=== PATIENT | female | born 1985 | race African-American/Black ===

== ENCOUNTER → 2016-07-04 | Outpatient (CLI) | payer MEDICAID ==
[~2016-07-04] MED LIST: /DIVA50TA PO; ACET50TA PO; BUSP5TA PO; CELE40TA PO; CLON-412 PO; DEPA500T2 PO; METH10TA2 PO; MOTR200T44 PO; MULT1TAB8 PO; NEUR800T PO; PAXI10TA2 PO; TRAZ50TA2 PO; no home medications
== END | disposition home or self-care (01) ==
LOC: M OUTALCOH 09:35
PROVIDERS: ATTEND Psychiatry & Neurology Psychiatry
DX: Z13.9 Encounter for screening, unspecified (principal); F11.20 Opioid dependence, uncomplicated

== ENCOUNTER → 2016-07-17 | Outpatient (CLI) | payer OTHER ==
[2016-07-17 18:30] LABS: ALBUMIN 3.6 GM/DL (3.2-5.2); ALBUMIN/GLOBULIN RATIO 0.95 (1.00-1.93); ALKALINE PHOSPHATASE 125 U/L (45-117); ALT/SGPT 67 U/L (12-78); AST/SGOT 17 U/L (15-37); BILIRUBIN,DIRECT < 0.1 MG/DL (0.0-0.2); BILIRUBIN,TOTAL 0.2 MG/DL (0.2-1.0); TOTAL PROTEIN 7.4 GM/DL (6.4-8.2)
== END | disposition home or self-care (01) ==
LOC: M LAB 16:56
PROVIDERS: ATTEND Nurse Practitioner Family
DX: R74.8 Abnormal levels of other serum enzymes (principal); E55.9 Vitamin D deficiency, unspecified

== ENCOUNTER → 2016-08-04 | Outpatient (CLI) | payer OTHER | LOC: M OUTALCOH 14:49 | PROVIDERS: ATTEND Psychiatry & Neurology Psychiatry | DX: Z13.9 Encounter for screening, unspecified (principal); F11.20 Opioid dependence, uncomplicated ==

== ENCOUNTER 2016-08-17 10:30 | Outpatient (RCR) | payer OTHER | END 2016-09-08 | LOC: M OUTALCOH 10:30 | PROVIDERS: ATTEND Psychiatry & Neurology Psychiatry | DX: F11.20 Opioid dependence, uncomplicated (principal); Z72.0 Tobacco use ==

== ENCOUNTER → 2016-10-30 | Outpatient (CLI) | payer OTHER ==
[2016-10-30 18:48] LABS: ALBUMIN 3.3 GM/DL (3.2-5.2); ALBUMIN/GLOBULIN RATIO 0.92 (1.00-1.93); ALKALINE PHOSPHATASE 110 U/L (45-117); ALT/SGPT 45 U/L (12-78); ANION GAP 7 MEQ/L (8-16); AST/SGOT 17 U/L (15-37); BILIRUBIN,TOTAL 0.2 MG/DL (0.2-1.0); BLOOD UREA NITROGEN 12 MG/DL (7-18); CALCIUM LEVEL 8.2 MG/DL (8.5-10.1); CARBON DIOXIDE LEVEL 28 MEQ/L (21-32); CHLORIDE LEVEL 106 MEQ/L (98-107); CHOLESTEROL LEVEL 218 MG/DL (<200); GLOMERULAR FILTRATION RATE > 60.0 (>60); GLUCOSE, FASTING 92 MG/DL (70-105); POTASSIUM SERUM 4.7 MEQ/L (3.5-5.1); SODIUM LEVEL 141 MEQ/L (136-145); TOTAL PROTEIN 6.9 GM/DL (6.4-8.2); TRIGLYCERIDES LEVEL 328 MG/DL (<150)
== END ==
LOC: M LAB 16:27
PROVIDERS: ATTEND Nurse Practitioner Family
DX: R35.1 Nocturia (principal); R10.2 Pelvic and perineal pain; R74.8 Abnormal levels of other serum enzymes; E78.5 Hyperlipidemia, unspecified; E55.9 Vitamin D deficiency, unspecified

== ENCOUNTER → 2016-11-03 | Outpatient (CLI) | payer OTHER ==
--- NOTE | 2016-11-03 15:25 | REP ---
Clinical: Multinodular goiter. Comparison: 09/04/2013. Technique: Real time rivera scale and color evaluation using linear high frequency transducer. Findings: The thyroid gland is diffusely heterogeneous, enlarged and demonstrates multiple scattered nodules and cysts. Right lobe measures 6.1 x 2.3 x 1.9 cm and includes a 4.0 x 3.2 x 4.4 mm nodule in the upper pole and the 15 x 10 x 14 mm nodule in the lower pole which is minimally increased in size (previously measuring 12 x 9 x 10 mm). Isthmus measures 7.5 mm in with and includes a complex cyst measuring 15 x 9 x 16 mm which is minimally increased from prior examination (previously measuring 10 x 6 x 9 mm). Left lobe measures 6.4 x 2.4 x 2.2 cm with multiple small scattered cysts and nodules. Largest nodule noted in the mid pole measures 6 x 3 x 6 mm. Impression: Multinodular goiter with the most prominent nodule in the right lower lobe and complex cyst in the isthmus minimally enlarged from prior examination. Signed by Mik Mcgraw MD 11/03/2016 03:17 P
== END ==
LOC: M RAD 14:32
PROVIDERS: ATTEND Nurse Practitioner Family
DX: E04.2 Nontoxic multinodular goiter (principal)

== ENCOUNTER 2016-11-28 21:58 | Emergency (ER) | payer OTHER ==
[~2016-11-28] VITALS: Ht 165.1 cm; Wt 119.0 kg
[2016-11-28 22:07] VITALS: BP 153/97
[2016-11-28] MEDS ORDERED: SUBO8MIS (22:12)
[2016-11-28] MEDS ORDERED: VITA50003 (22:12)
[2016-11-28] MEDS ORDERED: MIRT45TA (22:12)
[2016-11-28] MEDS ORDERED: CLON0.2T (22:12)
[2016-11-28] MEDS ORDERED: EXCETAB68 PO (22:12)
== END 2016-11-28 23:53 | disposition left against medical advice (07) ==
LOC: M ED 23:48
DX: M79.601 Pain in right arm (principal); Z53.29 Procedure and treatment not carried out because of patient's decision for other reasons

== ENCOUNTER → 2017-02-16 | Outpatient (REF) | payer OTHER ==
[~2017-02-16] MED LIST changes: +CLON0.2T; +EXCETAB68 PO; +MIRT45TA; +SUBO8MIS; +VITA1CAP40
[2017-02-19 15:11] LABS: CALCIUM OXALATE CRYSTALS MODERATE
== END ==
LOC: M LAB REF 12:54
PROVIDERS: ATTEND Family Medicine Addiction Medicine
DX: R10.2 Pelvic and perineal pain (principal)

== ENCOUNTER → 2017-03-02 | Outpatient (CLI) | payer OTHER | LOC: M LAB 21:16 | PROVIDERS: ATTEND Physician Assistant | DX: N20.0 Calculus of kidney (principal) ==

== ENCOUNTER → 2017-03-21 | Outpatient (CLI) | payer OTHER ==
[2017-03-21 14:46] LABS: BASO % 0.3 % (0.0-1.0); EOS # 0.1 10^3/uL (0.0-0.50); IMMATURE GRANULOCYTE % 0.2 % (0-0); LYMPH # 3.4 10^3/uL (1.5-6.5); LYMPH % 50.9 % (24.0-44.0); MEAN CORPUSCULAR HEMOGLOBIN 28.5 pg (27.0-33.0); MEAN CORPUSCULAR HGB CONC 32.4 g/dl (32.0-36.5); MONO # 0.3 10^3/uL (0.0-0.8); MONO % 5.1 % (0.0-5.0); NEUTROPHILS # 2.8 10^3/uL (1.8-7.7); NEUTROPHILS % 41.5 % (36.0-66.0); PLATELET COUNT, AUTOMATED 187 10^3/uL (150-450); RED CELL DISTRIBUTION WIDTH 13.2 % (11.5-14.5); WHITE BLOOD COUNT 6.6 10^3/uL (4.0-10.0)
[2017-03-21 15:37] LABS: ALBUMIN 3.6 GM/DL (3.2-5.2); ALBUMIN/GLOBULIN RATIO 0.92 (1.00-1.93); ALKALINE PHOSPHATASE 91 U/L (45-117); ALT/SGPT 65 U/L (12-78); ANION GAP 4 MEQ/L (8-16); AST/SGOT 32 U/L (15-37); BILIRUBIN,TOTAL 0.4 MG/DL (0.2-1.0); BLOOD UREA NITROGEN 9 MG/DL (7-18); CALCIUM LEVEL 8.5 MG/DL (8.5-10.1); CARBON DIOXIDE LEVEL 28 MEQ/L (21-32); CHLORIDE LEVEL 108 MEQ/L (98-107); CREATININE FOR GFR 1.09 MG/DL (0.55-1.02); GLOMERULAR FILTRATION RATE > 60.0 (>60); GLUCOSE, FASTING 69 MG/DL (70-105); POTASSIUM SERUM 4.4 MEQ/L (3.5-5.1); SODIUM LEVEL 140 MEQ/L (136-145); TOTAL PROTEIN 7.5 GM/DL (6.4-8.2)
--- NOTE | 2017-03-22 10:03 | REP ---
Clinical: Pelvic pain . Technique: Transabdominal pelvic ultrasound followed by transvaginal examination for better evaluation of the endometrium and adnexa with color Doppler evaluation of the ovaries. Findings: Bladder is unremarkable and measures 6.7 x 6.1 x 4.0 cm . Heterogeneous retroverted uterus measures 9.2 x 5.0 x 6.1 cm . The endometrial complex measures 9.1 mm thickness. No discrete uterine or endometrial abnormalities are appreciated. Bilateral ovaries are normal in appearance and vascularity without evidence for torsion. Right ovary measures 3.2 x 3.2 x 4.0 cm including 2.6 cm hemorrhagic cyst ; R I = 0.0.51. Left ovary measures 4.0 x 3.0 x 3.5 cm including 1.8 cm hemorrhagic cyst ; R I = 0.47 . No pelvic fluid or adnexal mass lesion . Impression: 1. Retroverted uterus. 2. Normal bilateral ovaries without torsion. 3. Normal pelvic ultrasound. Signed by Mik Mcgraw MD 03/22/2017 09:54 A
--- NOTE | 2017-03-22 10:04 | REP ---
Clinical: Left upper quadrant pain. Technique: Real time rivera scale ultrasound examination using curved array transducer. Findings: Ultrasound examination of the left upper quadrant demonstrates normal spleen and left kidney. Spleen measures 9.8 x 4.3 x 12.8 cm. Left kidney measures 11.1 x 5.0 x 4.2 cm. No fluid in the left upper quadrant noted. Impression: Normal left upper quadrant ultrasound. Signed by Mik Mcgraw MD 03/22/2017 09:56 A
== END ==
LOC: M LAB 09:32
PROVIDERS: ATTEND Nurse Practitioner Adult Health
DX: E78.5 Hyperlipidemia, unspecified (principal); R35.1 Nocturia; R74.8 Abnormal levels of other serum enzymes; E55.9 Vitamin D deficiency, unspecified

== ENCOUNTER → 2017-03-21 | Outpatient (CLI) | payer OTHER ==
[2017-03-21 15:51] LABS: FREE T4 1.1 NG/DL (0.76-1.46)
== END ==
LOC: M LAB 10:42
PROVIDERS: ATTEND Nurse Practitioner Family
DX: E04.2 Nontoxic multinodular goiter (principal); R79.89 Other specified abnormal findings of blood chemistry; E55.9 Vitamin D deficiency, unspecified

== ENCOUNTER → 2017-03-26 | Outpatient (REF) | payer OTHER | LOC: M LAB REF 16:25 | PROVIDERS: ATTEND Internal Medicine Endocrinology, Diabetes & Metabolism | DX: E04.2 Nontoxic multinodular goiter (principal) ==

== ENCOUNTER 2018-07-03 08:19 | Emergency (ER) | payer OTHER ==
[~2018-07-03] VITALS: Ht 162.6 cm; Wt 100.0 kg
[2018-07-03 08:19] VITALS: BP 131/81
[~2018-07-03 08:19] MED LIST changes: -ACET50TA PO; +MAPA500T2 PO; -MIRT45TA; +MIRT45TA4; -VITA1CAP40; +VITA50005
[2018-07-03] MEDS ORDERED: TRAZ-163 PO (08:24)
== END 2018-07-03 09:31 | disposition left against medical advice (07) ==
LOC: M ED 08:19
DX: R10.2 Pelvic and perineal pain (principal); N89.8 Other specified noninflammatory disorders of vagina; F17.210 Nicotine dependence, cigarettes, uncomplicated; F32.9 Major depressive disorder, single episode, unspecified; F41.9 Anxiety disorder, unspecified; E04.9 Nontoxic goiter, unspecified

== ENCOUNTER → 2019-06-16 | Outpatient (REF) | payer OTHER, MEDICAID ==
[~2019-06-16] MED LIST changes: -/DIVA50TA PO; +DEPA1TAB3 PO; +TRAZ-163 PO
[2019-06-16 13:55] LABS: BLOOD UREA NITROGEN 14 MG/DL (7-18); CARBON DIOXIDE LEVEL 25 MEQ/L (21-32); CHLORIDE LEVEL 105 MEQ/L (98-107); CREATININE FOR GFR 1.01 MG/DL (0.55-1.30); GLOMERULAR FILTRATION RATE > 60.0 (>60); GLUCOSE, FASTING 81 MG/DL (70-100); POTASSIUM SERUM 4.4 MEQ/L (3.5-5.1); PROLACTIN 3.5 NG/ML; SODIUM LEVEL 139 MEQ/L (136-145); THYROID STIMULATING HORMONE 0.536 uIU/ML (0.358-3.740)
[2019-06-16 14:15] LABS: CHLAMYDIA DNA AMPLIFICATION NEGATIVE (NEGATIVE); GC DNA AMPLIFICATION NEGATIVE (NEGATIVE)
== END ==
LOC: M LAB REF 12:18
PROVIDERS: ATTEND Physician Assistant
DX: N64.52 Nipple discharge (principal); Z11.3 Encounter for screening for infections with a predominantly sexual mode of transmission; Z12.4 Encounter for screening for malignant neoplasm of cervix; Z12.39 Encounter for other screening for malignant neoplasm of breast; Z01.419 Encounter for gynecological examination (general) (routine) without abnormal findings

== ENCOUNTER → 2019-07-17 | Outpatient (REF) | payer OTHER, MEDICAID ==
[~2019-07-17] MED LIST changes: -TRAZ-163 PO; +TRAZ-257 PO
[2019-07-17 16:40] LABS: CHLAMYDIA DNA AMPLIFICATION NEGATIVE (NEGATIVE); GC DNA AMPLIFICATION NEGATIVE (NEGATIVE)
== END ==
LOC: M LAB REF 14:37
PROVIDERS: ATTEND Physician Assistant
DX: R30.0 Dysuria (principal)

== ENCOUNTER → 2019-10-06 | Outpatient (REF) | payer OTHER, MEDICAID | LOC: M LAB REF 15:40 | PROVIDERS: ATTEND Physician Assistant | DX: N89.8 Other specified noninflammatory disorders of vagina (principal) ==

== ENCOUNTER → 2019-11-24 | Outpatient (CLI) | payer OTHER, MEDICAID ==
[2019-11-24 14:51] LABS: FREE T4 0.95 NG/DL (0.76-1.46); THYROGLOBULIN ANTIBODY < 15.0 U/ML (<60.0); THYROID STIMULATING HORMONE 0.536 uIU/ML (0.358-3.740)
[2019-11-24 16:15] LABS: THYROID PEROXIDASE ANTIBODY 41.5 U/ML (<60.0)
== END ==
LOC: M LAB 13:41
PROVIDERS: ATTEND Physician Assistant
DX: G47.00 Insomnia, unspecified (principal); E04.0 Nontoxic diffuse goiter; N89.8 Other specified noninflammatory disorders of vagina

== ENCOUNTER → 2020-02-21 | Outpatient (CLI) | payer OTHER ==
[~2020-02-21] MED LIST changes: +KETO10TAB PO
--- NOTE | 2020-02-26 17:30 | SLEEPCENT ---
DATE: 02/21/2020 ORDERED BY: Lilia Almazan NP Nocturnal polysomnography was performed for evaluation of sleep physiology in this patient with snoring and dyssomnia. Seven hours and 24 minutes of data were reviewed. There was 324.5 minutes of sleep identified. Sleep latency was mildly prolonged at 18.5 minutes. REM latency was further prolonged at 249 minutes. Sleep architecture once established was fairly normal. Two REM cycles were appreciated though they were brief in duration. Overall sleep efficiency was 74.6%. The electrocardiogram showed a sinus rhythm with an average heart rate of 64 beats per minute. EEG showed fairly normal waveforms for wake and sleep. There were only 6 respiratory events identified of 10 seconds in duration or greater for an apnea-hypopnea index well within normal limits at 1.1. Some snoring was appreciated. Respiratory-related arousals occurred only 0.6 times per hour. There was little activity in the limb leads and oxygen saturations remained normal. IMPRESSION: Normal nocturnal polysomnogram with snoring. [facility]
== END ==
LOC: M SLEEP 20:00
PROVIDERS: ATTEND Nurse Practitioner Adult Health
DX: R06.83 Snoring (principal)

== ENCOUNTER 2020-04-16 23:48 | Emergency (ER) | payer OTHER ==
[~2020-04-16] VITALS: Ht 162.6 cm; Wt 99.5 kg
[~2020-04-16 23:48] MED LIST changes: -KETO10TAB PO
[2020-04-17 00:54] LABS: BASO % 0.4 % (0.0-1.0); EOS # 0.1 10^3/uL (0.0-0.5); EOS % 1.3 % (0.0-3.0); HEMATOCRIT 43.9 % (36.0-47.0); HEMOGLOBIN 13.9 g/dl (12.0-15.5); LYMPH # 1.7 10^3/uL (1.5-5.0); LYMPH % 31.5 % (24.0-44.0); MEAN CORPUSCULAR HEMOGLOBIN 29.9 pg (27.0-33.0); MEAN CORPUSCULAR HGB CONC 31.7 g/dl (32.0-36.5); MEAN CORPUSCULAR VOLUME 94.4 fl (80.0-96.0); MONO # 0.2 10^3/uL (0.0-0.8); MONO % 4.2 % (0.0-5.0); NEUTROPHILS # 3.4 10^3/uL (1.5-8.5); NEUTROPHILS % 62.4 % (36.0-66.0); PLATELET COUNT, AUTOMATED 188 10^3/uL (150-450); RED BLOOD COUNT 4.65 10^6/uL (4.00-5.40); WHITE BLOOD COUNT 5.5 10^3/uL (4.0-10.0)
[2020-04-17 01:04] LABS: INR 0.95; PROTHROMBIN TIME 12.9 SECONDS (12.5-14.3)
[2020-04-17] MEDS ORDERED: diphenhydrAMINE 50MG/ML VIAL (J1200) IV ONE (01:15)
[2020-04-17] MEDS ORDERED: KETOROLAC 30 MG/ML 1ML VIAL IV ONE (01:15)
[2020-04-17] MEDS ORDERED: ACETAMINOPHEN 500 MG TAB PO ONE (01:15)
[2020-04-17] MEDS ORDERED: NS 1,000 ML IV ONE (01:15)
[2020-04-17] MEDS ORDERED: METOCLOPRAMIDE INJ 10MG/2ML VIAL (J2765 PER 1) IV ONE (01:15)
[2020-04-17 01:26] LABS: ALBUMIN 3.9 GM/DL (3.2-5.2); BILIRUBIN,DIRECT 0.1 MG/DL (0.0-0.2); BILIRUBIN,TOTAL 0.4 MG/DL (0.2-1.0); FREE T4 1.17 NG/DL (0.76-1.46); THYROID STIMULATING HORMONE 0.156 uIU/ML (0.358-3.740); TOTAL PROTEIN 7.6 GM/DL (6.4-8.2)
--- NOTE | 2020-04-17 01:51 | REPVR ---
PROCEDURE INFORMATION: Exam: XR Chest, 1 View Exam date and time: 04/17/2020 1:29 AM Age: 35 years old Clinical indication: Chest pain TECHNIQUE: Imaging protocol: XR of the chest Views: 1 view. COMPARISON: No relevant prior studies available. FINDINGS: Lungs: Unremarkable. No consolidation. No pulmonary edema. Pleural space: Unremarkable. No pleural effusion or pneumothorax is identified. Heart/Mediastinum: Unremarkable. No cardiomegaly. Bones/joints: Unremarkable. IMPRESSION: No acute findings. Electronically signed by: Joaquín Corrigan On 04/17/2020 01:50:42 AM
[2020-04-17 05:00] VITALS: BP 109/57
[2020-04-17] MEDS ORDERED: METAL LOCK LOOP XX ONE (05:20)
[2020-04-17] MEDS ORDERED: KETO10TAB PO (05:26)
--- NOTE | 2020-04-17 17:00 | ECGEPIP ---
[facility] - ED Test Date: 2020-04-17 Pat Name: KLEVER LANGLEY Department: Room: - Gender: Female Eye Physician: ilana : 1985 Requested By: MORGAN Haas Order Number: [id number] Reading MD: Gaye Raphael Measurements Intervals [place] Rate: 90 P: 0 VA: 131 QRS: 30 QRSD: 84 T: 26 QT: 344 QTc: 421 Interpretive Statements SINUS RHYTHM NO PRIOR Electronically Signed on 04-17-2020 17:00:50 EST by Gaye Raphael
== END 2020-04-17 05:57 | disposition home or self-care (01) ==
LOC: M ED 23:48
DX: G43.909 Migraine, unspecified, not intractable, without status migrainosus (principal); R07.9 Chest pain, unspecified; E04.9 Nontoxic goiter, unspecified; F41.9 Anxiety disorder, unspecified; F32.9 Major depressive disorder, single episode, unspecified; F17.200 Nicotine dependence, unspecified, uncomplicated; Z79.899 Other long term (current) drug therapy
CPT/HCPCS: 71045; 80047; 80076; 83690; 83880; 84439; 84443; 84702; 85025; 85610; 85730; 93005; 93041; 94760; 96361; 96374; 96375; 99285; J1200; J1885; J2765

== ENCOUNTER → 2020-08-23 | Outpatient (REF) | payer OTHER ==
[~2020-08-23] MED LIST changes: +KETO10TAB PO
[2020-08-23 17:40] LABS: BASO % 0.7 % (0.0-1.0); EOS # 0.1 10^3/uL (0.0-0.5); HEMATOCRIT 42.8 % (36.0-47.0); HEMOGLOBIN 13.7 g/dl (12.0-15.5); LYMPH # 2.2 10^3/uL (1.5-5.0); LYMPH % 54.1 % (24.0-44.0); MEAN CORPUSCULAR VOLUME 93.7 fl (80.0-96.0); MONO # 0.2 10^3/uL (0.0-0.8); MONO % 5.7 % (2.0-8.0); NEUTROPHILS # 1.5 10^3/uL (1.5-8.5); NEUTROPHILS % 37.3 % (36.0-66.0); PLATELET COUNT, AUTOMATED 209 10^3/uL (150-450); RED BLOOD COUNT 4.57 10^6/uL (4.00-5.40); WHITE BLOOD COUNT 4.1 10^3/uL (4.0-10.0)
[2020-08-23 18:21] LABS: ALBUMIN 3.9 GM/DL (3.2-5.2); ALT/SGPT 32 U/L (12-78); BILIRUBIN,TOTAL 0.3 MG/DL (0.2-1.0); BLOOD UREA NITROGEN 15 MG/DL (7-18); CALCIUM LEVEL 8.8 MG/DL (8.5-10.1); CARBON DIOXIDE LEVEL 26 MEQ/L (21-32); CHLORIDE LEVEL 111 MEQ/L (98-107); CHOLESTEROL LEVEL 241 MG/DL (<200); CHOLESTEROL RISK RATIO 3.651 (<5); CREATININE FOR GFR 1.03 MG/DL (0.55-1.30); GLOMERULAR FILTRATION RATE > 60.0 (>60); GLUCOSE, FASTING 80 MG/DL (70-100); HDL CHOLESTEROL 66 MG/DL (>40); LDL CHOLESTEROL 159 MG/DL (<100); NON-HDL-C 175 MG/DL; POTASSIUM SERUM 4.8 MEQ/L (3.5-5.1); SODIUM LEVEL 141 MEQ/L (136-145); THYROID STIMULATING HORMONE 0.358 uIU/ML (0.358-3.740); TOTAL 25(OH) VITAMIN D 33.2 NG/ML (30.0-100.0); TOTAL PROTEIN 7.4 GM/DL (6.4-8.2); TRIGLYCERIDES LEVEL 81 MG/DL (<150)
== END ==
LOC: M LAB REF 16:43
PROVIDERS: ATTEND Pediatrics
DX: E78.5 Hyperlipidemia, unspecified (principal); E55.9 Vitamin D deficiency, unspecified; E04.2 Nontoxic multinodular goiter; E88.81 Metabolic syndrome and other insulin resistance; I10 Essential (primary) hypertension

== ENCOUNTER 2020-10-23 10:53 | Emergency (ER) | payer OTHER ==
[~2020-10-23] VITALS: Ht 162.6 cm; Wt 93.2 kg
[2020-10-23 10:58] VITALS: BP 117/71
[2020-10-23] MEDS ORDERED: FLUORESCEIN OPHTH 1 MG STRIP OD ONE (11:15)
[2020-10-23] MEDS ORDERED: TETRACAINE 0.5% OPHTH SOLN 4ML OD ONE (11:15)
[2020-10-23] MEDS ORDERED: CIPROFLOXACIN 0.3% OPHTH SOLN 2.5ML OD ONE (11:30)
== END 2020-10-23 11:51 | disposition home or self-care (01) ==
LOC: EDBD 10:53 → M ED 10:53
DX: S05.01XA Injury of conjunctiva and corneal abrasion without foreign body, right eye, initial encounter (principal); X58.XXXA Exposure to other specified factors, initial encounter; Y92.89 Other specified places as the place of occurrence of the external cause; G43.909 Migraine, unspecified, not intractable, without status migrainosus

== ENCOUNTER → 2020-12-31 | Outpatient (REF) | payer OTHER ==
[2020-12-31 13:21] LABS: APPEARANCE, URINE HAZY (CLEAR); BACTERIA, URINE AUTO 2+ (NEGATIVE); BILIRUBIN, URINE AUTO NEGATIVE (NEGATIVE); BLOOD, URINE BLOOD 1+ (NEGATIVE); COLOR, URINE YELLOW (YELLOW); GLUCOSE, URINE (UA) AUTO NEGATIVE (NEGATIVE); KETONE, URINE AUTO NEGATIVE (NEGATIVE); LEUKOCYTE ESTERASE, URINE AUTO 2+ (NEGATIVE); NITRITE, URINE AUTO NEGATIVE (NEGATIVE); PROTEIN, URINE AUTO NEGATIVE (NEGATIVE); RBC, URINE AUTO 3 /HPF (0-3); SPECIFIC GRAVITY URINE AUTO 1.023 (1.002-1.035); SQUAMOUS EPITHELIAL CELL UR AU 1 /HPF (0-6); UROBILINOGEN, URINE AUTO 0.2 mg/dL (0.0-2.0); WBC, URINE AUTO 47 /HPF (0-3)
[2020-12-31 15:01] LABS: GC DNA AMPLIFICATION NEGATIVE (NEGATIVE)
== END ==
LOC: M LAB REF 12:55
PROVIDERS: ATTEND Physician Assistant
DX: N39.0 Urinary tract infection, site not specified (principal)

== ENCOUNTER → 2021-01-19 | Outpatient (REF) | payer OTHER ==
[~2021-01-19] MED LIST changes: +METH-1177 PO; -METH10TA2 PO
[2021-01-19 23:09] LABS: GC DNA AMPLIFICATION NEGATIVE (NEGATIVE)
== END ==
LOC: M LAB REF 21:17
PROVIDERS: ATTEND Physician Assistant
DX: Z11.3 Encounter for screening for infections with a predominantly sexual mode of transmission (principal)

== ENCOUNTER 2021-02-26 17:08 | Emergency (ER) | payer OTHER ==
[~2021-02-26] VITALS: Ht 162.6 cm; Wt 89.5 kg
[2021-02-26] MEDS ORDERED: ISOVUE-370 76% 100ML VIAL As Ordered ONE (17:18)
[2021-02-26 18:08] VITALS: BP 132/86
== END 2021-02-26 18:44 | disposition home or self-care (01) ==
LOC: M ED 17:08
DX: S00.93XA Contusion of unspecified part of head, initial encounter (principal); S10.93XA Contusion of unspecified part of neck, initial encounter; S20.219A Contusion of unspecified front wall of thorax, initial encounter; Y04.8XXA Assault by other bodily force, initial encounter; Y07.59 Other non-family member, perpetrator of maltreatment and neglect; Y92.009 Unspecified place in unspecified non-institutional (private) residence as the place of occurrence of the external cause; Y93.9 Activity, unspecified; Y99.9 Unspecified external cause status; E04.1 Nontoxic single thyroid nodule
CPT/HCPCS: 70450; 70491; 99284; Q9967

== ENCOUNTER 2021-04-20 11:19 | Emergency (ER) | payer OTHER ==
[~2021-04-20] VITALS: Ht 162.6 cm; Wt 81.8 kg
[2021-04-20 11:19] VITALS: BP 144/90
--- OUTSIDE RECORDS SUMMARY | 2021-04-20 11:26 | CCD ---
Author Organization Unknown Address [address] [place] [address] Phone [phone] Care Team Providers Care E Commerce Merchandising Coordinator Name Role Phone JESS FLETCHER MD 119 [phone] [facility] TREATMENT OF ADDICTIONS [facility] 113 [phone] Allergies Code Code System Name Reaction Severity Status Onset NKDA Medications Name Status Start Date Stop Date alprazolam 0.5 mg tablet TAKE ONE TABLET BY MOUTH TWICE A DAY MAXIMUM DAILY DOSE 2 Active Not available bupropion HCl SR 150 mg tablet,12 hr sustained-release Completed 08/16/2020 buspirone 15 mg tablet TAKE ONE TABLET BY MOUTH EVERY 8 HOURS Completed 03/14/2021 buspirone 7.5 mg tablet TAKE ONE TABLET BY MOUTH NEEDED AND TWO TABLETS IF NEEDED MAXIMUM DAILY DOSE 2 TABLETS Active Not available CeraVe topical cream Apply 1 application twice a day by topical route. Active Not available clonidine HCl 0.2 mg tablet TAKE ONE TABLET BY MOUTH AT BEDTIME Completed 09/2020 escitalopram 10 mg tablet TAKE ONE TABLET BY MOUTH AT BEDTIME STOP TRAZADONE Active Not available fluconazole 150 mg tablet TAKE ONE TABLET BY MOUTH ONCE AND TAKE 2ND TABLET IN 48 HOURS Completed 03/14/2021 ketorolac 10 mg tablet Completed metronidazole 0.75 % vaginal gel INSERT 1 APPLICATORFUL INTRAVAGINALLY ONCE DAILY AT BEDTIME FOR 5 DAYS Completed 03/14/2021 metronidazole 500 mg tablet TAKE ONE TABLET BY MOUTH TWICE A DAY FOR 7 DAYS Completed 03/14/2021 New Day 1.5 mg tablet TAKE DIRECTED Completed 03/14/2021 nicotine 21 mg/24 hr daily transdermal p atch APPLY ONE PATCH TO SKIN ONCE DAILY Active Not available nitrofurantoin monohydrate/macrocrystals 100 mg capsule TAKE ONE CAPSULE BY MOUTH TWO TIMES A DAY FOR 7 DAYS Completed 03/14/2021 Suboxone 8 mg-[address] ONE FILM UNDER THE TONGUE EVERY DAY MAXIMUM DAILY DOSE 1 FILM Active Not available terconazole 0.8 % vaginal cream INSERT ONE APPLICATORFUL VAGINALLY ONCE DAILY AT BEDTIME Completed 03/14/2021 trazodone 100 mg tablet TAKE ONE TABLET BY MOUTH AT BEDTIME Active Not available trazodone 150 mg tablet TAKE ONE TABLET BY MOUTH EVERY DAY AT BEDTIME Active Not available Problems Name Status Onset Date Source SNOMED CT Concept Unknown 11/12/2013 History Non-toxic Multinodular Goiter Active 03/03/2014 Hi story Vitamin D Deficiency Active 03/09/2015 History Anemia Active 03/09/2015 History Insomnia Active 03/09/2015 History Arthropathy Active 03/09/2015 History Finding Related to Sleep Unknown 03/09/2015 History Psychoactive Substance Abuse Active 03/31/2015 His tory Tobacco User Unknown 04/27/2016 History Hyperlipidemia Active 07/10/2016 History Nocturia Active 08/30/2016 History Finding of Pattern of Menstrual Cycle Unknown 08/30/2016 History Pelvic and Perineal Pain Unknown 08/30/2016 History Evaluation Finding Unknown 08/30/2016 History Metabolic Syndrome X Active 11/01/2016 History Exposure to Second Hand Tobacco Smoke Active 11/01/2016 History Body Mass Index 30+ - Obesity Active 03/15/2017 Hi story Severe Obesity Active 03/15/2017 History Left Upper Quadrant Pain Unknown 03/15/2017 History Hypertensive Disorder Unknown 12/05/2018 History Clinical Finding Unknown 12/05/2018 History Screening for Malignant Neoplasm of Cervix Unknown 02/[address] Concept Unknown 06/16/2019 History Breast Neoplasm Screening Status Unknown 06/16/2019 History Syphilis Test Finding Unknown 06/16/2019 History Mixed Anxiety and Depressive Disorder Active 10/06/2019 History Diffuse Goiter Unknown 11/14/2019 History Pain in Right Knee Unknown 11/14/2019 History Severe Recurrent Major Depression without Psychotic Features Act j luis 01/22/2020 History Generalized Anxiety Disorder Active 01/22/2020 His tory Retained Dental Root Unknown 01/22/2020 History Opioid Dependence in Remission Active 01/27/2020 H istory Nicotine Dependence Active 03/09/2021 Procedures Notes: D&C, cervical scraping for abnorm al pap ~2016 Results Lab Results Date Name Specimen Result Interpretation Description Value Range Status Address 08/23/2020 CBC W/ Auto Diff Normal White Blood Count 4.1 10 4.0-10.0 10 Final [facility]: [address] [facility] Normal Red Blood Count 4.57 10 4.00-5.40 10 [facility]: [address] [facility] Normal Hemoglobin 13.7 g/dL 12.0-15.5 g/dL [facility]: [address] [facility] Normal Hematocrit 42.8 % 36.0-47.0 % [facility]: [address] [facility] Normal Mean Corpuscular Volume 93.7 fL 80.0 -96.0 fL [facility]: [address] [place] [address] Normal Mean Corpuscular Hemoglobin 30.0 pg 27.0-33.0 pg [facility]: [address] [place] [address] Normal Mean Corpuscular HGB Conc 32.0 g/dL 32.0-36.5 g/dL [facility]: [address] [place] [address] Normal Red Cell Distribution Width 12.2 % 1 1.5-14.5 % [facility]: [address] [place] [address] Normal Platelet Count, Automated 209 10 150 -450 10 [facility]: [address] [facility] Normal Neutrophils % 37.3 % 36.0-66.0 % [facility]: [address] [facility] High Lymph % 54.1 % 24.0-44.0 % [facility]: [address] [facility] Normal [place] % 5.7 % 2.0-8.0 % [facility]: [address] [facility] Normal Eos % 2.0 % 0.0-3.0 % [facility]: [address] [facility] Normal Baso % 0.7 % 0.0-1.0 % [facility]: 0 [facility] Normal Immature Granulocyte % 0.2 % 0-3.0 % [facility]: [address] [place] [address] Normal Nucleated Red Blood Cell % 0.0 % 0- 0 % [facility]: [address] [place] [address] Normal Neutrophils # 1.5 10 1.5-8.5 10 [facility]: [address] [facility] Normal Lymph # 2.2 10 1.5-5.0 10 [facility]: [address] [facility] Normal Fulton # 0.2 10 0.0-0.8 10 [facility]: [address] [facility] Normal Eos # 0.1 10 0.0-0.5 10 [facility]: [address] [facility] Normal Baso # 0.0 10 0.0-0.2 10 [facility]: [address] [facility] 08/23/2020 HbA1C (Hemoglobin a1C), Blood Normal Hemogl obin a1C 5.0 % [facility]: [address] [facility] Normal Estimated Average Glucose 97 mg/dL 6 0-110 mg/dL [facility]: 0 [facility] 08/23/2020 CMP, Serum or Plasma Normal Glucose, Fastin g 80 mg/dL 70-100 mg/dL [facility]: 83 0 [facility] Normal Blood Urea Nitrogen 15 mg/dL 7-18 mg /dL [facility]: 0 [facility] Normal Creatinine for GFR 1.03 mg/dL 0.55-1 .30 mg/dL [facility]: 0 [facility] Normal Glomerular Filtration Rate > 60.0 >6 0 [facility]: [address] [facility] Normal Sodium Level 141 mEq/L 136-145 mEq/L [facility]: 0 [facility] Normal Potassium Serum 4.8 mEq/L 3.5-5.1 mE q/L [facility]: 0 [facility] High Chloride Level 111 mEq/L 98-107 mEq/ L [facility]: 0 [facility] Normal Carbon Dioxide Level 26 mEq/L 21-32 mEq/L [facility]: 0 [facility] Low Anion Gap 4 mEq/L 8-16 mEq/L [facility]: [address] [facility] Normal Calcium Level 8.8 mg/dL 8.5-10.1 mg/ dL [facility]: [address] [facility] Normal AST/SGOT 12 U/L 7-37 U/L [facility]: [address] [facility] Normal ALT/SGPT 32 U/L 12-78 U/L [facility]: [address] [facility] Normal Alkaline Phosphatase 72 U/L 45-117 U /L [facility]: [address] [facility] Normal Bilirubin,total 0.3 mg/dL 0.2-1.0 mg /dL [facility]: [address] [facility] Normal Total Protein 7.4 gm/dL 6.4-8.2 gm/d L [facility]: [address] [facility] Normal Albumin 3.9 gm/dL 3.2-5.2 gm/dL Lucille l [facility]: [address] [facility] Low Albumin/globulin Ratio 1.1 1.2-2. 2 [facility]: [address] [facility] 08/23/2020 Lipid Panel, Blood Normal Triglycerides Lev el 81 mg/dL <150 mg/dL [facility]: [address] 0 [facility] High Cholesterol Level 241 mg/dL <200 mg/ dL [facility]: [address] [facility] Normal HDL Cholesterol 66 mg/dL >40 mg/dL F inal [facility]: [address] [facility] High LDL Cholesterol 159 mg/dL <100 mg/dL [facility]: [address] [facility] Normal Non-hdl-c 175 mg/dL [facility]: [address] [facility] Normal Cholesterol Risk Ratio 3.651 <5 [facility]: [address] [facility] 08/23/2020 TSH, Serum or Plasma Normal Thyroid Stimulating Hormone 0.358 uIU/mL 0.358-3.740 uIU/mL [facility] nter: [address] [facility] 08/23/2020 Vitamin D, 25-Hydroxy, Total, Serum Normal Total 25(Oh) Vitamin D 33.2 NG/mL 30.0-100.0 NG/mL Final [facility] Center: [address] [facility] 04/17/2020 Istat B-HCG Normal Istat B-HCG < 5.0 F inal [facility]: [address] [facility] Past Encounters 03/24/2021 Dav Riley MD: [address] [place] [phone], Ph. 03/14/2021 Severe Obesity; Nicotine Dependence; Non-toxic Multinodular Goiter; Immunization Advised; Dry Skin; Multiple Joint Pain Eunice Sexton MD: [address] [place] [phone], Ph. 01/03/2021 Administration of SARS-CoV-2 Antigen Vaccine BRAD Mathias: [address] [place] [phone], Ph. 08/23/2020 Eunice Sexton MD: [address] [place] [phone], Ph. 08/16/2020 Hyperlipidemia; Hypertensive Disorder; Metabolic Syndrome X; Non-toxic Multinodular Goiter; Tobacco User; Vitamin D Deficiency; Influenza Vaccination Declined; Nicotine Dependence with Current Use; Mixed Anxiety and Depressive Disorder Eunice Sexton MD: [address] [place] [phone], Ph. 08/04/2020 Posttraumatic Stress Disorder; Generalized Anxiety Disorder; Panic Disorder; Moderate Recurrent Major Depression Nasrin Abreu MA[employer]: [address] [place] [phone], Ph. 07/28/2020 Posttraumatic Stress Disorder; Generalized Anxiety Disorder; Panic Disorder; Moderate Recurrent Major Depression CAROLANN MorganW-R: [address] [place] [phone], Ph. 07/21/2020 Posttraumatic Stress Disorder; Generalized Anxiety Disorder; Panic Disorder; Moderate Recurrent Major Depression CAROLANN MorganW-R: [address] [place] [address], Ph. 06/21/2020 Opioid Dependence in Remission; Generalized Anxiety Disorder; Posttraumatic Stress Disorder; Moderate Recurrent Major Depression CAROLANN MorganW-R: [address] [facility] [address], [place] [address], Ph. 06/08/2020 Posttraumatic Stress Disorder; Generalized Anxiety Disorder; Panic Disorder; Severe Recurrent Major Depression CAROLANN MorganW-R: [address] [facility] [facility] [address], [place] [address], Ph. 05/24/2020 Posttraumatic Stress Disorder; Generalized Anxiety Disorder; Panic Disorder; Moderate Recurrent Major Depression CAROLANN MorganW-R: [address] [facility] [facility] [address], [place] [address], Ph. 05/18/2020 Generalized Anxiety Disorder; Opioid Dependence in Remission; Posttraumatic Stress Disorder; Severe Recurrent Major Depression; Panic Disorder CAROLANN MorganW-R: [address] [facility] [facility] [address], [place] [address], Ph. 04/19/2020 Generalized Anxiety Disorder; Severe Recurrent Major Depression without Psychotic Features; Posttraumatic Stress Disorder CAROLANN MorganW-R: [address] [facility] [facility] [address], [place] [address], Ph. 04/12/2020 Generalized Anxiety Disorder; Panic Disorder; Severe Recurrent Major Depression; Posttraumatic Stress Disorder CAROLANN MorganW-R: [address], [facility] [address], [place] [address], Ph. 04/05/2020 Posttraumatic Stress Disorder; Severe Recurrent Major Depression; Generalized Anxiety Disorder CAROLANN MorganW-R: [address] [facility], [facility] [address], [place] [address], Ph. Social History Tobacco Smoking Status Heavy Tobacco Smoker (1/2 pack per a day) Vaccine List Vaccine Type COVID-19 vaccine, vector-nr, [id number], PF , 0.5 mL .5 mL Tdap 10.5 mL Plan of Care Patient Goals Increase confidence and effectiveness as an employee, while reducing overall levels of anxiety and fear. Patient Instructions Client will implement six-point massage stimulation twice daily, and Butterfly Technique PRN to improve management of anxiety and fear. Talk to new boss about her anxiety, and some need for support as she adjust to her new role. Reminders Provider Appointments None recorded. Lab None recorded. Referral None recorded. Procedures None recorded. Surgeries None recorded. Imaging None recorded. Vitals 03/24/2021 01:00PM NURSE LAB COLLECTION Height 64 in 03/14/2021 03:00PM ANNUAL EXAM Height Weight BMI Blood Pressure 64 in 192 lbs 6 oz 33 kg/m2 118/84 mm[Hg] 08/16/2020 10:20AM ANNUAL EXAM Height Weight BMI Blood Pressure 64 in 217 lbs 3.2 oz 37.3 kg/m2 124/85 mm[Hg ] 01/09/2020 Height Weight BMI Blood Pressure 64 in 208 lbs 6.08 oz 35.90 kg/m2 109/76 mm[H g] 11/14/2019 Height Weight BMI Blood Pressure 64 in 211 lbs 4 oz 36.39 kg/m2 125/89 mm[Hg] 10/06/2019 Height Weight BMI Blood Pressure 64 in 213 lbs 36.69 kg/m2 123/84 mm[Hg] 06/16/2019 Height Weight BMI Blood Pressure 64 in 218 lbs 37.55 kg/m2 134/89 mm[Hg] 12/05/2018 Height Weight BMI Blood Pressure 64 in 219 lbs 37.73 kg/m2 143/104 mm[Hg] 11/07/2018 Height Weight BMI Blood Pressure 64 in 220 lbs 37.90 kg/m2 144/88 mm[Hg]
--- OUTSIDE RECORDS SUMMARY | 2021-04-20 11:26 | CCD ---
Author Author Hina Slade Organization [facility] Address Unknown Phone Unavailable Care Team Providers Care Lens Finisher Name Role Phone Panchito Slade PCP Unavailable Allergies, Adverse Reactions, Alerts Allergy Substance Code C odeSystem Reaction Severity Critic ality Status Start Date Moderate Medications Medication Medication Code Medication CodeSystem Start Date Stop Date Route Dose Status Fill Instructions RxNorm Problems Problem Name Code CodeSy stem Alternate Code Alternate CodeSystem Start Date End Date Status Narrative Depressive episode, unspecified [id number] SNOMED-CT 2020-12-01 Active Tobacco use 555765301 S NOMED-CT 2020-12-01 Active Relevant diagnostic tests/laboratory data Narrative No Information Procedures Procedure Name Code Code System Target Site Date of Procedure Status Service Delivery Location Device Cod e Device Name Device UID Psychotherapy, 45 minutes with patient [id number] SNOMED-CT () 2021-01-[address], [id number] Individual Psychotherapy [id number] SNOMED-CT () 2021-01-[address], [id number] Psychiatric Diagnostic Evaluation without medical serv ices [id number] SNOMED-CT () 2020-11-[address], [id number] Encounters/Encounter Diagnoses Encounter Name Encounter Code Diagnosis Code Diagnosis Name Diagnosis CodeSystem Date of Diagnosis Service Delivery L ocation Pyschotherapy 30 Minute with Patient [id number] Depressive episode, unspecified SNOMED-CT 2021-01-18 [facility] [address] [place] [address], [id number] Vital Signs No Information Social History Element Description Description Start Date End Date Code CodeSystem AdditionalInfo SexAssignedAtBirth Female 1985 F AdministrativeGender Hospital Discharge Instructions * Reason For Referral Medical Equipment * FDA Assessments *
--- OUTSIDE RECORDS SUMMARY | 2021-04-20 11:26 | CCD ---
Author Organization Unknown Address [address] [place] [address] Phone [phone] Care Team Providers Care Metal Filer Name Role Phone JESS FLETCHER MD 119 [phone] [facility] TREATMENT OF ADDICTIONS [facility] 113 [phone] Allergies Code Code System Name Reaction Severity [...] tablet Completed metronidazole 0.75 % vaginal gel Active Not available metronidazole 500 mg tablet TAKE ONE TABLET [...] Blood Count 4.1 10 4.0-10.0 10 Final [facility]: [address] [facility] Normal Red Blood Count 4.57 10 4.00-5.40 10 [facility]: [address] [facility] Normal Hemoglobin 13.7 g/dL 12.0-15.5 g/dL [facility]: [address] [facility] Normal Hematocrit 42.8 % 36.0-47.0 % [facility]: [address] [facility] Normal Mean Corpuscular Volume 93.7 fL 80.0 -96.0 fL [facility]: [address] [facility] Normal Mean Corpuscular Hemoglobin 30.0 pg 27.0-33.0 pg [facility]: [address] [facility] Normal Mean Corpuscular HGB Conc 32.0 g/dL 32.0-36.5 g/dL [facility]: 0 [facility] Normal Red Cell Distribution Width 12.2 % 1 1.5-14.5 % [facility]: [address] [facility] Normal Platelet Count, Automated 209 10 150 -450 10 [facility]: [address] [facility] Normal Neutrophils % 37.3 % 36.0-66.0 % [facility]: [address] [facility] High Lymph % 54.1 % 24.0-44.0 % [facility]: [address] [facility] Normal Becker % 5.7 % 2.0-8.0 % [facility]: [address] [facility] Normal Eos % 2.0 % 0.0-3.0 % [facility]: [address] [facility] Normal Baso % 0.7 % 0.0-1.0 % [facility]: [address] [facility] Normal Immature Granulocyte % 0.2 % 0-3.0 % [facility]: 0 [facility] Normal Nucleated Red Blood Cell % 0.0 % 0- 0 % [facility]: [address] [facility] Normal Neutrophils # 1.5 10 1.5-8.5 10 [facility]: [address] [facility] Normal Lymph # 2.2 10 1.5-5.0 10 [facility]: [address] [facility] Normal Becker # 0.2 10 0.0-0.8 10 [facility]: [address] [facility] Normal Eos # 0.1 10 0.0-0.[address] [facility]: [address] [facility] Normal Baso # 0.0 10 0.0-0.2 10 [facility]: [address] [facility] 08/23/2020 HbA1C (Hemoglobin a1C), Blood Normal Hemogl obin a1C 5.0 % [facility]: [address] [facility] Normal Estimated Average Glucose 97 mg/dL 6 0-110 mg/dL [facility]: [address] [facility] 08/23/2020 CMP, Serum or Plasma Normal Glucose, Fastin g 80 mg/dL 70-100 mg/dL [facility]: 83 0 [facility] Normal Blood Urea Nitrogen 15 mg/dL 7-18 mg /dL [facility]: 0 [facility] Normal Creatinine for GFR 1.03 mg/dL 0.55-1 .30 mg/dL [facility]: 0 [facility] Normal Glomerular Filtration Rate > 60.0 >6 0 [facility]: [address] [facility] Normal Sodium Level 141 mEq/L 136-145 mEq/L [facility]: 0 [facility] Normal Potassium Serum 4.8 mEq/L 3.5-5.1 mE q/L [facility]: 0 [facility] High Chloride Level 111 mEq/L 98-107 mEq/ L [facility]: 0 [facility] Normal Carbon Dioxide Level 26 mEq/L 21-32 mEq/L [facility]: 0 [facility] Low Anion Gap 4 mEq/L 8-16 mEq/L [facility]: 0 [facility] Normal Calcium Level 8.8 mg/dL 8.5-10.1 mg/ dL [facility]: [address] [facility] Normal AST/SGOT 12 U/L 7-37 U/L [facility]: [address] [facility] Normal ALT/SGPT 32 U/L 12-78 U/L [facility]: [address] [facility] Normal Alkaline Phosphatase 72 U/L 45-117 U /L [facility]: [address] [facility] Normal Bilirubin,total 0.3 mg/dL 0.2-1.0 mg /dL [facility]: [address] [facility] Normal Total Protein 7.4 gm/dL 6.4-8.2 gm/d L [facility]: [address] [facility] Normal Albumin 3.9 gm/dL 3.2-5.2 gm/dL [facility]: [address] [facility] Low Albumin/globulin Ratio 1.1 1.2-2. 2 [facility]: [address] [facility] 08/23/2020 Lipid Panel, Blood Normal Triglycerides Lev el 81 mg/dL <150 mg/dL [facility]: [address] [facility] High Cholesterol Level 241 mg/dL <200 mg/ dL [facility]: [address] [facility] Normal HDL Cholesterol 66 mg/dL >40 mg/dL F inal [facility]: [address] [facility] High LDL Cholesterol 159 mg/dL <100 mg/dL [facility]: [address] [facility] Normal Non-hdl-c 175 mg/dL [facility]: [address] [facility] Normal Cholesterol Risk Ratio 3.651 <5 [facility]: [address] [facility] 08/23/2020 TSH, Serum or Plasma Normal Thyroid Stimulating Hormone 0.358 uIU/mL 0.358-3.740 uIU/mL [facility] nter: [address] [facility] 08/23/2020 Vitamin D, 25-Hydroxy, Total, Serum Normal Total 25(Oh) Vitamin D 33.2 NG/mL 30.0-100.0 NG/mL Final [facility]: [address] [facility] 04/17/2020 Istat B-HCG Normal Istat B-HCG < 5.0 F inal [facility]: [address] [facility] Past Encounters 03/30/[address]: [address] [place] [phone], Ph. 03/24/2021 Dav Riley MD: [address] [place] [phone], Ph. 03/14/2021 Severe Obesity; Nicotine Dependence; Non-toxic Multinodular Goiter; Immunization Advised; Dry Skin; Multiple Joint Pain Eunice Sexton MD: [address] [place] [phone], Ph. 01/03/2021 Administration of SARS-CoV-2 Antigen Vaccine BRAD Mahtias: [address] [place] [phone], Ph. 08/23/2020 Eunice Sexton MD: [address] [place] [phone], Ph. 08/16/2020 Hyperlipidemia; Hypertensive Disorder; Metabolic Syndrome X; Non-toxic Multinodular Goiter; Tobacco User; Vitamin D Deficiency; Influenza Vaccination Declined; Nicotine Dependence with Current Use; Mixed Anxiety and Depressive Disorder Eunice Sexton MD: [address] [place] [phone], Ph. 08/04/2020 Posttraumatic Stress Disorder; Generalized Anxiety Disorder; Panic Disorder; Moderate Recurrent Major Depression CAROLANN MorganW-R: [address] [place] [phone], Ph. 07/28/2020 Posttraumatic Stress Disorder; Generalized Anxiety Disorder; Panic Disorder; Moderate Recurrent Major Depression Nasrin Abreu LCSW-R: [address] [place] [address], [place] [address], Ph. 07/21/2020 Posttraumatic Stress Disorder; Generalized Anxiety Disorder; Panic Disorder; Moderate Recurrent Major Depression CAROLANN MorganW-R: [address] [place] [address], Ph. 06/21/2020 Opioid Dependence in Remission; Generalized Anxiety Disorder; Posttraumatic Stress Disorder; Moderate Recurrent Major Depression CAROLANN MorganW-R: [address], [place] [phone], Ph. 06/08/2020 Posttraumatic Stress Disorder; Generalized Anxiety Disorder; Panic Disorder; Severe Recurrent Major Depression CAROLANN MorganW-R: [address], [place] [address], Ph. 05/24/2020 Posttraumatic Stress Disorder; Generalized Anxiety Disorder; Panic Disorder; Moderate Recurrent Major Depression CAROLANN MorganW-R: [address], [place] [address], Ph. 05/18/2020 Generalized Anxiety Disorder; Opioid Dependence in Remission; Posttraumatic Stress Disorder; Severe Recurrent Major Depression; Panic Disorder CAROLANN MorganW-R: [address], [place] [phone], Ph. 04/19/2020 Generalized Anxiety Disorder; Severe Recurrent Major Depression without Psychotic Features; Posttraumatic Stress Disorder CAROLANN MorganW-R: [address], [place] [address], Ph. 04/12/2020 Generalized Anxiety Disorder; Panic Disorder; Severe Recurrent Major Depression; Posttraumatic Stress Disorder CAROLANN MorganW-R: [address], [place] [address], Ph. 04/05/2020 Posttraumatic Stress Disorder; Severe Recurrent Major Depression; Generalized Anxiety Disorder Nasrin Tapiao, CUSTOMS APPRAISER-R: [address] [facility], [facility] [address], [place] [address], Ph. Social History Tobacco Smoking Status Heavy Tobacco Smoker (1/2 pack per a day) Vaccine List Vaccine Type COVID-19 vaccine, vector-nr, rS-Ad26, PF , 0.5 mL .5 mL Tdap .5 mL Plan of Care Patient Goals Over the next month, have 3 meals plus 3 water bottles per day. Over the next month, try one home cooked recipe, or recipe from [employer] once per week. Increase confidence and effectiveness as an employee, [...]
--- OUTSIDE RECORDS SUMMARY | 2021-04-20 11:26 | CCD ---
Author Organization Unknown Address [address] [place] [address] Phone [phone] Care Team Providers Care County Extension Agent Name Role Phone JESS FLETCHER MD 119 [phone] [facility] TREATMENT OF ADDICTIONS [facility] 113 [phone] Allergies Code Code System Name Reaction Severity Status Onset NKDA Medications Name Status Start Date Stop Date alprazolam 0.5 mg tablet TAKE ONE TABLET BY MOUTH TWICE A DAY MAXIMUM DAILY DOSE 2 TABLETS Completed 03/14/2021 buprenorphine 8 mg-naloxone 2 mg subling ual film PLACE TWO FILMS UNDER THE TONGUE EVERY DAY MAXIMUM DAILY DOSE 2 Completed 03/14/2021 bupropion HCl SR 150 mg tablet,12 hr sustained-release Completed 08/16/2020 buspirone 15 mg tablet TAKE ONE TABLET BY MOUTH EVERY 8 HOURS Completed 03/14/2021 CeraVe topical cream Apply 1 application twice a day by topical route. Active Not available clonidine HCl 0.2 mg tablet TAKE ONE TABLET BY MOUTH AT BEDTIME Completed 09/2020 fluconazole 150 mg tablet TAKE ONE TABLET [...] A DAY FOR 7 DAYS Completed 03/14/2021 terconazole 0.8 % vaginal cream INSERT ONE [...] Blood Count 4.1 10 4.0-10.0 10 Final [facility]: [address] [facility] Normal Red Blood Count 4.57 10 4.00-5.[address] [facility]: [address] [facility] Normal Hemoglobin 13.7 g/dL 12.0-15.5 g/dL Final [facility]: [address] [facility] Normal Hematocrit 42.8 % 36.0-47.0 % [facility]: [address] [facility] Normal Mean Corpuscular Volume 93.7 fL 80.0 -96.[address] [facility]: [address] [facility] Normal Mean Corpuscular Hemoglobin 30.0 pg 27.0-33.0 pg Final [facility]: [address] [facility] Normal Mean Corpuscular HGB Conc 32.0 g/dL 32.0-36.5 g/dL Final [facility]: [address] [facility] Normal Red Cell Distribution Width 12.2 % 1 1.5-14.5 % [facility]: [address] [facility] Normal Platelet Count, Automated 209 10 150 -[address] [facility]: [address] [facility] Normal Neutrophils % 37.3 % 36.0-66.0 % [facility]: [address] [facility] High Lymph % 54.1 % 24.0-44.0 % [facility]: [address] [facility] Normal Barry % 5.7 % 2.0-8.0 % [facility]: [address] [facility] Normal Eos % 2.0 % 0.0-3.0 % [facility]: [address] [facility] Normal Baso % 0.7 % 0.0-1.0 % [facility]: [address] [facility] Normal Immature Granulocyte % 0.2 % 0-3.0 % [facility]: [address] [facility] Normal Nucleated Red Blood Cell % 0.0 % 0- 0 % [facility]: [address] [facility] Normal Neutrophils # 1.5 10 1.5-8.5 10 [facility]: [address] [facility] Normal Lymph # 2.2 10 1.5-5.0 10 [facility]: [address] [facility] Normal Barry # 0.2 10 0.0-0.8 10 [facility]: [address] [facility] Normal Eos # 0.1 10 0.0-0.5 10 [facility]: [address] [facility] Normal Baso # 0.0 10 0.0-0.2 10 [facility]: [address] [facility] 08/23/2020 HbA1C (Hemoglobin a1C), Blood Normal Hemogl obin a1C 5.0 % [facility]: [address] [facility] Normal Estimated Average Glucose 97 mg/dL 6 0-110 mg/dL [facility]: [address] [facility] 08/23/2020 CMP, Serum or Plasma Normal Glucose, Fastin g 80 mg/dL 70-100 mg/dL [facility]: 83 0 [facility] Normal Blood Urea Nitrogen 15 mg/dL 7-18 mg /dL [facility]: [address] [facility] Normal Creatinine for GFR 1.03 mg/dL 0.55-1 .30 mg/dL [facility]: 0 [facility] Normal Glomerular Filtration Rate > 60.0 >[address] [facility]: [address] [facility] Normal Sodium Level 141 mEq/L 136-145 mEq/L [facility]: 0 [facility] Normal Potassium Serum 4.8 mEq/L 3.5-5.1 mE q/L [facility]: [address] [facility] High Chloride Level 111 mEq/L 98-107 mEq/ L [facility]: 0 [facility] Normal Carbon Dioxide Level 26 mEq/L 21-32 mEq/L [facility]: 0 [facility] Low Anion Gap 4 mEq/L 8-16 mEq/L [facility]: 0 [facility] Normal Calcium Level 8.8 mg/dL 8.5-10.1 mg/ dL [facility]: [address] [facility] Normal AST/SGOT 12 U/L 7-37 U/L [facility]: [address] [facility] Normal ALT/SGPT 32 U/L 12-78 U/L Final [facility]: [address] [facility] Normal Alkaline Phosphatase 72 U/L 45-117 U /L [facility]: [address] [facility] Normal Bilirubin,total 0.3 mg/dL 0.2-1.0 mg /dL [facility]: [address] [facility] Normal Total Protein 7.4 gm/dL 6.4-8.2 gm/d L [facility]: [address] [facility] Normal Albumin 3.9 gm/dL 3.2-5.2 gm/dL Lucille l [facility]: [address] [facility] Low Albumin/globulin Ratio 1.1 1.2-2. [address] [facility]: [address] [facility] 08/23/2020 Lipid Panel, Blood Normal Triglycerides Lev el 81 mg/dL <150 mg/dL [facility]: 83 0 [facility] High Cholesterol Level 241 mg/dL <200 mg/ dL [facility]: [address] [facility] Normal HDL Cholesterol 66 mg/dL >40 mg/dL [facility]: [address] [facility] High LDL Cholesterol 159 mg/dL <100 mg/dL [facility]: [address] [facility] Normal Non-hdl-c 175 mg/dL [facility]: [address] [facility] Normal Cholesterol Risk Ratio 3.651 <[address] [facility]: [address] [facility] 08/23/2020 TSH, Serum or Plasma Normal Thyroid Stimulating Hormone 0.358 uIU/mL 0.358-3.740 uIU/mL [facility] nter: [address] [facility] 08/23/2020 Vitamin D, 25-Hydroxy, Total, Serum Normal Total 25(Oh) Vitamin D 33.2 NG/mL 30.0-100.0 NG/mL Final [facility]: [address] [facility] 04/17/2020 Istat B-HCG Normal Istat B-HCG < 5.0 [facility]: [address] [facility] Past Encounters 03/14/2021 Severe Obesity; Nicotine Dependence; Non-toxic Multinodular Goiter; Immunization Advised; Dry Skin; Multiple Joint Pain Eunice Sexton MD: [address] [place] [phone], Ph. 01/03/2021 Administration of SARS-CoV-2 Antigen Vaccine BRAD Mathias: [address] [place] [phone], Ph. 08/23/2020 Eunice Sexton MD: [address] [place] [phone], Ph. 08/16/2020 Hyperlipidemia; Hypertensive Disorder; Metabolic Syndrome X; Non-toxic Multinodular Goiter; Tobacco User; Vitamin D Deficiency; Influenza Vaccination Declined; Nicotine Dependence with Current Use; Mixed Anxiety and Depressive Disorder Eunice Sexton MD: [address] [place] [phone], Ph. 08/04/2020 Posttraumatic Stress Disorder; Generalized Anxiety Disorder; Panic Disorder; Moderate Recurrent Major Depression Nasrin Abreu, PSYCHOMETRICIAN-R: [address] [place] [phone], Ph. 07/28/2020 Posttraumatic Stress Disorder; Generalized Anxiety Disorder; Panic Disorder; Moderate Recurrent Major Depression Nasrin Abreu, PSYCHOMETRICIAN-R: [address] [place] [phone], Ph. 07/21/2020 Posttraumatic Stress Disorder; Generalized Anxiety Disorder; Panic Disorder; Moderate Recurrent Major Depression Nasrin Abreu, PSYCHOMETRICIAN-R: [address] [place] [phone], Ph. 06/21/2020 Opioid Dependence in Remission; Generalized Anxiety Disorder; Posttraumatic Stress Disorder; Moderate Recurrent Major Depression CAROLANN MorganW-R: [address], [facility] [address], [place] [address], Ph. 06/08/2020 Posttraumatic Stress Disorder; Generalized Anxiety Disorder; Panic Disorder; Severe Recurrent Major Depression CAROLANN MorganW-R: [address], [facility] [address], [place] [address], Ph. 05/24/2020 Posttraumatic Stress Disorder; Generalized Anxiety Disorder; Panic Disorder; Moderate Recurrent Major Depression CAROLANN MorganW-R: [address] [facility] [address], [place] [address], Ph. 05/18/2020 Generalized Anxiety Disorder; Opioid Dependence in Remission; Posttraumatic Stress Disorder; Severe Recurrent Major Depression; Panic Disorder CAROLANN MorganW-R: [address], [facility] [address], [place] [address], Ph. 04/19/2020 Generalized Anxiety Disorder; Severe Recurrent Major Depression without Psychotic Features; Posttraumatic Stress Disorder CAROLANN MorganW-R: [address], [facility] [address], [place] [address], Ph. 04/12/2020 Generalized Anxiety Disorder; Panic Disorder; Severe Recurrent Major Depression; Posttraumatic Stress Disorder CAROLANN MorganW-R: [address], [facility] [address], [place] [address], Ph. 04/05/2020 Posttraumatic Stress Disorder; Severe Recurrent Major Depression; Generalized Anxiety Disorder CAROLANN MorganW-R: [address] [facility] [address], [place] [address], Ph. Social History Tobacco Smoking Status Heavy Tobacco Smoker (1/2 pack per a day) Vaccine List Vaccine Type COVID-19 vaccine, vector-nr, rS-Ad26, PF , 0.5 mL .5 mL Tdap .5 mL Plan of Care Patient Goals Increase [...] Surgeries None recorded. Imaging None recorded. Vitals 03/14/2021 03:00PM ANNUAL EXAM Height Weight BMI [...]
--- OUTSIDE RECORDS SUMMARY | 2021-04-20 11:28 | CCD ---
Author Author [facility] Organization [facility] Address Unknown Phone Unavailable Care Team Providers Care Ditcher Operator Name Role Phone Sedrick Riley MD Unavailable Unavailable Sedrick Riley MD Unavailable Unavailable Sedrick Riley MD Unavailable Unavailable Sedrick Riley MD Unavailable Unavailable Sedrick Riley MD Unavailable Unavailable Sedrick Riley MD Unavailable Unavailable Sedrick Riley MD Unavailable Unavailable Sedrick Riley MD Unavailable Unavailable Sedrick Riley MD Unavailable Unavailable Sedrick Riley MD Unavailable Unavailable Sedrick Riley MD Unavailable Unavailable Sedrick Riley MD Unavailable Unavailable Sedrick Riley MD Unavailable Unavailable Sedrick Riley MD Unavailable Unavailable Sedrick Riley MD Unavailable Unavailable Sedrick Riley MD Unavailable Unavailable Sedrick Riley MD Unavailable Unavailable Sedrick Riley MD Unavailable Unavailable Sedrick Rliey MD Unavailable Unavailable Sedrick Riley MD Unavailable Unavailable Sedrick Riley MD Unavailable Unavailable Sedrick Riley MD Unavailable Unavailable Sedrick Riley MD Unavailable Unavailable Sedrick Riley MD Unavailable Unavailable Sedrick Riley MD Unavailable Unavailable Sedrick Riley MD Unavailable Unavailable Sedrick Riley MD Unavailable Unavailable Sedrick Riley MD Unavailable Unavailable Sedrick Riley MD Unavailable Unavailable Sedrick Riley MD Unavailable Unavailable Sedrick Riley MD Unavailable Unavailable Sedrick Riley MD Unavailable Unavailable Sedrick Riley MD Unavailable Unavailable Sedrick Riley MD Unavailable Unavailable Sedrick Riley MD Unavailable Unavailable Sedrick Riley MD Unavailable Unavailable Sedrick Riley MD Unavailable Unavailable Sedrick Riley MD Unavailable Unavailable Sedrick Riley MD Unavailable Unavailable Sedrick Riley MD Unavailable Unavailable Sedrick Riley MD Unavailable Unavailable Sedrick Riley MD Unavailable Unavailable Sedrick Riley MD Unavailable Unavailable Sedrick Riley MD Unavailable Unavailable Sedrick Riley MD Unavailable Unavailable Sedrick Riley MD Unavailable Unavailable Sedrick Riley MD Unavailable Unavailable Sedrick Riley MD Unavailable Unavailable Sedrick Riley MD Unavailable Unavailable Sedrick Riley MD Unavailable Unavailable Sedrick Riley MD Unavailable Unavailable Sedrick Riley MD Unavailable Unavailable Sedrick Riley MD Unavailable Unavailable Sedrick Riley MD Unavailable Unavailable Sedrick Riley MD Unavailable Unavailable Sedrick Riley MD Unavailable Unavailable Sedrick Riley MD Unavailable Unavailable Sedrick Riley MD Unavailable Unavailable Sedrick Riley MD Unavailable Unavailable Sedrick Riley MD Unavailable Unavailable Sedrick Riley MD Unavailable Unavailable Sedrick Riley MD Unavailable Unavailable Sedrick Riley MD Unavailable Unavailable Sedrick Riley MD Unavailable Unavailable Sedrick Riley MD Unavailable Unavailable Sedrick Riley MD Unavailable Unavailable Sedrick Riley MD Unavailable Unavailable Sedrick Riley MD Unavailable Unavailable Sedrick Riley MD Unavailable Unavailable Sedrick Riley MD Unavailable Unavailable Sedrick Riley MD Unavailable Unavailable Sedrick Riley MD Unavailable Unavailable Sedrick Riley MD Unavailable Unavailable Sedrick Riley MD Unavailable Unavailable Sedrick Riley MD Unavailable Unavailable Sedrick Riley MD Unavailable Unavailable Sedrick Riley MD Unavailable Unavailable Sedrick Riley MD Unavailable Unavailable Sedrick Riley MD Unavailable Unavailable Sedrick Riley MD Unavailable Unavailable Sedrick Riley MD Unavailable Unavailable Sedrick Riley MD Unavailable Unavailable Osvaldo, Sedrick Demarco MD Unavailable Unavailable Osvaldo, Sedrick Demarco MD Unavailable Unavailable Sedrick Riley MD Unavailable Unavailable Sedrick Riley MD Unavailable Unavailable Sedrick Riley MD Unavailable Unavailable Sedrick Riley MD Unavailable Unavailable Sedrick Riley MD Unavailable Unavailable Sedrick Riley MD Unavailable Unavailable Sedrick Riley MD Unavailable Unavailable Osvaldo, Sedrick Demarco MD Unavailable Unavailable Sedrick Riley MD Unavailable Unavailable Tha, L Lilia WASHER ASSEMBLER Unavailable Unavailable Tha, L Lilia WASHER ASSEMBLER Unavailable Unavailable Tha, L Lilia WASHER ASSEMBLER Unavailable Unavailable Tha, L Lilia WASHER ASSEMBLER Unavailable Unavailable Tha, L Lilia WASHER ASSEMBLER Unavailable Unavailable Tha, L Lilia WASHER ASSEMBLER Unavailable Unavailable Tha, L Lilia WASHER ASSEMBLER Unavailable Unavailable Tha, L Lilia WASHER ASSEMBLER Unavailable Unavailable Tha, L Lilia WASHER ASSEMBLER Unavailable Unavailable Tha, L Lilia WASHER ASSEMBLER Unavailable Unavailable Tha, L Lilia WASHER ASSEMBLER Unavailable Unavailable Tha, L Lilia WASHER ASSEMBLER Unavailable Unavailable Tha, L Lilia WASHER ASSEMBLER Unavailable Unavailable Tha, L Lilia WASHER ASSEMBLER Unavailable Unavailable Tha, L Lilia WASHER ASSEMBLER Unavailable Unavailable Tha, L Lilia WASHER ASSEMBLER Unavailable Unavailable Tha, L Lilia WASHER ASSEMBLER Unavailable Unavailable Tha, L Lilia WASHER ASSEMBLER Unavailable Unavailable Tha, L Lilia WASHER ASSEMBLER Unavailable Unavailable Tha, L Lilia WASHER ASSEMBLER Unavailable Unavailable Tha, L Liila WASHER ASSEMBLER Unavailable Unavailable Tha, L Lilia WASHER ASSEMBLER Unavailable Unavailable Tha, L Lilia WASHER ASSEMBLER Unavailable Unavailable Tha, L Lilia WASHER ASSEMBLER Unavailable Unavailable Tha, L Lilia WASHER ASSEMBLER Unavailable Unavailable KELLOGG, CAITLIN PASTORA RPA-C Unavailable Unavailable KELLOGG, CAITLIN PASTORA RPA-C Unavailable Unavailable KELLOGG, CAITLIN PASTORA RPA-C Unavailable Unavailable KELLOGG, CAITLIN PASTORA RPA-C Unavailable Unavailable KELLOGG, CAITLIN PASTORA RPA-C Unavailable Unavailable KELLOGG, CAITLIN PASTORA RPA-C Unavailable Unavailable KELLOGG, CAITLIN PASTORA RPA-C Unavailable Unavailable KELLOGG, CAITLIN PASTORA RPA-C Unavailable Unavailable KELLOGG, CAITLIN PASTORA RPA-C Unavailable Unavailable KELLOGG, CAITLIN PASTORA RPA-C Unavailable Unavailable KELLOGG, CAITLIN PASTORA RPA-C Unavailable Unavailable KELLOGG, CAITLIN PASTORA RPA-C Unavailable Unavailable KELLOGG, CAITLIN PASTORA RPA-C Unavailable Unavailable KELLOGG, CAITLIN PASTORA RPA-C Unavailable Unavailable KELLOGG, CAITLIN PASTORA RPA-C Unavailable Unavailable KELLOGG, CAITLIN PASTORA RPA-C Unavailable Unavailable KELLOGG, CAITLIN PASTORA RPA-C Unavailable Unavailable KELLOGG, CAITLIN PASTORA RPA-C Unavailable Unavailable KELLOGG, CAITLIN PASTORA RPA-C Unavailable Unavailable KELLOGG, CAITLIN PASTORA RPA-C Unavailable Unavailable KELLOGG, CAITLIN PASTORA RPA-C Unavailable Unavailable KELLOGG, CAITLIN PASTORA RPA-C Unavailable Unavailable KELLOGG, CAITLIN PASTORA RPA-C Unavailable Unavailable KELLOGG, CAITLIN PASTORA RPA-C Unavailable Unavailable KELLOGG, CAITLIN PASTORA RPA-C Unavailable Unavailable KELLOGG, CAITLIN PASTORA RPA-C Unavailable Unavailable KELLOGG, CAITLIN PASTORA RPA-C Unavailable Unavailable KELLOGG, CAITLIN PASTORA RPA-C Unavailable Unavailable KELLOGG, CAITLIN PASTORA RPA-C Unavailable Unavailable KELLOGG, CAITLIN PASTORA RPA-C Unavailable Unavailable KELLOGG, CAITLIN PASTORA RPA-C Unavailable Unavailable KELLOGG, CAITLIN PASTORA RPA-C Unavailable Unavailable KELLOGG, CAITLIN PASTORA RPA-C Unavailable Unavailable KELLOGG, CAITLIN PASTORA RPA-C Unavailable Unavailable KELLOGG, CAITLIN PASTORA RPA-C Unavailable Unavailable KELLOGG, CAITLIN PASTORA RPA-C Unavailable Unavailable KELLOGG, CAITLIN PASTORA RPA-C Unavailable Unavailable KELLOGG, CAITLIN PASTORA RPA-C Unavailable Unavailable KELLOGG, CAITLIN PASTORA RPA-C Unavailable Unavailable KELLOGG, CAITLIN PASTORA RPA-C Unavailable Unavailable KELLOGG, CAITLIN PASTORA RPA-C Unavailable Unavailable KELLOGG, CAITLIN PASTORA RPA-C Unavailable Unavailable KELLOGG, CAITLIN PASTORA RPA-C Unavailable Unavailable Turturro, Nasrin Unavailable [phone] Carlie, Tamica Unavailable Unavailable Carlie, Tamica Unavailable Unavailable Carlie, Tamica Unavailable Unavailable Carlie, Tamica Unavailable Unavailable Carlie, Tamica Unavailable Unavailable Carlie, Tamica Unavailable Unavailable Carlie, Tamica Unavailable Unavailable Carlie, Tamica Unavailable Unavailable Carlie, Tamica Unavailable Unavailable Carlie, Tamica Unavailable Unavailable Carlie, Tamica Unavailable Unavailable Carlie, Tamica Unavailable Unavailable Carlie, Tamica Unavailable Unavailable Carlie, Tamica Unavailable Unavailable Carlie, Tamica Unavailable Unavailable Carlie, Tamica Unavailable Unavailable Carlie, Tamica Unavailable Unavailable Carlie, Tamica Unavailable Unavailable Carlie, Tamica Unavailable Unavailable Carlie, Tamica Unavailable Unavailable Carlie, Tamica Unavailable Unavailable Carlie, Tamica Unavailable Unavailable Carlie, Tamica Unavailable Unavailable Carlie, Tamica Unavailable Unavailable Carlie, Tamica Unavailable Unavailable Carlie, Tamica Unavailable Unavailable Sophie Tolliver MD Unavailable Unavailable Sophie Tolliver MD Unavailable Unavailable Sophie Tolliver MD Unavailable Unavailable Sophie Tolliver MD Unavailable Unavailable Sophie Tolliver MD Unavailable Unavailable Sophie Tolliver MD Unavailable Unavailable Sophie Tolliver MD Unavailable Unavailable Sophie Tolliver MD Unavailable Unavailable Sophie Tolliver MD Unavailable Unavailable Sophie Tolliver MD Unavailable Unavailable Sophie Tolliver MD Unavailable Unavailable Sophie Tolliver MD Unavailable Unavailable Sophie Tolliver MD Unavailable Unavailable Sophie Tolliver MD Unavailable Unavailable Sophie Tolliver MD Unavailable Unavailable Sophie Tolliver MD Unavailable Unavailable Sophie Tolliver MD Unavailable Unavailable Sophie Tolliver MD Unavailable Unavailable Sophie Tolliver MD Unavailable Unavailable Sophie Tolliver MD Unavailable Unavailable Sophie Tolliver MD Unavailable Unavailable Sophie Tolliver MD Unavailable Unavailable Sophie Tolliver MD Unavailable Unavailable Sophie Tolliver MD Unavailable Unavailable Sophie Tolliver MD Unavailable Unavailable Sophie Tolliver MD Unavailable Unavailable Sophie Tolliver MD Unavailable Unavailable Sophie Tolliver MD Unavailable Unavailable Sophie Tolliver MD Unavailable Unavailable Sophie Tolliver MD Unavailable Unavailable Sophie Tolliver MD Unavailable Unavailable Sophie Tolliver MD Unavailable Unavailable Sophie Tolliver MD Unavailable Unavailable Sophie Tolliver MD Unavailable Unavailable Sophie Tolliver MD Unavailable Unavailable Sophie Tolliver MD Unavailable Unavailable Sophie Tolliver MD Unavailable Unavailable Sophie Tolliver MD Unavailable Unavailable Sophie Tolliver MD Unavailable Unavailable Sophie Tolliver MD Unavailable Unavailable Sophie Tolliver MD Unavailable Unavailable Sophie Tolliver MD Unavailable Unavailable Sophie Tolliver MD Unavailable Unavailable Sophie Tolliver MD Unavailable Unavailable Sophie Tolliver MD Unavailable Unavailable Sophie Tolliver MD Unavailable Unavailable Sophie Tolliver MD Unavailable Unavailable Sophie Tolliver MD Unavailable Unavailable Fish, B Norma JORGE Unavailable Unavailable Fish, B Norma JORGE Unavailable Unavailable Fish, B Norma JORGE Unavailable Unavailable Fish, B Norma JORGE Unavailable Unavailable Fish, B Norma JORGE Unavailable Unavailable Fish, B Norma JORGE Unavailable Unavailable Fish, B Norma JORGE Unavailable Unavailable Fish, B Norma JORGE Unavailable Unavailable Fish, B Norma JORGE Unavailable Unavailable Fish, B Norma JORGE Unavailable Unavailable Fish, B Norma JORGE Unavailable Unavailable Fish, B Norma JORGE Unavailable Unavailable Fish, B Norma JORGE Unavailable Unavailable Fish, B Norma JORGE Unavailable Unavailable Fish, B Norma JORGE Unavailable Unavailable Fish, B Norma JORGE Unavailable Unavailable Fish, B Norma JORGE Unavailable Unavailable [id number], [id number] Unavailable [phone] Gay, Mcallen Erica Unavailable Unavailable Gay, Mcallen Erica Unavailable Unavailable Gay, Mcallen Erica Unavailable Unavailable Gay, Mcallen Erica Unavailable Unavailable Gay, Mcallen Erica Unavailable Unavailable Gay, Mcallen Erica Unavailable Unavailable Gay, Mcallen Erica Unavailable Unavailable Gay, Mcallen Erica Unavailable Unavailable Gay, Mcallen Erica Unavailable Unavailable Gay, Mcallen Erica Unavailable Unavailable Gay, Mcallen Erica Unavailable Unavailable Gay, Mcallen Erica Unavailable Unavailable Gay, Mcallen Erica Unavailable Unavailable Re-disclosure Warning The records that you are about to access may contain information from federally-assisted alcohol or drug abuse programs. If such information is present, then the following federally mandated warning applies: This information has been disclosed to you from records protected by federal confidentiality rules (42 CFR part 2). The federal rules prohibit you from making any further disclosure of this information unless further disclosure is expressly permitted by the written consent of the person to whom it pertains or as otherwise permitted by 42 CFR part 2. A general authorization for the release of medical or other information is NOT sufficient for this purpose. The Federal rules restrict any use of the information to criminally investigate or prosecute any alcohol or drug abuse patient.The records that you are about to access may contain highly sensitive health information, the redisclosure of which is protected by Article 27-F of the [facility] Public Health law. If you continue you may have access to information: Regarding HIV / AIDS; Provided by facilities licensed or operated by the [facility] Office of Mental Health; or Provided by the [facility] Office for People With Developmental Disabilities. If such information is present, then the following [facility] mandated warning applies: This information has been disclosed to you from confidential records which are protected by state law. State law prohibits you from making any further disclosure of this information without the specific written consent of the person to whom it pertains, or as otherwise permitted by law. Any unauthorized further disclosure in violation of state law may result in a fine or long-term sentence or both. A general authorization for the release of medical or other information is NOT sufficient authorization for further disc losure. Allergies and Adverse Reactions Type Description Substance Reaction Status Data Source(s ) Allergy to substance Allergy to substance Allergy to substance JOSE M ([facility]) Allergy to substance Allergy to substance Allergy to substance JOSE M ([facility]) Allergy to substance Allergy to substance Allergy to substance JOSE M ([facility]) Allergy to substance Allergy to substance Allergy to substance JOSE M ([facility]) Allergy to substance Allergy to substance Allergy to substance JOSE M ([facility]) Allergy to substance Allergy to substance Allergy to substance JOSE M ([facility]) Allergy to substance Allergy to substance Allergy to substance JOSE M ([facility]) Allergy to substance Allergy to substance Allergy to substance JOSE M ([facility]) Allergy to substance Allergy to substance Allergy to substance JOSE M ([facility]) Allergy to substance Allergy to substance Allergy to substance JOSE M ([facility]) Family History Family Member Name Family Member Gender Family Member Status Date o f Status Description Data Source(s) Unknown Male Problem [facility] ([facility]) Encounters Encounter Providers Location Date Indications Data Source(s ) Eufemia Restrepo, RD: [address] [place] [address], Ph. Attender: [id number] [facility] Medical 03/30/2021 12:00:00 AM EDT JOSE M ([facility]) Dav Riley MD: [address] [place] [address], Ph. Attender: Dav Rilye MD [facility] Medical 03/24/2021 12:00:00 AM EDT JOSE M ([facility]) Dav Riley MD: [address] [place] [address], Ph. Attender: Dav Riley MD [facility] Medical 03/24/2021 12:00:00 AM EDT JOSE M ([facility]) Eunice Sexton MD: [address] [place] [address], Ph. Attender: Eunice Sexton [facility] Medical 03/14/2021 12:00:00 AM EDT JOSE M ([facility]) Eunice Sexton MD: [address] [place] [address], Ph. Attender: Eunice Sexton [facility] Medical 03/14/2021 12:00:00 AM EDT JOSE M ([facility]) Eunice Sexton MD: [address] [place] [address], Ph. Attender: Eunice Sexton [facility] 03/14/2021 12:00:00 AM EDT [facility] ([facility]) Pyschotherapy 30 Minute with Patient [facility] 01/31/2021 12:00:00 AM EDT [employer] ([facility]) Pyschotherapy 30 Minute with Patient [facility] 01/18/2021 12:00:00 AM EDT [employer] ([facility]) BRITNEY Mathias-C: [address] [place] [address], Ph. Attender: Erica Gay [facility] Medical 01/03/2021 12:00:00 AM EDT JOSE M ([facility]) BRITNEY Mathias-C: [address] [place] [address], Ph. Attender: Erica Gay [facility] Medical 01/03/2021 12:00:00 AM EDT JOSE M ([facility]) BEN MathiasC: [address] [place] [address], Ph. Attender: Erica Gay [facility] Medical 01/03/2021 12:00:00 AM EDT JOSE M ([facility]) BEN MathiasC: [address] [place] [address], Ph. Attender: Erica Gay [facility] Medical 01/03/2021 12:00:00 AM EDT [facility] ([facility]) non-billable [facility] 12/02/2020 12:00:00 AM EDT [facility]) Outpatient Attender: Norma Tolliver MD Physical Therapy 09/23 10:15:00 AM EDT [facility] ([facility]) Eunice Sexton MD: [address], [facility] [place] [address], Ph. Attender: Eunice Sexton [facility] Medical 08/23/2020 12:00:00 AM EDT JOSE M ([facility]) Eunice Sexton MD: [address], [place] [address], Ph. Attender: Eunice Sexton [facility] Medical 08/23/2020 12:00:00 AM EDT JOSE M ([facility]) Eunice Sexton MD: [address], [place] [address], Ph. Attender: Eunice Sexton [facility] Medical 08/23/2020 12:00:00 AM EDT JOSE M ([facility]) Eunice Sexton MD: [address], [place] [address], Ph. Attender: Eunice Sexton [facility] Medical 08/23/2020 12:00:00 AM EDT JOSE M ([facility]) Eunice Sexton MD: [address], [place] [address], Ph. Attender: Eunice Sexton [facility] Medical 08/23/2020 12:00:00 AM EDT JOSE M ([facility]) Eunice Sexton MD: [address], [place] [address], Ph. Attender: Eunice Sexton [facility] Medical 08/16/2020 12:00:00 AM EST JOSE M ([facility]) Eunice Sexton MD: [address], [place] [address], Ph. Attender: Eunice Sexton [facility] Medical 08/16/2020 12:00:00 AM EST JOSE M ([facility]) Eunice Sexton MD: [address], [place] [address], Ph. Attender: Eunice Sexton [facility] Medical 08/16/2020 12:00:00 AM EST JOSE M ([facility]) Eunice Sexton MD: [address], [place] [address], Ph. Attender: Eunice Sexton [facility] Medical 08/16/2020 12:00:00 AM EST JOSE M ([facility]) Eunice Sexton MD: [address], [place] [address], Ph. Attender: Eunice Sexton [facility] Medical 08/16/2020 12:00:00 AM EST JOSE M ([facility]) Eunice Sexton MD: [address], [facility] [place] [address], Ph. Attender: Eunice Sexton [facility] Medical 08/16/2020 12:00:00 AM EST JOSE M ([facility]) Nasrin Abreu, HOT MILL OPERATOR-R: [address] [place] [address], Ph. Attender: Nasrin Abreu [facility] Medical 08/04/2020 12:00:00 AM EST JOSE M ([facility]) Nasrin Abreu, HOT MILL OPERATOR-R: [address] [place] [address], Ph. Attender: Nasrin Abreu [facility] Medical 08/04/2020 12:00:00 AM EST JOSE M ([facility]) Nasrin Abreu, HOT MILL OPERATOR-R: [address] [place] [address], Ph. Attender: Nasrin Abreu [facility] Medical 08/04/2020 12:00:00 AM EST JOSE M ([facility]) Nasrin Abreu, HOT MILL OPERATOR-R: [address] [place] [address], Ph. Attender: Nasrin Abreu [facility] Medical 08/04/2020 12:00:00 AM EST JOSE M ([facility]) Nasrin Abreu, HOT MILL OPERATOR-R: [address] , [place] [address], Ph. Attender: Nasrin Abreu [facility] Medical 08/04/2020 12:00:00 AM EST JOSE M ([facility]) Nasrin Abreu, HOT MILL OPERATOR-R: [address] , [place] [address], Ph. Attender: Nasrin Mahoganysahilkennedy [facility] Medical 08/04/2020 12:00:00 AM EST JOSE M ([facility]) Nasrin Abreu, HOT MILL OPERATOR-R: [address] [place] [address], Ph. Attender: Nasrin Mahoganysahilkennedy [facility] Medical 08/04/2020 12:00:00 AM EST JOSE M ([facility]) Nasrin Abreu, HOT MILL OPERATOR-R: [address] [place] [address], Ph. Attender: Nasrin Brady [facility] Medical 07/28/2020 12:00:00 AM EST JOSE M ([facility]) Nasrin Abreu, HOT MILL OPERATOR-R: [address] [place] [address], Ph. Attender: Nasrin Brady [facility] Medical 07/28/2020 12:00:00 AM EST JOSE M ([facility]) Nasrin Mahoganysahilkennedy, HOT MILL OPERATOR-R: [address] [place] [address], Ph. Attender: Nasrineduardo Abreu [facility] Medical 07/28/2020 12:00:00 AM EST JOSE M ([facility]) Nasrin Abreu, HOT MILL OPERATOR-R: [address] , [place] [address], Ph. Attender: Nasrin Abreu [facility] Medical 07/28/2020 12:00:00 AM EST JOSE M ([facility]) Nasrin Abreu, HOT MILL OPERATOR-R: [address] , [place] [address], Ph. Attender: Nasrin Abreu [facility] Medical 07/28/2020 12:00:00 AM EST JOSE M ([facility]) Nasrin Tapiakennedy, HOT MILL OPERATOR-R: [address] [place] [address], Ph. Attender: Nasrin Mahoganysahilkennedy [facility] Medical 07/28/2020 12:00:00 AM EST JOSE M ([facility]) Nasrin Abreu, HOT MILL OPERATOR-R: [address] [place] [address], Ph. Attender: Nasrin Mahoganysahilkennedy [facility] Medical 07/28/2020 12:00:00 AM EST JOSE M ([facility]) Nasrin Tapiakennedy, HOT MILL OPERATOR-R: [address] [place] [address], Ph. Attender: Nasrin Raulhamlet [facility] Medical 07/28/2020 12:00:00 AM EST JOSE M ([facility]) Nasrin Brady, HOT MILL OPERATOR-R: [address] , [place] [address], Ph. Attender: Nasrin Abreu [facility] Medical 07/21/2020 12:00:00 AM EST JOSE M ([facility]) Nasrin Abreu, HOT MILL OPERATOR-R: [address] [place] [address], Ph. Attender: Nasrin Abreu [facility] Medical 07/21/2020 12:00:00 AM EST JOSE M ([facility]) Nasrin Abreu, HOT MILL OPERATOR-R: [address] [place] [address], Ph. Attender: Nasrin [facility]breu [facility] [facility] 07/21/2020 12:00:00 AM EST JOSE M ([facility]) Nasrin Abreu, HOT MILL OPERATOR-R: [address] [place] [address], Ph. Attender: Nasrin Abreu [facility] Medical 07/21/2020 12:00:00 AM EST JOSE M ([facility]) Nasrin Abreu, HOT MILL OPERATOR-R: [address] [place] [address], Ph. Attender: Nasrin Abreu [facility] Medical 07/21/2020 12:00:00 AM EST JOSE M ([facility]) Nasrin Tapiao, HOT MILL OPERATOR-R: [address] [place] [address], Ph. Attender: Nasrin Abreu [facility] Medical 07/21/2020 12:00:00 AM EST JOSE M ([facility]) Nasrin Raulgermano, HOT MILL OPERATOR-R: [address] [place] [address], Ph. Attender: Nasrin Carterkaterinasahilkennedy [facility] Medical 07/21/2020 12:00:00 AM EST JOSE M ([facility]) Nasrin Abreu, HOT MILL OPERATOR-R: [address] [place] [address], Ph. Attender: Nasrin Carterkaterinasahilkennedy [facility] Medical 07/21/2020 12:00:00 AM EST JOSE M ([facility]) Nasrin Mahoganysahilkennedy, HOT MILL OPERATOR-R: [address] [place] [address], Ph. Attender: Nasrin Brady [facility] Medical 07/21/2020 12:00:00 AM EST JOSE M ([facility]) Nasrin Carterkaterinasahilkennedy, HOT MILL OPERATOR-R: [address] [place] [address], Ph. Attender: Nasrin Brady [facility] Medical 07/21/2020 12:00:00 AM EST JOSE M ([facility]) Nasrin Brady, HOT MILL OPERATOR-R: [address] [place] [address], Ph. Attender: Nasrin Mahoganysahilkennedy [facility] Medical 07/21/2020 12:00:00 AM EST JOSE M ([facility]) Nasrin Mahoganysahilkennedy, HOT MILL OPERATOR-R: [address] [place] [address], Ph. Attender: Nasrin Brady [facility] Medical 07/21/2020 12:00:00 AM EST JOSE M ([facility]) Nasrin Abreu, HOT MILL OPERATOR-R: [address], [place] [address], Ph. Attender: Nasrin Abreu [facility] Medical 06/21/2020 12:00:00 AM EST JOSE M ([facility]) Nasrni Abreu, HOT MILL OPERATOR-R: [address], [place] [address], Ph. Attender: Nasrin Abreu [facility] Medical 06/21/2020 12:00:00 AM EST JOSE M ([facility]) Nasrin Abreu, HOT MILL OPERATOR-R: [address], [place] [address], Ph. Attender: Nasrin Abreu [facility] Medical 06/21/2020 12:00:00 AM EST JOSE M ([facility]) Nasrin Abreu, HOT MILL OPERATOR-R: [address], [place] [address], Ph. Attender: Nasrin Abreu [facility] Medical 06/21/2020 12:00:00 AM EST JOSE M ([facility]) Nasrin Abreu, HOT MILL OPERATOR-R: [address], [place] [address], Ph. Attender: Nasrin Abreu [facility] Medical 06/21/2020 12:00:00 AM EST JOSE M ([facility]) Nasrin Abreu, HOT MILL OPERATOR-R: [address], [place] [address], Ph. Attender: Nasrin Abreu [facility] Medical 06/21/2020 12:00:00 AM EST JOSE M ([facility]) Nasrin Abreu, HOT MILL OPERATOR-R: [address], [place] [address], Ph. Attender: Nasrin Abreu [facility] Medical 06/21/2020 12:00:00 AM EST JOSE M ([facility]) Nasrin Abreu, HOT MILL OPERATOR-R: [address], [place] [address], Ph. Attender: Nasrin Abreu [facility] Medical 06/21/2020 12:00:00 AM EST JOSE M ([facility]) Nasrin Abreu, HOT MILL OPERATOR-R: [address], [place] [address], Ph. Attender: Nasrin Abreu [facility] Medical 06/21/2020 12:00:00 AM EST JOSE M ([facility]) Nasrin Abreu, HOT MILL OPERATOR-R: [address], [place] [address], Ph. Attender: Nasrin Abreu [facility] Medical 06/21/2020 12:00:00 AM EST JOSE M ([facility]) Nasrin Abreu, HOT MILL OPERATOR-R: [address], [place] [address], Ph. Attender: Nasrin Abreu [facility] Medical 06/21/2020 12:00:00 AM EST JOSE M ([facility]) Nasrin Abreu, HOT MILL OPERATOR-R: [address], [place] [address], Ph. Attender: Nasrin Abreu [facility] Medical 06/21/2020 12:00:00 AM EST JOSE M ([facility]) Nasrin Abreu, HOT MILL OPERATOR-R: [address], [place] [address], Ph. Attender: Nasrin Abreu [facility] Medical 06/21/2020 12:00:00 AM EST JOSE M ([facility]) Nasrin Abreu, HOT MILL OPERATOR-R: [address], [place] [address], Ph. Attender: Nasrin Abreu [facility] Medical 06/08/2020 12:00:00 AM EST JOSE M ([facility]) Nasrin Abreu, HOT MILL OPERATOR-R: [address], [place] [address], Ph. Attender: Nasrin Abreu [facility] Medical 06/08/2020 12:00:00 AM EST JOSE M ([facility]) Nasrin Abreu, HOT MILL OPERATOR-R: [address], [place] [address], Ph. Attender: Nasrin Abreu [facility] Medical 06/08/2020 12:00:00 AM EST JOSE M ([facility]) Nasrin Abreu, HOT MILL OPERATOR-R: [address], [place] [address], Ph. Attender: Nasrin Abreu [facility] Medical 06/08/2020 12:00:00 AM EST JOSE M ([facility]) Nasrin Abreu, HOT MILL OPERATOR-R: [address], [place] [address], Ph. Attender: Nasrin Abreu [facility] Medical 06/08/2020 12:00:00 AM EST JOSE M ([facility]) Nasrin Abreu, HOT MILL OPERATOR-R: [address], [place] [address], Ph. Attender: Nasrin Abreu [facility] Medical 06/08/2020 12:00:00 AM EST JOSE M ([facility]) Nasrin Abreu, HOT MILL OPERATOR-R: [address], [place] [address], Ph. Attender: Nasrin Abreu [facility] Medical 06/08/2020 12:00:00 AM EST JOSE M ([facility]) Nasrin Abreu, HOT MILL OPERATOR-R: [address], [place] [address], Ph. Attender: Nasrin Abreu [facility] Medical 06/08/2020 12:00:00 AM EST JOSE M ([facility]) Nasrin Abreu, HOT MILL OPERATOR-R: [address], [place] [address], Ph. Attender: Nasrin Abreu [facility] Medical 06/08/2020 12:00:00 AM EST JOSE M ([facility]) Nasrin Abreu, HOT MILL OPERATOR-R: [address], [place] [address], Ph. Attender: Nasrin Abreu [facility] Medical 06/08/2020 12:00:00 AM EST JOSE M ([facility]) Nasrin Abreu, HOT MILL OPERATOR-R: [address], [place] [address], Ph. Attender: Nasrin Abreu [facility] Medical 06/08/2020 12:00:00 AM EST JOSE M ([facility]) Nasrin Abreu, HOT MILL OPERATOR-R: [address], [place] [address], Ph. Attender: Nasrin Abreu [facility] Medical 06/08/2020 12:00:00 AM EST JOSE M ([facility]) Nasrin Abreu, HOT MILL OPERATOR-R: [address], [place] [address], Ph. Attender: Nasrin Abreu [facility] Medical 06/08/2020 12:00:00 AM EST JOSE M ([facility]) Nasrin Abreu, HOT MILL OPERATOR-R: [address], [place] [address], Ph. Attender: Nasrin Abreu [facility] Medical 06/08/2020 12:00:00 AM EST JOSE M ([facility]) Nasrin Abreu, HOT MILL OPERATOR-R: [address], [place] [address], Ph. Attender: Nasrin Abreu [facility] Medical 05/24/2020 12:00:00 AM EST JOSE M ([facility]) Nasrin Abreu, HOT MILL OPERATOR-R: [address], [place] [address], Ph. Attender: Nasrin Abreu [facility] Medical 05/24/2020 12:00:00 AM EST JOSE M ([facility]) Nasrin Abreu, HOT MILL OPERATOR-R: [address], [place] [address], Ph. Attender: Nasrin Abreu [facility] Medical 05/24/2020 12:00:00 AM EST JOSE M ([facility]) Nasrin Abreu, HOT MILL OPERATOR-R: [address], [place] [address], Ph. Attender: Nasrin Abreu [facility] Medical 05/24/2020 12:00:00 AM EST JOSE M ([facility]) Nasrin Abreu, HOT MILL OPERATOR-R: [address], [place] [address], Ph. Attender: Nasrin Abreu [facility] Medical 05/24/2020 12:00:00 AM EST JOSE M ([facility]) Nasrin Abreu, HOT MILL OPERATOR-R: [address], [place] [address], Ph. Attender: Nasrin Abreu [facility] Medical 05/24/2020 12:00:00 AM EST JOSE M ([facility]) Nasrin Abreu, HOT MILL OPERATOR-R: [address], [place] [address], Ph. Attender: Nasrin Abreu [facility] Medical 05/24/2020 12:00:00 AM EST JOSE M ([facility]) Nasrin Abreu, HOT MILL OPERATOR-R: [address], [place] [address], Ph. Attender: Nasrin Abreu [facility] Medical 05/24/2020 12:00:00 AM EST JOSE M ([facility]) Nasrin Abreu, HOT MILL OPERATOR-R: [address], [place] [address], Ph. Attender: Nasrin Abreu [facility] Medical 05/24/2020 12:00:00 AM EST JOSE M ([facility]) Nasrin Abreu, HOT MILL OPERATOR-R: [address], [place] [address], Ph. Attender: Nasrin Abreu [facility] Medical 05/24/2020 12:00:00 AM EST JOSE M ([facility]) Nasrin Abreu, HOT MILL OPERATOR-R: [address], [place] [address], Ph. Attender: Nasrin Abreu [facility] Medical 05/24/2020 12:00:00 AM EST JOSE M ([facility]) Nasrin Abreu, HOT MILL OPERATOR-R: [address], [place] [address], Ph. Attender: Nasrin Abreu [facility] Medical 05/24/2020 12:00:00 AM EST JOSE M ([facility]) Nasrin Abreu, HOT MILL OPERATOR-R: [address], [place] [address], Ph. Attender: Nasrin Abreu [facility] Medical 05/24/2020 12:00:00 AM EST JOSE M ([facility]) Nasrin Abreu, HOT MILL OPERATOR-R: [address], [place] [address], Ph. Attender: Nasrin Abreu [facility] Medical 05/24/2020 12:00:00 AM EST JOSE M ([facility]) Nasrin Abreu, HOT MILL OPERATOR-R: [address], [place] [address], Ph. Attender: Nasrin Abreu [facility] Medical 05/24/2020 12:00:00 AM EST JOSE M ([facility]) Nasrin Abreu, HOT MILL OPERATOR-R: [address], [place] [address], Ph. Attender: Nasrin Abreu [facility] Medical 05/18/2020 12:00:00 AM EST JOSE M ([facility]) Nasrin Abreu, HOT MILL OPERATOR-R: [address], [place] [address], Ph. Attender: Nasrin Abreu [facility] Medical 05/18/2020 12:00:00 AM EST JOSE M ([facility]) Nasrin Abreu, HOT MILL OPERATOR-R: [address], [place] [address], Ph. Attender: Nasrin Abreu [facility] Medical 05/18/2020 12:00:00 AM EST JOSE M ([facility]) Nasrin Abreu, HOT MILL OPERATOR-R: [address], [place] [address], Ph. Attender: Nasrin Abreu [facility] Medical 05/18/2020 12:00:00 AM EST JOSE M ([facility]) Nasrin Abreu, HOT MILL OPERATOR-R: [address], [place] [address], Ph. Attender: Nasrin Abreu [facility] Medical 05/18/2020 12:00:00 AM EST JOSE M ([facility]) Nasrin Abreu, HOT MILL OPERATOR-R: [address], [place] [address], Ph. Attender: Nasrin Abreu [facility] Medical 05/18/2020 12:00:00 AM EST JOSE M ([facility]) Nasrin Abreu, HOT MILL OPERATOR-R: [address], [place] [address], Ph. Attender: Nasrin Abreu [facility] Medical 05/18/2020 12:00:00 AM EST JOSE M ([facility]) Nasrin Abreu, HOT MILL OPERATOR-R: [address], [place] [address], Ph. Attender: Nasrin Abreu [facility] Medical 05/18/2020 12:00:00 AM EST JOSE M ([facility]) Nasrin Abreu, HOT MILL OPERATOR-R: [address], [place] [address], Ph. Attender: Nasrin Abreu [facility] Medical 05/18/2020 12:00:00 AM EST JOSE M ([facility]) Nasrin Abreu, HOT MILL OPERATOR-R: [address], [place] [address], Ph. Attender: Nasrin Abreu [facility] Medical 05/18/2020 12:00:00 AM EST JOSE M ([facility]) Nasrin Abreu, HOT MILL OPERATOR-R: [address], [place] [address], Ph. Attender: Nasrin Abreu [facility] Medical 05/18/2020 12:00:00 AM EST JOSE M ([facility]) Nsarin Abreu, HOT MILL OPERATOR-R: [address], [place] [address], Ph. Attender: Nasrin Abreu [facility] Medical 05/18/2020 12:00:00 AM EST JOSE M ([facility]) Nasrin Abreu, HOT MILL OPERATOR-R: [address], [place] [address], Ph. Attender: Nasrin Abreu [facility] Medical 05/18/2020 12:00:00 AM EST JOSE M ([facility]) Nasrin Abreu, HOT MILL OPERATOR-R: [address], [place] [address], Ph. Attender: Nasrin Abreu [facility] Medical 05/18/2020 12:00:00 AM EST JOSE M ([facility]) Nasrin Abreu, HOT MILL OPERATOR-R: [address], [place] [address], Ph. Attender: Nasrin Abreu [facility] Medical 05/18/2020 12:00:00 AM EST JOSE M ([facility]) Nasrin Abreu, HOT MILL OPERATOR-R: [address], [place] [address], Ph. Attender: Nasrin Abreu [facility] Medical 05/18/2020 12:00:00 AM EST JOSE M ([facility]) Outpatient Attender: Lilia Randolph/Karyn/Geronimo/Reindl 04/20/2020 12:00:00 PM EST [facility]ENT ([facility], ) Nasrin Abreu, HOT MILL OPERATOR-R: [address], [place] [address], Ph. Attender: Nasrin Abreu [facility] Medical 04/19/2020 12:00:00 AM EST JOSE M ([facility]) Nasrin Abreu, HOT MILL OPERATOR-R: [address], [place] [address], Ph. Attender: Nasrin Abreu [facility] Medical 04/19/2020 12:00:00 AM EST OJSE M ([facility]) Nasrin Abreu, HOT MILL OPERATOR-R: [address], [place] [address], Ph. Attender: Nasrin Abreu [facility] Medical 04/19/2020 12:00:00 AM EST JOSE M ([facility]) Nasrin Abreu, HOT MILL OPERATOR-R: [address], [place] [address], Ph. Attender: Nasrin Abreu [facility] Medical 04/19/2020 12:00:00 AM EST JOSE M ([facility]) Nasrin Abreu, HOT MILL OPERATOR-R: [address], [place] [address], Ph. Attender: Nasrin Abreu [facility] Medical 04/19/2020 12:00:00 AM EST JOSE M ([facility]) Nasrin Abreu, HOT MILL OPERATOR-R: [address], [place] [address], Ph. Attender: Nasrin Abreu [facility] Medical 04/19/2020 12:00:00 AM EST JOSE M ([facility]) Nasrin Abreu, HOT MILL OPERATOR-R: [address], [place] [address], Ph. Attender: Nasrin Abreu [facility] Medical 04/19/2020 12:00:00 AM EST JOSE M ([facility]) Nasrin Abreu, HOT MILL OPERATOR-R: [address], [place] [address], Ph. Attender: Nasrin Abreu [facility] Medical 04/19/2020 12:00:00 AM EST JOSE M ([facility]) Nasrin Abreu, HOT MILL OPERATOR-R: [address], [place] [address], Ph. Attender: Nasrin Abreu [facility] Medical 04/19/2020 12:00:00 AM EST JOSE M ([facility]) Nasrin Abreu, HOT MILL OPERATOR-R: [address], [place] [address], Ph. Attender: Nasrin Abreu [facility] Medical 04/19/2020 12:00:00 AM EST JOSE M ([facility]) Nasrin Abreu, HOT MILL OPERATOR-R: [address], [place] [address], Ph. Attender: Nasrin Abreu [facility] Medical 04/19/2020 12:00:00 AM EST JOSE M ([facility]) Nasrin Abreu, HOT MILL OPERATOR-R: [address], [place] [address], Ph. Attender: Nasrin Abreu [facility] Medical 04/19/2020 12:00:00 AM EST JOSE M ([facility]) Nasrin Abreu, HOT MILL OPERATOR-R: [address], [place] [address], Ph. Attender: Nasrin Abreu [facility] Medical 04/19/2020 12:00:00 AM EST JOSE M ([facility]) Nasrin Abreu, HOT MILL OPERATOR-R: [address], [place] [address], Ph. Attender: Nasrin Abreu [facility] Medical 04/19/2020 12:00:00 AM EST JOSE M ([facility]) Nasrin Abreu, HOT MILL OPERATOR-R: [address], [place] [address], Ph. Attender: Nasrin Abreu [facility] Medical 04/19/2020 12:00:00 AM EST JOSE M ([facility]) Nasrin Abreu, HOT MILL OPERATOR-R: [address], [place] [address], Ph. Attender: Nasrin Abreu [facility] Medical 04/19/2020 12:00:00 AM EST JOSE M ([facility]) Nasrin Abreu, HOT MILL OPERATOR-R: [address], [place] [address], Ph. Attender: Nasrin Abreu [place] [facility] Medical 04/12/2020 12:00:00 AM EST JOSE M ([facility]) Nasrin Abreu, HOT MILL OPERATOR-R: [address], [place] [address], Ph. Attender: Nasrin Abreu [facility] Medical 04/12/2020 12:00:00 AM EST JOSE M ([facility]) Nasrin Abreu, HOT MILL OPERATOR-R: [address], [place] [address], Ph. Attender: Nasrin Abreu [facility] Medical 04/12/2020 12:00:00 AM EST JOSE M ([facility]) Nasrin Abreu, HOT MILL OPERATOR-R: [address], [place] [address], Ph. Attender: Nasrin Abreu [facility] Medical 04/12/2020 12:00:00 AM EST JOSE M ([facility]) Nasrin Abreu, HOT MILL OPERATOR-R: [address], [place] [address], Ph. Attender: Nasrin Abreu [facility] Medical 04/12/2020 12:00:00 AM EST JOSE M ([facility]) Nasrin Abreu, HOT MILL OPERATOR-R: [address], [place] [address], Ph. Attender: Nasrin Mahoganysahilkennedy [facility] Medical 04/12/2020 12:00:00 AM EST JOSE M ([facility]) Nasrin Abreu, HOT MILL OPERATOR-R: [address], [place] [address], Ph. Attender: Nasrin Abreu [facility] Medical 04/12/2020 12:00:00 AM EST JOSE M ([facility]) Nasrin Abreu, HOT MILL OPERATOR-R: [address], [place] [address], Ph. Attender: Nasrin Abreu [facility] Medical 04/12/2020 12:00:00 AM EST JOSE M ([facility]) Nasrin Abreu, HOT MILL OPERATOR-R: [address], [place] [address], Ph. Attender: Nasrin Abreu [facility] Medical 04/12/2020 12:00:00 AM EST JOSE M ([facility]) Nasrin Abreu, HOT MILL OPERATOR-R: [address], [place] [address], Ph. Attender: Nasrin Abreu [facility] Medical 04/12/2020 12:00:00 AM EST JOSE M ([facility]) Nasrin Abreu, HOT MILL OPERATOR-R: [address], [place] [address], Ph. Attender: Nasrin Abreu [facility] Medical 04/12/2020 12:00:00 AM EST JOSE M ([facility]) Nasrin Abreu, HOT MILL OPERATOR-R: [address], [place] [address], Ph. Attender: Nasrin Abreu [facility] Medical 04/12/2020 12:00:00 AM EST JOSE M ([facility]) Nasrin Abreu, HOT MILL OPERATOR-R: [address], [place] [address], Ph. Attender: Nasrin Abreu [facility] Medical 04/12/2020 12:00:00 AM EST JOSE M ([facility]) Nasrin Abreu, HOT MILL OPERATOR-R: [address], [place] [address], Ph. Attender: Nasrin Abreu [facility] Medical 04/12/2020 12:00:00 AM EST JOSE M ([facility]) Nasrin Abreu, HOT MILL OPERATOR-R: [address], [place] [address], Ph. Attender: Nasrin Abreu [facility] Medical 04/12/2020 12:00:00 AM EST JOSE M ([facility]) Nasrin Abreu, HOT MILL OPERATOR-R: [address], [place] [address], Ph. Attender: Nasrin Abreu [facility] Medical 04/12/2020 12:00:00 AM EST JOSE M ([facility]) Nasrin Abreu, HOT MILL OPERATOR-R: [address], [place] [address], Ph. Attender: Nasrin Abreu [facility] Medical 04/05/2020 12:00:00 AM EDT JOSE M ([facility]) Nasrin Abreu, HOT MILL OPERATOR-R: [address], [place] [address], Ph. Attender: Nasrin Abreu [facility] Medical 04/05/2020 12:00:00 AM EDT JOSE M ([facility]) Nasrin Abreu, HOT MILL OPERATOR-R: [address], [place] [address], Ph. Attender: Nasrin Abreu [facility] Medical 04/05/2020 12:00:00 AM EDT OJSE M ([facility]) Nasrin Abreu, HOT MILL OPERATOR-R: [address], [place] [address], Ph. Attender: Nasrin Abreu [facility] Medical 04/05/2020 12:00:00 AM EDT JOSE M ([facility]) Nasrin Abreu, HOT MILL OPERATOR-R: [address], [place] [address], Ph. Attender: Nasrin Abreu [facility] Medical 04/05/2020 12:00:00 AM EDT JOSE M ([facility]) Nasrin Abreu, HOT MILL OPERATOR-R: [address], [place] [address], Ph. Attender: Nasrin Abreu [facility] Medical 04/05/2020 12:00:00 AM EDT JOSE M ([facility]) Nasrin Abreu, HOT MILL OPERATOR-R: [address], [place] [address], Ph. Attender: Nasrin Abreu [facility] Medical 04/05/2020 12:00:00 AM EDT JOSE M ([facility]) Nasrin Abreu, HOT MILL OPERATOR-R: [address], [place] [address], Ph. Attender: Nasrin Abreu [facility] Medical 04/05/2020 12:00:00 AM EDT JOSE M ([facility]) Nasrin Abreu, HOT MILL OPERATOR-R: [address], [place] [address], Ph. Attender: Nasrin Abreu [facility] Medical 04/05/2020 12:00:00 AM EDT JOSE M ([facility]) Nasrin Abreu, HOT MILL OPERATOR-R: [address], [place] [address], Ph. Attender: Nasrin Abreu [facility] Medical 04/05/2020 12:00:00 AM EDT JOSE M ([facility]) Nasrin Abreu, HOT MILL OPERATOR-R: [address], [place] [address], Ph. Attender: Nasrin Abreu [facility] Medical 04/05/2020 12:00:00 AM EDT JOSE M ([facility] [facility] Nasrin Abreu, HOT MILL OPERATOR-R: [address], [place] [address], Ph. Attender: Nasrin Abreu [facility] Medical 04/05/2020 12:00:00 AM EDT JOSE M ([facility]) Nasrin Abreu, HOT MILL OPERATOR-R: [address], [place] [address], Ph. Attender: Nasrin Abreu [facility] Medical 04/05/2020 12:00:00 AM EDT JOSE M ([facility]) Nasrin Abreu, HOT MILL OPERATOR-R: [address], [place] [address], Ph. Attender: Nasrin Abreu [facility] Medical 04/05/2020 12:00:00 AM EDT JOSE M ([facility]) Nasrin Abreu, HOT MILL OPERATOR-R: [address], [place] [address], Ph. Attender: Nasrin Abreu [facility] Medical 04/05/2020 12:00:00 AM EDT JOSE M ([facility]) Nasrin Abreu, HOT MILL OPERATOR-R: [address], [place] [address], Ph. Attender: Nasrin Abreu [facility] Medical 04/05/2020 12:00:00 AM EDT JOSE M ([facility]) Outpatient Attender: PASTORA KELLOGG RPA-C [facility] 03/29/2020 12:40:00 PM EDT [facility] Outpatient Attender: PASTORA KELLOGG RPA-C [facility] 03/26/2020 11:34:01 AM EDT [facility] Outpatient Attender: PASTORA KELLOGG RPA-C [facility] 03/25/2020 01:30:10 PM EDT [facility] Outpatient Attender: PASTORA KELLOGG RPA-C [facility] 03/24/2020 01:32:01 PM EDT [facility] Outpatient Attender: PASTORA KELLOGG RPA-C [facility] 03/18/2020 11:38:03 AM EDT [facility] Immunizations Vaccine Date Status Description Data Source(s) Tdap 03/14/2021 04:43:00 PM EDT completed 03/14/2021 0.5 mL JOSE M ([facility]) Tdap 03/14/2021 04:43:00 PM EDT completed 03/14/2021 0.5 mL JOSE M ([facility]) Tdap 03/14/2021 04:43:00 PM EDT completed 03/14/2021 0.5 mL JOSE M ([facility]) COVID-19 vaccine, vector-nr, rS-Ad26, PF, 0.5 mL 01/03/2021 01:46:35 PM EDT completed .5 mL MANASSA ([facility]) COVID-19 vaccine, vector-nr, rS-Ad26, PF, 0.5 mL 01/03/2021 01:46:35 PM EDT completed .5 mL MANASSA ([facility]) COVID-19 vaccine, vector-nr, rS-Ad26, PF, 0.5 mL 01/03/2021 01:46:35 PM EDT completed .5 mL MANASSA ([facility]) COVID-19 vaccine, vector-nr, rS-Ad26, PF, 0.5 mL 01/03/2021 01:46:35 PM EDT completed .5 mL MANASSA ([facility]) COVID-19 VACCINE [place] 01/03/2021 12:00:00 AM EDT completed [facility] Vaccine Series Complete: YESThis Data wa s Submitted to [facility] Via [employer]. Medications Medication Brand Name Start Date Product Form Dose Route Admi nistrative Instructions Pharmacy Instructions Status Indications Reaction Description Data Source(s) 0.8 % 11/19/2020 12:00:00 AM EDT cream 20 INSERT ONE APPLICATORFUL VAGINALLY ONCE DAILY AT BEDTIME INSERT ONE APPLICATORFUL VAGINALLY ONCE DAILY AT BEDTI ME SOLD: 11/19/2020 [facility] 8-2 mg 10/11/2020 12:00:00 AM EDT film 28 DISSOLVE 2 FILM STRIPS UNDER THE TONGUE ONCE DAILY , MAXIMUM DAILY DOSE = 2 FILM STRIPS DISSOLVE 2 FILM STRIPS UNDER THE TONGUE ONCE DAILY , MAXIMUM DAILY DOSE = 2 FILM STRIPS SOLD: 10/11/2020 [facility] 8-2 mg 09/14/2020 12:00:00 AM EDT film [address] TWO FILMS UNDER THE TONGUE EVERY DAY, MAXIMUM DAILY DOSE = [address] TWO FILMS UNDER THE TONGUE EVERY DAY, MAXIMUM DAILY DOSE = 2 FILMS SOLD: 09/14/2020 [facility] 150 mg 09/07/2020 12:00:00 AM EDT tablet 30 TAKE ONE TABLET BY MOUTH AT BEDTIME TAKE ONE TABLET BY MOUTH AT BEDTIME SOLD: 09/14/2020 [facility] 8-2 mg 08/18/2020 12:00:00 AM EST film 56 DISSOLVE 2 FILMS UNDER THE TONGUE DAILY MAXIMUM DAILY DOSE = 2 FILMS DISSOLVE 2 FILMS UNDER THE TONGUE DAILY MAXIMUM DAILY DOSE = 2 FILMS SOLD: 08/18/2020 [facility] Clonidine Hydrochloride 0.2 MG Oral Tablet CLONIDINE HCL 08/17/2020 12:00:00 AM EST tablet 30 TAKE ONE TABLET BY MOUTH AT BEDTIME TAKE ONE TABLET BY MOUTH AT BEDTIME SOLD: 09/14/2020 [facility] Clonidine Hydrochloride 0.2 MG Oral Tablet CLONIDINE HCL 08/17/2020 12:00:00 AM EST tablet 30 TAKE ONE TABLET BY MOUTH AT BEDTIME TAKE ONE TABLET BY MOUTH AT BEDTIME SOLD: 08/18/2020 [facility] 8-2 mg 07/21/2020 12:00:00 AM EST film 56 PLACE TWO FILMS UNDER THE TONGUE EVERY DAY, MAXIMUM DAILY DOSE = [address] TWO FILMS UNDER THE TONGUE EVERY DAY, MAXIMUM DAILY DOSE = 2 FILMS SOLD: 07/22/2020 [facility] 8-2 mg 06/20/2020 12:00:00 AM EST film 56 PLACE TWO FILMS UNDER THE TONGUE EVERY DAY MAXIMUM DAILY DOSE = [address] TWO FILMS UNDER THE TONGUE EVERY DAY MAXIMUM DAILY DOSE = 2 FILMS SOLD: 06/20/2020 [facility] Clonidine Hydrochloride 0.2 MG Oral Tablet CLONIDINE HCL 06/14/2020 12:00:00 AM EST tablet 28 TAKE ONE TABLET BY MOUTH AT BEDTIME, MAXIMUM DAILY DOSE = ONE TABLET TAKE ONE TABLET BY MOUTH AT BEDTIME, MAXIMUM DAILY DOS E = ONE TABLET SOLD: 06/17/2020 [facility] 0.75 % 06/14/2020 12:00:00 AM EST gel 70 INSERT ONE APPLICATORFUL VAGINALLY EVERY DAY AT BEDTIME FOR 5 DAYS INSERT ONE APPLICATORFUL VAGINALLY EVERY DAY AT BEDTIME FOR 5 DAYS SOLD: 06/14/2020 [facility] Clonidine Hydrochloride 0.2 MG Oral Tablet CLONIDINE HCL 06/14/2020 12:00:00 AM EST tablet 28 TAKE ONE TABLET BY MOUTH AT BEDTIME, MAXIMUM DAILY DOSE = ONE TABLET TAKE ONE TABLET BY MOUTH AT BEDTIME, MAXIMUM DAILY DOS E = ONE TABLET SOLD: 07/22/2020 [facility] 8-2 mg 06/03/2020 12:00:00 AM EST film 28 PLACE 2 FILMS UNDER THE TONGUE ONCE DAILY, MAXIMUM DAILY DOSE = [address] 2 FILMS UNDER THE TONGUE ONCE DAILY, MAXIMUM DAILY DOSE = 2 FILMS SOLD: 06/03/2020 [facility] Metronidazole 500 MG Oral Tablet METRONIDAZOLE 05/25/2020 12:0 0:00 AM EST tablet 14 TAKE ONE TABLET BY MOUTH TWICE A DAY FOR 7 DAYS TAKE ONE TABLET BY MOUTH TWICE A DAY FOR 7 DAYS SOLD: 05/25/2020 [facility] 8-2 mg 05/02/2020 12:00:00 AM EST film 28 [address]ACE TWO FILMS UNDER THE TONGUE EVERY DAY MAXIMUM DAILY DOSE = [address] TWO FILMS UNDER THE TONGUE EVERY DAY MAXIMUM DAILY DOSE = 2 FILMS SOLD: 05/15/2020 [facility] 8-2 mg 04/21/2020 12:00:00 AM EST film 14 DISSOLVE 2 FILM STRIPS UNDER THE TONGUE ONCE DAILY , MAXIMUM DAILY DOSE = 2 FILM STRIPS DISSOLVE 2 FILM STRIPS UNDER THE TONGUE ONCE DAILY , MAXIMUM DAILY DOSE = 2 FILM STRIPS SOLD: 04/21/2020 [facility] 10 mg 04/17/2020 12:00:00 AM EST tablet 12 TAKE ONE TABLET BY MOUTH EVERY 6 HOURS NEEDED FOR PAIN TAKE ONE TABLET BY MOUTH EVERY 6 HOURS A S NEEDED FOR PAIN SOLD: 04/17/2020 [facility] 8-2 mg 04/12/2020 12:00:00 AM EST film 6 PLACE TWO FILMS UNDER THE TONGUE EVERY DAY, MAXIMUM DAILY DOSE = [address] TWO FILMS UNDER THE TONGUE EVERY DAY, MAXIMUM DAILY DOSE = 2 FILMS SOLD: 04/12/2020 [facility] 150 mg 04/07/2020 12:00:00 AM EDT tablet 90 TAKE ONE TABLET BY MOUTH AT BEDTIME TAKE ONE TABLET BY MOUTH AT BEDTIME SOLD: 04/12/2020 [facility] 150 mg 04/07/2020 12:00:00 AM EDT tablet 90 TAKE ONE TABLET BY MOUTH AT BEDTIME TAKE ONE TABLET BY MOUTH AT BEDTIME SOLD: 06/17/2020 [facility] 8-2 mg 04/02/2020 12:00:00 AM EDT film 14 PLACE TWO FILMS UNDER THE TONGUE EVERY DAY, MAXIMUM DAILY DOSE = [address] TWO FILMS UNDER THE TONGUE EVERY DAY, MAXIMUM DAILY DOSE = 2 FILMS SOLD: 04/02/2020 [facility] 8-2 mg 03/02/2020 12:00:00 AM EDT film 56 PLACE TWO FILMS UNDER THE TONGUE EVERY DAY, MAXIMUM DAILY DOSE = [address] TWO FILMS UNDER THE TONGUE EVERY DAY, MAXIMUM DAILY DOSE = 2 FILMS SOLD: 03/02/2020 [facility] Clonidine Hydrochloride 0.2 MG Oral Tablet CLONIDINE HCL 02/04/2020 12:00:00 AM EDT tablet 28 TAKE ONE TABLET BY MOUTH GRISEL RY DAY AT BEDTIME TAKE ONE TABLET BY MOUTH EVERY DAY AT BEDTIME SOLD: 05/15/2020 [facility] Clonidine Hydrochloride 0.2 MG Oral Tablet CLONIDINE HCL 02/04/2020 12:00:00 AM EDT tablet 28 TAKE ONE TABLET BY MOUTH GRISEL RY DAY AT BEDTIME TAKE ONE TABLET BY MOUTH EVERY DAY AT BEDTIME SOLD: 03/02/2020 [facility] Clonidine Hydrochloride 0.2 MG Oral Tablet CLONIDINE HCL 02/04/2020 12:00:00 AM EDT tablet 28 TAKE ONE TABLET BY MOUTH GRISEL RY DAY AT BEDTIME TAKE ONE TABLET BY MOUTH EVERY DAY AT BEDTIME SOLD: 04/01/2020 [facility] Trazodone Hydrochloride 100 MG Oral Tablet TRAZODONE HCL 02/04/2020 12:00:00 AM EDT tablet 60 TAKE TWO TABLETS BY MOUTH ON CE DAILY AT BEDTIME TAKE TWO TABLETS BY MOUTH ONCE DAILY AT BEDTIME SOLD: 05/15/2020 [facility] 150 mg 11/14/2019 12:00:00 AM EDT tablet 30 TAKE ONE TABLET BY MOUTH EVERY DAY AT BEDTIME TAKE ONE TABLET BY MOUTH EVERY DAY AT BEDTIME SOLD: 03/02/2020 [facility] buspirone hydrochloride 15 MG Oral Table t buspirone 15 mg tablet TAKE ONE TABLET BY MOUTH EVERY 8 HOURS buspirone 15 mg tablet TAKE ONE TABLET B Y MOUTH EVERY 8 HOURS completed buspirone hydroc hloride 15 MG Oral Tablet MANASSA ([facility]) Alprazolam 0.5 MG Oral Tablet alprazolam 0.5 mg tablet TAKE ONE TABLET BY MOUTH TWICE A DAY MAXIMUM DAILY DOSE 2 TABLETS alprazolam 0.5 mg tablet TAKE ONE TABLET BY MOUTH TWICE A DAY MAXIMUM DAILY DOSE 2 TABLETS completed alprazolam 0.5 MG Oral Tablet AT [facility]) 12 HR Bupropion Hydrochloride 150 MG Ext ended Release Oral Tablet bupropion HCl SR 150 mg tablet,12 hr sustained-release bupropion HCl SR 150 mg tablet,12 hr sustained-release completed 12 HR bupropion hydrochloride 150 MG Extended Release Oral Tablet MANASSA ([facility]) buspirone hydrochloride 15 MG Oral Table t buspirone 15 mg tablet TAKE ONE TABLET BY MOUTH EVERY 8 HOURS buspirone 15 mg tablet TAKE ONE TABLET B Y MOUTH EVERY 8 HOURS completed buspirone hydroc hloride 15 MG Oral Tablet MANASSA ([facility]) Fluconazole 150 MG Oral Tablet fluconazo le 150 mg tablet TAKE ONE TABLET BY MOUTH ONCE AND TAKE 2ND TABLET IN 48 HOURS fluconazole 150 mg tablet TAKE ONE TABLET BY MOUTH ONCE AND TAKE 2ND TABLET IN 48 HOURS completed fluconazole 150 MG Oral Tablet MANASSA ([facility]) Ketorolac Tromethamine 10 MG Oral Tablet ketorolac 10 mg tablet ketorolac 10 mg tablet completed ketorolac trome thamine 10 MG Oral Tablet MANASSA ([facility]) Metronidazole 0.0075 MG/MG Vaginal Gel m etronidazole 0.75 % vaginal gel INSERT 1 APPLICATORFUL INTRAVAGINALLY ONCE DAILY AT BEDTIME FOR 5 DAYS metronidazole 0.75 % vaginal gel INSERT 1 APPLICATORFUL INTRAVAGINALLY ONCE DAILY AT BEDTIME FOR 5 DAYS completed metronidazole 0. 0075 MG/MG Vaginal Gel MANASSA ([facility]) 12 HR Bupropion Hydrochloride 150 MG Ext ended Release Oral Tablet bupropion HCl SR 150 mg tablet,12 hr sustained-release bupropion HCl SR 150 mg tablet,12 hr sustained-release completed 12 HR bupropion hydrochloride 150 MG Extended Release Oral Tablet JOSE M ([facility]) Buprenorphine 8 MG / Naloxone 2 MG Oral Strip buprenorphine 8 mg-naloxone [address] TWO FILMS UNDER THE TONGUE EVERY DAY MAXIMUM DAILY DOSE 2 buprenorphine 8 mg-naloxone 2 mg subling ual film PLACE TWO FILMS UNDER THE TONGUE EVERY DAY MAXIMUM DAILY DOSE 2 completed buprenorphine 8 MG / naloxone 2 MG Sublingual Film JOSE M ([facility]) Metronidazole 500 MG Oral Tablet metroni dazole 500 mg tablet TAKE ONE TABLET BY MOUTH TWICE A DAY FOR 7 DAYS metronidazole 500 mg tablet TAKE ONE TAB LET BY MOUTH TWICE A DAY FOR 7 DAYS completed metronidazole 500 MG Oral Tablet MANASSA ([facility]) Ketorolac Tromethamine 10 MG Oral Tablet ketorolac 10 mg tablet ketorolac 10 mg tablet completed ketorolac trome thamine 10 MG Oral Tablet MANASSA ([facility]) Fluconazole 150 MG Oral Tablet fluconazo le 150 mg tablet TAKE ONE TABLET BY MOUTH ONCE AND TAKE 2ND TABLET IN 48 HOURS fluconazole 150 mg tablet TAKE ONE TABLET BY MOUTH ONCE AND TAKE 2ND TABLET IN 48 HOURS completed fluconazole 150 MG Oral Tablet MANASSA ([facility]) terconazole 8 MG/ML Vaginal Cream tercon azole 0.8 % vaginal cream INSERT ONE APPLICATORFUL VAGINALLY ONCE DAILY AT BEDTIME terconazole 0.8 % vaginal cream INSERT ONE APPLICATORFUL VAGINALLY ONCE DAILY AT BEDTIME completed terconazole 8 MG/ML Vaginal Cream MANASSA ([facility]) Clonidine Hydrochloride 0.2 MG Oral Tabl et clonidine HCl 0.2 mg tablet TAKE ONE TABLET BY MOUTH AT BEDTIME clonidine HCl 0.2 mg tablet TAKE ONE TAB LET BY MOUTH AT BEDTIME completed clonidine h ydrochloride 0.2 MG Oral Tablet MANASSA ([facility]) Metronidazole 0.0075 MG/MG Vaginal Gel m etronidazole 0.75 % vaginal gel INSERT ONE APPLICATORFUL VAGINALLY EVERY DAY AT BEDTIME FOR 5 DAYS metronidazole 0.75 % vaginal gel INSERT ONE APPLICATORFUL VAGINALLY EVERY DAY AT BEDTIME FOR 5 DAYS completed metronidazole 0.0075 MG/MG Vaginal Gel MANASSA ([facility]) Fluconazole 150 MG Oral Tablet fluconazole 150 mg tabl et fluconazole 150 mg tablet completed fluconazole 150 MG Oral Tablet MANASSA ([facility]) Metronidazole 0.0075 MG/MG Vaginal Gel m etronidazole 0.75 % vaginal gel INSERT ONE APPLICATORFUL VAGINALLY EVERY DAY AT BEDTIME FOR 5 DAYS metronidazole 0.75 % vaginal gel INSERT ONE APPLICATORFUL VAGINALLY EVERY DAY AT BEDTIME FOR 5 DAYS completed metronidazole 0.0075 MG/MG Vaginal Gel MANASSA ([facility]) Metronidazole 500 MG Oral Tablet metroni dazole 500 mg tablet TAKE ONE TABLET BY MOUTH TWICE A DAY FOR 7 DAYS metronidazole 500 mg tablet TAKE ONE TAB LET BY MOUTH TWICE A DAY FOR 7 DAYS completed metronidazole 500 MG Oral Tablet MANASSA ([facility]) buspirone hydrochloride 15 MG Oral Table t buspirone 15 mg tablet TAKE ONE TABLET BY MOUTH EVERY 8 HOURS buspirone 15 mg tablet TAKE ONE TABLET B Y MOUTH EVERY 8 HOURS completed buspirone hydroc hloride 15 MG Oral Tablet MANASSA ([facility]) Metronidazole 500 MG Oral Tablet metroni dazole 500 mg tablet TAKE ONE TABLET BY MOUTH TWICE A DAY FOR 7 DAYS metronidazole 500 mg tablet TAKE ONE TAB LET BY MOUTH TWICE A DAY FOR 7 DAYS completed metronidazole 500 MG Oral Tablet MANASSA ([facility]) New Day 1.5 mg tablet TAKE DIRECTED [id number] completed levonorgestrel 1.5 MG Oral Tablet [New Day] MANASSA ([facility]) Ketorolac Tromethamine 10 MG Oral Tablet ketorolac 10 mg tablet ketorolac 10 mg tablet completed ketorolac trome thamine 10 MG Oral Tablet MANASSA ([facility]) Clonidine Hydrochloride 0.2 MG Oral Tabl et clonidine HCl 0.2 mg tablet TAKE ONE TABLET BY MOUTH AT BEDTIME clonidine HCl 0.2 mg tablet TAKE ONE TAB LET BY MOUTH AT BEDTIME completed clonidine h ydrochloride 0.2 MG Oral Tablet MANASSA ([facility]) 12 HR Bupropion Hydrochloride 150 MG Ext ended Release Oral Tablet bupropion HCl SR 150 mg tablet,12 hr sustained-release bupropion HCl SR 150 mg tablet,12 hr sustained-release completed 12 HR bupropion hydrochloride 150 MG Extended Release Oral Tablet MANASSA ([facility]) New Day 1.5 mg tablet [id number] completed levonorgestrel 1.5 MG Oral Tablet [New Day] MANASSA ([facility]) New Day 1.5 mg tablet TAKE DIRECTED [id number] completed levonorgestrel 1.5 MG Oral Tablet [New Day] MANASSA ([facility]) terconazole 8 MG/ML Vaginal Cream tercon azole 0.8 % vaginal cream INSERT ONE APPLICATORFUL VAGINALLY ONCE DAILY AT BEDTIME terconazole 0.8 % vaginal cream INSERT ONE APPLICATORFUL VAGINALLY ONCE DAILY AT BEDTIME completed terconazole 8 MG/ML Vaginal Cream MANASSA ([facility]) NITROFURANTOIN, MACROCRYSTALS 25 MG / Ni trofurantoin, Monohydrate 75 MG Oral Capsule nitrofurantoin monohydrate/macrocrystals 100 mg capsule TAKE ONE CAPSULE BY MOUTH TWO TIMES A DAY FOR 7 DAYS nitrofurantoin monohydrate/macrocrystals 100 mg capsule TAKE ONE CAPSULE BY MOUTH TWO TIMES A DAY FOR 7 DAYS completed nitrofurantoin, macr ocrystals 25 MG / nitrofurantoin, monohydrate 75 MG Oral Capsule MANASSA ([facility]) Ketorolac Tromethamine 10 MG Oral Tablet ketorolac 10 mg tablet ketorolac 10 mg tablet completed ketorolac trome thamine 10 MG Oral Tablet MANASSA ([facility]) New Day 1.5 mg tablet TAKE DIRECTED [id number] completed levonorgestrel 1.5 MG Oral Tablet [New Day] MANASSA ([facility]) Fluconazole 150 MG Oral Tablet fluconazo le 150 mg tablet TAKE ONE TABLET BY MOUTH ONCE AND TAKE 2ND TABLET IN 48 HOURS fluconazole 150 mg tablet TAKE ONE TABLET BY MOUTH ONCE AND TAKE 2ND TABLET IN 48 HOURS completed fluconazole 150 MG Oral Tablet MANASSA ([facility]) terconazole 8 MG/ML Vaginal Cream tercon azole 0.8 % vaginal cream INSERT ONE APPLICATORFUL VAGINALLY ONCE DAILY AT BEDTIME terconazole 0.8 % vaginal cream INSERT ONE APPLICATORFUL VAGINALLY ONCE DAILY AT BEDTIME completed terconazole 8 MG/ML Vaginal Cream [facility]) 12 HR Bupropion Hydrochloride 150 MG Ext ended Release Oral Tablet bupropion HCl SR 150 mg tablet,12 hr sustained-release bupropion HCl SR 150 mg tablet,12 hr sustained-release completed 12 HR bupropion hydrochloride 150 MG Extended Release Oral Tablet MANASSA ([facility]) Metronidazole 0.0075 MG/MG Vaginal Gel m etronidazole 0.75 % vaginal gel INSERT ONE APPLICATORFUL VAGINALLY EVERY DAY AT BEDTIME FOR 5 DAYS metronidazole 0.75 % vaginal gel INSERT ONE APPLICATORFUL VAGINALLY EVERY DAY AT BEDTIME FOR 5 DAYS completed metronidazole 0.0075 MG/MG Vaginal Gel MANASSA ([facility]) 12 HR Bupropion Hydrochloride 150 MG Ext ended Release Oral Tablet bupropion HCl SR 150 mg tablet,12 hr sustained-release bupropion HCl SR 150 mg tablet,12 hr sustained-release completed 12 HR bupropion hydrochloride 150 MG Extended Release Oral Tablet MANASSA ([facility]) Trazodone Hydrochloride 100 MG Oral Tablet trazodone 1 00 mg tablet trazodone 100 mg tablet completed trazodone hy drochloride 100 MG Oral Tablet MANASSA ([facility]) NITROFURANTOIN, MACROCRYSTALS 25 MG / Ni trofurantoin, Monohydrate 75 MG Oral Capsule nitrofurantoin monohydrate/macrocrystals 100 mg capsule TAKE ONE CAPSULE BY MOUTH TWO TIMES A DAY FOR 7 DAYS nitrofurantoin monohydrate/macrocrystals 100 mg capsule TAKE ONE CAPSULE BY MOUTH TWO TIMES A DAY FOR 7 DAYS completed nitrofurantoin, macr ocrystals 25 MG / nitrofurantoin, monohydrate 75 MG Oral Capsule JOSE M ([facility]) New Day 1.5 mg tablet [id number] completed levonorgestrel 1.5 MG Oral Tablet [New Day] MANASSA ([facility]) Ketorolac Tromethamine 10 MG Oral Tablet ketorolac 10 mg tablet ketorolac 10 mg tablet completed ketorolac trome thamine 10 MG Oral Tablet JOSE M ([facility]) 12 HR Bupropion Hydrochloride 150 MG Ext ended Release Oral Tablet bupropion HCl SR 150 mg tablet,12 hr sustained-release bupropion HCl SR 150 mg tablet,12 hr sustained-release completed 12 HR bupropion hydrochloride 150 MG Extended Release Oral Tablet JOSE M ([facility]) Ketorolac Tromethamine 10 MG Oral Tablet ketorolac 10 mg tablet ketorolac 10 mg tablet completed ketorolac trome thamine 10 MG Oral Tablet MANASSA ([facility]) Metronidazole 500 MG Oral Tablet metroni dazole 500 mg tablet TAKE ONE TABLET BY MOUTH TWICE A DAY FOR 7 DAYS metronidazole 500 mg tablet TAKE ONE TAB LET BY MOUTH TWICE A DAY FOR 7 DAYS completed metronidazole 500 MG Oral Tablet JOSE M ([facility]) NITROFURANTOIN, MACROCRYSTALS 25 MG / Ni trofurantoin, Monohydrate 75 MG Oral Capsule nitrofurantoin monohydrate/macrocrystals 100 mg capsule TAKE ONE CAPSULE BY MOUTH TWO TIMES A DAY FOR 7 DAYS nitrofurantoin monohydrate/macrocrystals 100 mg capsule TAKE ONE CAPSULE BY MOUTH TWO TIMES A DAY FOR 7 DAYS completed nitrofurantoin, macr ocrystals 25 MG / nitrofurantoin, monohydrate 75 MG Oral Capsule JOSE M ([facility]) Trazodone Hydrochloride 100 MG Oral Tablet trazodone 1 00 mg tablet trazodone 100 mg tablet completed trazodone hy drochloride 100 MG Oral Tablet MANASSA ([facility]) Fluconazole 150 MG Oral Tablet fluconazole 150 mg tabl et fluconazole 150 mg tablet completed fluconazole 150 MG Oral Tablet MANASSA ([facility]) Trazodone Hydrochloride 100 MG Oral Tablet trazodone 1 00 mg tablet trazodone 100 mg tablet completed trazodone hy drochloride 100 MG Oral Tablet MANASSA ([facility]) Clonidine Hydrochloride 0.2 MG Oral Tabl et clonidine HCl 0.2 mg tablet TAKE ONE TABLET BY MOUTH AT BEDTIME clonidine HCl 0.2 mg tablet TAKE ONE TAB LET BY MOUTH AT BEDTIME completed clonidine h ydrochloride 0.2 MG Oral Tablet MA[facility]SSA ([facility]) New Day 1.5 mg tablet [id number] completed levonorgestrel 1.5 MG Oral Tablet [New Day] [facility]SS[facility] ([facility]) Metronidazole 0.0075 MG/MG Vaginal Gel m etronidazole 0.75 % vaginal gel INSERT 1 APPLICATORFUL INTRAVAGINALLY ONCE DAILY AT BEDTIME FOR 5 DAYS metronidazole 0.75 % vaginal gel INSERT 1 APPLICATORFUL INTRAVAGINALLY ONCE DAILY AT BEDTIME FOR 5 DAYS completed metronidazole 0. 0075 MG/MG Vaginal Gel MANASSA ([facility]) Metronidazole 500 MG Oral Tablet metroni dazole 500 mg tablet TAKE ONE TABLET BY MOUTH TWICE A DAY FOR 7 DAYS metronidazole 500 mg tablet TAKE ONE TAB LET BY MOUTH TWICE A DAY FOR 7 DAYS completed metronidazole 500 MG Oral Tablet JOSE M ([facility]) Fluconazole 150 MG Oral Tablet fluconazole 150 mg tabl et fluconazole 150 mg tablet completed fluconazole 150 MG Oral Tablet JOSE M ([facility]) Metronidazole 500 MG Oral Tablet metroni dazole 500 mg tablet TAKE ONE TABLET BY MOUTH TWICE A DAY FOR 7 DAYS metronidazole 500 mg tablet TAKE ONE TAB LET BY MOUTH TWICE A DAY FOR 7 DAYS completed metronidazole 500 MG Oral Tablet JOSE M ([facility]) Insurance Providers Payer name Policy type / Coverage type Policy ID Covered democrat ID Covered democrat's relationship to jackson Policy [place] Plan Information Medicaid S [id number] S [id number] [facility] I [id number] Self [id number] Managed Care - Community Plan [facility] P [id number] S [id number] MEDICAID [id number] Self [id number] Medicaid S [id number] S [id number] [facility] [id number] SP [id number] [facility] [id number] SP [id number] [facility] [id number] Zoraida [id number] Managed Care - Community Plan [facility] P [id number] S [id number] [facility] MCDO [id number] SP [id number] Medicaid S [id number] S [id number] Managed Care - Community Plan [facility] P [id number] S [id number] Medicaid S [id number] S [id number] Managed Care - Community Plan [facility] P [id number] S [id number] [facility] [id number] SP [id number] [facility] [id number] SP [id number] [facility] Community Plan Commercial [id number] Self [id number] Medicaid S [id number] S [id number] Managed Care - Community Plan [facility] P [id number] S [id number] Medicaid S [id number] S [id number] Managed Care - Community Plan [facility] P [id number] S [id number] Managed Care - [facility] Community Plan P [id number] S [id number] Medicaid S [id number] S [id number] Managed Care - [facility] Community Plan P [id number] S [id number] [facility] [id number] N [facility] Community [facility] [id number] [employer] PLAN [facility] [id number] SP [id number] SELF PAY O [id number] S [id number] [facility]) O [id number] S [id number] [facility] COMM PLAN [place] UNAVAILABLE S UNAVAILABLE MEDICAID [id number] SP [id number] [facility]) O [id number] S [id number] EMEDNY [id number] SP [id number] [facility]) O [id number] S [id number] [facility] COMM PLAN [place] W [id number] S [id number] MEDICAID W [id number] [employer] [id number] SP [id number] [facility] [id number] SP [id number] Managed Care - [facility] P UNAVAILABLE S UNAVAILABLE Medicaid S UNAVAILABLE S UNAVAILA BLE [employer] [id number] SP [id number] [employer] [id number] SP [id number] SELF PAY UNAVAILABLE SP UNAVAILA BLE [facility] Medigap Part B [id number] Self 1 [id number] Managed Care - [facility] P [id number] S [id number] [facility] [id number] SP [id number] [facility] [id number] SP [id number] Problems, Conditions, and Diagnoses Code Display Name Description Problem Type Effective Dates Data Source(s) 81280081 Nicotine dependence Nicotine Dependence Problem 0 03/09/2021 12:00:00 AM EDT MANASSA ([facility]) [id number] Nicotine dependence Nicotine Dependence Problem 0 03/09/2021 12:00:00 AM EDT JOSE M ([facility]) [id number] Nicotine dependence Nicotine Dependence Problem 0 03/09/2021 12:00:00 AM EDT JOSE M ([facility]) [id number] Unspecified anxiety disorder Unspecified anxiety disor bryan Condition 01/28/2021 12:00:00 AM EDT [employer] ([facility]) [id number] Anxiety (finding) Anxiety (finding) Condition 01/28 12:00:00 AM EDT [employer] ([facility]) [id number] Depressive episode, unspecified Depressive episo de, unspecified Condition 12/01/2020 12:00:00 AM EDT [employer] ([facility]) 826023644 Tobacco use Tobacco use Condition 12/01/2020 12:00:00 AM EDT [employer] ([facility]) [id number] Tobacco use Tobacco use Condition 12/01/2020 12:00:00 AM EDT [employer] ([facility]) 70686403 Depressive episode, unspecified Depressive episo de, unspecified Condition 12/01/2020 12:00:00 AM EDT [employer] ([facility]) 02893909 Depressive episode, unspecified Depressive episo de, unspecified Condition 12/01/2020 12:00:00 AM EDT [employer] ([facility]) 561388832 Tobacco use Tobacco use Condition 12/01/2020 12:00:00 AM EDT [employer] ([facility]) 26716114 Obstructive sleep apnea syndrome Obstructive sle ep apnea syndrome Problem 04/20/2020 12:00:00 AM EST [facility] ([facility] parnell) [id number] Retained dental root Retained Dental Root Problem 01/22/2020 12:00:00 AM EDT - 08/16/2020 12:00:00 AM EST JOSE M ([facility]) [id number] Retained dental root Retained Dental Root Problem 01/22/2020 12:00:00 AM EDT - 08/16/2020 12:00:00 AM EST JOSE M ([facility]) [id number] Retained dental root Retained Dental Root Problem 01/22/2020 12:00:00 AM EDT - 08/16/2020 12:00:00 AM EST JOSE M ([facility]) [id number] Retained dental root Retained Dental Root Problem 01/22/2020 12:00:00 AM EDT - 08/16/2020 12:00:00 AM EST JOSE M ([facility]) [id number] Retained dental root Retained Dental Root Problem 01/22/2020 12:00:00 AM EDT - 08/16/2020 12:00:00 AM EST JOSE M ([facility]) [id number] Retained dental root Retained Dental Root Problem 01/22/2020 12:00:00 AM EDT - 08/16/2020 12:00:00 AM EST JOSE M ([facility]) [id number] Pain in right knee Pain in Right Knee Problem 11/14/2019 12:00:00 AM EDT - 08/16/2020 12:00:00 AM EST JOSE M ([facility]) [id number] Diffuse goiter Diffuse Goiter Problem 11/14/2019 12:00:00 AM EDT - 08/16/2020 12:00:00 AM EST JOSE M ([facility]) [id number] Pain in right knee Pain in Right Knee Problem 11/14/2019 12:00:00 AM EDT - 08/16/2020 12:00:00 AM EST JOSE M ([facility]) [id number] Diffuse goiter Diffuse Goiter Problem 11/14/2019 12:00:00 AM EDT - 08/16/2020 12:00:00 AM EST JOSE M ([facility]) [id number] Pain in right knee Pain in Right Knee Problem 11/14/2019 12:00:00 AM EDT - 08/16/2020 12:00:00 AM EST JOSE M ([facility]) [id number] Diffuse goiter Diffuse Goiter Problem 11/14/2019 12:00:00 AM EDT - 08/16/2020 12:00:00 AM EST JOSE M ([facility]) [id number] Pain in right knee Pain in Right Knee Problem 11/14/2019 12:00:00 AM EDT - 08/16/2020 12:00:00 AM EST JOSE M ([facility]) [id number] Diffuse goiter Diffuse Goiter Problem 11/14/2019 12:00:00 AM EDT - 08/16/2020 12:00:00 AM EST JOSE M ([facility]) [id number] Pain in right knee Pain in Right Knee Problem 11/14/2019 12:00:00 AM EDT - 08/16/2020 12:00:00 AM EST JOSE M ([facility]) [id number] Diffuse goiter Diffuse Goiter Problem 11/14/2019 12:00:00 AM EDT - 08/16/2020 12:00:00 AM EST JOSE M ([facility]) [id number] Pain in right knee Pain in Right Knee Problem 11/14/2019 12:00:00 AM EDT - 08/16/2020 12:00:00 AM EST JOSE M ([facility]) [id number] Diffuse goiter Diffuse Goiter Problem 11/14/2019 12:00:00 AM EDT - 08/16/2020 12:00:00 AM EST JOSE M ([facility]) [id number] Syphilis test finding Syphilis Test Finding Problem 06/16/2019 12:00:00 AM EST - 08/16/2020 12:00:00 AM EST JOSE M ([facility]) [id number] Breast neoplasm screening status Breast Neoplasm Screening Status Problem 06/16/2019 12:00:00 AM EST - 08/16/2020 12:00:00 AM THONY SALGUERO ([facility]) [id number] SNOMED CT Concept SNOMED CT Concept Problem 06/16 12:00:00 AM EST - 08/16/2020 12:00:00 AM EST JOSE M ([facility]) [id number] Syphilis test finding Syphilis Test Finding Problem 06/16/2019 12:00:00 AM EST - 08/16/2020 12:00:00 AM EST JOSE M ([facility]) [id number] Breast neoplasm screening status Breast Neoplasm Screening Status Problem 06/16/2019 12:00:00 AM EST - 08/16/2020 12:00:00 AM THONY SALGUERO ([facility]) [id number] SNOMED CT Concept SNOMED CT Concept Problem 06/16 12:00:00 AM EST - 08/16/2020 12:00:00 AM EST JOSE M ([facility]) [id number] Syphilis test finding Syphilis Test Finding Problem 06/16/2019 12:00:00 AM EST - 08/16/2020 12:00:00 AM EST JOSE M ([facility]) [id number] Breast neoplasm screening status Breast Neoplasm Screening Status Problem 06/16/2019 12:00:00 AM EST - 08/16/2020 12:00:00 AM ES T JOSE M ([facility]) [id number] SNOMED CT Concept SNOMED CT Concept Problem 06/16 12:00:00 AM EST - 08/16/2020 12:00:00 AM EST JOSE M ([facility]) [id number] Syphilis test finding Syphilis Test Finding Problem 06/16/2019 12:00:00 AM EST - 08/16/2020 12:00:00 AM EST JOSE M ([facility]) [id number] Breast neoplasm screening status Breast Neoplasm Screening Status Problem 06/16/2019 12:00:00 AM EST - 08/16/2020 12:00:00 AM ES T JOSE M ([facility]) [id number] SNOMED CT Concept SNOMED CT Concept Problem 06/16 12:00:00 AM EST - 08/16/2020 12:00:00 AM EST JOSE M ([facility]) [id number] Syphilis test finding Syphilis Test Finding Problem 06/16/2019 12:00:00 AM EST - 08/16/2020 12:00:00 AM EST JOSE M ([facility]) [id number] Breast neoplasm screening status Breast Neoplasm Screening Status Problem 06/16/2019 12:00:00 AM EST - 08/16/2020 12:00:00 AM ES T JOSE M ([facility]) [id number] SNOMED CT Concept SNOMED CT Concept Problem 06/16 12:00:00 AM EST - 08/16/2020 12:00:00 AM EST JOSE M ([facility]) [id number] Syphilis test finding Syphilis Test Finding Problem 06/16/2019 12:00:00 AM EST - 08/16/2020 12:00:00 AM EST JOSE M ([facility]) [id number] Breast neoplasm screening status Breast Neoplasm Screening Status Problem 06/16/2019 12:00:00 AM EST - 08/16/2020 12:00:00 AM THONY SALGUERO ([facility]) [id number] SNOMED CT Concept SNOMED CT Concept Problem 06/16 12:00:00 AM EST - 08/16/2020 12:00:00 AM EST JOSE M ([facility]) [id number] Screening for malignant neoplasm of cerv ix Screening for Malignant Neoplasm of Cervix Problem 02/03/2019 12:00:00 AM EDT - 08/16/2020 12:00:00 AM EST JOSE M ([facility]) [id number] Screening for malignant neoplasm of cerv ix Screening for Malignant Neoplasm of Cervix Problem 02/03/2019 12:00:00 AM EDT - 08/16/2020 12:00:00 AM EST JOSE M ([facility]) [id number] Screening for malignant neoplasm of cerv ix Screening for Malignant Neoplasm of Cervix Problem 02/03/2019 12:00:00 AM EDT - 08/16/2020 12:00:00 AM EST JOSE M ([facility]) [id number] Screening for malignant neoplasm of cerv ix Screening for Malignant Neoplasm of Cervix Problem 02/03/2019 12:00:00 AM EDT - 08/16/2020 12:00:00 AM EST JOSE M ([facility]) [id number] Screening for malignant neoplasm of cerv ix Screening for Malignant Neoplasm of Cervix Problem 02/03/2019 12:00:00 AM EDT - 08/16/2020 12:00:00 AM EST JOSE M ([facility]) [id number] Screening for malignant neoplasm of cerv ix Screening for Malignant Neoplasm of Cervix Problem 02/03/2019 12:00:00 AM EDT - 08/16/2020 12:00:00 AM EST JOSE M ([facility]) [id number] Clinical finding Clinical Finding Problem 12:00:00 AM EDT - 08/16/2020 12:00:00 AM EST JOSE M ([facility]) [id number] Hypertensive disorder Hypertensive Disorder Problem 12/05/2018 12:00:00 AM EDT - 03/14/2021 12:00:00 AM EDT JOSE M ([facility]) [id number] Clinical finding Clinical Finding Problem 019 12:00:00 AM EDT - 08/16/2020 12:00:00 AM EST JOSE M ([facility]) [id number] Hypertensive disorder Hypertensive Disorder Problem 12/05/2018 12:00:00 AM EDT - 03/14/2021 12:00:00 AM EDT JOSE M ([facility]) [id number] Clinical finding Clinical Finding Problem 019 12:00:00 AM EDT - 08/16/2020 12:00:00 AM EST JOSE M ([facility]) [id number] Hypertensive disorder Hypertensive Disorder Problem 12/05/2018 12:00:00 AM EDT - 03/14/2021 12:00:00 AM EDT JOSE M ([facility]) [id number] Clinical finding Clinical Finding Problem 12:00:00 AM EDT - 08/16/2020 12:00:00 AM EST JOSE M ([facility]) [id number] Clinical finding Clinical Finding Problem 12:00:00 AM EDT - 08/16/2020 12:00:00 AM EST JOSE M ([facility]) [id number] Clinical finding Clinical Finding Problem 12:00:00 AM EDT - 08/16/2020 12:00:00 AM EST JOSE M ([facility]) [id number] Left upper quadrant pain Left Upper Quadrant Pain Prob aleksandr 03/15/2017 12:00:00 AM EDT - 08/16/2020 12:00:00 AM EST JOSE M ([facility]) [id number] Left upper quadrant pain Left Upper Quadrant Pain Prob aleksandr 03/15/2017 12:00:00 AM EDT - 08/16/2020 12:00:00 AM EST JOSE M ([facility]) [id number] Left upper quadrant pain Left Upper Quadrant Pain Prob aleksandr 03/15/2017 12:00:00 AM EDT - 08/16/2020 12:00:00 AM EST JOSE M ([facility]) [id number] Left upper quadrant pain Left Upper Quadrant Pain Prob aleksandr 03/15/2017 12:00:00 AM EDT - 08/16/2020 12:00:00 AM MISTI SALGUERO ([facility]) [id number] Left upper quadrant pain Left Upper Quadrant Pain Prob aleksandr 03/15/2017 12:00:00 AM EDT - 08/16/2020 12:00:00 AM EST JOSE M ([facility]) [id number] Left upper quadrant pain Left Upper Quadrant Pain Prob aleksandr 03/15/2017 12:00:00 AM EDT - 08/16/2020 12:00:00 AM EST JOSE M ([facility]) [id number] Evaluation finding Evaluation Finding Problem 12:00:00 AM EDT - 08/16/2020 12:00:00 AM EST JOSE M ([facility]) [id number] Pelvic and perineal pain Pelvic and Perineal Pain Prob aleksandr 08/30/2016 12:00:00 AM EDT - 08/16/2020 12:00:00 AM EST JOSE M ([facility]) [id number] Finding of pattern of menstrual cycle Fi nding of Pattern of Menstrual Cycle Problem 08/30/2016 12:00:00 AM EDT - 08/16/2020 12:00:00 AM EST JOSE M ([facility]) [id number] Evaluation finding Evaluation Finding Problem 12:00:00 AM EDT - 08/16/2020 12:00:00 AM EST JOSE M ([facility]) [id number] Pelvic and perineal pain Pelvic and Perineal Pain Prob aleksandr 08/30/2016 12:00:00 AM EDT - 08/16/2020 12:00:00 AM EST JOSE M ([facility]) [id number] Finding of pattern of menstrual cycle Fi nding of Pattern of Menstrual Cycle Problem 08/30/2016 12:00:00 AM EDT - 08/16/2020 12:00:00 AM EST JOSE M ([facility]) [id number] Evaluation finding Evaluation Finding Problem 12:00:00 AM EDT - 08/16/2020 12:00:00 AM EST JOSE M ([facility]) [id number] Pelvic and perineal pain Pelvic and Perineal Pain Prob aleksandr 08/30/2016 12:00:00 AM EDT - 08/16/2020 12:00:00 AM EST JOSE M ([facility]) [id number] Finding of pattern of menstrual cycle Fi nding of Pattern of Menstrual Cycle Problem 08/30/2016 12:00:00 AM EDT - 08/16/2020 12:00:00 AM EST JOSE M ([facility]) [id number] Clinical finding Clinical Finding Problem 017 12:00:00 AM EDT - 08/16/2020 12:00:00 AM EST JOSE M ([facility]) [id number] Pelvic and perineal pain Pelvic and Perineal Pain Prob aleksandr 08/30/2016 12:00:00 AM EDT - 08/16/2020 12:00:00 AM EST JOSE M ([facility]) [id number] Finding of pattern of menstrual cycle Fi nding of Pattern of Menstrual Cycle Problem 08/30/2016 12:00:00 AM EDT - 08/16/2020 12:00:00 AM EST JOSE M ([facility]) [id number] Clinical finding Clinical Finding Problem 017 12:00:00 AM EDT - 08/16/2020 12:00:00 AM EST JOSE M ([facility]) [id number] Pelvic and perineal pain Pelvic and Perineal Pain Prob aleksandr 08/30/2016 12:00:00 AM EDT - 08/16/2020 12:00:00 AM EST JOSE M ([facility]) [id number] Finding of pattern of menstrual cycle Fi nding of Pattern of Menstrual Cycle Problem 08/30/2016 12:00:00 AM EDT - 08/16/2020 12:00:00 AM EST JOSE M ([facility]) [id number] Clinical finding Clinical Finding Problem 017 12:00:00 AM EDT - 08/16/2020 12:00:00 AM EST JOSE M ([facility]) [id number] Pelvic and perineal pain Pelvic and Perineal Pain Prob aleksandr 08/30/2016 12:00:00 AM EDT - 08/16/2020 12:00:00 AM EST JOSE M ([facility]) [id number] Finding of pattern of menstrual cycle Fi nding of Pattern of Menstrual Cycle Problem 08/30/2016 12:00:00 AM EDT - 08/16/2020 12:00:00 AM EST JOSE M ([facility]) [id number] Tobacco user Tobacco User Problem 04/27/2016 12:0 0:00 AM EST - 03/09/2021 12:00:00 AM EDT JOSE M ([facility]) [id number] Tobacco user Tobacco User Problem 04/27/2016 12:0 0:00 AM EST - 03/09/2021 12:00:00 AM EDT JOSE M ([facility]) [id number] Tobacco user Tobacco User Problem 04/27/2016 12:0 0:00 AM EST - 03/09/2021 12:00:00 AM EDT JOSE M ([facility]) [id number] Finding related to sleep Finding Related to Sleep Prob aleksandr 03/09/2015 12:00:00 AM EDT - 08/16/2020 12:00:00 AM EST JOSE M ([facility]) [id number] Finding related to sleep Finding Related to Sleep Prob aleksandr 03/09/2015 12:00:00 AM EDT - 08/16/2020 12:00:00 AM EST JOS EM ([facility]) [id number] Finding related to sleep Finding Related to Sleep Prob aleksandr 03/09/2015 12:00:00 AM EDT - 08/16/2020 12:00:00 AM EST JOSE M ([facility]) [id number] Finding related to sleep Finding Related to Sleep Prob aleksandr 03/09/2015 12:00:00 AM EDT - 08/16/2020 12:00:00 AM EST JOSE M ([facility]) [id number] Finding related to sleep Finding Related to Sleep Prob aleksandr 03/09/2015 12:00:00 AM EDT - 08/16/2020 12:00:00 AM EST JOSE M ([facility]) [id number] Finding related to sleep Finding Related to Sleep Prob aleksandr 03/09/2015 12:00:00 AM EDT - 08/16/2020 12:00:00 AM EST JOSE M ([facility]) [id number] SNOMED CT Concept SNOMED CT Concept Problem 11/12 12:00:00 AM EDT - 08/16/2020 12:00:00 AM EST JOSE M ([facility]) [id number] SNOMED CT Concept SNOMED CT Concept Problem 11/12 12:00:00 AM EDT - 08/16/2020 12:00:00 AM EST JOSE M ([facility]) [id number] SNOMED CT Concept SNOMED CT Concept Problem 11/12 12:00:00 AM EDT - 08/16/2020 12:00:00 AM EST JOSE M ([facility]) [id number] SNOMED CT Concept SNOMED CT Concept Problem 11/12 12:00:00 AM EDT - 08/16/2020 12:00:00 AM EST JOSE M ([facility]) [id number] SNOMED CT Concept SNOMED CT Concept Problem 11/12 12:00:00 AM EDT - 08/16/2020 12:00:00 AM EST JOSE M ([facility]) [id number] SNOMED CT Concept SNOMED CT Concept Problem 11/12 12:00:00 AM EDT - 08/16/2020 12:00:00 AM EST JOSE M ([facility]) Surgeries/Procedures Procedure Description Date Indications Data Source(s) Initial psychiatric evaluation (procedure) 01/28/2021 12:00:00 AM EDT [facility] ([facility]) Individual psychotherapy (regime/therapy) 01/18/2021 1 2:00:00 AM EDT [facility]) Individual psychotherapy (regime/therapy) 01/18/2021 1 2:00:00 AM EDT [facility] ([facility]) Individual psychotherapy (regime/therapy) 01/18/2021 1 2:00:00 AM EDT [facility] ([facility]) Individual psychotherapy (regime/therapy) 01/18/2021 1 2:00:00 AM EDT [facility] ([facility]) Diagnostic psychiatric interview (procedure) 12:00:00 AM EDT [facility]) Diagnostic psychiatric interview (procedure) 12:00:00 AM EDT [facility] ([facility]) Diagnostic psychiatric interview (procedure) 12:00:00 [facility] Echography Soft Tissue Hand & Neck 09/23/2020 12:00:00 AM EDT [facility] ([facility]) Results ID Date Data Source [id number] 08/23/2020 11:50:00 AM EDT MANASSA ([facility]) Name Value Range Interpretation Code Description Data Nakia rce(s) Supporting Document(s) total 25(oh) vitamin D 33.2 NG/mL 30.0-100.0 Total 25(Oh) Vitamin D MANASSA ([facility]) ID Date Data Source [id number] 08/23/2020 11:50:00 AM EDT MANASSA ([facility]) Name Value Range Interpretation Code Description Data Nakia rce(s) Supporting Document(s) thyroid stimulating hormone 0.358 uIU/mL 0.358-3.740 Thyroid Stimulating Hormone JOSE M ([facility]) ID Date Data Source [id number] 08/23/2020 11:50:00 AM EDT MANASSA ([facility]) Name Value Range Interpretation Code Description Data Nakia rce(s) Supporting Document(s) triglycerides level 81 mg/dL <150 Triglycerides [place] renato JOSE M ([facility]) cholesterol level 241 mg/dL <200 Above high normal Cholesterol Level JOSE M ([facility]) HDL cholesterol 66 mg/dL >40 HDL Cholesterol ATHE NA ([facility]) Cholesterol in LDL [Mass/volume] in Serum or Plasma 159 mg/dL <100 Above high normal LDL Cholesterol JOSE M ([facility]) cholesterol risk ratio <5 Cholesterol R isk Ratio JOSE M ([facility]) non-HDL-C 175 mg/dL Non-hdl-c JOSE M ([facility]) ID Date Data Source [id number] 08/23/2020 11:50:00 AM EDT JOSE M ([facility]) Name Value Range Interpretation Code Description Data Nakia rce(s) Supporting Document(s) blood urea nitrogen 15 mg/dL 7-18 Blood Urea Nitro gen JOSE M ([facility]) glucose, fasting 80 mg/dL 70-100 Glucose, Fasting AT SHARRI ([facility]) potassium serum 4.8 mEq/L 3.5-5.1 Potassium Serum ATHE NA ([facility]) sodium level 141 mEq/L 136-145 Sodium Level JOSE M ([facility]) glomerular filtration rate > 60.0 >60 Glomerula r Filtration Rate JOSE M ([facility]) creatinine for GFR 1.03 mg/dL 0.55-1.30 Creatinine for GF R JOSE M ([facility]) calcium level 8.8 mg/dL 8.5-10.1 Calcium Level JOSE M ( [facility]) anion gap 4 mEq/L 8-16 Below low normal Anion Gap JOSE M ( [facility]) carbon dioxide level 26 mEq/L 21-32 Carbon Dioxide Level JOSE M ([facility]) chloride level 111 mEq/L 98-107 Above high normal Chloride Level JOSE M ([facility]) ALT/SGPT 32 U/L 12-78 ALT/SGPT JOSE M ([facility]) bilirubin,total 0.3 mg/dL 0.2-1.0 Bilirubin,total ATHE ([facility]) AST/SGOT 12 U/L 7-37 AST/SGOT JOSE M ([facility]) alkaline phosphatase 72 U/L 45-117 Alkaline Phosph atase JOSE M ([facility]) total protein 7.4 gm/dL 6.4-8.2 Total Protein JOSE M ( [facility]) albumin 3.9 gm/dL 3.2-5.2 Albumin JOSE M ([facility]) albumin/globulin ratio 1.2-2.2 Below low normal Albumin /globulin Ratio JOSE M ([facility]) ID Date Data Source [id number] 08/23/2020 11:50:00 AM EDT JOSE M ([facility]) Name Value Range Interpretation Code Description Data Nakia rce(s) Supporting Document(s) estimated average glucose 97 mg/dL 60-110 Estimated Average Glucose JOSE M ([facility]) Hemoglobin A1c/Hemoglobin.total in Blood 5.0 % Hemoglobin a1C MANASSA ([facility]) ID Date Data Source [id number] 08/23/2020 11:50:00 AM EDT JOSE M ([facility]) Name Value Range Interpretation Code Description Data Nakia rce(s) Supporting Document(s) white blood count 4.1 10 4.0-10.0 White Blood Count JOSE M ([facility]) red blood count 4.57 10 4.00-5.40 Red Blood Count ATHE ([facility]) hematocrit 42.8 % 36.0-47.0 Hematocrit JOSE M ([facility]) hemoglobin 13.7 g/dL 12.0-15.5 Hemoglobin JOSE M ([facility]) mean corpuscular HGB conc 32.0 g/dL 32.0-36.5 Mean Corpu scular HGB Conc JOSE M ([facility]) mean corpuscular volume 93.7 fL 80.0-96.0 Mean Corpusc ular Volume JOSE M ([facility]) mean corpuscular hemoglobin 30.0 pg 27.0-33.0 Mean Cor puscular Hemoglobin JOSE M ([facility]) platelet count, automated 209 10 150-450 Platelet C ount, Automated JOSE M ([facility]) red cell distribution width 12.2 % 11.5-14.5 Red Cell Distribution Width JOSE M ([facility]) neutrophils % 37.3 % 36.0-66.0 Neutrophils % JOSE M ( [facility]) baso % 0.7 % 0.0-1.0 Baso % JOSE M ([facility]) lymph % 54.1 % 24.0-44.0 Above high normal Lymph % JOSE M ([facility]) mono % 5.7 % 2.0-8.0 Owen % MANASSA ([facility]) eos % 2.0 % 0.0-3.0 Eos % JOSE M ([facility]) nucleated red blood cell % 0.0 % 0-0 Nucleated Red Blood Cell % JOSE M ([facility]) immature granulocyte % 0.2 % 0-3.0 Immature Gran ulocyte % JOSE M ([facility]) neutrophils # 1.5 10 1.5-8.5 Neutrophils # JOSE M ( [facility]) mono # 0.2 10 0.0-0.8 Owen # JOSE M ([facility]) eos # 0.1 10 0.0-0.5 Eos # JOSE M ([facility]) lymph # 2.2 10 1.5-5.0 Lymph # JOSE M ([facility]) baso # 0.0 10 0.0-0.2 Baso # JOSE M ([facility]) ID Date Data Source [id number] 08/23/2020 11:50:00 AM EDT MA[facility]SSA ([facility] [facility] Name Value Range Interpretation Code Description Data Nakia rce(s) Supporting Document(s) total 25(oh) vitamin D 33.2 NG/mL 30.0-100.0 Total 25(Oh) Vitamin D MANASSA ([facility]) ID Date Data Source [id number] 08/23/2020 11:50:00 AM EDT MANASSA ([facility]) Name Value Range Interpretation Code Description Data Nakia rce(s) Supporting Document(s) thyroid stimulating hormone 0.358 uIU/mL 0.358-3.740 Thyroid Stimulating Hormone MANASSA ([facility]) ID Date Data Source [id number] 08/23/2020 11:50:00 AM EDT [facility]) Name Value Range Interpretation Code Description Data Nakia rce(s) Supporting Document(s) triglycerides level 81 mg/dL <150 Triglycerides Le renato JOSE M ([facility]) cholesterol level 241 mg/dL <200 Above high normal Cholesterol Level MANASSA ([facility]) cholesterol risk ratio <5 Cholesterol R isk Ratio JOSE M ([facility]) non-HDL-C 175 mg/dL Non-hdl-c JOSE M ([facility]) HDL cholesterol 66 mg/dL >40 HDL Cholesterol ATHE NA ([facility]) Cholesterol in LDL [Mass/volume] in Serum or Plasma 159 mg/dL <100 Above high normal LDL Cholesterol JOSE M ([facility]) ID Date Data Source [id number] 08/23/2020 11:50:00 AM EDT JOSE M ([facility]) Name Value Range Interpretation Code Description Data Nakia rce(s) Supporting Document(s) glucose, fasting 80 mg/dL 70-100 Glucose, Fasting AT [facility]) glomerular filtration rate > 60.0 >60 Glomerula r Filtration Rate JOSE M ([facility]) creatinine for GFR 1.03 mg/dL 0.55-1.30 Creatinine for GF R JOSE M ([facility]) blood urea nitrogen 15 mg/dL 7-18 Blood Urea Nitro gen JOSE M ([facility]) potassium serum 4.8 mEq/L 3.5-5.1 Potassium Serum ATHE NA ([facility]) chloride level 111 mEq/L 98-107 Above high normal Chloride Level JOSE M ([facility]) sodium level 141 mEq/L 136-145 Sodium Level JOSE M ([facility]) carbon dioxide level 26 mEq/L 21-32 Carbon Dioxide Level JOSE M ([facility]) calcium level 8.8 mg/dL 8.5-10.1 Calcium Level JOSE M ( [facility]) anion gap 4 mEq/L 8-16 Below low normal Anion Gap JOSE M ( [facility]) alkaline phosphatase 72 U/L 45-117 Alkaline Phosph atase JOSE M ([facility]) ALT/SGPT 32 U/L 12-78 ALT/SGPT JOSE M ([facility]) AST/SGOT 12 U/L 7-37 AST/SGOT JOSE M ([facility]) total protein 7.4 gm/dL 6.4-8.2 Total Protein JOSE M ( [facility]) albumin/globulin ratio 1.2-2.2 Below low normal Albumin /globulin Ratio JOSE M ([facility]) albumin 3.9 gm/dL 3.2-5.2 Albumin JOSE M ([facility]) bilirubin,total 0.3 mg/dL 0.2-1.0 Bilirubin,total ATHE NA ([facility]) ID Date Data Source [id number] 08/23/2020 11:50:00 AM EDT JOSE M ([facility]) Name Value Range Interpretation Code Description Data Nakia rce(s) Supporting Document(s) estimated average glucose 97 mg/dL 60-110 Estimated Average Glucose JOSE M ([facility]) Hemoglobin A1c/Hemoglobin.total in Blood 5.0 % Hemoglobin a1C JOSE M ([facility]) ID Date Data Source [id number] 08/23/2020 11:50:00 AM EDT JOSE M ([facility]) Name Value Range Interpretation Code Description Data Nakia rce(s) Supporting Document(s) white blood count 4.1 10 4.0-10.0 White Blood Count JOSE M ([facility]) red blood count 4.57 10 4.00-5.40 Red Blood Count ATHE ([facility]) hemoglobin 13.7 g/dL 12.0-15.5 Hemoglobin JOSE M ([facility]) hematocrit 42.8 % 36.0-47.0 Hematocrit JOSE M ([facility]) mean corpuscular hemoglobin 30.0 pg 27.0-33.0 Mean Cor puscular Hemoglobin JOSE M ([facility]) mean corpuscular volume 93.7 fL 80.0-96.0 Mean Corpusc ular Volume JOSE M ([facility]) neutrophils % 37.3 % 36.0-66.0 Neutrophils % JOSE M ( [facility]) platelet count, automated 209 10 150-450 Platelet C ount, Automated JOSE M ([facility]) mean corpuscular HGB conc 32.0 g/dL 32.0-36.5 Mean Corpu scular HGB Conc JOSE M ([facility]) red cell distribution width 12.2 % 11.5-14.5 Red Cell Distribution Width JOSE M ([facility]) eos % 2.0 % 0.0-3.0 Eos % MANASSA ([facility]) lymph % 54.1 % 24.0-44.0 Above high normal Lymph % JOSE M ([facility]) mono % 5.7 % 2.0-8.0 Owen % MANASSA ([facility]) immature granulocyte % 0.2 % 0-3.0 Immature Gran ulocyte % JOSE M ([facility]) nucleated red blood cell % 0.0 % 0-0 Nucleated Red Blood Cell % MANASSA ([facility]) baso % 0.7 % 0.0-1.0 Baso % MANASSA ([facility]) neutrophils # 1.5 10 1.5-8.5 Neutrophils # MANASSA ( [facility]) lymph # 2.2 10 1.5-5.0 Lymph # JOSE M ([facility]) eos # 0.1 10 0.0-0.5 Eos # JOSE M ([facility]) mono # 0.2 10 0.0-0.8 Owen # JOSE M ([facility]) baso # 0.0 10 0.0-0.2 Baso # JOSE M ([facility]) ID Date Data Source [id number] 08/23/2020 11:50:00 AM EDT MANASSA ([facility]) Name Value Range Interpretation Code Description Data Nakia rce(s) Supporting Document(s) total 25(oh) vitamin D 33.2 NG/mL 30.0-100.0 Total 25(Oh) Vitamin D MANASSA ([facility]) ID Date Data Source [id number] 08/23/2020 11:50:00 AM EDT [facility]) Name Value Range Interpretation Code Description Data Nakia rce(s) Supporting Document(s) thyroid stimulating hormone 0.358 uIU/mL 0.358-3.740 Thyroid Stimulating Hormone JOSE M ([facility]) ID Date Data Source [id number] 08/23/2020 11:50:00 AM EDT [facility]) Name Value Range Interpretation Code Description Data Nakia rce(s) Supporting Document(s) cholesterol level 241 mg/dL <200 Above high normal Cholesterol Level JOSE M ([facility]) triglycerides level 81 mg/dL <150 Triglycerides Le renato JOSE M ([facility]) non-HDL-C 175 mg/dL Non-hdl-c JOSE M ([facility]) HDL cholesterol 66 mg/dL >40 HDL Cholesterol ATHE ([facility]) cholesterol risk ratio <5 Cholesterol R isk Ratio JOSE M ([facility]) Cholesterol in LDL [Mass/volume] in Serum or Plasma 159 mg/dL <100 Above high normal LDL Cholesterol JOSE M ([facility]) ID Date Data Source [id number] 08/23/2020 11:50:00 AM [facility] Name Value Range Interpretation Code Description Data Nakia rce(s) Supporting Document(s) glucose, fasting 80 mg/dL 70-100 Glucose, Fasting AT [facility]) creatinine for GFR 1.03 mg/dL 0.55-1.30 Creatinine for GF R JOSE M ([facility]) blood urea nitrogen 15 mg/dL 7-18 Blood Urea Nitro gen JOSE M ([facility]) carbon dioxide level 26 mEq/L 21-32 Carbon Dioxide Level JOSE M ([facility]) chloride level 111 mEq/L 98-107 Above high normal Chloride Level JOSE M ([facility]) potassium serum 4.8 mEq/L 3.5-5.1 Potassium Serum ATHE NA ([facility]) sodium level 141 mEq/L 136-145 Sodium Level JOSE M ([facility]) glomerular filtration rate > 60.0 >60 Glomerula r Filtration Rate JOSE M ([facility]) ALT/SGPT 32 U/L 12-78 ALT/SGPT JOSE M ([facility]) AST/SGOT 12 U/L 7-37 AST/SGOT JOSE M ([facility]) calcium level 8.8 mg/dL 8.5-10.1 Calcium Level JOSE M ( [facility]) anion gap 4 mEq/L 8-16 Below low normal Anion Gap JOSE M ( [facility]) alkaline phosphatase 72 U/L 45-117 Alkaline Phosph atase JOSE M ([facility]) albumin 3.9 gm/dL 3.2-5.2 Albumin JOSE M ([facility]) bilirubin,total 0.3 mg/dL 0.2-1.0 Bilirubin,total ATHE ([facility]) albumin/globulin ratio 1.2-2.2 Below low normal Albumin /globulin Ratio JOSE M ([facility]) total protein 7.4 gm/dL 6.4-8.2 Total Protein JOSE M ( [facility]) ID Date Data Source [id number] 08/23/2020 11:50:00 AM EDT JOSE M ([facility]) Name Value Range Interpretation Code Description Data Nakia rce(s) Supporting Document(s) Hemoglobin A1c/Hemoglobin.total in Blood 5.0 % Hemoglobin a1C JOSE M ([facility]) estimated average glucose 97 mg/dL 60-110 Estimated Average Glucose JOSE M ([facility]) ID Date Data Source [id number] 08/23/2020 11:50:00 AM EDT JOSE M ([facility]) Name Value Range Interpretation Code Description Data Nakia rce(s) Supporting Document(s) white blood count 4.1 10 4.0-10.0 White Blood Count JOSE M ([facility]) hematocrit 42.8 % 36.0-47.0 Hematocrit JOSE M ([facility]) hemoglobin 13.7 g/dL 12.0-15.5 Hemoglobin JOSE M ([facility]) red blood count 4.57 10 4.00-5.40 Red Blood Count ATHE ([facility]) mean corpuscular hemoglobin 30.0 pg 27.0-33.0 Mean Cor puscular Hemoglobin JOSE M ([facility]) mean corpuscular volume 93.7 fL 80.0-96.0 Mean Corpusc ular Volume JOSE M ([facility]) mean corpuscular HGB conc 32.0 g/dL 32.0-36.5 Mean Corpu scular HGB Conc JOSE M ([facility]) neutrophils % 37.3 % 36.0-66.0 Neutrophils % JOSE M ( [facility]) lymph % 54.1 % 24.0-44.0 Above high normal Lymph % MANASSA ([facility]) red cell distribution width 12.2 % 11.5-14.5 Red Cell Distribution Width MANASSA ([facility]) platelet count, automated 209 10 150-450 Platelet C ount, Automated JOSE M ([facility]) immature granulocyte % 0.2 % 0-3.0 Immature Gran ulocyte % JOSE M ([facility]) mono % 5.7 % 2.0-8.0 Owen % JOSE M ([facility]) baso % 0.7 % 0.0-1.0 Baso % JOSE M ([facility]) eos % 2.0 % 0.0-3.0 Eos % JOSE M ([facility]) lymph # 2.2 10 1.5-5.0 Lymph # JOSE M ([facility]) nucleated red blood cell % 0.0 % 0-0 Nucleated Red Blood Cell % JOSE M ([facility]) neutrophils # 1.5 10 1.5-8.5 Neutrophils # JOSE M ( [facility]) baso # 0.0 10 0.0-0.2 Baso # JOSE M ([facility]) mono # 0.2 10 0.0-0.8 Owen # JOSE M ([facility]) eos # 0.1 10 0.0-0.5 Eos # JOSE M ([facility]) ID Date Data Source [id number] 08/23/2020 11:50:00 AM EDT MANASSA ([facility]) Name Value Range Interpretation Code Description Data Nakia rce(s) Supporting Document(s) total 25(oh) vitamin D 33.2 NG/mL 30.0-100.0 Total 25(Oh) Vitamin D JOSE M ([facility]) ID Date Data Source [id number] 08/23/2020 11:50:00 AM EDT MANASSA ([facility]) Name Value Range Interpretation Code Description Data Nakia rce(s) Supporting Document(s) thyroid stimulating hormone 0.358 uIU/mL 0.358-3.740 Thyroid Stimulating Hormone MANASSA ([facility]) ID Date Data Source [id number] 08/23/2020 11:50:00 AM EDT MANASSA ([facility]) Name Value Range Interpretation Code Description Data Nakia rce(s) Supporting Document(s) triglycerides level 81 mg/dL <150 Triglycerides Le renato JOSE M ([facility]) cholesterol level 241 mg/dL <200 Above high normal Cholesterol Level JOSE M ([facility]) HDL cholesterol 66 mg/dL >40 HDL Cholesterol ATHE ([facility]) Cholesterol in LDL [Mass/volume] in Serum or Plasma 159 mg/dL <100 Above high normal LDL Cholesterol JOSE M ([facility]) non-HDL-C 175 mg/dL Non-hdl-c JOSE M ([facility]) cholesterol risk ratio <5 Cholesterol R isk Ratio JOSE M ([facility]) ID Date Data Source [id number] 08/23/2020 11:50:00 AM EDT MANASSA ([facility]) Name Value Range Interpretation Code Description Data Nakia rce(s) Supporting Document(s) glucose, fasting 80 mg/dL 70-100 Glucose, Fasting AT [facility] ([facility]) creatinine for GFR 1.03 mg/dL 0.55-1.30 Creatinine for GF R JOSE M ([facility]) blood urea nitrogen 15 mg/dL 7-18 Blood Urea Nitro gen JOSE M ([facility]) sodium level 141 mEq/L 136-145 Sodium Level JOSE M ([facility]) glomerular filtration rate > 60.0 >60 Glomerula r Filtration Rate JOSE M ([facility]) chloride level 111 mEq/L 98-107 Above high normal Chloride Level JOSE M ([facility]) potassium serum 4.8 mEq/L 3.5-5.1 Potassium Serum ATHE ([facility]) carbon dioxide level 26 mEq/L 21-32 Carbon Dioxide Level JOSE M ([facility]) anion gap 4 mEq/L 8-16 Below low normal Anion Gap JOSE M ( [facility]) AST/SGOT 12 U/L 7-37 AST/SGOT JOSE M ([facility]) calcium level 8.8 mg/dL 8.5-10.1 Calcium Level JOSE M ( [facility]) ALT/SGPT 32 U/L 12-78 ALT/SGPT JOSE M ([facility]) alkaline phosphatase 72 U/L 45-117 Alkaline Phosph atase JOSE M ([facility]) albumin 3.9 gm/dL 3.2-5.2 Albumin JOSE M ([facility]) total protein 7.4 gm/dL 6.4-8.2 Total Protein JOSE M ( [facility]) bilirubin,total 0.3 mg/dL 0.2-1.0 Bilirubin,total ATHE ([facility]) albumin/globulin ratio 1.2-2.2 Below low normal Albumin /globulin Ratio JOSE M ([facility]) ID Date Data Source [id number] 08/23/2020 11:50:00 AM EDT JOSE M ([facility]) Name Value Range Interpretation Code Description Data Nakia rce(s) Supporting Document(s) Hemoglobin A1c/Hemoglobin.total in Blood 5.0 % Hemoglobin a1C JOSE M ([facility]) estimated average glucose 97 mg/dL 60-110 Estimated [facility] ID Date Data Source [id number] 08/23/2020 11:50:00 AM EDT [facility]) Name Value Range Interpretation Code Description Data Nakia e(s) Supporting Document(s) white blood count 4.1 10 4.0-10.0 White Blood Count JOSE M ([facility]) hemoglobin 13.7 g/dL 12.0-15.5 Hemoglobin JOSE M ([facility]) red blood count 4.57 10 4.00-5.40 Red Blood Count ATHE NA ([facility]) hematocrit 42.8 % 36.0-47.0 Hematocrit JOSE M ([facility]) mean corpuscular volume 93.7 fL 80.0-96.0 Mean Corpusc ular Volume JOSE M ([facility]) mean corpuscular hemoglobin 30.0 pg 27.0-33.0 Mean Cor puscular Hemoglobin JOSE M ([facility]) red cell distribution width 12.2 % 11.5-14.5 Red Cell Distribution Width JOSE M ([facility]) mean corpuscular HGB conc 32.0 g/dL 32.0-36.5 Mean Corpu scular HGB Conc JOSE M ([facility]) platelet count, automated 209 10 150-450 Platelet C ount, Automated JOSE M ([facility]) neutrophils % 37.3 % 36.0-66.0 Neutrophils % MANASSA ( [facility]) lymph % 54.1 % 24.0-44.0 Above high normal Lymph % JOSE M ([facility]) eos % 2.0 % 0.0-3.0 Eos % JOSE M ([facility]) mono % 5.7 % 2.0-8.0 Owen % JOSE M ([facility]) baso % 0.7 % 0.0-1.0 Baso % JOSE M ([facility]) immature granulocyte % 0.2 % 0-3.0 Immature Gran ulocyte % JOSE M ([facility]) neutrophils # 1.5 10 1.5-8.5 Neutrophils # MANASSA ( [facility]) nucleated red blood cell % 0.0 % 0-0 Nucleated Red Blood Cell % JOSE M ([facility]) mono # 0.2 10 0.0-0.8 Owen # JOSE M ([facility]) lymph # 2.2 10 1.5-5.0 Lymph # JOSE M ([facility]) eos # 0.1 10 0.0-0.5 Eos # JOSE M ([facility]) baso # 0.0 10 0.0-0.2 Baso # JOSE M ([facility]) ID Date Data Source [id number] 08/23/2020 11:50:00 AM EDT JOSE M ([facility]) Name Value Range Interpretation Code Description Data Nakia rce(s) Supporting Document(s) total 25(oh) vitamin D 33.2 NG/mL 30.0-100.0 Total 25(Oh) Vitamin D JOSE M ([facility]) ID Date Data Source [id number] 08/23/2020 11:50:00 AM EDT JOSE M ([facility]) Name Value Range Interpretation Code Description Data Nakia rce(s) Supporting Document(s) thyroid stimulating hormone 0.358 uIU/mL 0.358-3.740 Thyroid Stimulating Hormone JOSE M ([facility]) ID Date Data Source [id number] 08/23/2020 11:50:00 AM EDT JOSE M ([facility]) Name Value Range Interpretation Code Description Data Nakia rce(s) Supporting Document(s) HDL cholesterol 66 mg/dL >40 HDL Cholesterol ATHE NA ([facility]) triglycerides level 81 mg/dL <150 Triglycerides Le renato JOSE M ([facility]) cholesterol level 241 mg/dL <200 Above high normal Cholesterol Level JOSE M ([facility]) Cholesterol in LDL [Mass/volume] in Serum or Plasma 159 mg/dL <100 Above high normal LDL Cholesterol JOSE M ([facility]) non-HDL-C 175 mg/dL Non-hdl-c JOSE M ([facility]) cholesterol risk ratio <5 Cholesterol R isk Ratio JOSE M ([facility]) ID Date Data Source [id number] 08/23/2020 11:50:00 AM EDT JOSE M ([facility]) Name Value Range Interpretation Code Description Data Nakia rce(s) Supporting Document(s) blood urea nitrogen 15 mg/dL 7-18 Blood Urea Nitro gen JOSE M ([facility]) glucose, fasting 80 mg/dL 70-100 Glucose, Fasting AT [facility] ([facility]) glomerular filtration rate > 60.0 >60 Glomerula r Filtration Rate JOSE M ([facility]) creatinine for GFR 1.03 mg/dL 0.55-1.30 Creatinine for GF R JOSE M ([facility]) potassium serum 4.8 mEq/L 3.5-5.1 Potassium Serum ATHE NA ([facility]) sodium level 141 mEq/L 136-145 Sodium Level JOSE M ([facility]) chloride level 111 mEq/L 98-107 Above high normal Chloride Level JOSE M ([facility]) carbon dioxide level 26 mEq/L 21-32 Carbon Dioxide Level JOSE M ([facility]) calcium level 8.8 mg/dL 8.5-10.1 Calcium Level JOSE M ( [facility]) anion gap 4 mEq/L 8-16 Below low normal Anion Gap JOSE M ( [facility]) ALT/SGPT 32 U/L 12-78 ALT/SGPT JOSE M ([facility]) alkaline phosphatase 72 U/L 45-117 Alkaline Phosph atase JOSE M ([facility]) AST/SGOT 12 U/L 7-37 AST/SGOT JOSE M ([facility]) bilirubin,total 0.3 mg/dL 0.2-1.0 Bilirubin,total ATHE NA ([facility]) albumin 3.9 gm/dL 3.2-5.2 Albumin JOSE M ([facility]) albumin/globulin ratio 1.2-2.2 Below low normal Albumin /globulin Ratio JOSE M ([facility]) total protein 7.4 gm/dL 6.4-8.2 Total Protein JOSE M ( [facility]) ID Date Data Source [id number] 08/23/2020 11:50:00 AM EDT JOSE M ([facility]) Name Value Range Interpretation Code Description Data Nakia rce(s) Supporting Document(s) Hemoglobin A1c/Hemoglobin.total in Blood 5.0 % Hemoglobin a1C JOSE M ([facility]) estimated average glucose 97 mg/dL 60-110 Estimated Average Glucose JOSE M ([facility]) ID Date Data Source [id number] 08/23/2020 11:50:00 AM EDT JOSE M ([facility]) Name Value Range Interpretation Code Description Data Nakia rce(s) Supporting Document(s) white blood count 4.1 10 4.0-10.0 White Blood Count JOSE M ([facility]) hemoglobin 13.7 g/dL 12.0-15.5 Hemoglobin JOSE M ([facility]) hematocrit 42.8 % 36.0-47.0 Hematocrit JOSE M ([facility]) red blood count 4.57 10 4.00-5.40 Red Blood Count ATHE ([facility]) mean corpuscular HGB conc 32.0 g/dL 32.0-36.5 Mean Corpu scular HGB Conc JOSE M ([facility]) mean corpuscular volume 93.7 fL 80.0-96.0 Mean Corpusc ular Volume JOSE M ([facility]) mean corpuscular hemoglobin 30.0 pg 27.0-33.0 Mean Cor puscular Hemoglobin JOSE M ([facility]) lymph % 54.1 % 24.0-44.0 Above high normal Lymph % JOSE M ([facility]) neutrophils % 37.3 % 36.0-66.0 Neutrophils % JOSE M ( [facility]) platelet count, automated 209 10 150-450 Platelet C ount, Automated JOSE M ([facility]) red cell distribution width 12.2 % 11.5-14.5 Red Cell Distribution Width JOSE M ([facility]) eos % 2.0 % 0.0-3.0 Eos % JOSE M ([facility]) mono % 5.7 % 2.0-8.0 Owen % JOSE M ([facility]) nucleated red blood cell % 0.0 % 0-0 Nucleated Red Blood Cell % JOSE M ([facility]) baso % 0.7 % 0.0-1.0 Baso % JOSE M ([facility]) immature granulocyte % 0.2 % 0-3.0 Immature Gran ulocyte % JOSE M ([facility]) neutrophils # 1.5 10 1.5-8.5 Neutrophils # JOSE M ( [facility]) mono # 0.2 10 0.0-0.8 Owen # JOSE M ([facility]) eos # 0.1 10 0.0-0.5 Eos # JOSE M ([facility]) lymph # 2.2 10 1.5-5.0 Lymph # JOSE M ([facility]) baso # 0.0 10 0.0-0.2 Baso # JOSE M ([facility]) ID Date Data Source [id number] 04/17/2020 01:00:00 AM EST JOSE M ([facility]) Name Value Range Interpretation Code Description Data Nakia rce(s) Supporting Document(s) istat B-HCG < 5.0 Istat B-HCG MANASSA ([facility]) ID Date Data Source [id number] 04/17/2020 01:00:00 AM EST JOSE M ([facility]) Name Value Range Interpretation Code Description Data Nakia rce(s) Supporting Document(s) istat B-HCG < 5.0 Istat B-HCG JOSE M ([facility]) ID Date Data Source [id number] 04/17/2020 01:00:00 AM EST JOSE M ([facility]) Name Value Range Interpretation Code Description Data Nakia rce(s) Supporting Document(s) istat B-HCG < 5.0 Istat B-HCG MANASSA ([facility]) ID Date Data Source [id number] 04/17/2020 01:00:00 AM EST JOSE M ([facility]) Name Value Range Interpretation Code Description Data Nakia rce(s) Supporting Document(s) istat B-HCG < 5.0 Istat B-HCG JOSE M ([facility]) ID Date Data Source [id number] 04/17/2020 01:00:00 AM EST JOSE M ([facility]) Name Value Range Interpretation Code Description Data Nakia rce(s) Supporting Document(s) istat B-HCG < 5.0 Istat B-HCG JOSE M ([facility]) ID Date Data Source [id number] 04/17/2020 01:00:00 AM EST JOSE M ([facility]) Name Value Range Interpretation Code Description Data Nakia rce(s) Supporting Document(s) istat B-HCG < 5.0 Istat B-HCG JOSE M ([facility]) ID Date Data Source [id number] 04/17/2020 01:00:00 AM EST JOSE M ([facility]) Name Value Range Interpretation Code Description Data Nakia rce(s) Supporting Document(s) istat B-HCG < 5.0 Istat B-HCG JOSE M ([facility]) ID Date Data Source [id number] 04/17/2020 01:00:00 AM EST JOSE M ([facility]) Name Value Range Interpretation Code Description Data Nakia rce(s) Supporting Document(s) istat B-HCG < 5.0 Istat B-HCG JOSE M ([facility]) ID Date Data Source [id number] 04/17/2020 01:00:00 AM EST JOSE M ([facility]) Name Value Range Interpretation Code Description Data Nakia rce(s) Supporting Document(s) istat B-HCG < 5.0 Istat B-HCG JOSE M ([facility]) ID Date Data Source [id number] 04/17/2020 01:00:00 AM EST JOSE M ([facility]) Name Value Range Interpretation Code Description Data Nakia rce(s) Supporting Document(s) istat B-HCG < 5.0 Istat B-HCG JOSE M ([facility]) ID Date Data Source [id number] 04/17/2020 01:00:00 AM EST JSOE M ([facility]) Name Value Range Interpretation Code Description Data Nakia rce(s) Supporting Document(s) istat B-HCG < 5.0 Istat B-HCG JOSE M ([facility]) ID Date Data Source [id number] 04/17/2020 01:00:00 AM EST JOSE M ([facility]) Name Value Range Interpretation Code Description Data Nakia rce(s) Supporting Document(s) istat B-HCG < 5.0 Istat B-HCG JOSE M ([facility]) ID Date Data Source [id number] 04/17/2020 01:00:00 AM EST JOSE M ([facility]) Name Value Range Interpretation Code Description Data Nakia rce(s) Supporting Document(s) istat B-HCG < 5.0 Istat B-HCG JOSE M ([facility]) ID Date Data Source [id number] 04/17/2020 01:00:00 AM EST JOSE M ([facility]) Name Value Range Interpretation Code Description Data Nakia rce(s) Supporting Document(s) istat B-HCG < 5.0 Istat B-HCG JOSE M ([facility]) ID Date Data Source [id number] 04/17/2020 01:00:00 AM EST JOSE M ([facility]) Name Value Range Interpretation Code Description Data Nakia rce(s) Supporting Document(s) istat B-HCG < 5.0 Istat B-HCG JOSE M ([facility]) ID Date Data Source [id number] 04/17/2020 01:00:00 AM EST JOSE M ([facility]) Name Value Range Interpretation Code Description Data Nakia rce(s) Supporting Document(s) istat B-HCG < 5.0 Istat B-HCG JOSE M ([facility]) Procedure Social History No Information Vital Signs ID Date Data Source [id number] Name Value Range Interpretation Code Description Data Source(s) Body height 64 [in_i] 64 [in_i] JOSE M ([facility]) Body height 64 [in_i] 64 [in_i] JOSE M ([facility]) Body height 64 [in_i] 64 [in_i] JOSE M ([facility]) Body mass index (BMI) [Ratio] 33 kg/m2 33 kg/ m2 JOSE M ([facility]) Systolic blood pressure 118 mm[Hg] 118 mm[Hg] A [facility] ([facility]) Body weight 3078 [oz_av] 3078 [oz_av] JOSE M ([facility]) Diastolic blood pressure 84 mm[Hg] 84 mm[Hg] JOSE M ([facility]) Diastolic blood pressure 84 mm[Hg] 84 mm[Hg] JOSE M ([facility]) Body height 64 [in_i] 64 [in_i] JOSE M ([facility]) Body mass index (BMI) [Ratio] 33 kg/m2 33 kg/ m2 JOSE M ([facility]) Systolic blood pressure 118 mm[Hg] 118 mm[Hg] A [facility] ([facility]) Body weight 3078 [oz_av] 3078 [oz_av] JOSE M ([facility]) Diastolic blood pressure 84 mm[Hg] 84 mm[Hg] JOSE M ([facility]) Body height 64 [in_i] 64 [in_i] JOSE M ([facility]) Body mass index (BMI) [Ratio] 33 kg/m2 33 kg/ m2 JOSE M ([facility]) Systolic blood pressure 118 mm[Hg] 118 mm[Hg] A THENA ([facility]) Body weight 3078 [oz_av] 3078 [oz_av] JOSE M ([facility]) Systolic blood pressure 134 mm[Hg] 134 mm[Hg] M EDENT ([facility]) Diastolic blood pressure 80 mm[Hg] 80 mm[Hg] MEDENT ([facility]) Heart rate 76 /min 76 /min MEDENT ([facility]) Body temperature 97.5 [degF] 97.5 [degF] MEDENT ([facility]) Body height 64.5 [in_i] 64.5 [in_i] MEDENT ([facility]) 5'4.50" Body weight 211.50 [lb_av] 211.50 [lb_av] MEDEN T ([facility]) Body mass index (BMI) [Ratio] 35.7 kg/m2 35.7 k g/m2 MEDENT ([facility]) Oxygen saturation in Arterial blood by Pulse oximetry 98 % 98 % MEDENT ([facility]) Body mass index (BMI) [Ratio] 37.3 kg/m2 37.3 k g/m2 JOSE M ([facility]) Diastolic blood pressure 85 mm[Hg] 85 mm[Hg] JOSE M ([facility]) Body height 64 [in_i] 64 [in_i] JOSE M ([facility]) Systolic blood pressure 124 mm[Hg] 124 mm[Hg] A THENA ([facility]) Body weight 3475.2 [oz_av] 3475.2 [oz_av] ATHEN A ([facility]) Diastolic blood pressure 85 mm[Hg] 85 mm[Hg] JOSE M ([facility]) Body height 64 [in_i] 64 [in_i] JOSE M ([facility]) Body mass index (BMI) [Ratio] 37.3 kg/m2 37.3 k g/m2 JOSE M ([facility]) Systolic blood pressure 124 mm[Hg] 124 mm[Hg] A THENA ([facility]) Body weight 3475.2 [oz_av] 3475.2 [oz_av] ATHEN A ([facility]) Diastolic blood pressure 85 mm[Hg] 85 mm[Hg] JOSE M ([facility]) Body height 64 [in_i] 64 [in_i] JOSE M ([facility]) Body mass index (BMI) [Ratio] 37.3 kg/m2 37.3 k g/m2 JOSE M ([facility]) Systolic blood pressure 124 mm[Hg] 124 mm[Hg] A MILLIEA ([facility]) Body weight 3475.2 [oz_av] 3475.2 [oz_av] ATHEN A ([facility]) Diastolic blood pressure 85 mm[Hg] 85 mm[Hg] JOSE M ([facility]) Body height 64 [in_i] 64 [in_i] JOSE M ([facility]) Body mass index (BMI) [Ratio] 37.3 kg/m2 37.3 k g/m2 JOSE M ([facility]) Systolic blood pressure 124 mm[Hg] 124 mm[Hg] A MILLIEA ([facility]) Body weight 3475.2 [oz_av] 3475.2 [oz_av] ATHEN A ([facility]) Diastolic blood pressure 85 mm[Hg] 85 mm[Hg] JOSE M ([facility]) Body height 64 [in_i] 64 [in_i] JOSE M ([facility]) Body mass index (BMI) [Ratio] 37.3 kg/m2 37.3 k g/m2 JOSE M ([facility]) Systolic blood pressure 124 mm[Hg] 124 mm[Hg] A THENA ([facility]) Body weight 3475.2 [oz_av] 3475.2 [oz_av] ATHEN A ([facility]) Diastolic blood pressure 85 mm[Hg] 85 mm[Hg] JOSE M ([facility]) Body height 64 [in_i] 64 [in_i] JOSE M ([facility]) Body mass index (BMI) [Ratio] 37.3 kg/m2 37.3 k g/m2 JOSE M ([facility]) Systolic blood pressure 124 mm[Hg] 124 mm[Hg] A THENA ([facility]) Body weight 3475.2 [oz_av] 3475.2 [oz_av] ATHEN A ([facility]) Systolic blood pressure 122 mm[Hg] 122 mm[Hg] M EDENT ([facility], ) Diastolic blood pressure 80 mm[Hg] 80 mm[Hg] [facility] Heart rate 99 /min 99 /min [facility] ([facility]) Oxygen saturation in Arterial blood by Pulse oximetry 99 % 99 % [facility] ([facility]) Body temperature 98.1 [degF] 98.1 [degF] [facility] ([facility]) Body height 64 [in_i] 64 [in_i] [facility] ([facility]) 5'4" Body weight 208.00 [lb_av] 208.00 [lb_av] MEDEN T ([facility]) Body mass index (BMI) [Ratio] 35.7 kg/m2 35.7 k g/m2 [facility] ([facility]) [place] body weight 120 [lb_av] 120 [lb_av] MEDEN T ([facility]) Body weight 94.349 kg 94.349 kg [facility] ([facility]) Patient Treatment Plan of Care Planned Activity Planned Date Details Description Data Source (s) terconazole 8 MG/ML Vaginal Cream JOSE M ([facility]) NITROFURANTOIN, MACROCRYSTALS 25 MG / Ni trofurantoin, Monohydrate 75 MG Oral Capsule JOSE M ([facility]) New Day 1.5 mg tablet TAKE DIRECTED JOSE M ([facility]) Metronidazole 500 MG Oral Tablet MANASSA ([facility]) Ketorolac Tromethamine 10 MG Oral Tablet MANASSA ([facility]) Fluconazole 150 MG Oral Tablet JOSE M ([facility]) Clonidine Hydrochloride 0.2 MG Oral Tablet JOSE M ([facility]) buspirone hydrochloride 15 MG Oral Tablet JOSE M ([facility]) 12 HR Bupropion Hydrochloride 150 MG Extended Release Oral Tablet JOSE M ([facility]) terconazole 8 MG/ML Vaginal Cream JOSE M ([facility]) NITROFURANTOIN, MACROCRYSTALS 25 MG / Ni trofurantoin, Monohydrate 75 MG Oral Capsule JOSE M ([facility]) New Day 1.5 mg tablet TAKE DIRECTED JOSE M ([facility]) Metronidazole 500 MG Oral Tablet JOSE M ([facility]) Metronidazole 0.0075 MG/MG Vaginal Gel JOSE M ([facility]) Ketorolac Tromethamine 10 MG Oral Tablet JOSE M ([facility]) Fluconazole 150 MG Oral Tablet JOSE M ([facility]) Clonidine Hydrochloride 0.2 MG Oral Tablet JOSE M ([facility]) buspirone hydrochloride 15 MG Oral Tablet JOSE M ([facility]) 12 HR Bupropion Hydrochloride 150 MG Extended Release Oral Tablet JOSE M ([facility]) terconazole 8 MG/ML Vaginal Cream JOSE M ([facility]) NITROFURANTOIN, MACROCRYSTALS 25 MG / Ni trofurantoin, Monohydrate 75 MG Oral Capsule JOSE M ([facility]) New Day 1.5 mg tablet TAKE DIRECTED JOSE M ([facility]) Metronidazole 500 MG Oral Tablet JOSE M ([facility]) Metronidazole 0.0075 MG/MG Vaginal Gel JOSE M ([facility]) Ketorolac Tromethamine 10 MG Oral Tablet JOSE M ([facility]) Fluconazole 150 MG Oral Tablet JOSE M ([facility]) Clonidine Hydrochloride 0.2 MG Oral Tablet JOSE M ([facility]) buspirone hydrochloride 15 MG Oral Tablet JOSE M ([facility]) 12 HR Bupropion Hydrochloride 150 MG Extended Release Oral Tablet JOSE M ([facility]) Buprenorphine 8 MG / Naloxone 2 MG Oral Strip JOSE M ([facility]) Alprazolam 0.5 MG Oral Tablet JOSE M ([facility]) Trazodone Hydrochloride 100 MG Oral Tablet JOSE M ([facility]) New Day 1.5 mg tablet JOSE M ([facility]) Metronidazole 500 MG Oral Tablet JOSE M ([facility]) Metronidazole 0.0075 MG/MG Vaginal Gel JOSE M ([facility]) Ketorolac Tromethamine 10 MG Oral Tablet JOSE M ([facility]) Fluconazole 150 MG Oral Tablet JOSE M ([facility]) 12 HR Bupropion Hydrochloride 150 MG Extended Release Oral Tablet JOSE M ([facility]) Trazodone Hydrochloride 100 MG Oral Tablet JOSE M ([facility]) New Day 1.5 mg tablet JOSE M ([facility]) Metronidazole 500 MG Oral Tablet JOSE M ([facility]) Metronidazole 0.0075 MG/MG Vaginal Gel JOSE M ([facility]) Ketorolac Tromethamine 10 MG Oral Tablet JOSE M ([facility]) Fluconazole 150 MG Oral Tablet JOSE M ([facility]) 12 HR Bupropion Hydrochloride 150 MG Extended Release Oral Tablet JOSE M ([facility]) Trazodone Hydrochloride 100 MG Oral Tablet JOSE M ([facility]) New Day 1.5 mg tablet JOSE M ([facility]) Metronidazole 500 MG Oral Tablet JOSE M ([facility]) Metronidazole 0.0075 MG/MG Vaginal Gel JOSE M ([facility]) Ketorolac Tromethamine 10 MG Oral Tablet JOSE M ([facility]) Fluconazole 150 MG Oral Tablet JOSE M ([facility]) 12 HR Bupropion Hydrochloride 150 MG Extended Release Oral Tablet JOSE M ([facility])
--- OUTSIDE RECORDS SUMMARY | 2021-04-20 15:13 | CCD ---
Author Author Hina Slade Organization [facility] Address Unknown Phone Unavailable Care Team Providers Care Management Services Technician Name Role Phone Panchito Slade PCP Unavailable Allergies, Adverse Reactions, Alerts Allergy Substance Code C odeSystem Reaction Severity Critic ality Status Start Date Moderate Medications Medication Medication Code Medication CodeSystem Start Date Stop Date Route Dose Status Fill Instructions RxNorm Problems Problem Name Code CodeSy stem Alternate Code Alternate CodeSystem Start Date End Date Status Narrative Tobacco use 179064771 S NOMED-CT 2020-12-01 Active Anxiety (finding) [id number] SNOMED-CT 2021-01-28 Active Unspecified anxiety disorder [id number] SNOMED-CT 2021-01-28 Active Depressive episode, unspecified [id number] SNOMED-CT 2020-12-01 Active Relevant diagnostic tests/laboratory data Narrative No Information Procedures Procedure Name Code Code System Target Site Date of Procedure Status Service Delivery Location Device Cod e Device Name Device UID Psychotherapy, 45 minutes with patient [id number] SNOMED-CT () 2021-01-[address], [id number] Initial Psychiatric Evaluation [id number] SNOMED-CT () 2021-01-[address], [id number] Individual Psychotherapy [id number] SNOMED-CT () 2021-01-[address], [id number] Psychiatric Diagnostic Evaluation without medical serv ices [id number] SNOMED-CT () 2020-11-[address], [id number] Encounters/Encounter Diagnoses Encounter Name Encounter Code Diagnosis Code Diagnosis Name Diagnosis CodeSystem Date of Diagnosis Service Delivery L ocation Pyschotherapy 30 Minute with Patient [id number] Depressive episode, unspecified SNOMED-CT 2021-01-31 [facility] , , Vital Signs No Information Social History Element Description Description Start Date End Date Code CodeSystem AdditionalInfo SexAssignedAtBirth Female 1985 F AdministrativeGender Hospital Discharge Instructions * Reason For Referral Medical Equipment * FDA Assessments *
--- OUTSIDE RECORDS SUMMARY | 2021-04-20 15:15 | CCD ---
Author Author [facility] Organization [facility] Address Unknown Phone Unavailable Care Team Providers Care Probation Worker Name Role Phone Sedrick Riley MD Unavailable [...] Riley MD Unavailable Unavailable Tha, L Lilia GENERAL MATCHER Unavailable Unavailable Tha, L Lilia GENERAL MATCHER Unavailable Unavailable Tha, L Lilia GENERAL MATCHER Unavailable Unavailable Tha, L Lilia GENERAL MATCHER Unavailable Unavailable Tha, L Lilia GENERAL MATCHER Unavailable Unavailable Tha, L Lilia GENERAL MATCHER Unavailable Unavailable Tha, L Lilia GENERAL MATCHER Unavailable Unavailable Tha, L Lilia GENERAL MATCHER Unavailable Unavailable Tha, L Lilia GENERAL MATCHER Unavailable Unavailable Tha, L Lilia GENERAL MATCHER Unavailable Unavailable Tha, L Lilia GENERAL MATCHER Unavailable Unavailable Tha, L Lilia GENERAL MATCHER Unavailable Unavailable Tha, L Lilia GENERAL MATCHER Unavailable Unavailable Tha, L Lilia GENERAL MATCHER Unavailable Unavailable Tha, L Lilia GENERAL MATCHER Unavailable Unavailable Tha, L Lilia GENERAL MATCHER Unavailable Unavailable Tha, L Lilia GENERAL MATCHER Unavailable Unavailable Tha, L Lilia GENERAL MATCHER Unavailable Unavailable Tha, L Lilia GENERAL MATCHER Unavailable Unavailable Tha, L Lilia GENERAL MATCHER Unavailable Unavailable Tha, L Lilia GENERAL MATCHER Unavailable Unavailable Tha, L Lilia GENERAL MATCHER Unavailable Unavailable Tha, L Lilia GENERAL MATCHER Unavailable Unavailable Tha, L Lilia GENERAL MATCHER Unavailable Unavailable Tha, L Lilia GENERAL MATCHER Unavailable Unavailable KELLOGG, CAITLIN PASTORA RPA-C Unavailable [...] PASTORA RPA-C Unavailable Unavailable Turturro, Nasrin Unavailable [phone] Carlie, Tamica Unavailable Unavailable Carlie, Tamica Unavailable [...] Unavailable Sophie Tolliver MD Unavailable Unavailable Sophie oTlliver MD Unavailable Unavailable Sophie Tolliver MD Unavailable [...] Unavailable Fish, B Norma JORGE Unavailable Unavailable [id number], [id number] Unavailable [phone] Gay, [place] Erica Unavailable Unavailable Gay, [place] Erica Unavailable Unavailable Gay, [place] Erica Unavailable Unavailable Gay, [place] Erica Unavailable Unavailable Gay, [place] Erica Unavailable Unavailable Gay, [place] Erica Unavailable Unavailable Gay, [place] Erica Unavailable Unavailable Gay, [place] Erica Unavailable Unavailable Gay, [place] Erica Unavailable Unavailable Gay, [place] Erica Unavailable Unavailable Gay, [place] Erica Unavailable Unavailable Gay, [place] Erica Unavailable Unavailable Gay, [place] Erica Unavailable Unavailable Re-disclosure Warning The records [...] is protected by Article 27-F of the [facility] Public Health law. If you continue you may have access to information: Regarding HIV / AIDS; Provided by facilities licensed or operated by the [facility] Office of Mental Health; or Provided by the [facility] Office for People With Developmental Disabilities. If such information is present, then the following [facility] mandated warning applies: This information has [...] law may result in a fine or longterm sentence or both. A general authorization for the release of medical or other information is NOT sufficient authorization for further disc losure. Allergies and Adverse Reactions Type Description Substance Reaction Status Data Source(s ) Allergy to substance Allergy to substance Allergy to substance JOSE M ([facility]) Allergy to substance Allergy to substance Allergy to substance JOSE M ([facility]) Allergy to substance Allergy to substance Allergy to substance JOSE M ([facility]) Allergy to substance Allergy to substance Allergy to substance JOSE M ([facility]) Allergy to substance Allergy to substance Allergy to substance JOSE M ([facility]) Allergy to substance Allergy to substance Allergy to substance JOSE M ([facility]) Allergy to substance Allergy to substance Allergy to substance JOSE M ([facility]) Allergy to substance Allergy to substance Allergy to substance JOSE M ([facility]) Allergy to substance Allergy to substance Allergy to substance JOSE M ([facility]) Allergy to substance Allergy to substance Allergy to substance JOSE M ([facility]) Family History Family Member Name Family Member Gender Family Member Status Date o f Status Description Data Source(s) Unknown Male Problem [facility] ([facility]) Encounters Encounter Providers Location Date Indications Data Source(s ) Eufemia Restrepo, RD: [address] [place] [address], Ph. Attender: [id number] [facility] Medical 03/30/2021 12:00:00 AM EDT JOSE M ([facility]) Dav Riley MD: [address] [place] [address], Ph. Attender: Dav Riley MD [facility] Medical 03/24/2021 12:00:00 AM EDT JOSE M ([facility]) Dav Riley MD: [address] [place] [address], Ph. Attender: Dav Riley MD [facility] Medical 03/24/2021 12:00:00 AM EDT JOSE M ([facility]) Eunice Sexton MD: [address] [place] [address], Ph. Attender: Eunice Sexton [facility] Medical 03/14/2021 12:00:00 AM EDT JOSE M ([facility]) Eunice Sexton MD: [address] [place] [address], Ph. Attender: Eunice Sexton [facility] Medical 03/14/2021 12:00:00 AM EDT JOSE M ([facility]) Eunice Sexton MD: [address] [place] [address], Ph. Attender: Eunice Sexton [facility] [place]/14/2021 12:00:00 AM EDT [facility] ([facility]) Pyschotherapy 30 Minute with Patient [facility] 01/31/2021 12:00:00 AM EDT [employer] ([facility]) Pyschotherapy 30 Minute with Patient [facility] 01/18/2021 12:00:00 AM EDT [employer] ([facility]) BRITNEY Mathias-C: [address] [place] [address], Ph. Attender: Erica Gay [facility] Medical 01/03/2021 12:00:00 AM EDT JOSE M ([facility]) BRITNEY Mathias-C: [address] [place] [address], Ph. Attender: Erica Gay [facility] Medical 01/03/2021 12:00:00 AM EDT JOSE M ([facility]) BEN MathiasC: [address] [place] [address], Ph. Attender: Erica Gay [facility] Medical 01/03/2021 12:00:00 AM EDT JOSE M ([facility]) BEN MathiasC: [address] [place] [address], Ph. Attender: Erica Gay [facility] Medical 01/03/2021 12:00:00 AM EDT [facility] ([facility]) non-billable [facility] 12/02/2020 12:00:00 AM EDT [facility] ([facility]) Outpatient Attender: Norma Tolliver MD Physical Therapy 09/23 10:15:00 AM EDT [facility] ([facility]) Eunice Sexton MD: [address], [facility] [place] [address], Ph. Attender: Eunice Sexton [facility] Medical 08/23/2020 12:00:00 AM EDT JOSE M ([facility]) Eunice Sexton MD: [address], [place] [address], Ph. Attender: Eunice Sexton [facility] Medical 08/23/2020 12:00:00 AM EDT JOSE M ([facility]) Eunice Sexton MD: [address], [place] [address], Ph. Attender: Eunice Sexton [facility] Medical 08/23/2020 12:00:00 AM EDT JOSE M ([facility]) Eunice Sexton MD: [address], [place] [address], Ph. Attender: Eunice Sexton [facility] Medical 08/23/2020 12:00:00 AM EDT JOSE M ([facility]) Eunice Sexton MD: [address], [place] [address], Ph. Attender: Eunice Sexton [facility] Medical 08/23/2020 12:00:00 AM EDT JOSE M ([facility]) Eunice Sexton MD: [address], [place] [address], Ph. Attender: Eunice Sexton [facility] Medical 08/16/2020 12:00:00 AM EST JOSE M ([facility]) Eunice Sexton MD: [address], [place] [address], Ph. Attender: Eunice Sexton [facility] Medical 08/16/2020 12:00:00 AM EST JOSE M ([facility]) Eunice Sexton MD: [address], [place] [address], Ph. Attender: Eunice Sexton [facility] Medical 08/16/2020 12:00:00 AM EST JOSE M ([facility]) Eunice Sexton MD: [address], [place] [address], Ph. Attender: Eunice Sexton [facility] Medical 08/16/2020 12:00:00 AM EST JOSE M ([facility]) Eunice Sexton MD: [address], [place] [address], Ph. Attender: Eunice Sexton [facility] Medical 08/16/2020 12:00:00 AM EST JOSE M ([facility]) Eunice Sexton MD: [address], [facility] [place] [address], Ph. Attender: Eunice Sexton [facility] Medical 08/16/2020 12:00:00 AM EST JOSE M ([facility]) Nasrin Abreu, TREE THINNER-R: [address] [place] [address], Ph. Attender: Nasrin Abreu [facility] Medical 08/04/2020 12:00:00 AM EST JOSE M ([facility]) Nasrin Abreu, TREE THINNER-R: [address] [place] [address], Ph. Attender: Nasrin Abreu [facility] Medical 08/04/2020 12:00:00 AM EST JOSE M ([facility]) Nasrin Abreu, TREE THINNER-R: [address] [place] [address], Ph. Attender: Nasrin Abreu [facility] Medical 08/04/2020 12:00:00 AM EST JOSE M ([facility]) Nasrin Abreu, TREE THINNER-R: [address] [place] [address], Ph. Attender: Nasrin Abreu [facility] Medical 08/04/2020 12:00:00 AM EST JOSE M ([facility]) Nasrin Abreu, TREE THINNER-R: [address] , [place] [address], Ph. Attender: Nasrin Abreu [facility] Medical 08/04/2020 12:00:00 AM EST JOSE M ([facility]) Nasrin Abreu, TREE THINNER-R: [address] , [place] [address], Ph. Attender: Nasrin Mahoganysahilkennedy [facility] Medical 08/04/2020 12:00:00 AM EST JOSE M ([facility]) Nasrin Abreu, TREE THINNER-R: [address] [place] [address], Ph. Attender: Nasrin Mahoganysahilkennedy [facility] Medical 08/04/2020 12:00:00 AM EST JOSE M ([facility]) Nasrin Abreu, TREE THINNER-R: [address] [place] [address], Ph. Attender: Nasrin Brady [facility] Medical 07/28/2020 12:00:00 AM EST JOSE M ([facility]) Nasrin Abreu, TREE THINNER-R: [address] [place] [address], Ph. Attender: Nasrin Brady [facility] Medical 07/28/2020 12:00:00 AM EST JOSE M ([facility]) Nasrin Mahoganysahilkennedy, TREE THINNER-R: [address] [place] [address], Ph. Attender: Nasrineduardo Abreu [facility] Medical 07/28/2020 12:00:00 AM EST JOSE M ([facility]) Nasrin Abreu, TREE THINNER-R: [address] , [place] [address], Ph. Attender: Nasrin Abreu [facility] Medical 07/28/2020 12:00:00 AM EST JOSE M ([facility]) Nasrin Abreu, TREE THINNER-R: [address] , [place] [address], Ph. Attender: Nasrin Abreu [facility] Medical 07/28/2020 12:00:00 AM EST JOSE M ([facility]) Nasrin Tapiakennedy, TREE THINNER-R: [address] [place] [address], Ph. Attender: Nasrin Mahoganysahilkennedy [facility] Medical 07/28/2020 12:00:00 AM EST JOSE M ([facility]) Nasrin Abreu, TREE THINNER-R: [address] [place] [address], Ph. Attender: Nasrin Mahoganysahilkennedy [facility] Medical 07/28/2020 12:00:00 AM EST JOSE M ([facility]) Nasrin Tapiakennedy, TREE THINNER-R: [address] [place] [address], Ph. Attender: Nasrin Raulhamlet [facility] Medical 07/28/2020 12:00:00 AM EST JOSE M ([facility]) Nasrin Brady, TREE THINNER-R: [address] , [place] [address], Ph. Attender: Nasrin Abreu [facility] Medical 07/21/2020 12:00:00 AM EST JOSE M ([facility]) Nasrin Abreu, TREE THINNER-R: [address] [place] [address], Ph. Attender: Nasrin Abreu [facility] Medical 07/21/2020 12:00:00 AM EST JOSE M ([facility]) Nasrin Abreu, TREE THINNER-R: [address] [place] [address], Ph. Attender: Nasrin Abreu [facility] Medical 07/21/2020 12:00:00 AM EST JOSE M ([facility]) Nasrin Abreu, TREE THINNER-R: [address] [place] [address], Ph. Attender: Nasrin Abreu [facility] Medical 07/21/2020 12:00:00 AM EST JOSE M ([facility]) Nasrin Abreu, TREE THINNER-R: [address] [place] [address], Ph. Attender: Nasrin Abreu [facility] Medical 07/21/2020 12:00:00 AM EST JOSE M ([facility]) Nasrin Tapiao, TREE THINNER-R: [address] [place] [address], Ph. Attender: Nasrin Abreu [facility] Medical 07/21/2020 12:00:00 AM EST JOSE M ([facility]) Nasrin Raulgermano, TREE THINNER-R: [address] [place] [address], Ph. Attender: Nasrin Carterkaterinasahilkennedy [facility] Medical 07/21/2020 12:00:00 AM EST JOSE M ([facility]) Nasrin Abreu, TREE THINNER-R: [address] [place] [address], Ph. Attender: Nasrin Carterkaterinasahilkennedy [facility] Medical 07/21/2020 12:00:00 AM EST JOSE M ([facility]) Nasrin Mahoganysahilkennedy, TREE THINNER-R: [address] [place] [address], Ph. Attender: Nasrin Brady [facility] Medical 07/21/2020 12:00:00 AM EST JOSE M ([facility]) Nasrin Carterkaterinasahilkennedy, TREE THINNER-R: [address] [place] [address], Ph. Attender: Nasrin Brady [facility] Medical 07/21/2020 12:00:00 AM EST JOSE M ([facility]) Nasrin Brady, TREE THINNER-R: [address] [place] [address], Ph. Attender: Nasrin Mahoganysahilkennedy [facility] Medical 07/21/2020 12:00:00 AM EST JOSE M ([facility]) Nasrin Mahoganysahilkennedy, TREE THINNER-R: [address] [place] [address], Ph. Attender: Nasrin Brady [facility] Medical 07/21/2020 12:00:00 AM EST JOSE M ([facility]) Nasrin Abreu, TREE THINNER-R: [address], [place] [address], Ph. Attender: Nasrin Abreu [facility] Medical 06/21/2020 12:00:00 AM EST JOSE M ([facility]) Nasrin Abreu, TREE THINNER-R: [address], [place] [address], Ph. Attender: Nasrin Abreu [facility] Medical 06/21/2020 12:00:00 AM EST JOSE M ([facility]) Nasrin Abreu, TREE THINNER-R: [address], [place] [address], Ph. Attender: Nasrin Abreu [facility] Medical 06/21/2020 12:00:00 AM EST JOSE M ([facility]) Nasrin Abreu, TREE THINNER-R: [address], [place] [address], Ph. Attender: Nasrin Abreu [facility] Medical 06/21/2020 12:00:00 AM EST JOSE M ([facility]) Nasrin Abreu, TREE THINNER-R: [address], [place] [address], Ph. Attender: Nasrin Abreu [facility] Medical 06/21/2020 12:00:00 AM EST JOSE M ([facility]) Nasrin Abreu, TREE THINNER-R: [address], [place] [address], Ph. Attender: Nasrin Abreu [facility] Medical 06/21/2020 12:00:00 AM EST JOSE M ([facility]) Nasrin Abreu, TREE THINNER-R: [address], [place] [address], Ph. Attender: Nasrin Abreu [facility] Medical 06/21/2020 12:00:00 AM EST JOSE M ([facility]) Nasrin Abreu, TREE THINNER-R: [address], [place] [address], Ph. Attender: Nasrin Abreu [facility] Medical 06/21/2020 12:00:00 AM EST JOSE M ([facility]) Nasrin Abreu, TREE THINNER-R: [address], [place] [address], Ph. Attender: Nasrin Abreu [facility] Medical 06/21/2020 12:00:00 AM EST JOSE M ([facility]) Nasrin Abreu, TREE THINNER-R: [address], [place] [address], Ph. Attender: Nasrin Abreu [facility] Medical 06/21/2020 12:00:00 AM EST JOSE M ([facility]) Nasrin Abreu, TREE THINNER-R: [address], [place] [address], Ph. Attender: Nasrin Abreu [facility] Medical 06/21/2020 12:00:00 AM EST JOSE M ([facility]) Nasrin Abreu, TREE THINNER-R: [address], [place] [address], Ph. Attender: Nasrin Abreu [facility] Medical 06/21/2020 12:00:00 AM EST JOSE M ([facility]) Nasrin Abreu, TREE THINNER-R: [address], [place] [address], Ph. Attender: Nasrin Abreu [facility] Medical 06/21/2020 12:00:00 AM EST JOSE M ([facility]) Nasrin Abreu, TREE THINNER-R: [address], [place] [address], Ph. Attender: Nasrin Abreu [facility] Medical 06/08/2020 12:00:00 AM EST JOSE M ([facility]) Nasrin Abreu, TREE THINNER-R: [address], [place] [address], Ph. Attender: Nasrni Abreu [facility] Medical 06/08/2020 12:00:00 AM EST JOSE M ([facility]) Nasrin Abreu, TREE THINNER-R: [address], [place] [address], Ph. Attender: Nasrin Abreu [facility] Medical 06/08/2020 12:00:00 AM EST JOSE M ([facility]) Nasrin Abreu, TREE THINNER-R: [address], [place] [address], Ph. Attender: Nasrin Abreu [facility] Medical 06/08/2020 12:00:00 AM EST JOSE M ([facility]) Nasrin Abreu, TREE THINNER-R: [address], [place] [address], Ph. Attender: Nasrin Abreu [facility] Medical 06/08/2020 12:00:00 AM EST JOSE M ([facility]) Nasrin Abreu, TREE THINNER-R: [address], [place] [address], Ph. Attender: Nasrin Abreu [facility] Medical 06/08/2020 12:00:00 AM EST JOSE M ([facility]) Nasrin Abreu, TREE THINNER-R: [address], [place] [address], Ph. Attender: Nasrin Abreu [facility] Medical 06/08/2020 12:00:00 AM EST JOSE M ([facility]) Nasrin Abreu, TREE THINNER-R: [address], [place] [address], Ph. Attender: Nasrin Abreu [facility] Medical 06/08/2020 12:00:00 AM EST JOSE M ([facility]) Nasrin Abreu, TREE THINNER-R: [address], [place] [address], Ph. Attender: Nasrin Abreu [facility] Medical 06/08/2020 12:00:00 AM EST JOSE M ([facility]) Nasrin Abreu, TREE THINNER-R: [address], [place] [address], Ph. Attender: Nasrin Abreu [facility] Medical 06/08/2020 12:00:00 AM EST JOSE M ([facility]) Nasrin Abreu, TREE THINNER-R: [address], [place] [address], Ph. Attender: Nasrin Abreu [facility] Medical 06/08/2020 12:00:00 AM EST JOSE M ([facility]) Nasrin Abreu, TREE THINNER-R: [address], [place] [address], Ph. Attender: Nasrin Abreu [facility] Medical 06/08/2020 12:00:00 AM EST JOSE M ([facility]) Nasrin Abreu, TREE THINNER-R: [address], [place] [address], Ph. Attender: Nasrin Abreu [facility] Medical 06/08/2020 12:00:00 AM EST JOSE M ([facility]) Nasrin Abreu, TREE THINNER-R: [address], [place] [address], Ph. Attender: Nasrin Abreu [facility] Medical 06/08/2020 12:00:00 AM EST JOSE M ([facility]) Nasrin Abreu, TREE THINNER-R: [address], [place] [address], Ph. Attender: Nasrin Abreu [facility] Medical 05/24/2020 12:00:00 AM EST JOSE M ([facility]) Nasrin Abreu, TREE THINNER-R: [address], [place] [address], Ph. Attender: Nasrin Abreu [facility] Medical 05/24/2020 12:00:00 AM EST JOSE M ([facility]) Nasrin Abreu, TREE THINNER-R: [address], [place] [address], Ph. Attender: Nasrin Abreu [facility] Medical 05/24/2020 12:00:00 AM EST JOSE M ([facility]) Nasrin Abreu, TREE THINNER-R: [address], [place] [address], Ph. Attender: Nasrin Abreu [facility] Medical 05/24/2020 12:00:00 AM EST JOSE M ([facility]) Nasrin Abreu, TREE THINNER-R: [address], [place] [address], Ph. Attender: Nasrin Abreu [facility] Medical 05/24/2020 12:00:00 AM EST JOSE M ([facility]) Nasrin Abreu, TREE THINNER-R: [address], [place] [address], Ph. Attender: Nasrin Abreu [facility] Medical 05/24/2020 12:00:00 AM EST JOSE M ([facility]) Nasrin Abreu, TREE THINNER-R: [address], [place] [address], Ph. Attender: Nasrin Abreu [facility] Medical 05/24/2020 12:00:00 AM EST JOSE M ([facility]) Nasrin Abreu, TREE THINNER-R: [address], [place] [address], Ph. Attender: Nasrin Abreu [facility] Medical 05/24/2020 12:00:00 AM EST JOSE M ([facility]) Nasrin Abreu, TREE THINNER-R: [address], [place] [address], Ph. Attender: Narsin Abreu [facility] Medical 05/24/2020 12:00:00 AM EST JOSE M ([facility]) Nasrin Abreu, TREE THINNER-R: [address], [place] [address], Ph. Attender: Nasrin Abreu [facility] Medical 05/24/2020 12:00:00 AM EST JOSE M ([facility]) Nasrin Abreu, TREE THINNER-R: [address], [place] [address], Ph. Attender: Nasrin Abreu [facility] Medical 05/24/2020 12:00:00 AM EST JOSE M ([facility]) Nasrin Abreu, [employer]: [address], [place] [address], Ph. Attender: Nasrin Abreu [facility] Medical 05/24/2020 12:00:00 AM EST JOSE M ([facility]) Nasrin Abreu, [employer]: [address], [place] [address], Ph. Attender: Nasrin Abreu [facility] Medical 05/24/2020 12:00:00 AM EST JOSE M ([facility]) Nasrin Abreu, TREE [employer]INNER-R: [address], [place] [address], Ph. Attender: Nasrin Abreu [facility] 05/24/2020 12:00:00 AM EST JOSE M ([facility]) Nasrin Abreu, TREE THINNER-R: [address], [place] [address], Ph. Attender: Nasrin Abreu [facility] 05/24/2020 12:00:00 AM EST JOSE M ([facility]) Nasrin Abreu, TREE THINNER-R: [address], [place] [address], Ph. Attender: Nasrin Abreu [facility] 05/18/2020 12:00:00 AM EST JOSE M ([facility]) Nasrin Abreu, TREE THINNER-R: [address], [place] [address], Ph. Attender: Nasrin Abreu [facility] 05/18/2020 12:00:00 AM EST JOSE M ([facility]) Nasrin Abreu, TREE THINNER-R: [address], [place] [address], Ph. Attender: Nasrin Abreu [facility] 05/18/2020 12:00:00 AM EST JOSE M ([facility]) Nasrin Abreu, TREE THINNER-R: [address], [place] [address], Ph. Attender: Nasrin Abreu [facility] 05/18/2020 12:00:00 AM EST JOSE M ([facility]) Nasrin Abreu, TREE THINNER-R: [address], [place] [address], Ph. Attender: Nasrin Abreu [facility] 05/18/2020 12:00:00 AM EST JOSE M ([facility]) Nasrin Abreu, TREE THINNER-R: [address], [place] [address], Ph. Attender: Nasrin Abreu [facility] 05/18/2020 12:00:00 AM EST JOSE M ([facility]) Nasrin Abreu, TREE THINNER-R: [address], [place] [address], Ph. Attender: Nasrin Abreu [facility] 05/18/2020 12:00:00 AM EST JOSE M ([facility]) Nasrin Abreu, TREE THINNER-R: [address], [place] [address], Ph. Attender: Nasrin Abreu [facility] 05/18/2020 12:00:00 AM EST JOSE M ([facility]) Nasrin Abreu, TREE THINNER-R: [address], [place] [address], Ph. Attender: Nasrin Abreu [facility] 05/18/2020 12:00:00 AM EST JOSE M ([facility]) Nasrin Abreu, TREE THINNER-R: [address], [place] [address], Ph. Attender: Nasrin Abreu [facility] 05/18/2020 12:00:00 AM EST JOSE M ([facility]) Nasrin Abreu, TREE THINNER-R: [address], [place] [address], Ph. Attender: Nasrin Abreu [facility] 05/18/2020 12:00:00 AM EST JOSE M ([facility]) Nasrin Abreu, TREE THINNER-R: [address], [place] [address], Ph. Attender: Nasrin Abreu [facility] 05/18/2020 12:00:00 AM EST JOSE M ([facility]) Nasrin Abreu, TREE THINNER-R: [address], [place] [address], Ph. Attender: Nasrin Abreu [facility] 05/18/2020 12:00:00 AM EST JOSE M ([facility]) Nasrin Abreu, TREE THINNER-R: [address], [place] [address], Ph. Attender: Nasrin Abreu [facility] 05/18/2020 12:00:00 AM EST JOSE M ([facility]) Nasrin Abreu, TREE THINNER-R: [address], [place] [address], Ph. Attender: Nasrin Abreu [facility] 05/18/2020 12:00:00 AM EST JOSE M ([facility]) Nasrin Abreu, T[employer] THINNER-R: [address], [place] [address], Ph. Attender: Nasrin Abreu [facility] 05/18/2020 12:00:00 AM EST JOSE M ([facility]) Outpatient Attender: Lilia Randolph/Karyn/Geronimo/Reindl 04/20/2020 12:00:00 PM EST MEDENT ([facility], ) Nasrin Abreu, TREE THINNER-R: [address], [place] [address], Ph. Attender: Nasrin Abreu [facility] 04/19/2020 12:00:00 AM EST JOS EM ([facility]) Nasrin Abreu, T[employer]NER[employer]R: [address], [place] [address], Ph. Attender: Nasrin Abreu [facility] 04/19/2020 12:00:00 AM EST JOSE M ([facility]) Nasrin Abreu, TREE THINNER-R: [address], [place] [address], Ph. Attender: Nasrin Abreu [facility] 04/19/2020 12:00:00 AM EST JOSE M ([facility]) Nasrin Abreu, T[employer]R: [address], [place] [address], Ph. Attender: Nasrin Abreu [facility] 04/19/2020 12:00:00 AM EST JOSE M ([facility]) Nasrin Abreu, T[employer]INNER-R: [address], [place] [address], Ph. Attender: Nasrin Abreu [facility] 04/19/2020 12:00:00 AM EST JOSE M ([facility]) Nasrin Abreu, T[employer] THINNER-R: [address], [place] [address], Ph. Attender: Nasrin Abreu [facility] 04/19/2020 12:00:00 AM EST JOSE M ([facility]) Nasrin Abreu, T[employer] THINNER-R: [address], [place] [address], Ph. Attender: Nasrin Abreu [facility] 04/19/2020 12:00:00 AM EST JOSE M ([facility]) Nasrin Abreu, T[employer]INNER-R: [address], [place] [address], Ph. Attender: Nasrin Abreu [facility] 04/19/2020 12:00:00 AM EST JOSE M ([facility]) Nasrin Abreu, T[employer] THINNER-R: [address], [place] [address], Ph. Attender: Nasrin Abreu [facility] 04/19/2020 12:00:00 AM EST JOSE M ([facility]) Nasrin Abreu, T[employer]INNER-R: [address], [place] [address], Ph. Attender: Nasrin Abreu [facility] 04/19/2020 12:00:00 AM EST JOSE M ([facility]) Nasrin Abreu, T[employer]NER-R: [address], [place] [address], Ph. Attender: Nasrin Abreu [facility] 04/19/2020 12:00:00 AM EST JOSE M ([facility]) Nasrin Abreu, T[employer] THINNER-R: [address], [place] [address], Ph. Attender: Nasrin Abreu [facility] 04/19/2020 12:00:00 AM EST JOSE M ([facility]) Nasrin Abreu, T[employer]INNER-R: [address], [place] [address], Ph. Attender: Nasrin Abreu [facility] 04/19/2020 12:00:00 AM EST JOSE M ([facility]) Nasrin Abreu, T[employer] THINNER-R: [address], [place] [address], Ph. Attender: Nasrin Abreu [facility] 04/19/2020 12:00:00 AM EST JOSE M ([facility]) Nasrin Abreu, TREE THINNER-R: [address], [place] [address], Ph. Attender: Nasrin Abreu [facility] 04/19/2020 12:00:00 AM EST JOSE M ([facility]) Nasrin Abreu, TREE THINNER-R: [address], [place] [address], Ph. Attender: Nasrin Abreu [facility] 04/19/2020 12:00:00 AM EST JOSE M ([facility]) Nasrin Abreu, TREE THINNER-R: [address], [place] [address], Ph. Attender: Nasrin Abreu [place] [facility] 04/12/2020 12:00:00 AM EST JOSE M ([facility]) Nasrin Abreu, TREE THINNER-R: [address], [place] [address], Ph. Attender: Nasrin Abreu [facility] 04/12/2020 12:00:00 AM EST JSOE M ([facility]) Nasrin Abreu, TREE THINNER-R: [address], [place] [address], Ph. Attender: Nasrin Abreu [facility] 04/12/2020 12:00:00 AM EST JOSE M ([facility]) Nasrin Abreu, TREE THINNER-R: [address], [place] [address], Ph. Attender: Nasrin Abreu [facility] 04/12/2020 12:00:00 AM EST JOSE M ([facility]) Nasrin Abreu, TREE THINNER-R: [address], [place] [address], Ph. Attender: Nasrin Abreu [facility] 04/12/2020 12:00:00 AM EST JOSE M ([facility]) Nasrin Abreu, TREE THINNER-R: [address], [place] [address], Ph. Attender: Nasrin Mahoganysahilkennedy [facility] 04/12/2020 12:00:00 AM EST JOSE M ([facility]) Nasrin Abreu, TREE THINNER-R: [address], [place] [address], Ph. Attender: Nasrin Abreu [facility] 04/12/2020 12:00:00 AM EST JOSE M ([facility]) Nasrin Abreu, TREE THINNER-R: [address], [place] [address], Ph. Attender: Nasrin Abreu [facility] 04/12/2020 12:00:00 AM EST JOSE M ([facility]) Nasrin Abreu, TREE THINNER-R: [address], [place] [address], Ph. Attender: Nasrin Abreu [facility] 04/12/2020 12:00:00 AM EST JOSE M ([facility]) Narsin Abreu, TREE THINNER-R: [address], [place] [address], Ph. Attender: Nasrin Abreu [facility] 04/12/2020 12:00:00 AM EST JOSE M ([facility]) Nasrin Abreu, TREE THINNER-R: [address], [place] [address], Ph. Attender: Nasrin Abreu [facility] 04/12/2020 12:00:00 AM EST JOSE M ([facility]) Nasrin Abreu, TREE THINNER-R: [address], [place] [address], Ph. Attender: Nasrin Abreu [facility] Medical 04/12/2020 12:00:00 AM EST JOSE M ([facility]) Nasrin Abreu, TREE THINNER-R: [address], [place] [address], Ph. Attender: Nasrin Abreu [facility] 04/12/2020 12:00:00 AM EST JOSE M ([facility]) Nasrin Abreu, TREE THINNER-R: [address], [place] [address], Ph. Attender: Nasrin Abreu [facility] 04/12/2020 12:00:00 AM EST JOSE M ([facility]) Nasrin Abreu, TREE THINNER-R: [address], [place] [address], Ph. Attender: Nasrin Abreu [facility] 04/12/2020 12:00:00 AM EST JOSE M ([facility]) Nasrin Abreu, TREE THINNER-R: [address], [place] [address], Ph. Attender: Nasrin Abreu [facility] 04/12/2020 12:00:00 AM EST JOSE M ([facility]) Nasrin Abreu, TREE THINNER-R: [address], [place] [address], Ph. Attender: Nasrin Abreu [facility] 04/05/2020 12:00:00 AM EDT JOSE M ([facility]) Nasrin Abreu, TREE [employer]INNER-R: [address], [place] [address], Ph. Attender: Nasrin Abreu [facility] 04/05/2020 12:00:00 AM EDT JOSE M ([facility]) Nasrin Abreu, TREE THINNER-R: [address], [place] [address], Ph. Attender: Nasrin Abreu [facility] 04/05/2020 12:00:00 AM EDT JOSE M ([facility]) Nasrin Abreu, TREE THINNER-R: [address], [place] [address], Ph. Attender: Nasrin Abreu [facility] 04/05/2020 12:00:00 AM EDT JOSE M ([facility]) Nasrin Abreu, TREE THINNER-R: [address], [place] [address], Ph. Attender: Nasrin Abreu [facility] 04/05/2020 12:00:00 AM EDT JOSE M ([facility]) Nasrin Abreu, TREE THINNER-R: [address], [place] [address], Ph. Attender: Nasrin Abreu [facility] 04/05/2020 12:00:00 AM EDT JOSE M ([facility]) Nasrin Abreu, TREE THINNER-R: [address], [place] [address], Ph. Attender: Nasrin Abreu [facility] 04/05/2020 12:00:00 AM EDT JOSE M ([facility]) Nasrin Abreu, TREE THINNER-R: [address], [place] [address], Ph. Attender: Nasrin Abreu [facility] Medical 04/05/2020 12:00:00 AM EDT JOSE M ([facility]) Nasrin Abreu, TREE THINNER-R: [address], [place] [address], Ph. Attender: Nasrin Abreu [facility] 04/05/2020 12:00:00 AM EDT JOSE M ([facility]) Nasrin Abreu, TREE THINNER-R: [address], [place] [address], Ph. Attender: Nasrin Abreu [facility] 04/05/2020 12:00:00 AM EDT JOSE M ([facility]) Nasrin Abreu, TREE THINNER-R: [address], [place] [address], Ph. Attender: Nasrin Abreu [facility] 04/05/2020 12:00:00 AM EDT JOSE M ([facility]) Nasrin Abreu, TREE THINNER-R: [address], [place] [address], Ph. Attender: Nasrin Abreu [facility] 04/05/2020 12:00:00 AM EDT JOSE M ([facility]) Nasrin Abreu, TREE THINNER-R: [address], [place] [address], Ph. Attender: Nasrin Abreu [facility] 04/05/2020 12:00:00 AM EDT JOSE M ([facility]) Nasrin Abreu, TREE THINNER-R: [address], [place] [address], Ph. Attender: Nasrin Abreu [facility] 04/05/2020 12:00:00 AM EDT JOSE M ([facility]) Nasrin Abreu, TREE THINNER-R: [address], [place] [address], Ph. Attender: Nasrin Abreu [facility] 04/05/2020 12:00:00 AM EDT JOSE M ([facility]) Nasrin Abreu, TREE THINNER-R: [address], [place] [address], Ph. Attender: Nasrin Abreu [facility] 04/05/2020 12:00:00 AM EDT JOSE M ([facility]) Outpatient Attender: PASTORA KELLOGG RPA-C [facility] 03/29/2020 12:40:00 PM EDT [facility] Outpatient Attender: PASTORA KELLOGG RPA-C [facility] 03/26/2020 11:34:01 AM EDT [facility] Outpatient Attender: PASTORA KELLOGG RPA-C [facility] 03/25/2020 01:30:10 PM EDT [facility] Outpatient Attender: PASTORA KELLOGG RPA-C [facility] 03/24/2020 01:32:01 PM EDT [facility] Outpatient Attender: PASTORA KELLOGG RPA-C [facility] 03/18/2020 11:38:03 AM EDT [facility] Immunizations Vaccine Date Status Description Data Source(s) Tdap 03/14/2021 04:43:00 PM EDT completed 03/14/2021 0.5 mL JOSE M ([facility]) Tdap 03/14/2021 04:43:00 PM EDT completed 03/14/2021 0.5 mL JOSE M ([facility]) Tdap 03/14/2021 04:43:00 PM EDT completed 03/14/2021 0.5 mL JOSE M ([facility]) COVID-19 vaccine, vector-nr, rS-Ad26, PF, 0.5 mL 01/03/2021 01:46:35 PM EDT completed .5 mL CHELSEA ([facility]) COVID-19 vaccine, vector-nr, rS-Ad26, PF, 0.5 mL 01/03/2021 01:46:35 PM EDT completed .5 mL CHELSEA ([facility]) COVID-19 vaccine, vector-nr, rS-Ad26, PF, 0.5 mL 01/03/2021 01:46:35 PM EDT completed .5 mL CHELSEA ([facility]) COVID-19 vaccine, vector-nr, rS-Ad26, PF, 0.5 mL 01/03/2021 01:46:35 PM EDT completed .5 mL CHELSEA ([facility]) COVID-19 VACCINE Tracy 01/03/2021 12:00:00 AM EDT completed [facility] Vaccine Series Complete: YESThis Data wa s Submitted to [facility] Via [employer]. Medications Medication Brand Name Start Date Product [...] DAILY DOSE = 2 FILMS SOLD: 06/20/2020 [facility] Clonidine Hydrochloride 0.2 MG Oral Tablet [...] buspirone hydroc hloride 15 MG Oral Tablet CHELSEA ([facility]) Alprazolam 0.5 MG Oral Tablet alprazolam 0.5 mg tablet TAKE ONE TABLET BY MOUTH TWICE A DAY MAXIMUM DAILY DOSE 2 TABLETS alprazolam 0.5 mg tablet TAKE ONE TABLET BY MOUTH TWICE A DAY MAXIMUM DAILY DOSE 2 TABLETS completed alprazolam 0.5 MG Oral Tablet AT [facility]) 12 HR Bupropion Hydrochloride 150 MG Ext ended Release Oral Tablet bupropion HCl SR 150 mg tablet,12 hr sustained-release bupropion HCl SR 150 mg tablet,12 hr sustained-release completed 12 HR bupropion hydrochloride 150 MG Extended Release Oral Tablet CHELSEA ([facility]) buspirone hydrochloride 15 MG Oral Table t buspirone 15 mg tablet TAKE ONE TABLET BY MOUTH EVERY 8 HOURS buspirone 15 mg tablet TAKE ONE TABLET B Y MOUTH EVERY 8 HOURS completed buspirone hydroc hloride 15 MG Oral Tablet CHELSEA ([facility]) Fluconazole 150 MG Oral Tablet fluconazo le 150 mg tablet TAKE ONE TABLET BY MOUTH ONCE AND TAKE 2ND TABLET IN 48 HOURS fluconazole 150 mg tablet TAKE ONE TABLET BY MOUTH ONCE AND TAKE 2ND TABLET IN 48 HOURS completed fluconazole 150 MG Oral Tablet CHELSEA ([facility]) Ketorolac Tromethamine 10 MG Oral Tablet ketorolac 10 mg tablet ketorolac 10 mg tablet completed ketorolac trome thamine 10 MG Oral Tablet CHELSEA ([facility]) Metronidazole 0.0075 MG/MG Vaginal Gel m etronidazole 0.75 % vaginal gel INSERT 1 APPLICATORFUL INTRAVAGINALLY ONCE DAILY AT BEDTIME FOR 5 DAYS metronidazole 0.75 % vaginal gel INSERT 1 APPLICATORFUL INTRAVAGINALLY ONCE DAILY AT BEDTIME FOR 5 DAYS completed metronidazole 0. 0075 MG/MG Vaginal Gel CHELSEA ([facility]) 12 HR Bupropion Hydrochloride 150 MG Ext ended Release Oral Tablet bupropion HCl SR 150 mg tablet,12 hr sustained-release bupropion HCl SR 150 mg tablet,12 hr sustained-release completed 12 HR bupropion hydrochloride 150 MG Extended Release Oral Tablet JOSE M ([facility]) Buprenorphine 8 MG / Naloxone 2 MG Oral Strip buprenorphine 8 mg-naloxone [address] TWO FILMS UNDER THE TONGUE EVERY DAY MAXIMUM DAILY DOSE 2 buprenorphine 8 mg-naloxone 2 mg subling ual film PLACE TWO FILMS UNDER THE TONGUE EVERY DAY MAXIMUM DAILY DOSE 2 completed buprenorphine 8 MG / naloxone 2 MG Sublingual Film JOSE M ([facility]) Metronidazole 500 MG Oral Tablet metroni dazole 500 mg tablet TAKE ONE TABLET BY MOUTH TWICE A DAY FOR 7 DAYS metronidazole 500 mg tablet TAKE ONE TAB LET BY MOUTH TWICE A DAY FOR 7 DAYS completed metronidazole 500 MG Oral Tablet CHELSEA ([facility]) Ketorolac Tromethamine 10 MG Oral Tablet ketorolac 10 mg tablet ketorolac 10 mg tablet completed ketorolac trome thamine 10 MG Oral Tablet [facility]HELSEA ([facility]) Fluconazole 150 MG Oral Tablet fluconazo le 150 mg tablet TAKE ONE TABLET BY MOUTH ONCE AND TAKE 2ND TABLET IN 48 HOURS fluconazole 150 mg tablet TAKE ONE TABLET BY MOUTH ONCE AND TAKE 2ND TABLET IN 48 HOURS completed fluconazole 150 MG Oral Tablet CHELSEA ([facility]) terconazole 8 MG/ML Vaginal Cream tercon azole 0.8 % vaginal cream INSERT ONE APPLICATORFUL VAGINALLY ONCE DAILY AT BEDTIME terconazole 0.8 % vaginal cream INSERT ONE APPLICATORFUL VAGINALLY ONCE DAILY AT BEDTIME completed terconazole 8 MG/ML Vaginal Cream CHELSEA ([facility]) Clonidine Hydrochloride 0.2 MG Oral Tabl et clonidine HCl 0.2 mg tablet TAKE ONE TABLET BY MOUTH AT BEDTIME clonidine HCl 0.2 mg tablet TAKE ONE TAB LET BY MOUTH AT BEDTIME completed clonidine h ydrochloride 0.2 MG Oral Tablet CHELSEA ([facility]) Metronidazole 0.0075 MG/MG Vaginal Gel m etronidazole 0.75 % vaginal gel INSERT ONE APPLICATORFUL VAGINALLY EVERY DAY AT BEDTIME FOR 5 DAYS metronidazole 0.75 % vaginal gel INSERT ONE APPLICATORFUL VAGINALLY EVERY DAY AT BEDTIME FOR 5 DAYS completed metronidazole 0.0075 MG/MG Vaginal Gel CHELSEA ([facility]) Fluconazole 150 MG Oral Tablet fluconazole 150 mg tabl et fluconazole 150 mg tablet completed fluconazole 150 MG Oral Tablet [facility]SEA ([facility]) Metronidazole 0.0075 MG/MG Vaginal Gel m etronidazole 0.75 % vaginal gel INSERT ONE APPLICATORFUL VAGINALLY EVERY DAY AT BEDTIME FOR 5 DAYS metronidazole 0.75 % vaginal gel INSERT ONE APPLICATORFUL VAGINALLY EVERY DAY AT BEDTIME FOR 5 DAYS completed metronidazole 0.0075 MG/MG Vaginal Gel [facility]HELSEA ([facility]) Metronidazole 500 MG Oral Tablet metroni dazole 500 mg tablet TAKE ONE TABLET BY MOUTH TWICE A DAY FOR 7 DAYS metronidazole 500 mg tablet TAKE ONE TAB LET BY MOUTH TWICE A DAY FOR 7 DAYS completed metronidazole 500 MG Oral Tablet [facility] ([facility]) buspirone hydrochloride 15 MG Oral Table t buspirone 15 mg tablet TAKE ONE TABLET BY MOUTH EVERY 8 HOURS buspirone 15 mg tablet TAKE ONE TABLET B Y MOUTH EVERY 8 HOURS completed buspirone hydroc hloride 15 MG Oral Tablet [facility] ([facility]) Metronidazole 500 MG Oral Tablet metroni dazole 500 mg tablet TAKE ONE TABLET BY MOUTH TWICE A DAY FOR 7 DAYS metronidazole 500 mg tablet TAKE ONE TAB LET BY MOUTH TWICE A DAY FOR 7 DAYS completed metronidazole 500 MG Oral Tablet [facility]SEA ([facility]) New Day 1.5 mg tablet TAKE DIRECTED [id number] completed levonorgestrel 1.5 MG Oral Tablet [New Day] [facility] ([facility]) Ketorolac Tromethamine 10 MG Oral Tablet ketorolac 10 mg tablet ketorolac 10 mg tablet completed ketorolac trome thamine 10 MG Oral Tablet [facility] ([facility]) Clonidine Hydrochloride 0.2 MG Oral Tabl et clonidine HCl 0.2 mg tablet TAKE ONE TABLET BY MOUTH AT BEDTIME clonidine HCl 0.2 mg tablet TAKE ONE TAB LET BY MOUTH AT BEDTIME completed clonidine h ydrochloride 0.2 MG Oral Tablet [facility] ([facility]) 12 HR Bupropion Hydrochloride 150 MG Ext ended Release Oral Tablet bupropion HCl SR 150 mg tablet,12 hr sustained-release bupropion HCl SR 150 mg tablet,12 hr sustained-release completed 12 HR bupropion hydrochloride 150 MG Extended Release Oral Tablet [facility] ([facility]) New Day 1.5 mg tablet [id number] completed levonorgestrel 1.5 MG Oral Tablet [New Day] [facility] ([facility]) New Day 1.5 mg tablet TAKE DIRECTED [id number] completed levonorgestrel 1.5 MG Oral Tablet [New Day] [facility] ([facility]) terconazole 8 MG/ML Vaginal Cream tercon azole 0.8 % vaginal cream INSERT ONE APPLICATORFUL VAGINALLY ONCE DAILY AT BEDTIME terconazole 0.8 % vaginal cream INSERT ONE APPLICATORFUL VAGINALLY ONCE DAILY AT BEDTIME completed terconazole 8 MG/ML Vaginal Cream [facility] ([facility]) NITROFURANTOIN, MACROCRYSTALS 25 MG / Ni trofurantoin, Monohydrate 75 MG Oral Capsule nitrofurantoin monohydrate/macrocrystals 100 mg capsule TAKE ONE CAPSULE BY MOUTH TWO TIMES A DAY FOR 7 DAYS nitrofurantoin monohydrate/macrocrystals 100 mg capsule TAKE ONE CAPSULE BY MOUTH TWO TIMES A DAY FOR 7 DAYS completed nitrofurantoin, macr ocrystals 25 MG / nitrofurantoin, monohydrate 75 MG Oral Capsule [facility] ([facility]) Ketorolac Tromethamine 10 MG Oral Tablet ketorolac 10 mg tablet ketorolac 10 mg tablet completed ketorolac trome thamine 10 MG Oral Tablet [facility] ([facility]) New Day 1.5 mg tablet TAKE DIRECTED [id number] completed levonorgestrel 1.5 MG Oral Tablet [New Day] [facility] ([facility]) Fluconazole 150 MG Oral Tablet fluconazo le 150 mg tablet TAKE ONE TABLET BY MOUTH ONCE AND TAKE 2ND TABLET IN 48 HOURS fluconazole 150 mg tablet TAKE ONE TABLET BY MOUTH ONCE AND TAKE 2ND TABLET IN 48 HOURS completed fluconazole 150 MG Oral Tablet [facility] ([facility]) terconazole 8 MG/ML Vaginal Cream tercon azole 0.8 % vaginal cream INSERT ONE APPLICATORFUL VAGINALLY ONCE DAILY AT BEDTIME terconazole 0.8 % vaginal cream INSERT ONE APPLICATORFUL VAGINALLY ONCE DAILY AT BEDTIME completed terconazole 8 MG/ML Vaginal Cream [facility]) 12 HR Bupropion Hydrochloride 150 MG Ext ended Release Oral Tablet bupropion HCl SR 150 mg tablet,12 hr sustained-release bupropion HCl SR 150 mg tablet,12 hr sustained-release completed 12 HR bupropion hydrochloride 150 MG Extended Release Oral Tablet [facility] ([facility]) Metronidazole 0.0075 MG/MG Vaginal Gel m etronidazole 0.75 % vaginal gel INSERT ONE APPLICATORFUL VAGINALLY EVERY DAY AT BEDTIME FOR 5 DAYS metronidazole 0.75 % vaginal gel INSERT ONE APPLICATORFUL VAGINALLY EVERY DAY AT BEDTIME FOR 5 DAYS completed metronidazole 0.0075 MG/MG Vaginal Gel [facility]HEL[facility] ([facility]) 12 HR Bupropion Hydrochloride 150 MG Ext ended Release Oral Tablet bupropion HCl SR 150 mg tablet,12 hr sustained-release bupropion HCl SR 150 mg tablet,12 hr sustained-release completed 12 HR bupropion hydrochloride 150 MG Extended Release Oral Tablet [facility] ([facility]) Trazodone Hydrochloride 100 MG Oral Tablet trazodone 1 00 mg tablet trazodone 100 mg tablet completed trazodone hy drochloride 100 MG Oral Tablet [facility] ([facility]) NITROFURANTOIN, MACROCRYSTALS 25 MG / Ni trofurantoin, Monohydrate 75 MG Oral Capsule nitrofurantoin monohydrate/macrocrystals 100 mg capsule TAKE ONE CAPSULE BY MOUTH TWO TIMES A DAY FOR 7 DAYS nitrofurantoin monohydrate/macrocrystals 100 mg capsule TAKE ONE CAPSULE BY MOUTH TWO TIMES A DAY FOR 7 DAYS completed nitrofurantoin, macr ocrystals 25 MG / nitrofurantoin, monohydrate 75 MG Oral Capsule JOSE M ([facility]) New Day 1.5 mg tablet [id number] completed levonorgestrel 1.5 MG Oral Tablet [New Day] [facility] ([facility]) Ketorolac Tromethamine 10 MG Oral Tablet ketorolac 10 mg tablet ketorolac 10 mg tablet completed ketorolac trome thamine 10 MG Oral Tablet JOSE M ([facility]) 12 HR Bupropion Hydrochloride 150 MG Ext ended Release Oral Tablet bupropion HCl SR 150 mg tablet,12 hr sustained-release bupropion HCl SR 150 mg tablet,12 hr sustained-release completed 12 HR bupropion hydrochloride 150 MG Extended Release Oral Tablet JOSE M ([facility]) Ketorolac Tromethamine 10 MG Oral Tablet ketorolac 10 mg tablet ketorolac 10 mg tablet completed ketorolac trome thamine 10 MG Oral Tablet [facility] ([facility]) Metronidazole 500 MG Oral Tablet metroni dazole 500 mg tablet TAKE ONE TABLET BY MOUTH TWICE A DAY FOR 7 DAYS metronidazole 500 mg tablet TAKE ONE TAB LET BY MOUTH TWICE A DAY FOR 7 DAYS completed metronidazole 500 MG Oral Tablet JOSE M ([facility]) NITROFURANTOIN, MACROCRYSTALS 25 MG / Ni trofurantoin, Monohydrate 75 MG Oral Capsule nitrofurantoin monohydrate/macrocrystals 100 mg capsule TAKE ONE CAPSULE BY MOUTH TWO TIMES A DAY FOR 7 DAYS nitrofurantoin monohydrate/macrocrystals 100 mg capsule TAKE ONE CAPSULE BY MOUTH TWO TIMES A DAY FOR 7 DAYS completed nitrofurantoin, macr ocrystals 25 MG / nitrofurantoin, monohydrate 75 MG Oral Capsule JOSE M ([facility]) Trazodone Hydrochloride 100 MG Oral Tablet trazodone 1 00 mg tablet trazodone 100 mg tablet completed trazodone hy drochloride 100 MG Oral Tablet [facility] ([facility]) Fluconazole 150 MG Oral Tablet fluconazole 150 mg tabl et fluconazole 150 mg tablet completed fluconazole 150 MG Oral Tablet [facility] ([facility]) Trazodone Hydrochloride 100 MG Oral Tablet trazodone 1 00 mg tablet trazodone 100 mg tablet completed trazodone hy drochloride 100 MG Oral Tablet [facility] ([facility]) Clonidine Hydrochloride 0.2 MG Oral Tabl et clonidine HCl 0.2 mg tablet TAKE ONE TABLET BY MOUTH AT BEDTIME clonidine HCl 0.2 mg tablet TAKE ONE TAB LET BY MOUTH AT BEDTIME completed clonidine h ydrochloride 0.2 MG Oral Tablet [facility] ([facility]) New Day 1.5 mg tablet [id number] completed levonorgestrel 1.5 MG Oral Tablet [New Day] [facility] ([facility]) Metronidazole 0.0075 MG/MG Vaginal Gel m etronidazole 0.75 % vaginal gel INSERT 1 APPLICATORFUL INTRAVAGINALLY ONCE DAILY AT BEDTIME FOR 5 DAYS metronidazole 0.75 % vaginal gel INSERT 1 APPLICATORFUL INTRAVAGINALLY ONCE DAILY AT BEDTIME FOR 5 DAYS completed metronidazole 0. 0075 MG/MG Vaginal Gel [facility] ([facility]) Metronidazole 500 MG Oral Tablet metroni dazole 500 mg tablet TAKE ONE TABLET BY MOUTH TWICE A DAY FOR 7 DAYS metronidazole 500 mg tablet TAKE ONE TAB LET BY MOUTH TWICE A DAY FOR 7 DAYS completed metronidazole 500 MG Oral Tablet JOSE M ([facility]) Fluconazole 150 MG Oral Tablet fluconazole 150 mg tabl et fluconazole 150 mg tablet completed fluconazole 150 MG Oral Tablet JOSE M ([facility]) Metronidazole 500 MG Oral Tablet metroni dazole 500 mg tablet TAKE ONE TABLET BY MOUTH TWICE A DAY FOR 7 DAYS metronidazole 500 mg tablet TAKE ONE TAB LET BY MOUTH TWICE A DAY FOR 7 DAYS completed metronidazole 500 MG Oral Tablet JOSE M ([facility]) Insurance Providers Payer name Policy type / Coverage type Policy ID Covered republican ID Covered republican's relationship to jackson Policy Jackson Plan Information Medicaid S [id number] S [id number] [facility] I [id number] Self [id number] Managed Care - Community Plan [facility] P [id number] S [id number] MEDICAID M [id number] Self [id number] Medicaid S [id number] S [id number] [facility] [id number] SP [id number] [facility] COMMUNITY PLAN [facility] [id number] SP [id number] [facility] [id number] Zoraida [id number] Managed Care - Community Plan [facility] P [id number] S [id number] [facility] COMMUNITY PLAN MCDO [id number] SP [id number] Medicaid S [id number] S [id number] Managed Care - Community Plan [facility] P [id number] S [id number] Medicaid S [id number] S [id number] Managed Care - Community Plan [facility] P [id number] S [id number] [facility] COMMUNITY PLAN [facility] [id number] SP [id number] [facility] COMMUNITY PLAN [facility] [id number] SP [id number] [facility] Community Plan Commercial [id number] Self [id number] Medicaid S [id number] S [id number] Managed Care - Community Plan [facility] P [id number] S [id number] Medicaid S [id number] S [id number] Managed Care - Community Plan [facility] P [id number] S [id number] Managed Care - [facility] Community Plan P [id number] S [id number] Medicaid S [id number] S [id number] Managed Care - [facility] Community Plan P [id number] S [id number] [facility] [id number] N [facility] Community [facility] [id number] UN COMMUNITY PLAN [facility] [id number] SP [id number] SELF PAY O [id number] S [id number] [facility]) O [id number] S [id number] [facility] COMM PLAN PALLAVI UNAVAILABLE S UNAVAILABLE MEDICAID [id number] SP [id number] [facility]) O [id number] S [id number] [facility] [id number] SP [id number] [facility]) O [id number] S [id number] [facility] COMM PLAN PALLAVI W [id number] S [id number] MEDICAID W [id number] S [id number] UN COMMUNITY PLAN [facility] [id number] SP [id number] [facility] COMMUNITY PLAN [facility] [id number] SP [id number] Managed Care - Community [facility] [address] P UNAVAILABLE S UNAVAILABLE Medicaid S UNAVAILABLE S UNAVAILA BLE [employer] [id number] SP [id number] [employer] [id number] SP [id number] SELF PAY UNAVAILABLE SP UNAVAILA BLE [facility] Community [facility] Medigap Part B [id number] Self [id number] Managed Care - Community [facility] [address] P [id number] S [id number] [facility] COMMUNITY PLAN [facility] [id number] SP [id number] [facility] [id number] SP [id number] Problems, Conditions, and Diagnoses Code Display Name Description Problem Type Effective Dates Data Source(s) 34024620 Nicotine dependence Nicotine Dependence Problem 0 03/09/2021 12:00:00 AM EDT [facility] ([facility]) [id number] Nicotine dependence Nicotine Dependence Problem 0 03/09/2021 12:00:00 AM EDT JOSE M ([facility]) [id number] Nicotine dependence Nicotine Dependence Problem 0 03/09/2021 12:00:00 AM EDT JOSE M ([facility]) [id number] Unspecified anxiety disorder Unspecified anxiety disor bryan Condition 01/28/2021 12:00:00 AM EDT [employer] ([facility]) [id number] Anxiety (finding) Anxiety (finding) Condition 01/28 12:00:00 AM EDT [employer] ([facility]) [id number] Depressive episode, unspecified Depressive episo de, unspecified Condition 12/01/2020 12:00:00 AM EDT [employer] ([facility]) [id number] Tobacco use Tobacco use Condition 12/01/2020 12:00:00 AM EDT [employer] ([facility]) [id number] Tobacco use Tobacco use Condition 12/01/2020 12:00:00 AM EDT [employer] ([facility]) [id number] Depressive episode, unspecified Depressive episo de, unspecified Condition 12/01/2020 12:00:00 AM EDT [employer] ([facility]) [id number] Depressive episode, unspecified Depressive episo de, unspecified Condition 12/01/2020 12:00:00 AM EDT [employer] ([facility]) [id number] Tobacco use Tobacco use Condition 12/01/2020 12:00:00 AM EDT [employer] ([facility]) [id number] Obstructive sleep apnea syndrome Obstructive sle ep apnea syndrome Problem 04/20/2020 12:00:00 AM EST [facility] ([facility] JUN parnell) [id number] Retained dental root Retained Dental Root Problem 01/22/2020 12:00:00 AM EDT - 08/16/2020 12:00:00 AM EST JOSE M ([facility]) [id number] Retained dental root Retained Dental Root Problem 01/22/2020 12:00:00 AM EDT - 08/16/2020 12:00:00 AM EST JOSE M ([facility]) [id number] Retained dental root Retained Dental Root Problem 01/22/2020 12:00:00 AM EDT - 08/16/2020 12:00:00 AM EST JOSE M ([facility]) [id number] Retained dental root Retained Dental Root Problem 01/22/2020 12:00:00 AM EDT - 08/16/2020 12:00:00 AM EST JOSE M ([facility]) [id number] Retained dental root Retained Dental Root Problem 01/22/2020 12:00:00 AM EDT - 08/16/2020 12:00:00 AM EST JOSE M ([facility]) [id number] Retained dental root Retained Dental Root Problem 01/22/2020 12:00:00 AM EDT - 08/16/2020 12:00:00 AM EST JOSE M ([facility]) [id number] Pain in right knee Pain in Right Knee Problem 11/14/2019 12:00:00 AM EDT - 08/16/2020 12:00:00 AM EST JOSE M ([facility]) [id number] Diffuse goiter Diffuse Goiter Problem 11/14/2019 12:00:00 AM EDT - 08/16/2020 12:00:00 AM EST JOSE M ([facility]) [id number] Pain in right knee Pain in Right Knee Problem 11/14/2019 12:00:00 AM EDT - 08/16/2020 12:00:00 AM EST JOSE M ([facility]) [id number] Diffuse goiter Diffuse Goiter Problem 11/14/2019 12:00:00 AM EDT - 08/16/2020 12:00:00 AM EST JOSE M ([facility]) [id number] Pain in right knee Pain in Right Knee Problem 11/14/2019 12:00:00 AM EDT - 08/16/2020 12:00:00 AM EST JOSE M ([facility]) [id number] Diffuse goiter Diffuse Goiter Problem 11/14/2019 12:00:00 AM EDT - 08/16/2020 12:00:00 AM EST JOSE M ([facility]) [id number] Pain in right knee Pain in Right Knee Problem 11/14/2019 12:00:00 AM EDT - 08/16/2020 12:00:00 AM EST JOSE M ([facility]) [id number] Diffuse goiter Diffuse Goiter Problem 11/14/2019 12:00:00 AM EDT - 08/16/2020 12:00:00 AM EST JOSE M ([facility]) [id number] Pain in right knee Pain in Right Knee Problem 11/14/2019 12:00:00 AM EDT - 08/16/2020 12:00:00 AM EST JOSE M ([facility]) [id number] Diffuse goiter Diffuse Goiter Problem 11/14/2019 12:00:00 AM EDT - 08/16/2020 12:00:00 AM EST JOSE M ([facility]) [id number] Pain in right knee Pain in Right Knee Problem 11/14/2019 12:00:00 AM EDT - 08/16/2020 12:00:00 AM EST JOSE M ([facility]) [id number] Diffuse goiter Diffuse Goiter Problem 11/14/2019 12:00:00 AM EDT - 08/16/2020 12:00:00 AM EST JOSE M ([facility]) [id number] Syphilis test finding Syphilis Test Finding Problem 06/16/2019 12:00:00 AM EST - 08/16/2020 12:00:00 AM EST JOSE M ([facility]) [id number] Breast neoplasm screening status Breast Neoplasm Screening Status Problem 06/16/2019 12:00:00 AM EST - 08/16/2020 12:00:00 AM THONY SALGUERO ([facility]) [id number] SNOMED CT Concept SNOMED CT Concept Problem 06/16 12:00:00 AM EST - 08/16/2020 12:00:00 AM EST JOSE M ([facility]) [id number] Syphilis test finding Syphilis Test Finding Problem 06/16/2019 12:00:00 AM EST - 08/16/2020 12:00:00 AM EST JOSE M ([facility]) [id number] Breast neoplasm screening status Breast Neoplasm Screening Status Problem 06/16/2019 12:00:00 AM EST - 08/16/2020 12:00:00 AM THONY SALGUERO ([facility]) [id number] SNOMED CT Concept SNOMED CT Concept Problem 06/16 12:00:00 AM EST - 08/16/2020 12:00:00 AM EST JOSE M ([facility]) [id number] Syphilis test finding Syphilis Test Finding Problem 06/16/2019 12:00:00 AM EST - 08/16/2020 12:00:00 AM EST JOSE M ([facility]) [id number] Breast neoplasm screening status Breast Neoplasm Screening Status Problem 06/16/2019 12:00:00 AM EST - 08/16/2020 12:00:00 AM ES T JOSE M ([facility]) [id number] SNOMED CT Concept SNOMED CT Concept Problem 06/16 12:00:00 AM EST - 08/16/2020 12:00:00 AM EST JOSE M ([facility]) [id number] Syphilis test finding Syphilis Test Finding Problem 06/16/2019 12:00:00 AM EST - 08/16/2020 12:00:00 AM EST JOSE M ([facility]) [id number] Breast neoplasm screening status Breast Neoplasm Screening Status Problem 06/16/2019 12:00:00 AM EST - 08/16/2020 12:00:00 AM ES T JOSE M ([facility]) [id number] SNOMED CT Concept SNOMED CT Concept Problem 06/16 12:00:00 AM EST - 08/16/2020 12:00:00 AM EST JOSE M ([facility]) [id number] Syphilis test finding Syphilis Test Finding Problem 06/16/2019 12:00:00 AM EST - 08/16/2020 12:00:00 AM EST JOSE M ([facility]) [id number] Breast neoplasm screening status Breast Neoplasm Screening Status Problem 06/16/2019 12:00:00 AM EST - 08/16/2020 12:00:00 AM ES T JOSE M ([facility]) [id number] SNOMED CT Concept SNOMED CT Concept Problem 06/16 12:00:00 AM EST - 08/16/2020 12:00:00 AM EST JOSE M ([facility]) [id number] Syphilis test finding Syphilis Test Finding Problem 06/16/2019 12:00:00 AM EST - 08/16/2020 12:00:00 AM EST JOSE M ([facility]) [id number] Breast neoplasm screening status Breast Neoplasm Screening Status Problem 06/16/2019 12:00:00 AM EST - 08/16/2020 12:00:00 AM THONY SALGUERO ([facility]) [id number] SNOMED CT Concept SNOMED CT Concept Problem 06/16 12:00:00 AM EST - 08/16/2020 12:00:00 AM EST JOSE M ([facility]) [id number] Screening for malignant neoplasm of cerv ix Screening for Malignant Neoplasm of Cervix Problem 02/03/2019 12:00:00 AM EDT - 08/16/2020 12:00:00 AM EST JOSE M ([facility]) [id number] Screening for malignant neoplasm of cerv ix Screening for Malignant Neoplasm of Cervix Problem 02/03/2019 12:00:00 AM EDT - 08/16/2020 12:00:00 AM EST JOSE M ([facility]) [id number] Screening for malignant neoplasm of cerv ix Screening for Malignant Neoplasm of Cervix Problem 02/03/2019 12:00:00 AM EDT - 08/16/2020 12:00:00 AM EST JOSE M ([facility]) [id number] Screening for malignant neoplasm of cerv ix Screening for Malignant Neoplasm of Cervix Problem 02/03/2019 12:00:00 AM EDT - 08/16/2020 12:00:00 AM EST JOSE M ([facility]) [id number] Screening for malignant neoplasm of cerv ix Screening for Malignant Neoplasm of Cervix Problem 02/03/2019 12:00:00 AM EDT - 08/16/2020 12:00:00 AM EST JOSE M ([facility]) [id number] Screening for malignant neoplasm of cerv ix Screening for Malignant Neoplasm of Cervix Problem 02/03/2019 12:00:00 AM EDT - 08/16/2020 12:00:00 AM EST JOSE M ([facility]) [id number] Clinical finding Clinical Finding Problem 12:00:00 AM EDT - 08/16/2020 12:00:00 AM EST JOSE M ([facility]) [id number] Hypertensive disorder Hypertensive Disorder Problem 12/05/2018 12:00:00 AM EDT - 03/14/2021 12:00:00 AM EDT JOSE M ([facility]) [id number] Clinical finding Clinical Finding Problem 019 12:00:00 AM EDT - 08/16/2020 12:00:00 AM EST JOSE M ([facility]) [id number] Hypertensive disorder Hypertensive Disorder Problem 12/05/2018 12:00:00 AM EDT - 03/14/2021 12:00:00 AM EDT JOSE M ([facility]) [id number] Clinical finding Clinical Finding Problem 019 12:00:00 AM EDT - 08/16/2020 12:00:00 AM EST JOSE M ([facility]) [id number] Hypertensive disorder Hypertensive Disorder Problem 12/05/2018 12:00:00 AM EDT - 03/14/2021 12:00:00 AM EDT JOSE M ([facility]) [id number] Clinical finding Clinical Finding Problem 12:00:00 AM EDT - 08/16/2020 12:00:00 AM EST JOSE M ([facility]) [id number] Clinical finding Clinical Finding Problem 12:00:00 AM EDT - 08/16/2020 12:00:00 AM EST JOSE M ([facility]) [id number] Clinical finding Clinical Finding Problem 12:00:00 AM EDT - 08/16/2020 12:00:00 AM EST JOSE M ([facility]) [id number] Left upper quadrant pain Left Upper Quadrant Pain Prob aleksandr 03/15/2017 12:00:00 AM EDT - 08/16/2020 12:00:00 AM EST JOSE M ([facility]) [id number] Left upper quadrant pain Left Upper Quadrant Pain Prob aleksandr 03/15/2017 12:00:00 AM EDT - 08/16/2020 12:00:00 AM EST JOSE M ([facility]) [id number] Left upper quadrant pain Left Upper Quadrant Pain Prob aleksandr 03/15/2017 12:00:00 AM EDT - 08/16/2020 12:00:00 AM EST JOSE M ([facility]) [id number] Left upper quadrant pain Left Upper Quadrant Pain Prob aleksandr 03/15/2017 12:00:00 AM EDT - 08/16/2020 12:00:00 AM MISTI SALGUERO ([facility]) [id number] Left upper quadrant pain Left Upper Quadrant Pain Prob aleksandr 03/15/2017 12:00:00 AM EDT - 08/16/2020 12:00:00 AM EST JOSE M ([facility]) [id number] Left upper quadrant pain Left Upper Quadrant Pain Prob aleksandr 03/15/2017 12:00:00 AM EDT - 08/16/2020 12:00:00 AM EST JOSE M ([facility]) [id number] Evaluation finding Evaluation Finding Problem 12:00:00 AM EDT - 08/16/2020 12:00:00 AM EST JOSE M ([facility]) [id number] Pelvic and perineal pain Pelvic and Perineal Pain Prob aleksandr 08/30/2016 12:00:00 AM EDT - 08/16/2020 12:00:00 AM EST JOSE M ([facility]) [id number] Finding of pattern of menstrual cycle Fi nding of Pattern of Menstrual Cycle Problem 08/30/2016 12:00:00 AM EDT - 08/16/2020 12:00:00 AM EST JOSE M ([facility]) [id number] Evaluation finding Evaluation Finding Problem 12:00:00 AM EDT - 08/16/2020 12:00:00 AM EST JOSE M ([facility]) [id number] Pelvic and perineal pain Pelvic and Perineal Pain Prob aleksandr 08/30/2016 12:00:00 AM EDT - 08/16/2020 12:00:00 AM EST JOSE M ([facility]) [id number] Finding of pattern of menstrual cycle Fi nding of Pattern of Menstrual Cycle Problem 08/30/2016 12:00:00 AM EDT - 08/16/2020 12:00:00 AM EST JOSE M ([facility]) [id number] Evaluation finding Evaluation Finding Problem 12:00:00 AM EDT - 08/16/2020 12:00:00 AM EST JOSE M ([facility]) [id number] Pelvic and perineal pain Pelvic and Perineal Pain Prob aleksandr 08/30/2016 12:00:00 AM EDT - 08/16/2020 12:00:00 AM EST JOSE M ([facility]) [id number] Finding of pattern of menstrual cycle Fi nding of Pattern of Menstrual Cycle Problem 08/30/2016 12:00:00 AM EDT - 08/16/2020 12:00:00 AM EST JOSE M ([facility]) [id number] Clinical finding Clinical Finding Problem 017 12:00:00 AM EDT - 08/16/2020 12:00:00 AM EST JOSE M ([facility]) [id number] Pelvic and perineal pain Pelvic and Perineal Pain Prob aleksandr 08/30/2016 12:00:00 AM EDT - 08/16/2020 12:00:00 AM EST JOSE M ([facility]) [id number] Finding of pattern of menstrual cycle Fi nding of Pattern of Menstrual Cycle Problem 08/30/2016 12:00:00 AM EDT - 08/16/2020 12:00:00 AM EST JOSE M ([facility]) [id number] Clinical finding Clinical Finding Problem 017 12:00:00 AM EDT - 08/16/2020 12:00:00 AM EST JOSE M ([facility]) [id number] Pelvic and perineal pain Pelvic and Perineal Pain Prob aleksandr 08/30/2016 12:00:00 AM EDT - 08/16/2020 12:00:00 AM EST JOSE M ([facility]) [id number] Finding of pattern of menstrual cycle Fi nding of Pattern of Menstrual Cycle Problem 08/30/2016 12:00:00 AM EDT - 08/16/2020 12:00:00 AM EST JOSE M ([facility]) [id number] Clinical finding Clinical Finding Problem 017 12:00:00 AM EDT - 08/16/2020 12:00:00 AM EST JOSE M ([facility]) [id number] Pelvic and perineal pain Pelvic and Perineal Pain Prob aleksandr 08/30/2016 12:00:00 AM EDT - 08/16/2020 12:00:00 AM EST JOSE M ([facility]) [id number] Finding of pattern of menstrual cycle Fi nding of Pattern of Menstrual Cycle Problem 08/30/2016 12:00:00 AM EDT - 08/16/2020 12:00:00 AM EST JOSE M ([facility]) [id number] Tobacco user Tobacco User Problem 04/27/2016 12:0 0:00 AM EST - 03/09/2021 12:00:00 AM EDT JOSE M ([facility]) [id number] Tobacco user Tobacco User Problem 04/27/2016 12:0 0:00 AM EST - 03/09/2021 12:00:00 AM EDT JOSE M ([facility]) [id number] Tobacco user Tobacco User Problem 04/27/2016 12:0 0:00 AM EST - 03/09/2021 12:00:00 AM EDT JOSE M ([facility]) [id number] Finding related to sleep Finding Related to Sleep Prob aleksandr 03/09/2015 12:00:00 AM EDT - 08/16/2020 12:00:00 AM EST JOSE M ([facility]) [id number] Finding related to sleep Finding Related to Sleep Prob aleksandr 03/09/2015 12:00:00 AM EDT - 08/16/2020 12:00:00 AM EST JOSE M ([facility]) [id number] Finding related to sleep Finding Related to Sleep Prob aleksandr 03/09/2015 12:00:00 AM EDT - 08/16/2020 12:00:00 AM EST JOSE M ([facility]) [id number] Finding related to sleep Finding Related to Sleep Prob aleksandr 03/09/2015 12:00:00 AM EDT - 08/16/2020 12:00:00 AM EST JOSE M ([facility]) [id number] Finding related to sleep Finding Related to Sleep Prob aleksandr 03/09/2015 12:00:00 AM EDT - 08/16/2020 12:00:00 AM EST JOSE M ([facility]) [id number] Finding related to sleep Finding Related to Sleep Prob [email or web address] 03/09/2015 12:00:00 AM EDT - 08/16/2020 12:00:00 AM EST JOSE M ([facility]) [id number] SNOMED CT Concept SNOMED CT Concept Problem 11/12 12:00:00 AM EDT - 08/16/2020 12:00:00 AM EST JOSE M ([facility]) [id number] SNOMED CT Concept SNOMED CT Concept Problem 11/12 12:00:00 AM EDT - 08/16/2020 12:00:00 AM EST JOSE M ([facility]) [id number] SNOMED CT Concept SNOMED CT Concept Problem 11/12 12:00:00 AM EDT - 08/16/2020 12:00:00 AM EST JOSE M ([facility]) [id number] SNOMED CT Concept SNOMED CT Concept Problem 11/12 12:00:00 AM EDT - 08/16/2020 12:00:00 AM EST JOSE M ([facility]) [id number] SNOMED CT Concept SNOMED CT Concept Problem 11/12 12:00:00 AM EDT - 08/16/2020 12:00:00 AM EST JOSE M ([facility]) [id number] SNOMED CT Concept SNOMED CT Concept Problem 11/12 12:00:00 AM EDT - 08/16/2020 12:00:00 AM EST JOSE M ([facility]) Surgeries/Procedures Procedure Description Date Indications Data Source(s) Initial psychiatric evaluation (procedure) 01/28/2021 12:00:00 AM EDT [facility] ([facility]) Individual psychotherapy (regime/therapy) 01/18/2021 1 2:00:00 AM EDT [facility]) Individual psychotherapy (regime/therapy) 01/18/2021 1 2:00:00 AM EDT [facility] ([facility]) Individual psychotherapy (regime/therapy) 01/18/2021 1 2:00:00 AM EDT [facility] ([facility]) Individual psychotherapy (regime/therapy) 01/18/2021 1 2:00:00 AM EDT [facility] ([facility]) Diagnostic psychiatric interview (procedure) 12:00:00 AM EDT [facility]) Diagnostic psychiatric interview (procedure) 12:00:00 AM EDT [facility] ([facility]) Diagnostic psychiatric interview (procedure) 12:00:00 AM EDT [facility] ([facility]) Echography Soft Tissue Hand & Neck 09/23/2020 12:00:00 AM EDT BECK ([facility]) Results ID Date Data Source [id number] 08/23/2020 11:50:00 AM EDT CHELSEA ([facility]) Name Value Range Interpretation Code Description Data Nakia rce(s) Supporting Document(s) total 25(oh) vitamin D 33.2 NG/mL 30.0-100.0 Total 25(Oh) Vitamin D CHELSEA ([facility]) ID Date Data Source [id number] 08/23/2020 11:50:00 AM EDT CHELSEA ([facility]) Name Value Range Interpretation Code Description Data Nakia rce(s) Supporting Document(s) thyroid stimulating hormone 0.358 uIU/mL 0.358-3.740 Thyroid Stimulating Hormone JOSE M ([facility]) ID Date Data Source [id number] 08/23/2020 11:50:00 AM EDT CHELSEA ([facility]) Name Value Range Interpretation Code Description Data Nakia rce(s) Supporting Document(s) triglycerides level 81 mg/dL <150 Triglycerides Le renato JOSE M ([facility]) cholesterol level 241 mg/dL <200 Above high normal Cholesterol Level JOSE M ([facility]) HDL cholesterol 66 mg/dL >40 HDL Cholesterol ATHE NA ([facility]) Cholesterol in LDL [Mass/volume] in Serum or Plasma 159 mg/dL <100 Above high normal LDL Cholesterol JOSE M ([facility]) cholesterol risk ratio <5 Cholesterol R isk Ratio JOSE M ([facility]) non-HDL-C 175 mg/dL Non-hdl-c JOSE M ([facility]) ID Date Data Source [id number] 08/23/2020 11:50:00 AM EDT JOSE M ([facility]) Name Value Range Interpretation Code Description Data Nakia rce(s) Supporting Document(s) blood urea nitrogen 15 mg/dL 7-18 Blood Urea Nitro gen JOSE M ([facility]) glucose, fasting 80 mg/dL 70-100 Glucose, Fasting AT SHARRI ([facility]) potassium serum 4.8 mEq/L 3.5-5.1 Potassium Serum ATHE NA ([facility]) sodium level 141 mEq/L 136-145 Sodium Level JOSE M ([facility]) glomerular filtration rate > 60.0 >60 Glomerula r Filtration Rate JOSE M ([facility]) creatinine for GFR 1.03 mg/dL 0.55-1.30 Creatinine for GF R JOSE M ([facility]) calcium level 8.8 mg/dL 8.5-10.1 Calcium Level JOSE M ( [facility]) anion gap 4 mEq/L 8-16 Below low normal Anion Gap JOSE M ( [facility]) carbon dioxide level 26 mEq/L 21-32 Carbon Dioxide Level JOSE M ([facility]) chloride level 111 mEq/L 98-107 Above high normal Chloride Level JOSE M ([facility]) ALT/SGPT 32 U/L 12-78 ALT/SGPT JOSE M ([facility]) bilirubin,total 0.3 mg/dL 0.2-1.0 Bilirubin,total ATHE ([facility]) AST/SGOT 12 U/L 7-37 AST/SGOT JOSE M ([facility]) alkaline phosphatase 72 U/L 45-117 Alkaline Phosph atase JOSE M ([facility]) total protein 7.4 gm/dL 6.4-8.2 Total Protein JOSE M ( [facility]) albumin 3.9 gm/dL 3.2-5.2 Albumin JOSE M ([facility]) albumin/globulin ratio 1.2-2.2 Below low normal Albumin /globulin Ratio JOSE M ([facility]) ID Date Data Source [id number] 08/23/2020 11:50:00 AM EDT JOSE M ([facility]) Name Value Range Interpretation Code Description Data Nakia rce(s) Supporting Document(s) estimated average glucose 97 mg/dL 60-110 Estimated Average Glucose JOSE M ([facility]) Hemoglobin A1c/Hemoglobin.total in Blood 5.0 % Hemoglobin a1C CHELSEA ([facility]) ID Date Data Source [id number] 08/23/2020 11:50:00 AM EDT JOSE M ([facility]) Name Value Range Interpretation Code Description Data Nakia rce(s) Supporting Document(s) white blood count 4.1 10 4.0-10.0 White Blood Count JOSE M ([facility]) red blood count 4.57 10 4.00-5.40 Red Blood Count ATHE ([facility]) hematocrit 42.8 % 36.0-47.0 Hematocrit JOSE M ([facility]) hemoglobin 13.7 g/dL 12.0-15.5 Hemoglobin JOSE M ([facility]) mean corpuscular HGB conc 32.0 g/dL 32.0-36.5 Mean Corpu scular HGB Conc JOSE M ([facility]) mean corpuscular volume 93.7 fL 80.0-96.0 Mean Corpusc ular Volume JOSE M ([facility]) mean corpuscular hemoglobin 30.0 pg 27.0-33.0 Mean Cor puscular Hemoglobin JOSE M ([facility]) platelet count, automated 209 10 150-450 Platelet C ount, Automated JOSE M ([facility]) red cell distribution width 12.2 % 11.5-14.5 Red Cell Distribution Width JOSE M ([facility]) neutrophils % 37.3 % 36.0-66.0 Neutrophils % JOSE M ( [facility]) baso % 0.7 % 0.0-1.0 Baso % JOSE M ([facility]) lymph % 54.1 % 24.0-44.0 Above high normal Lymph % JOSE M ([facility]) mono % 5.7 % 2.0-8.0 [place] % CHELSEA ([facility]) eos % 2.0 % 0.0-3.0 Eos % JOSE M ([facility]) nucleated red blood cell % 0.0 % 0-0 Nucleated Red Blood Cell % JOSE M ([facility]) immature granulocyte % 0.2 % 0-3.0 Immature Gran ulocyte % JOSE M ([facility]) neutrophils # 1.5 10 1.5-8.5 Neutrophils # JOSE M ( [facility]) mono # 0.2 10 0.0-0.8 [place] # JOSE M ([facility]) eos # 0.1 10 0.0-0.5 Eos # JOSE M ([facility]) lymph # 2.2 10 1.5-5.0 Lymph # JOSE M ([facility]) baso # 0.0 10 0.0-0.2 Baso # JOSE M ([facility]) ID Date Data Source [id number] 08/23/2020 11:50:00 AM EDT CHELSEA ([facility]) Name Value Range Interpretation Code Description Data Nakia rce(s) Supporting Document(s) total 25(oh) vitamin D 33.2 NG/mL 30.0-100.0 Total 25(Oh) Vitamin D CHELSEA ([facility]) ID Date Data Source [id number] 08/23/2020 11:50:00 AM EDT CHELSEA ([facility]) Name Value Range Interpretation Code Description Data Nakia rce(s) Supporting Document(s) thyroid stimulating hormone 0.358 uIU/mL 0.358-3.740 Thyroid Stimulating Hormone CHELSEA ([facility]) ID Date Data Source [id number] 08/23/2020 11:50:00 AM EDT [facility]) Name Value Range Interpretation Code Description Data Nakia rce(s) Supporting Document(s) triglycerides level 81 mg/dL <150 Triglycerides Le renato JOSE M ([facility]) cholesterol level 241 mg/dL <200 Above high normal Cholesterol Level CHELSEA ([facility]) cholesterol risk ratio <5 Cholesterol R isk Ratio JOSE M ([facility]) non-HDL-C 175 mg/dL Non-hdl-c JOSE M ([facility]) HDL cholesterol 66 mg/dL >40 HDL Cholesterol ATHE NA ([facility]) Cholesterol in LDL [Mass/volume] in Serum or Plasma 159 mg/dL <100 Above high normal LDL Cholesterol JOSE M ([facility]) ID Date Data Source [id number] 08/23/2020 11:50:00 AM EDT JOSE M ([facility]) Name Value Range Interpretation Code Description Data Nakia rce(s) Supporting Document(s) glucose, fasting 80 mg/dL 70-100 Glucose, Fasting AT [facility]) glomerular filtration rate > 60.0 >60 Glomerula r Filtration Rate JOSE M ([facility]) creatinine for GFR 1.03 mg/dL 0.55-1.30 Creatinine for GF R JOSE M ([facility]) blood urea nitrogen 15 mg/dL 7-18 Blood Urea Nitro gen JOSE M ([facility]) potassium serum 4.8 mEq/L 3.5-5.1 Potassium Serum ATHE NA ([facility]) chloride level 111 mEq/L 98-107 Above high normal Chloride Level JOSE M ([facility]) sodium level 141 mEq/L 136-145 Sodium Level JOSE M ([facility]) carbon dioxide level 26 mEq/L 21-32 Carbon Dioxide Level JOSE M ([facility]) calcium level 8.8 mg/dL 8.5-10.1 Calcium Level JOSE M ( [facility]) anion gap 4 mEq/L 8-16 Below low normal Anion Gap JOSE M ( [facility]) alkaline phosphatase 72 U/L 45-117 Alkaline Phosph atase JOSE M ([facility]) ALT/SGPT 32 U/L 12-78 ALT/SGPT JOSE M ([facility]) AST/SGOT 12 U/L 7-37 AST/SGOT JOSE M ([facility]) total protein 7.4 gm/dL 6.4-8.2 Total Protein JOSE M ( [facility]) albumin/globulin ratio 1.2-2.2 Below low normal Albumin /globulin Ratio JOSE M ([facility]) albumin 3.9 gm/dL 3.2-5.2 Albumin JOSE M ([facility]) bilirubin,total 0.3 mg/dL 0.2-1.0 Bilirubin,total ATHE NA ([facility]) ID Date Data Source [id number] 08/23/2020 11:50:00 AM EDT JOSE M ([facility]) Name Value Range Interpretation Code Description Data Nakia rce(s) Supporting Document(s) estimated average glucose 97 mg/dL 60-110 Estimated Average Glucose JOSE M ([facility]) Hemoglobin A1c/Hemoglobin.total in Blood 5.0 % Hemoglobin a1C JOSE M ([facility]) ID Date Data Source [id number] 08/23/2020 11:50:00 AM EDT JOSE M ([facility]) Name Value Range Interpretation Code Description Data Nakia rce(s) Supporting Document(s) white blood count 4.1 10 4.0-10.0 White Blood Count JOSE M ([facility]) red blood count 4.57 10 4.00-5.40 Red Blood Count ATHE ([facility]) hemoglobin 13.7 g/dL 12.0-15.5 Hemoglobin JOSE M ([facility]) hematocrit 42.8 % 36.0-47.0 Hematocrit JOSE M ([facility]) mean corpuscular hemoglobin 30.0 pg 27.0-33.0 Mean Cor puscular Hemoglobin JOSE M ([facility]) mean corpuscular volume 93.7 fL 80.0-96.0 Mean Corpusc ular Volume JOSE M ([facility]) neutrophils % 37.3 % 36.0-66.0 Neutrophils % JOSE M ( [facility]) platelet count, automated 209 10 150-450 Platelet C ount, Automated JOSE M ([facility]) mean corpuscular HGB conc 32.0 g/dL 32.0-36.5 Mean Corpu scular HGB Conc JOSE M ([facility]) red cell distribution width 12.2 % 11.5-14.5 Red Cell Distribution Width JOSE M ([facility]) eos % 2.0 % 0.0-3.0 Eos % CHELSEA ([facility]) lymph % 54.1 % 24.0-44.0 Above high normal Lymph % JOSE M ([facility]) mono % 5.7 % 2.0-8.0 [place] % CHELSEA ([facility]) immature granulocyte % 0.2 % 0-3.0 Immature Gran ulocyte % JOSE M ([facility]) nucleated red blood cell % 0.0 % 0-0 Nucleated Red Blood Cell % CHELSEA ([facility]) baso % 0.7 % 0.0-1.0 Baso % CHELSEA ([facility]) neutrophils # 1.5 10 1.5-8.5 Neutrophils # CHELSEA ( [facility]) lymph # 2.2 10 1.5-5.0 Lymph # JOSE M ([facility]) eos # 0.1 10 0.0-0.5 Eos # JOSE M ([facility]) mono # 0.2 10 0.0-0.8 [place] # JOSE M ([facility]) baso # 0.0 10 0.0-0.2 Baso # JOSE M ([facility]) ID Date Data Source [id number] 08/23/2020 11:50:00 AM EDT CHELSEA ([facility]) Name Value Range Interpretation Code Description Data Nakia rce(s) Supporting Document(s) total 25(oh) vitamin D 33.2 NG/mL 30.0-100.0 Total 25(Oh) Vitamin D CHELSEA ([facility]) ID Date Data Source [id number] 08/23/2020 11:50:00 AM EDT [facility]) Name Value Range Interpretation Code Description Data Nakia rce(s) Supporting Document(s) thyroid stimulating hormone 0.358 uIU/mL 0.358-3.740 Thyroid Stimulating Hormone JOSE M ([facility]) ID Date Data Source [id number] 08/23/2020 11:50:00 AM EDT [facility]) Name Value Range Interpretation Code Description Data Nakia rce(s) Supporting Document(s) cholesterol level 241 mg/dL <200 Above high normal Cholesterol Level JOSE M ([facility]) triglycerides level 81 mg/dL <150 Triglycerides Le renato JOSE M ([facility]) non-HDL-C 175 mg/dL Non-hdl-c JOSE M ([facility]) HDL cholesterol 66 mg/dL >40 HDL Cholesterol ATHE ([facility]) cholesterol risk ratio <5 Cholesterol R isk Ratio JOSE M ([facility]) Cholesterol in LDL [Mass/volume] in Serum or Plasma 159 mg/dL <100 Above high normal LDL Cholesterol JOSE M ([facility]) ID Date Data Source [id number] 08/23/2020 11:50:00 AM ED[facility] Name Value Range Interpretation Code Description Data Nakia rce(s) Supporting Document(s) glucose, fasting 80 mg/dL 70-100 Glucose, Fasting AT [facility]) creatinine for GFR 1.03 mg/dL 0.55-1.30 Creatinine for GF R JOSE M ([facility]) blood urea nitrogen 15 mg/dL 7-18 Blood Urea Nitro gen JOSE M ([facility]) carbon dioxide level 26 mEq/L 21-32 Carbon Dioxide Level JOSE M ([facility]) chloride level 111 mEq/L 98-107 Above high normal Chloride Level JOSE M ([facility]) potassium serum 4.8 mEq/L 3.5-5.1 Potassium Serum ATHE NA ([facility]) sodium level 141 mEq/L 136-145 Sodium Level JOSE M ([facility]) glomerular filtration rate > 60.0 >60 Glomerula r Filtration Rate JOSE M ([facility]) ALT/SGPT 32 U/L 12-78 ALT/SGPT JOSE M ([facility]) AST/SGOT 12 U/L 7-37 AST/SGOT JOSE M ([facility]) calcium level 8.8 mg/dL 8.5-10.1 Calcium Level JOSE M ( [facility]) anion gap 4 mEq/L 8-16 Below low normal Anion Gap JOSE M ( [facility]) alkaline phosphatase 72 U/L 45-117 Alkaline Phosph atase JOSE M ([facility]) albumin 3.9 gm/dL 3.2-5.2 Albumin JOSEM ([facility]) bilirubin,total 0.3 mg/dL 0.2-1.0 Bilirubin,total ATHE ([facility]) albumin/globulin ratio 1.2-2.2 Below low normal Albumin /globulin Ratio JOSE M ([facility]) total protein 7.4 gm/dL 6.4-8.2 Total Protein JOSE M ( [facility]) ID Date Data Source [id number] 08/23/2020 11:50:00 AM EDT JOSE M ([facility]) Name Value Range Interpretation Code Description Data Nakia rce(s) Supporting Document(s) Hemoglobin A1c/Hemoglobin.total in Blood 5.0 % Hemoglobin a1C JOSE M ([facility]) estimated average glucose 97 mg/dL 60-110 Estimated Average Glucose JOSE M ([facility]) ID Date Data Source [id number] 08/23/2020 11:50:00 AM EDT JOSE M ([facility]) Name Value Range Interpretation Code Description Data Nakia rce(s) Supporting Document(s) white blood count 4.1 10 4.0-10.0 White Blood Count JOSE M ([facility]) hematocrit 42.8 % 36.0-47.0 Hematocrit JOSE M ([facility]) hemoglobin 13.7 g/dL 12.0-15.5 Hemoglobin JOSE M ([facility]) red blood count 4.57 10 4.00-5.40 Red Blood Count ATHE ([facility]) mean corpuscular hemoglobin 30.0 pg 27.0-33.0 Mean Cor puscular Hemoglobin JOSE M ([facility]) mean corpuscular volume 93.7 fL 80.0-96.0 Mean Corpusc ular Volume JOSE M ([facility]) mean corpuscular HGB conc 32.0 g/dL 32.0-36.5 Mean Corpu scular HGB Conc JOSE M ([facility]) neutrophils % 37.3 % 36.0-66.0 Neutrophils % JOSE M ( [facility]) lymph % 54.1 % 24.0-44.0 Above high normal Lymph % CHELSEA ([facility]) red cell distribution width 12.2 % 11.5-14.5 Red Cell Distribution Width CHELSEA ([facility]) platelet count, automated 209 10 150-450 Platelet C ount, Automated JOSE M ([facility]) immature granulocyte % 0.2 % 0-3.0 Immature Gran ulocyte % JOSE M ([facility]) mono % 5.7 % 2.0-8.0 [place] % JOSE M ([facility]) baso % 0.7 % 0.0-1.0 Baso % JOSE M ([facility]) eos % 2.0 % 0.0-3.0 Eos % JOSE M ([facility]) lymph # 2.2 10 1.5-5.0 Lymph # JOSE M ([facility]) nucleated red blood cell % 0.0 % 0-0 Nucleated Red Blood Cell % JOSE M ([facility]) neutrophils # 1.5 10 1.5-8.5 Neutrophils # JOSE M ( [facility]) baso # 0.0 10 0.0-0.2 Baso # JOSE M ([facility]) mono # 0.2 10 0.0-0.8 [place] # JOSE M ([facility]) eos # 0.1 10 0.0-0.5 Eos # JOSE M ([facility]) ID Date Data Source [id number] 08/23/2020 11:50:00 AM EDT CHELSEA ([facility]) Name Value Range Interpretation Code Description Data Nakia rce(s) Supporting Document(s) total 25(oh) vitamin D 33.2 NG/mL 30.0-100.0 Total 25(Oh) Vitamin D JOSE M ([facility]) ID Date Data Source [id number] 08/23/2020 11:50:00 AM EDT CHELSEA ([facility]) Name Value Range Interpretation Code Description Data Nakia rce(s) Supporting Document(s) thyroid stimulating hormone 0.358 uIU/mL 0.358-3.740 Thyroid Stimulating Hormone CHELSEA ([facility]) ID Date Data Source [id number] 08/23/2020 11:50:00 AM EDT CHELSEA ([facility]) Name Value Range Interpretation Code Description Data Nakia rce(s) Supporting Document(s) triglycerides level 81 mg/dL <150 Triglycerides Le renato JOSE M ([facility]) cholesterol level 241 mg/dL <200 Above high normal Cholesterol Level JOSE M ([facility]) HDL cholesterol 66 mg/dL >40 HDL Cholesterol ATHE ([facility]) Cholesterol in LDL [Mass/volume] in Serum or Plasma 159 mg/dL <100 Above high normal LDL Cholesterol JOSE M ([facility]) non-HDL-C 175 mg/dL Non-hdl-c JOSE M ([facility]) cholesterol risk ratio <5 Cholesterol R isk Ratio JOSE M ([facility]) ID Date Data Source [id number] 08/23/2020 11:50:00 AM EDT CHELSEA ([facility]) Name Value Range Interpretation Code Description Data Nakia rce(s) Supporting Document(s) glucose, fasting 80 mg/dL 70-100 Glucose, Fasting AT [facility] ([facility]) creatinine for GFR 1.03 mg/dL 0.55-1.30 Creatinine for GF R JOSE M ([facility]) blood urea nitrogen 15 mg/dL 7-18 Blood Urea Nitro gen JOSE M ([facility]) sodium level 141 mEq/L 136-145 Sodium Level JOSE M ([facility]) glomerular filtration rate > 60.0 >60 Glomerula r Filtration Rate JOSE M ([facility]) chloride level 111 mEq/L 98-107 Above high normal Chloride Level JOSE M ([facility]) potassium serum 4.8 mEq/L 3.5-5.1 Potassium Serum ATHE ([facility]) carbon dioxide level 26 mEq/L 21-32 Carbon Dioxide Level JOSE M ([facility]) anion gap 4 mEq/L 8-16 Below low normal Anion Gap JOSE M ( [facility]) AST/SGOT 12 U/L 7-37 AST/SGOT JOSE M ([facility]) calcium level 8.8 mg/dL 8.5-10.1 Calcium Level JOSE M ( [facility]) ALT/SGPT 32 U/L 12-78 ALT/SGPT JOSE M ([facility]) alkaline phosphatase 72 U/L 45-117 Alkaline Phosph atase JOSE M ([facility]) albumin 3.9 gm/dL 3.2-5.2 Albumin JOSE M ([facility]) total protein 7.4 gm/dL 6.4-8.2 Total Protein JOSE M ( [facility]) bilirubin,total 0.3 mg/dL 0.2-1.0 Bilirubin,total ATHE ([facility]) albumin/globulin ratio 1.2-2.2 Below low normal Albumin /globulin Ratio JOSE M [facility] [facility] ID Date Data Source [id number] 08/23/2020 11:50:00 AM EDT JOSE M ([facility]) Name Value Range Interpretation Code Description Data Nakia rce(s) Supporting Document(s) Hemoglobin A1c/Hemoglobin.total in Blood 5.0 % Hemoglobin a1C JOSE M ([facility]) estimated average glucose 97 mg/dL 60-110 Estimated Average Glucose [facility] ID Date Data Source [id number] 08/23/2020 11:50:00 AM EDT [facility]) Name Value Range Interpretation Code Description Data Nakia e(s) Supporting Document(s) white blood count 4.1 10 4.0-10.0 White Blood Count JOSE M ([facility]) hemoglobin 13.7 g/dL 12.0-15.5 Hemoglobin JOSE M ([facility]) red blood count 4.57 10 4.00-5.40 Red Blood Count ATHE NA ([facility]) hematocrit 42.8 % 36.0-47.0 Hematocrit JOSE M ([facility]) mean corpuscular volume 93.7 fL 80.0-96.0 Mean Corpusc ular Volume JOSE M ([facility]) mean corpuscular hemoglobin 30.0 pg 27.0-33.0 Mean Cor puscular Hemoglobin JOSE M ([facility]) red cell distribution width 12.2 % 11.5-14.5 Red Cell Distribution Width JOSE M ([facility]) mean corpuscular HGB conc 32.0 g/dL 32.0-36.5 Mean Corpu scular HGB Conc JOSE M ([facility]) platelet count, automated 209 10 150-450 Platelet C ount, Automated JOSE M ([facility]) neutrophils % 37.3 % 36.0-66.0 Neutrophils % CHELSEA ( [facility]) lymph % 54.1 % 24.0-44.0 Above high normal Lymph % JOSE M ([facility]) eos % 2.0 % 0.0-3.0 Eos % JOSE M ([facility]) mono % 5.7 % 2.0-8.0 [place] % JOSE M ([facility]) baso % 0.7 % 0.0-1.0 Baso % JOSE M ([facility]) immature granulocyte % 0.2 % 0-3.0 Immature Gran ulocyte % JOSE M ([facility]) neutrophils # 1.5 10 1.5-8.5 Neutrophils # CHELSEA ( [facility]) nucleated red blood cell % 0.0 % 0-0 Nucleated Red Blood Cell % JOSE M ([facility]) mono # 0.2 10 0.0-0.8 [place] # JOSE M ([facility]) lymph # 2.2 10 1.5-5.0 Lymph # JOSE M ([facility]) eos # 0.1 10 0.0-0.5 Eos # JOSE M ([facility]) baso # 0.0 10 0.0-0.2 Baso # JOSE M ([facility]) ID Date Data Source [id number] 08/23/2020 11:50:00 AM EDT JOSE M ([facility]) Name Value Range Interpretation Code Description Data Nakia rce(s) Supporting Document(s) total 25(oh) vitamin D 33.2 NG/mL 30.0-100.0 Total 25(Oh) Vitamin D JOSE M ([facility]) ID Date Data Source [id number] 08/23/2020 11:50:00 AM EDT JOSE M ([facility]) Name Value Range Interpretation Code Description Data Nakia rce(s) Supporting Document(s) thyroid stimulating hormone 0.358 uIU/mL 0.358-3.740 Thyroid Stimulating Hormone JOSE M ([facility]) ID Date Data Source [id number] 08/23/2020 11:50:00 AM EDT JOSE M ([facility]) Name Value Range Interpretation Code Description Data Nakia rce(s) Supporting Document(s) HDL cholesterol 66 mg/dL >40 HDL Cholesterol ATHE NA ([facility]) triglycerides level 81 mg/dL <150 Triglycerides Le renato JOSE M ([facility]) cholesterol level 241 mg/dL <200 Above high normal Cholesterol Level JOSE M ([facility]) Cholesterol in LDL [Mass/volume] in Serum or Plasma 159 mg/dL <100 Above high normal LDL Cholesterol JOSE M ([facility]) non-HDL-C 175 mg/dL Non-hdl-c JOSE M ([facility]) cholesterol risk ratio <5 Cholesterol R isk Ratio JOSE M ([facility]) ID Date Data Source [id number] 08/23/2020 11:50:00 AM EDT JOSE M ([facility]) Name Value Range Interpretation Code Description Data Nakia rce(s) Supporting Document(s) blood urea nitrogen 15 mg/dL 7-18 Blood Urea Nitro gen JOSE M ([facility]) glucose, fasting 80 mg/dL 70-100 Glucose, Fasting AT SHARRI ([facility]) glomerular filtration rate > 60.0 >60 Glomerula r Filtration Rate JOSE M ([facility]) creatinine for GFR 1.03 mg/dL 0.55-1.30 Creatinine for GF R JOSE M ([facility]) potassium serum 4.8 mEq/L 3.5-5.1 Potassium Serum ATHE NA ([facility]) sodium level 141 mEq/L 136-145 Sodium Level JOSE M ([facility]) chloride level 111 mEq/L 98-107 Above high normal Chloride Level JOSE M ([facility]) carbon dioxide level 26 mEq/L 21-32 Carbon Dioxide Level JOSE M ([facility]) calcium level 8.8 mg/dL 8.5-10.1 Calcium Level JOSE M ( [facility]) anion gap 4 mEq/L 8-16 Below low normal Anion Gap JOSE M ( [facility]) ALT/SGPT 32 U/L 12-78 ALT/SGPT JOSE M ([facility]) alkaline phosphatase 72 U/L 45-117 Alkaline Phosph atase JOSE M ([facility]) AST/SGOT 12 U/L 7-37 AST/SGOT JOSE M ([facility]) bilirubin,total 0.3 mg/dL 0.2-1.0 Bilirubin,total ATHE NA ([facility]) albumin 3.9 gm/dL 3.2-5.2 Albumin JOSE M ([facility]) albumin/globulin ratio 1.2-2.2 Below low normal Albumin /globulin Ratio JOSE M ([facility]) total protein 7.4 gm/dL 6.4-8.2 Total Protein JOSE M ( [facility]) ID Date Data Source [id number] 08/23/2020 11:50:00 AM EDT JOSE M ([facility]) Name Value Range Interpretation Code Description Data Nakia rce(s) Supporting Document(s) Hemoglobin A1c/Hemoglobin.total in Blood 5.0 % Hemoglobin a1C JOSE M ([facility]) estimated average glucose 97 mg/dL 60-110 Estimated Average Glucose JOSE M ([facility]) ID Date Data Source [id number] 08/23/2020 11:50:00 AM EDT JOSE M ([facility]) Name Value Range Interpretation Code Description Data Nakia rce(s) Supporting Document(s) white blood count 4.1 10 4.0-10.0 White Blood Count JOSE M ([facility]) hemoglobin 13.7 g/dL 12.0-15.5 Hemoglobin JOSE M ([facility]) hematocrit 42.8 % 36.0-47.0 Hematocrit JOSE M ([facility]) red blood count 4.57 10 4.00-5.40 Red Blood Count ATHE ([facility]) mean corpuscular HGB conc 32.0 g/dL 32.0-36.5 Mean Corpu scular HGB Conc JOSE M ([facility]) mean corpuscular volume 93.7 fL 80.0-96.0 Mean Corpusc ular Volume JOSE M ([facility]) mean corpuscular hemoglobin 30.0 pg 27.0-33.0 Mean Cor puscular Hemoglobin JOSE M ([facility]) lymph % 54.1 % 24.0-44.0 Above high normal Lymph % JOSE M ([facility]) neutrophils % 37.3 % 36.0-66.0 Neutrophils % JOSE M ( [facility]) platelet count, automated 209 10 150-450 Platelet C ount, Automated JOSE M ([facility]) red cell distribution width 12.2 % 11.5-14.5 Red Cell Distribution Width JOSE M ([facility]) eos % 2.0 % 0.0-3.0 Eos % JOSE M ([facility]) mono % 5.7 % 2.0-8.0 [place] % JOSE M ([facility]) nucleated red blood cell % 0.0 % 0-0 Nucleated Red Blood Cell % JOSE M ([facility]) baso % 0.7 % 0.0-1.0 Baso % JOSE M ([facility]) immature granulocyte % 0.2 % 0-3.0 Immature Gran ulocyte % JOSE M ([facility]) neutrophils # 1.5 10 1.5-8.5 Neutrophils # JOSE M ( [facility]) mono # 0.2 10 0.0-0.8 [place] # JOSE M ([facility]) eos # 0.1 10 0.0-0.5 Eos # JOSE M ([facility]) lymph # 2.2 10 1.5-5.0 Lymph # JOSE M ([facility]) baso # 0.0 10 0.0-0.2 Baso # JOSE M ([facility]) ID Date Data Source [id number] 04/17/2020 01:00:00 AM EST JOSE M ([facility]) Name Value Range Interpretation Code Description Data Nakia rce(s) Supporting Document(s) istat B-HCG < 5.0 Istat B-HCG CHELSEA ([facility]) ID Date Data Source [id number] 04/17/2020 01:00:00 AM EST JOSE M ([facility]) Name Value Range Interpretation Code Description Data Nakia rce(s) Supporting Document(s) istat B-HCG < 5.0 Istat B-HCG JOSE M ([facility]) ID Date Data Source [id number] 04/17/2020 01:00:00 AM EST JOSE M ([facility]) Name Value Range Interpretation Code Description Data Nakia rce(s) Supporting Document(s) istat B-HCG < 5.0 Istat B-HCG CHELSEA ([facility]) ID Date Data Source [id number] 04/17/2020 01:00:00 AM EST JOSE M ([facility]) Name Value Range Interpretation Code Description Data Nakia rce(s) Supporting Document(s) istat B-HCG < 5.0 Istat B-HCG JOSE M ([facility]) ID Date Data Source [id number] 04/17/2020 01:00:00 AM EST JOSE M ([facility]) Name Value Range Interpretation Code Description Data Nakia rce(s) Supporting Document(s) istat B-HCG < 5.0 Istat B-HCG JOSE M ([facility]) ID Date Data Source [id number] 04/17/2020 01:00:00 AM EST JOSE M ([facility]) Name Value Range Interpretation Code Description Data Nakia rce(s) Supporting Document(s) istat B-HCG < 5.0 Istat B-HCG JOSE M ([facility]) ID Date Data Source [id number] 04/17/2020 01:00:00 AM EST JOSE M ([facility]) Name Value Range Interpretation Code Description Data Nakia rce(s) Supporting Document(s) istat B-HCG < 5.0 Istat B-HCG JOSE M ([facility]) ID Date Data Source [id number] 04/17/2020 01:00:00 AM EST JOSE M ([facility]) Name Value Range Interpretation Code Description Data Nakia rce(s) Supporting Document(s) istat B-HCG < 5.0 Istat B-HCG JOSE M ([facility]) ID Date Data Source [id number] 04/17/2020 01:00:00 AM EST JOSE M ([facility]) Name Value Range Interpretation Code Description Data Nakia rce(s) Supporting Document(s) istat B-HCG < 5.0 Istat B-HCG JOSE M ([facility]) ID Date Data Source [id number] 04/17/2020 01:00:00 AM EST JOSE M ([facility]) Name Value Range Interpretation Code Description Data Nakia rce(s) Supporting Document(s) istat B-HCG < 5.0 Istat B-HCG JOSE M ([facility]) ID Date Data Source [id number] 04/17/2020 01:00:00 AM EST JOSE M ([facility]) Name Value Range Interpretation Code Description Data Nakia rce(s) Supporting Document(s) istat B-HCG < 5.0 Istat B-HCG JOSE M ([facility]) ID Date Data Source [id number] 04/17/2020 01:00:00 AM EST JOSE M ([facility]) Name Value Range Interpretation Code Description Data Nakia rce(s) Supporting Document(s) istat B-HCG < 5.0 Istat B-HCG JOSE M ([facility]) ID Date Data Source [id number] 04/17/2020 01:00:00 AM EST JOSE M ([facility]) Name Value Range Interpretation Code Description Data Nakia rce(s) Supporting Document(s) istat B-HCG < 5.0 Istat B-HCG JOSE M ([facility]) ID Date Data Source [id number] 04/17/2020 01:00:00 AM EST JOSE M ([facility]) Name Value Range Interpretation Code Description Data Nakia rce(s) Supporting Document(s) istat B-HCG < 5.0 Istat B-HCG JOSE M ([facility]) ID Date Data Source [id number] 04/17/2020 01:00:00 AM EST JOSE M ([facility]) Name Value Range Interpretation Code Description Data Nakia rce(s) Supporting Document(s) istat B-HCG < 5.0 Istat B-HCG JOSE M ([facility]) ID Date Data Source [id number] 04/17/2020 01:00:00 AM EST JOSE M ([facility]) Name Value Range Interpretation Code Description Data Nakia rce(s) Supporting Document(s) istat B-HCG < 5.0 Istat B-HCG JOSE M ([facility]) Procedure Social History No Information Vital Signs ID Date Data Source [id number] Name Value Range Interpretation Code Description Data Source(s) Body height 64 [in_i] 64 [in_i] JOSE M ([facility]) Body height 64 [in_i] 64 [in_i] JOSE M ([facility]) Diastolic blood pressure 84 mm[Hg] 84 mm[Hg] JOSE M ([facility]) Body mass index (BMI) [Ratio] 33 kg/m2 33 kg/ m2 JOSE M ([facility]) Body weight 3078 [oz_av] 3078 [oz_av] JOSE M ([facility]) Systolic blood pressure 118 mm[Hg] 118 mm[Hg] A [facility] ([facility]) Body height 64 [in_i] 64 [in_i] JOSE M ([facility]) Diastolic blood pressure 84 mm[Hg] 84 mm[Hg] JOSE M ([facility]) Body height 64 [in_i] 64 [in_i] JOSE M ([facility]) Body mass index (BMI) [Ratio] 33 kg/m2 33 kg/ m2 JOSE M ([facility]) Systolic blood pressure 118 mm[Hg] 118 mm[Hg] A [facility] ([facility]) Body weight 3078 [oz_av] 3078 [oz_av] JOSE M ([facility]) Diastolic blood pressure 84 mm[Hg] 84 mm[Hg] JOSE M ([facility]) Body height 64 [in_i] 64 [in_i] JOSE M ([facility]) Body mass index (BMI) [Ratio] 33 kg/m2 33 kg/ m2 JOSE M ([facility]) Systolic blood pressure 118 mm[Hg] 118 mm[Hg] A THENA ([facility]) Body weight 3078 [oz_av] 3078 [oz_av] JOSE M ([facility]) Systolic blood pressure 134 mm[Hg] 134 mm[Hg] M EDENT ([facility]) Diastolic blood pressure 80 mm[Hg] 80 mm[Hg] MEDENT ([facility]) Heart rate 76 /min 76 /min MEDENT ([facility]) Body temperature 97.5 [degF] 97.5 [degF] MEDENT ([facility]) Body height 64.5 [in_i] 64.5 [in_i] MEDENT ([facility]) 5'4.50" Body weight 211.50 [lb_av] 211.50 [lb_av] MEDEN T ([facility]) Body mass index (BMI) [Ratio] 35.7 kg/m2 35.7 k g/m2 MEDENT ([facility]) Oxygen saturation in Arterial blood by Pulse oximetry 98 % 98 % MEDENT ([facility]) Diastolic blood pressure 85 mm[Hg] 85 mm[Hg] JOSE M ([facility]) Body height 64 [in_i] 64 [in_i] JOSE M ([facility]) Body mass index (BMI) [Ratio] 37.3 kg/m2 37.3 k g/m2 JOSE M ([facility]) Systolic blood pressure 124 mm[Hg] 124 mm[Hg] A THENA ([facility]) Body weight 3475.2 [oz_av] 3475.2 [oz_av] ATHEN A ([facility]) Diastolic blood pressure 85 mm[Hg] 85 mm[Hg] JOSE M ([facility]) Body height 64 [in_i] 64 [in_i] JOSE M ([facility]) Body mass index (BMI) [Ratio] 37.3 kg/m2 37.3 k g/m2 JOSE M ([facility]) Systolic blood pressure 124 mm[Hg] 124 mm[Hg] A THENA ([facility]) Body weight 3475.2 [oz_av] 3475.2 [oz_av] ATHEN A ([facility]) Diastolic blood pressure 85 mm[Hg] 85 mm[Hg] JOSE M ([facility]) Body height 64 [in_i] 64 [in_i] JOSE M ([facility]) Body mass index (BMI) [Ratio] 37.3 kg/m2 37.3 k g/m2 JOSE M ([facility]) Systolic blood pressure 124 mm[Hg] 124 mm[Hg] A MILLIEA ([facility]) Body weight 3475.2 [oz_av] 3475.2 [oz_av] ATHEN A ([facility]) Diastolic blood pressure 85 mm[Hg] 85 mm[Hg] JOSE M ([facility]) Body height 64 [in_i] 64 [in_i] JOSE M ([facility]) Body mass index (BMI) [Ratio] 37.3 kg/m2 37.3 k g/m2 JOSE M ([facility]) Systolic blood pressure 124 mm[Hg] 124 mm[Hg] A MILLIEA ([facility]) Body weight 3475.2 [oz_av] 3475.2 [oz_av] ATHEN A ([facility]) Diastolic blood pressure 85 mm[Hg] 85 mm[Hg] JOSE M ([facility]) Body height 64 [in_i] 64 [in_i] JOSE M ([facility]) Body mass index (BMI) [Ratio] 37.3 kg/m2 37.3 k g/m2 JOSE M ([facility]) Systolic blood pressure 124 mm[Hg] 124 mm[Hg] A THENA ([facility]) Body weight 3475.2 [oz_av] 3475.2 [oz_av] ATHEN A ([facility]) Diastolic blood pressure 85 mm[Hg] 85 mm[Hg] JOSE M ([facility]) Body height 64 [in_i] 64 [in_i] JOSE M ([facility]) Body mass index (BMI) [Ratio] 37.3 kg/m2 37.3 k g/m2 JOSE M ([facility]) Systolic blood pressure 124 mm[Hg] 124 mm[Hg] A THENA ([facility]) Body weight 3475.2 [oz_av] 3475.2 [oz_av] ATHEN A ([facility]) Systolic blood pressure 122 mm[Hg] 122 mm[Hg] M EDENT ([facility], ) Diastolic blood pressure 80 mm[Hg] 80 mm[Hg] [facility]) Heart rate 99 /min 99 /min [facility] ([facility]) Oxygen saturation in Arterial blood by Pulse oximetry 99 % 99 % [facility] ([facility]) Body temperature 98.1 [degF] 98.1 [degF] [facility] ([facility]) Body height 64 [in_i] 64 [in_i] [facility] ([facility]) 5'4" Body weight 208.00 [lb_av] 208.00 [lb_av] MEDEN T ([facility]) Body mass index (BMI) [Ratio] 35.7 kg/m2 35.7 k g/m2 [facility] ([facility]) [place] body weight 120 [lb_av] 120 [lb_av] MEDEN T ([facility]) Body weight 94.349 kg 94.349 kg [facility] ([facility]) Patient Treatment Plan of Care Planned Activity Planned Date Details Description Data Source (s) terconazole 8 MG/ML Vaginal Cream JOSE M ([facility]) NITROFURANTOIN, MACROCRYSTALS 25 MG / Ni trofurantoin, Monohydrate 75 MG Oral Capsule JOSE M ([facility]) New Day 1.5 mg tablet TAKE DIRECTED JOSE M ([facility]) Metronidazole 500 MG Oral Tablet CHELSEA ([facility]) Ketorolac Tromethamine 10 MG Oral Tablet CHELSEA ([facility]) Fluconazole 150 MG Oral Tablet JOSE M ([facility]) Clonidine Hydrochloride 0.2 MG Oral Tablet JOSE M ([facility]) buspirone hydrochloride 15 MG Oral Tablet JOSE M ([facility]) 12 HR Bupropion Hydrochloride 150 MG Extended Release Oral Tablet JOSE M ([facility]) terconazole 8 MG/ML Vaginal Cream JOSE M ([facility]) NITROFURANTOIN, MACROCRYSTALS 25 MG / Ni trofurantoin, Monohydrate 75 MG Oral Capsule JOSE M ([facility]) New Day 1.5 mg tablet TAKE DIRECTED JOSE M ([facility]) Metronidazole 500 MG Oral Tablet JOSE M ([facility]) Metronidazole 0.0075 MG/MG Vaginal Gel JOSE M ([facility]) Ketorolac Tromethamine 10 MG Oral Tablet JOSE M ([facility]) Fluconazole 150 MG Oral Tablet JOSE M ([facility]) Clonidine Hydrochloride 0.2 MG Oral Tablet JOSE M ([facility]) buspirone hydrochloride 15 MG Oral Tablet JOSE M ([facility]) 12 HR Bupropion Hydrochloride 150 MG Extended Release Oral Tablet JOSE M ([facility]) terconazole 8 MG/ML Vaginal Cream JOSE M ([facility]) NITROFURANTOIN, MACROCRYSTALS 25 MG / Ni trofurantoin, Monohydrate 75 MG Oral Capsule JOSE M ([facility]) New Day 1.5 mg tablet TAKE DIRECTED JOSE M ([facility]) Metronidazole 500 MG Oral Tablet JOSE M ([facility]) Metronidazole 0.0075 MG/MG Vaginal Gel JOSE M ([facility]) Ketorolac Tromethamine 10 MG Oral Tablet JOSE M ([facility]) Fluconazole 150 MG Oral Tablet JOSE M ([facility]) Clonidine Hydrochloride 0.2 MG Oral Tablet JOSE M ([facility]) buspirone hydrochloride 15 MG Oral Tablet JOSE M ([facility]) 12 HR Bupropion Hydrochloride 150 MG Extended Release Oral Tablet JOSE M ([facility]) Buprenorphine 8 MG / Naloxone 2 MG Oral Strip JOSE M ([facility]) Alprazolam 0.5 MG Oral Tablet JOSE M ([facility]) Trazodone Hydrochloride 100 MG Oral Tablet JOSE M ([facility]) New Day 1.5 mg tablet JOSE M ([facility]) Metronidazole 500 MG Oral Tablet JOSE M ([facility]) Metronidazole 0.0075 MG/MG Vaginal Gel JOSE M ([facility]) Ketorolac Tromethamine 10 MG Oral Tablet JOSE M ([facility]) Fluconazole 150 MG Oral Tablet JOSE M ([facility]) 12 HR Bupropion Hydrochloride 150 MG Extended Release Oral Tablet JOSE M ([facility]) Trazodone Hydrochloride 100 MG Oral Tablet JOSE M ([facility]) New Day 1.5 mg tablet JOSE M ([facility]) Metronidazole 500 MG Oral Tablet JOSE M ([facility]) Metronidazole 0.0075 MG/MG Vaginal Gel JOSE M ([facility]) Ketorolac Tromethamine 10 MG Oral Tablet JOSE M ([facility]) Fluconazole 150 MG Oral Tablet JOSE M ([facility]) 12 HR Bupropion Hydrochloride 150 MG Extended Release Oral Tablet JOSE M ([facility]) Trazodone Hydrochloride 100 MG Oral Tablet JOSE M ([facility]) New Day 1.5 mg tablet JOSE M ([facility]) Metronidazole 500 MG Oral Tablet JOSE M ([facility]) Metronidazole 0.0075 MG/MG Vaginal Gel JOSE M ([facility]) Ketorolac Tromethamine 10 MG Oral Tablet JOSE M ([facility]) Fluconazole 150 MG Oral Tablet JOSE M ([facility]) 12 HR Bupropion Hydrochloride 150 MG Extended Release Oral Tablet JOSE M ([facility])
== END 2021-04-20 15:05 | disposition left against medical advice (07) ==
LOC: M ED 11:19
DX: Z53.29 Procedure and treatment not carried out because of patient's decision for other reasons (principal)

== ENCOUNTER → 2021-10-26 | Outpatient (REF) | payer OTHER ==
[2021-10-26 17:06] LABS: C REACTIVE PROTEIN QUANTITATIV < 0.30 MG/DL (0.00-0.30); COMPLEMENT C3 134 MG/DL (90-180); COMPLEMENT C4 26 MG/DL (10-40); IRON (FE) 51 UG/DL (50-170); MAGNESIUM LEVEL 2.6 MG/DL (1.8-2.4); PHOSPHORUS LEVEL 3.3 MG/DL (2.5-4.9)
[2021-10-26 17:20] LABS: TOTAL PROTEIN,RANDOM URINE 22.6 MG/DL (0.0-12.0)
[2021-10-26 17:26] LABS: TOTAL 25(OH) VITAMIN D 28.4 NG/ML (30.0-100.0)
[2021-10-26 17:27] LABS: VITAMIN B12 LEVEL 708 PG/ML (247-911)
[2021-10-26 17:45] LABS: APPEARANCE, URINE HAZY (CLEAR); BACTERIA, URINE AUTO NEGATIVE (NEGATIVE); BILIRUBIN, URINE AUTO NEGATIVE (NEGATIVE); BLOOD, URINE BLOOD NEGATIVE (NEGATIVE); COLOR, URINE YELLOW (YELLOW); GLUCOSE, URINE (UA) AUTO NEGATIVE (NEGATIVE); KETONE, URINE AUTO NEGATIVE (NEGATIVE); LEUKOCYTE ESTERASE, URINE AUTO 1+ (NEGATIVE); NITRITE, URINE AUTO NEGATIVE (NEGATIVE); PROTEIN, URINE AUTO NEGATIVE (NEGATIVE); RBC, URINE AUTO 0 /HPF (0-3); SQUAMOUS EPITHELIAL CELL UR AU 3 /HPF (0-6); UROBILINOGEN, URINE AUTO 0.2 mg/dL (0.0-2.0); WBC, URINE AUTO 2 /HPF (0-3)
[2021-10-27 11:19] LABS: DRVV SCREEN 38.7 SEC
== END ==
LOC: M SFHCRHEU 13:46
PROVIDERS: ATTEND Internal Medicine
DX: R76.8 Other specified abnormal immunological findings in serum (principal)

== ENCOUNTER 2021-11-19 22:49 | Emergency (ER) | payer OTHER ==
[~2021-11-19] VITALS: Ht 162.6 cm; Wt 68.2 kg
[2021-11-19 23:03] VITALS: BP 137/91
== END 2021-11-20 02:15 | disposition left against medical advice (07) ==
LOC: M ED 22:49 → EDBD 22:49 → M ED 11-20 02:15
DX: Z53.21 Procedure and treatment not carried out due to patient leaving prior to being seen by health care provider (principal)

== ENCOUNTER → 2022-01-16 | Outpatient (CLI) | payer OTHER ==
[2022-01-16 13:34] LABS: BASO % 0.6 % (0.0-1.0); EOS % 0.8 % (0.0-3.0); HEMATOCRIT 42.5 % (36.0-47.0); HEMOGLOBIN 13.8 g/dl (12.0-15.5); LYMPH # 2.9 10^3/uL (1.5-5.0); LYMPH % 60.5 % (24.0-44.0); MEAN CORPUSCULAR HEMOGLOBIN 29.5 pg (27.0-33.0); MEAN CORPUSCULAR HGB CONC 32.5 g/dl (32.0-36.5); MEAN CORPUSCULAR VOLUME 90.8 fl (80.0-96.0); MONO # 0.2 10^3/uL (0.0-0.8); MONO % 4.2 % (2.0-8.0); NEUTROPHILS # 1.6 10^3/uL (1.5-8.5); NEUTROPHILS % 33.9 % (36.0-66.0); PLATELET COUNT, AUTOMATED 181 10^3/uL (150-450); RED BLOOD COUNT 4.68 10^6/uL (4.00-5.40); WHITE BLOOD COUNT 4.7 10^3/uL (4.0-10.0)
== END ==
LOC: M RAD 12:29
PROVIDERS: ATTEND Internal Medicine
DX: M25.40 Effusion, unspecified joint (principal)

== ENCOUNTER 2022-09-16 01:14 | Emergency (ER) | payer OTHER ==
[~2022-09-16] VITALS: Ht 167.6 cm; Wt 100.0 kg
[2022-09-16 03:05] LABS: BASO % 0.4 % (0.0-1.0); EOS % 0.4 % (0.0-3.0); HEMATOCRIT 39.6 % (36.0-47.0); LYMPH # 2.9 10^3/uL (1.5-5.0); LYMPH % 39.4 % (24.0-44.0); MEAN CORPUSCULAR HEMOGLOBIN 30.2 pg (27.0-33.0); MEAN CORPUSCULAR HGB CONC 32.8 g/dl (32.0-36.5); MEAN CORPUSCULAR VOLUME 91.9 fl (80.0-96.0); MONO # 0.4 10^3/uL (0.0-0.8); NEUTROPHILS % 54.5 % (36.0-66.0); PLATELET COUNT, AUTOMATED 205 10^3/uL (150-450); RED BLOOD COUNT 4.31 10^6/uL (4.00-5.40); WHITE BLOOD COUNT 7.4 10^3/uL (4.0-10.0)
[2022-09-16 03:28] LABS: ETHYL ALCOHOL (ETHANOL) < 0.003 % (0.000-0.010)
[2022-09-16 03:29] LABS: ACETAMINOPHEN LEVEL < 2.0 UG/ML (10.0-20.0)
[2022-09-16 03:30] LABS: ALBUMIN 3.7 G/DL (3.2-5.2); ALKALINE PHOSPHATASE 70 U/L (46-116); ALT/SGPT 30 U/L (7.0-40); AST/SGOT < 8 U/L (<34); BILIRUBIN,TOTAL 0.4 MG/DL (0.3-1.2); BLOOD UREA NITROGEN 6 MG/DL (9-23); CALCIUM LEVEL 9.2 MG/DL (8.5-10.1); CARBON DIOXIDE LEVEL 27 MMOL/L (20-31); CHLORIDE LEVEL 106 MMOL/L (98-107); CREATININE FOR GFR 0.94 MG/DL (0.55-1.30); GLOMERULAR FILTRATION RATE > 60.0 (>60); GLUCOSE, FASTING 97 MG/DL (60-100); MAGNESIUM LEVEL 1.8 MG/DL (1.8-2.4); POTASSIUM SERUM 4.2 MMOL/L (3.5-5.1); SALICYLATE LEVEL < 3.0 MG/DL (<30); SODIUM LEVEL 139 MMOL/L (136-145); TOTAL PROTEIN 6.9 G/DL (5.7-8.2)
[2022-09-16 03:48] LABS: HCG, SERUM QUALITATIVE NEGATIVE (NEGATIVE)
[2022-09-16 04:53] LABS: BARBITURATES URINE NEGATIVE (NEGATIVE); BENZODIAZEPINES URINE NEGATIVE (NEGATIVE); CANNABINOIDS URINE NEGATIVE (NEGATIVE); METHADONE URINE NEGATIVE (NEGATIVE); OPIATES URINE NEGATIVE (NEGATIVE); PHENCYCLIDINE URINE NEGATIVE (NEGATIVE)
[2022-09-16 05:00] LABS: AMPHETAMINES LEVEL URINE POSITIVE (NEGATIVE); COCAINE METABOLITE URINE POSITIVE (NEGATIVE)
[2022-09-16 12:39] VITALS: BP 141/92
== END 2022-09-16 12:42 | disposition home or self-care (01) ==
LOC: M ED 01:14
DX: F19.959 Other psychoactive substance use, unspecified with psychoactive substance-induced psychotic disorder, unspecified (principal); F43.0 Acute stress reaction; F41.9 Anxiety disorder, unspecified; Z87.442 Personal history of urinary calculi; Z79.899 Other long term (current) drug therapy

== ENCOUNTER 2022-09-18 08:10 | Inpatient (IN) | payer MEDICAID, OTHER ==
[~2022-09-18] VITALS: Ht 163.8 cm; Wt 101.1 kg
[2022-09-18] MEDS ORDERED: LORazepam 2 MG/ML 1ML VIAL IV STA ×2 (08:26→10:27)
[2022-09-18] MEDS ORDERED: NS 1,000 ML IV ONE ×2 (08:30→09:10)
[2022-09-18 08:47] LABS: BASO % 0.3 % (0.0-1.0); EOS % 0.4 % (0.0-3.0); HEMATOCRIT 41.9 % (36.0-47.0); HEMOGLOBIN 13.8 g/dl (12.0-15.5); LYMPH # 3.2 10^3/uL (1.5-5.0); LYMPH % 32.6 % (24.0-44.0); MEAN CORPUSCULAR HEMOGLOBIN 29.8 pg (27.0-33.0); MEAN CORPUSCULAR HGB CONC 32.9 g/dl (32.0-36.5); MEAN CORPUSCULAR VOLUME 90.5 fl (80.0-96.0); MONO # 0.6 10^3/uL (0.0-0.8); MONO % 6.2 % (2.0-8.0); NEUTROPHILS % 60.2 % (36.0-66.0); PLATELET COUNT, AUTOMATED 252 10^3/uL (150-450); RED BLOOD COUNT 4.63 10^6/uL (4.00-5.40); WHITE BLOOD COUNT 9.9 10^3/uL (4.0-10.0)
[2022-09-18 08:48] LABS: ETHYL ALCOHOL (ETHANOL) 0.003 % (0.000-0.010)
[2022-09-18 08:49] LABS: ACETAMINOPHEN LEVEL 8.8 UG/ML (10.0-20.0); CPK CREATINE PHOSPHOKINASE 382 U/L (34-145)
[2022-09-18 08:50] LABS: SALICYLATE LEVEL < 3.0 MG/DL (<30)
[2022-09-18 09:09] LABS: ALBUMIN 3.9 G/DL (3.2-5.2); ALKALINE PHOSPHATASE 76 U/L (46-116); ALT/SGPT 31 U/L (7.0-40); AST/SGOT 10 U/L (<34); BILIRUBIN,DIRECT 0.2 MG/DL (<0.4); BILIRUBIN,TOTAL 0.5 MG/DL (0.3-1.2); BLOOD UREA NITROGEN 18 MG/DL (9-23); CALCIUM LEVEL 8.9 MG/DL (8.5-10.1); CARBON DIOXIDE LEVEL 25 MMOL/L (20-31); CHLORIDE LEVEL 104 MMOL/L (98-107); CREATININE FOR GFR 1.77 MG/DL (0.55-1.30); GLOMERULAR FILTRATION RATE 42.1 (>60); GLUCOSE, FASTING 96 MG/DL (60-100); POTASSIUM SERUM 3.6 MMOL/L (3.5-5.1); SODIUM LEVEL 137 MMOL/L (136-145); TOTAL PROTEIN 7.3 G/DL (5.7-8.2)
[2022-09-18 09:16] LABS: HCG, SERUM QUALITATIVE NEGATIVE (NEGATIVE)
[2022-09-18 09:26] LABS: BARBITURATES URINE NEGATIVE (NEGATIVE); BENZODIAZEPINES URINE NEGATIVE (NEGATIVE); CANNABINOIDS URINE NEGATIVE (NEGATIVE); COCAINE METABOLITE URINE NEGATIVE (NEGATIVE); METHADONE URINE NEGATIVE (NEGATIVE); OPIATES URINE NEGATIVE (NEGATIVE); PHENCYCLIDINE URINE NEGATIVE (NEGATIVE)
[2022-09-18 09:28] LABS: AMPHETAMINES LEVEL URINE POSITIVE (NEGATIVE)
[2022-09-18] MEDS ORDERED: diphenhydrAMINE 50MG/ML VIAL IV STA (11:07)
[2022-09-18] MEDS ORDERED: VITA200032 PO (13:40)
[2022-09-18] MEDS ORDERED: CLON-412 PO (13:40)
[2022-09-18] MEDS ORDERED: QUET100T2 PO (13:40)
[2022-09-18] MEDS ORDERED: SYST1SOL OU (13:40)
[2022-09-18] MEDS ORDERED: ACET325C5 PO (13:40)
[2022-09-18] MEDS ORDERED: HOME MED LIST COMPLETE! XX SCH (13:50)
[2022-09-18 13:51] LABS: CALCIUM LEVEL 8.5 MG/DL (8.5-10.1); CREATININE FOR GFR 1.35 MG/DL (0.55-1.30); GLOMERULAR FILTRATION RATE 57.6 (>60); POTASSIUM SERUM 4.3 MMOL/L (3.5-5.1)
[2022-09-18] MEDS ORDERED: QUEtiapine FUMARATE 100 MG TAB PO ONE (21:05)
[2022-09-18] MEDS ORDERED: diphenhydrAMINE 25MG CAP PO ONE (21:05)
[2022-09-18] MEDS ORDERED: cloNIDine 0.2 MG TAB PO ONE (21:05)
[2022-09-19] MEDS ORDERED: cloNIDine 0.1MG TABLET PO SCH ×2 (09:00→21:00)
[2022-09-19] MEDS ORDERED: CHLORTHALIDONE 25 MG TAB PO ONE (12:00)
[2022-09-19] MEDS ORDERED: traZODone 50 MG TAB PO PRN (13:10)
[2022-09-19] MEDS ORDERED: LORazepam 1 MG TAB PO PRN (13:10)
[2022-09-19] MEDS ORDERED: ACETAMINOPHEN TAB 650MG DOSE (2X325MG) PO PRN (13:10)
[2022-09-19] MEDS ORDERED: IBUPROFEN 400MG TAB PO PRN (13:10)
[2022-09-19] MEDS ORDERED: POLYVINYL ALCOHOL OPHTH SOLN 15ML (LIQUITEARS) OU PRN (13:10)
[2022-09-19] MEDS ORDERED: MAALOX 30 ML SUSP *UDC PO PRN (13:10)
[2022-09-19] MEDS: diphenhydrAMINE 25MG CAP PO PRN ×2 (13:49→22:03)
[2022-09-19 15:25] VITALS: BP 159/91
[2022-09-19] MEDS: VITAMIN D 1,000 INTERNATIONAL UNITS TABLET PO SCH (16:07)
[2022-09-19] MEDS: NICOTINE 14 MG/24 HR TRANSDERMAL TD SCH (16:12)
[2022-09-19] MEDS ORDERED: QUEtiapine FUMARATE 100 MG TAB PO SCH ×2 (21:00)
[2022-09-19] MEDS ORDERED: cloNIDine 0.2 MG TAB PO SCH (21:00)
[2022-09-19] MEDS: cloNIDine 0.1MG TABLET PO SCH (22:04)
[2022-09-20 06:33] VITALS: BP 117/63
[2022-09-20] MEDS: VITAMIN D 1,000 INTERNATIONAL UNITS TABLET PO SCH (08:44)
[2022-09-20] MEDS: NICOTINE 14 MG/24 HR TRANSDERMAL TD SCH (08:45)
[2022-09-20] MEDS: SERTRALINE HCL 25 MG TABLET PO SCH (09:40)
[2022-09-20] MEDS: diphenhydrAMINE 25MG CAP PO PRN (14:03)
[2022-09-20] MEDS: OLANZapine 5 MG TAB PO PRN (14:06)
[2022-09-20 17:56] VITALS: BP 136/78
[2022-09-20] MEDS: QUEtiapine FUMARATE 100 MG TAB PO SCH (21:34)
[2022-09-20] MEDS: cloNIDine 0.1MG TABLET PO SCH (21:35)
[2022-09-21 07:39] LABS: CHOLESTEROL RISK RATIO 4.65 (<5); HDL CHOLESTEROL 43.4 MG/DL (>40); LDL CHOLESTEROL 132.2 MG/DL (<100); NON-HDL-C 158.6 MG/DL
[2022-09-21] MEDS: NICOTINE 14 MG/24 HR TRANSDERMAL TD SCH (08:29)
[2022-09-21] MEDS: VITAMIN D 1,000 INTERNATIONAL UNITS TABLET PO SCH (08:29)
[2022-09-21] MEDS: SERTRALINE HCL 25 MG TABLET PO SCH (08:29)
[2022-09-21] MEDS ORDERED: DIVALPROEX 500MG *ER* TAB PO SCH (09:00)
[2022-09-21] MEDS: OLANZapine 5 MG TAB PO SCH (09:56)
[2022-09-21] MEDS: diphenhydrAMINE 25MG CAP PO PRN (20:42)
[2022-09-21] MEDS: MOM 30ML SUSPENSION UDC PO PRN (20:42)
[2022-09-21] MEDS: QUEtiapine FUMARATE 100 MG TAB PO SCH (21:58)
[2022-09-21] MEDS: cloNIDine 0.1MG TABLET PO SCH (21:58)
[2022-09-22] MEDS: NICOTINE 14 MG/24 HR TRANSDERMAL TD SCH (08:11)
[2022-09-22] MEDS: OLANZapine 5 MG TAB PO SCH (08:13)
[2022-09-22] MEDS: VITAMIN D 1,000 INTERNATIONAL UNITS TABLET PO SCH (08:13)
[2022-09-22] MEDS: SERTRALINE HCL 25 MG TABLET PO SCH (08:13)
[2022-09-22] MEDS: diphenhydrAMINE 25MG CAP PO PRN (16:08)
[2022-09-22] MEDS: OLANZapine 5 MG TAB PO PRN (16:08)
[2022-09-22] MEDS: QUEtiapine FUMARATE 100 MG TAB PO SCH (21:00)
[2022-09-22] MEDS: cloNIDine 0.1MG TABLET PO SCH (21:00)
[2022-09-23] MEDS: diphenhydrAMINE 25MG CAP PO PRN (08:37)
[2022-09-23] MEDS: NICOTINE 14 MG/24 HR TRANSDERMAL TD SCH (08:37)
[2022-09-23] MEDS: VITAMIN D 1,000 INTERNATIONAL UNITS TABLET PO SCH (08:37)
[2022-09-23] MEDS: OLANZapine 5 MG TAB PO SCH (08:37)
[2022-09-23] MEDS: SERTRALINE HCL 25 MG TABLET PO SCH (08:37)
[2022-09-23 16:12] VITALS: BP 133/92
[2022-09-23] MEDS ORDERED: LORazepam 0.5 MG TAB PO PRN (16:25)
[2022-09-23] MEDS: cloNIDine 0.1MG TABLET PO SCH (21:42)
[2022-09-23] MEDS: QUEtiapine FUMARATE 100 MG TAB PO SCH (21:42)
[2022-09-24] MEDS: SERTRALINE HCL 25 MG TABLET PO SCH (08:58)
[2022-09-24] MEDS: VITAMIN D 1,000 INTERNATIONAL UNITS TABLET PO SCH (08:58)
[2022-09-24] MEDS: OLANZapine 5 MG TAB PO SCH (08:58)
[2022-09-24] MEDS: NICOTINE 14 MG/24 HR TRANSDERMAL TD SCH (08:59)
[2022-09-24 18:27] VITALS: BP 140/94
[2022-09-24] MEDS: cloNIDine 0.1MG TABLET PO SCH (21:46)
[2022-09-24] MEDS: QUEtiapine FUMARATE 100 MG TAB PO SCH (21:46)
[2022-09-24] MEDS: MOM 30ML SUSPENSION UDC PO PRN (21:47)
[2022-09-25] MEDS: SERTRALINE HCL 25 MG TABLET PO SCH (08:51)
[2022-09-25] MEDS: VITAMIN D 1,000 INTERNATIONAL UNITS TABLET PO SCH (08:51)
[2022-09-25] MEDS: OLANZapine 5 MG TAB PO SCH (08:52)
[2022-09-25] MEDS: NICOTINE 14 MG/24 HR TRANSDERMAL TD SCH (08:52)
[2022-09-25 18:32] VITALS: BP 141/82
[2022-09-25] MEDS: cloNIDine 0.1MG TABLET PO SCH (21:33)
[2022-09-25] MEDS: MOM 30ML SUSPENSION UDC PO PRN (21:33)
[2022-09-25] MEDS: QUEtiapine FUMARATE 100 MG TAB PO SCH (21:33)
[2022-09-26] MEDS: NICOTINE 14 MG/24 HR TRANSDERMAL TD SCH (08:55)
[2022-09-26] MEDS: diphenhydrAMINE 25MG CAP PO PRN (08:56)
[2022-09-26] MEDS: SERTRALINE HCL 50 MG TAB PO SCH (08:56)
[2022-09-26] MEDS: VITAMIN D 1,000 INTERNATIONAL UNITS TABLET PO SCH (08:59)
[2022-09-26] MEDS: OLANZapine 5 MG TAB PO SCH (08:59)
[2022-09-26 18:48] VITALS: BP 138/88
[2022-09-26] MEDS: QUEtiapine FUMARATE 100 MG TAB PO SCH (22:12)
[2022-09-26] MEDS: cloNIDine 0.1MG TABLET PO SCH (22:12)
[2022-09-26] MEDS: MOM 30ML SUSPENSION UDC PO PRN (22:13)
[2022-09-27] MEDS: NICOTINE 14 MG/24 HR TRANSDERMAL TD SCH (07:55)
[2022-09-27] MEDS: OLANZapine 5 MG TAB PO SCH (07:56)
[2022-09-27] MEDS: VITAMIN D 1,000 INTERNATIONAL UNITS TABLET PO SCH (07:57)
[2022-09-27] MEDS: SERTRALINE HCL 50 MG TAB PO SCH (07:57)
[2022-09-27 18:33] VITALS: BP 138/80
[2022-09-27] MEDS: MOM 30ML SUSPENSION UDC PO PRN (22:15)
[2022-09-27] MEDS: QUEtiapine FUMARATE 100 MG TAB PO SCH (22:15)
[2022-09-27] MEDS: cloNIDine 0.1MG TABLET PO SCH (22:15)
[2022-09-28] MEDS: SERTRALINE HCL 50 MG TAB PO SCH (09:26)
[2022-09-28] MEDS: OLANZapine 5 MG TAB PO SCH (09:26)
[2022-09-28] MEDS: VITAMIN D 1,000 INTERNATIONAL UNITS TABLET PO SCH (09:26)
[2022-09-28] MEDS: NICOTINE 14 MG/24 HR TRANSDERMAL TD SCH (09:30)
[2022-09-28 15:46] VITALS: BP 132/80
[2022-09-28] MEDS: QUEtiapine FUMARATE 100 MG TAB PO SCH (21:38)
[2022-09-28] MEDS: cloNIDine 0.1MG TABLET PO SCH (21:39)
[2022-09-28] MEDS: MOM 30ML SUSPENSION UDC PO PRN (21:40)
[2022-09-29 06:40] VITALS: BP 106/55
[2022-09-29] MEDS: VITAMIN D 1,000 INTERNATIONAL UNITS TABLET PO SCH (08:18)
[2022-09-29] MEDS: OLANZapine 5 MG TAB PO SCH (08:18)
[2022-09-29] MEDS: SERTRALINE HCL 50 MG TAB PO SCH (08:19)
[2022-09-29] MEDS: NICOTINE 14 MG/24 HR TRANSDERMAL TD SCH (08:19)
[2022-09-29] MEDS: QUEtiapine FUMARATE 100 MG TAB PO SCH (22:17)
[2022-09-29] MEDS: cloNIDine 0.1MG TABLET PO SCH (22:18)
[2022-09-29] MEDS: MOM 30ML SUSPENSION UDC PO PRN (22:19)
[2022-09-30] MEDS: SERTRALINE HCL 50 MG TAB PO SCH (09:36)
[2022-09-30] MEDS: VITAMIN D 1,000 INTERNATIONAL UNITS TABLET PO SCH (09:36)
[2022-09-30] MEDS: OLANZapine 5 MG TAB PO SCH (09:37)
[2022-09-30] MEDS: NICOTINE 14 MG/24 HR TRANSDERMAL TD SCH (09:39)
[2022-09-30] MEDS: QUEtiapine FUMARATE 100 MG TAB PO SCH (22:02)
[2022-09-30] MEDS: cloNIDine 0.1MG TABLET PO SCH (22:02)
[2022-10-01 06:36] VITALS: BP 124/82
[2022-10-01] MEDS: NICOTINE 14 MG/24 HR TRANSDERMAL TD SCH (09:00)
[2022-10-01] MEDS: VITAMIN D 1,000 INTERNATIONAL UNITS TABLET PO SCH (10:04)
[2022-10-01] MEDS: OLANZapine 5 MG TAB PO SCH (10:05)
[2022-10-01] MEDS: SERTRALINE HCL 50 MG TAB PO SCH (10:05)
[2022-10-01] MEDS: QUEtiapine FUMARATE 100 MG TAB PO SCH (21:25)
[2022-10-01 21:28] VITALS: BP 136/70
[2022-10-01] MEDS: cloNIDine 0.1MG TABLET PO SCH (21:28)
[2022-10-02] MEDS: NICOTINE 14 MG/24 HR TRANSDERMAL TD SCH (09:00)
[2022-10-02] MEDS: SERTRALINE HCL 50 MG TAB PO SCH (09:16)
[2022-10-02] MEDS: VITAMIN D 1,000 INTERNATIONAL UNITS TABLET PO SCH (09:16)
[2022-10-02] MEDS: OLANZapine 5 MG TAB PO SCH (09:17)
[2022-10-02] MEDS ORDERED: QUET300T2 PO (11:11)
[2022-10-02] MEDS ORDERED: SERT50TA29 PO (11:11)
[2022-10-02] MEDS ORDERED: OLAN1TAB16 PO (11:11)
[2022-10-02] MEDS ORDERED: OLAN15TA13 PO (11:11)
[2022-10-02] MEDS ORDERED: NICO14PA TD (11:11)
== END 2022-10-02 14:26 | disposition home or self-care (01) | DRG 776 ==
LOC: M ED 08:10 → EDBD 08:10 → M ED INP 09-19 13:08 → M PSY 09-19 15:26
PROVIDERS: ADMIT Student in an Organized Health Care Education/Training Program; ATTEND Student in an Organized Health Care Education/Training Program
DX: F15.151 Other stimulant abuse with stimulant-induced psychotic disorder with hallucinations (principal); N17.9 Acute kidney failure, unspecified; F29 Unspecified psychosis not due to a substance or known physiological condition; F43.9 Reaction to severe stress, unspecified; F60.89 Other specific personality disorders; Z62.810 Personal history of physical and sexual abuse in childhood; Z81.8 Family history of other mental and behavioral disorders; Z79.899 Other long term (current) drug therapy

== ENCOUNTER 2023-06-21 17:56 | Inpatient (IN) | payer OTHER ==
[~2023-06-21] VITALS: Ht 162.6 cm; Wt 128.8 kg
[~2023-06-21 17:56] MED LIST changes: +ACET325C5 PO; +NICO14PA TD; +OLAN15TA13 PO; +OLAN1TAB16 PO; +QUET100T2 PO; +QUET300T2 PO; +SERT50TA29 PO; +SYST1SOL OU; +VITA200032 PO
[2023-06-21 18:49] LABS: BASO % 0.2 % (0.0-1.0); EOS # 0.1 10^3/uL (0.0-0.5); EOS % 2.2 % (0.0-3.0); HEMATOCRIT 34.6 % (36.0-47.0); HEMOGLOBIN 10.8 g/dl (12.0-15.5); LYMPH % 39.8 % (24.0-44.0); MEAN CORPUSCULAR HEMOGLOBIN 27.3 pg (27.0-33.0); MEAN CORPUSCULAR HGB CONC 31.2 g/dl (32.0-36.5); MEAN CORPUSCULAR VOLUME 87.4 fl (80.0-96.0); MONO # 0.5 10^3/uL (0.0-0.8); MONO % 10.9 % (2.0-8.0); NEUTROPHILS # 2.3 10^3/uL (1.5-8.5); NEUTROPHILS % 46.7 % (36.0-66.0); PLATELET COUNT, AUTOMATED 209 10^3/uL (150-450); RED BLOOD COUNT 3.96 10^6/uL (4.00-5.40)
[2023-06-21 19:11] LABS: LIPASE 46 U/L (12-53)
[2023-06-21 19:12] LABS: HCG, SERUM QUALITATIVE NEGATIVE (NEGATIVE)
[2023-06-21 19:13] LABS: ALBUMIN 2.8 G/DL (3.2-5.2); ALKALINE PHOSPHATASE 95 U/L (46-116); ALT/SGPT 105 U/L (7.0-40); AST/SGOT 74 U/L (<34); BILIRUBIN,DIRECT 0.1 MG/DL (<0.4); BILIRUBIN,TOTAL 0.3 MG/DL (0.3-1.2); BLOOD UREA NITROGEN 24 MG/DL (9-23); CALCIUM LEVEL 9.4 MG/DL (8.5-10.1); CARBON DIOXIDE LEVEL 24 MMOL/L (20-31); CHLORIDE LEVEL 106 MMOL/L (98-107); CK-MB VALUE MASS < 1.0 NG/ML (<3.6); CREATININE FOR GFR 0.65 MG/DL (0.55-1.30); GLOMERULAR FILTRATION RATE > 60.0 (>60); GLUCOSE, FASTING 125 MG/DL (60-100); POTASSIUM SERUM 4.9 MMOL/L (3.5-5.1); SODIUM LEVEL 135 MMOL/L (136-145); TOTAL PROTEIN 6.1 G/DL (5.7-8.2)
[2023-06-21 19:15] LABS: THYROID STIMULATING HORMONE 0.008 uIU/ML (0.55-4.78)
[2023-06-21 19:28] LABS: CPK CREATINE PHOSPHOKINASE 80 U/L (34-145); FREE T4 > 8.00 NG/DL (0.89-1.76); MB/CK RELATIVE INDEX 1.25 (< OR =4)
[2023-06-21] MEDS ORDERED: PROPRANOLOL INJ 1MG/ML 1ML VIAL IV STA (20:01)
[2023-06-21] MEDS ORDERED: propylthiouraciL 50 MG TAB PO ONE (20:05)
[2023-06-21] MEDS ORDERED: HYDROCORTISONE 100MG/2ML VIAL IV ONE (20:05)
[2023-06-21 20:25] LABS: CK-MB VALUE MASS < 1.0 NG/ML (<3.6)
[2023-06-21 20:27] LABS: CPK CREATINE PHOSPHOKINASE 76 U/L (34-145); MB/CK RELATIVE INDEX 1.31 (< OR =4)
[2023-06-21] MEDS ORDERED: cloNIDine 0.2 MG TAB PO SCH (21:00)
[2023-06-21] MEDS ORDERED: OLAN1TAB16 PO (21:53)
[2023-06-21] MEDS ORDERED: ZOLO100T PO (21:53)
[2023-06-21] MEDS ORDERED: IBUP-1730 PO (21:53)
[2023-06-21] MEDS ORDERED: QUET100T2 PO (21:53)
[2023-06-21] MEDS ORDERED: HOME MED LIST COMPLETE! XX SCH (22:00)
[2023-06-21] MEDS ORDERED: PROPRANOLOL 20 MG TAB PO ONE (22:15)
[2023-06-21] MEDS ORDERED: ACETAMINOPHEN TAB 650MG DOSE (2X325MG) PO PRN (23:20)
[2023-06-21] MEDS ORDERED: IPRATROPIUM 0.02% SOLN 0.5MG 2.5ML NEB NEB PRN (23:20)
[2023-06-21] MEDS ORDERED: ONDANSETRON 4MG 2ML VIAL IV PRN (23:20)
[2023-06-22] MEDS: QUEtiapine FUMARATE 100 MG TAB PO SCH ×2 (03:40→20:39)
[2023-06-22] MEDS: SERTRALINE 100 MG TAB PO SCH ×2 (03:41→20:39)
[2023-06-22] MEDS: OLANZapine 10 MG TAB PO SCH ×2 (03:41→20:39)
[2023-06-22] MEDS ORDERED: HYDROCORTISONE 100MG/2ML VIAL IV SCH (04:00)
[2023-06-22] MEDS ORDERED: IODINE STRONG SOLN 15ML BTL PO ONE (04:55)
[2023-06-22] MEDS ORDERED: IODINE STRONG SOLN 15ML BTL PO SCH (06:00)
[2023-06-22] MEDS ORDERED: CHOLESTYRAMINE 4GM PWD PKT PO ONE (06:00)
[2023-06-22 07:20] LABS: ALBUMIN 2.5 G/DL (3.2-5.2); ALKALINE PHOSPHATASE 91 U/L (46-116); ALT/SGPT 103 U/L (7.0-40); AST/SGOT 49 U/L (<34); BILIRUBIN,TOTAL 0.3 MG/DL (0.3-1.2); BLOOD UREA NITROGEN 29 MG/DL (9-23); CALCIUM LEVEL 9.1 MG/DL (8.5-10.1); CARBON DIOXIDE LEVEL 22 MMOL/L (20-31); CHLORIDE LEVEL 109 MMOL/L (98-107); GLOMERULAR FILTRATION RATE > 60.0 (>60); GLUCOSE, FASTING 125 MG/DL (60-100); POTASSIUM SERUM 4.8 MMOL/L (3.5-5.1); SODIUM LEVEL 138 MMOL/L (136-145); TOTAL PROTEIN 5.8 G/DL (5.7-8.2)
[2023-06-22] MEDS ORDERED: propylthiouraciL 50 MG TAB PO SCH (09:00)
[2023-06-22] MEDS ORDERED: PROPRANOLOL 20 MG TAB PO SCH ×2 (09:00→21:00)
[2023-06-22] MEDS ORDERED: HYDROCORTISONE 100MG/2ML VIAL IV ONE (10:00)
[2023-06-22] MEDS ORDERED: propylthiouraciL 50 MG TAB PO ONE (10:00)
[2023-06-22] MEDS ORDERED: HOME MED LIST COMPLETE! XX SCH (11:45)
[2023-06-22] MEDS ORDERED: . (11:46)
[2023-06-22] MEDS: POTASSIUM IODIDE 30 ML BTL PO SCH ×3 (12:31→21:16)
[2023-06-22 13:39] VITALS: BP 149/75; TEMP 97.5; O2SAT 95
[2023-06-22] MEDS: propylthiouraciL 50 MG TAB PO SCH ×3 (14:48→21:14)
[2023-06-22] MEDS ORDERED: atenoloL 50 MG TAB PO ONE (15:55)
[2023-06-22 16:00] VITALS: BP 151/91; TEMP 97.5; O2SAT 99
[2023-06-22] MEDS: MIDODRINE 5 MG TAB PO SCH (16:00)
[2023-06-22] MEDS: HYDROCORTISONE 100MG/2ML VIAL IV SCH (17:51)
[2023-06-22] MEDS ORDERED: hydrOXYzine 50 MG TAB PO ONE (18:00)
[2023-06-22] MEDS ORDERED: PROPRANOLOL 20 MG TAB PO ONE (18:25)
[2023-06-22 20:00] VITALS: BP 171/99; TEMP 97.4; O2SAT 97
[2023-06-22] MEDS: CHOLESTYRAMINE 4GM PWD PKT PO SCH (21:57)
[2023-06-23] VITALS (9 sets, daily range): BP systolic 140–156; BP diastolic 61–89; TEMP 97.3–97.9; O2SAT 96–98
[2023-06-23] MEDS: hydrOXYzine 50 MG TAB PO PRN ×2 (00:30→06:15)
[2023-06-23] MEDS: HYDROCORTISONE 100MG/2ML VIAL IV SCH ×3 (01:59→17:31)
[2023-06-23] MEDS: propylthiouraciL 50 MG TAB PO SCH ×6 (01:59→21:27)
[2023-06-23] MEDS: POTASSIUM IODIDE 30 ML BTL PO SCH ×4 (04:00→21:28)
[2023-06-23 06:49] LABS: ALBUMIN 2.6 G/DL (3.2-5.2); ALKALINE PHOSPHATASE 89 U/L (46-116); ALT/SGPT 82 U/L (7.0-40); AST/SGOT 22 U/L (<34); BILIRUBIN,DIRECT 0.1 MG/DL (<0.4); BILIRUBIN,TOTAL 0.3 MG/DL (0.3-1.2); TOTAL PROTEIN 5.8 G/DL (5.7-8.2)
[2023-06-23 06:51] LABS: THYROID STIMULATING HORMONE 0.008 uIU/ML (0.55-4.78)
[2023-06-23 06:54] LABS: T UPTAKE 72.4 % (22.5-37.0); THYROID PEROXIDASE ANTIBODY < 28.0 U/ML (<60.0)
[2023-06-23 06:57] LABS: BASO % 0.3 % (0.0-1.0); EOS % 0.6 % (0.0-3.0); HEMATOCRIT 29.9 % (36.0-47.0); HEMOGLOBIN 9.4 g/dl (12.0-15.5); LYMPH # 1.4 10^3/uL (1.5-5.0); MEAN CORPUSCULAR HEMOGLOBIN 27.5 pg (27.0-33.0); MEAN CORPUSCULAR HGB CONC 31.4 g/dl (32.0-36.5); MEAN CORPUSCULAR VOLUME 87.4 fl (80.0-96.0); MONO # 0.3 10^3/uL (0.0-0.8); MONO % 3.9 % (2.0-8.0); NEUTROPHILS # 5.3 10^3/uL (1.5-8.5); NEUTROPHILS % 74.6 % (36.0-66.0); PLATELET COUNT, AUTOMATED 198 10^3/uL (150-450); RED BLOOD COUNT 3.42 10^6/uL (4.00-5.40); WHITE BLOOD COUNT 7.1 10^3/uL (4.0-10.0)
[2023-06-23] MEDS: MIDODRINE 5 MG TAB PO SCH ×3 (08:07→16:21)
[2023-06-23] MEDS: CHOLESTYRAMINE 4GM PWD PKT PO SCH ×2 (08:08→22:14)
[2023-06-23] MEDS ORDERED: atenoloL 50 MG TAB PO ONE (08:20)
[2023-06-23] MEDS ORDERED: atenoloL 50 MG TAB PO SCH ×2 (09:00→21:00)
[2023-06-23] MEDS ORDERED: PROPRANOLOL 20 MG TAB PO SCH ×2 (09:00→12:00)
[2023-06-23] MEDS ORDERED: diphenhydrAMINE 50MG/ML VIAL IM PRN (10:55)
[2023-06-23] MEDS: diphenhydrAMINE CREAM 30GM TOP SCH ×3 (11:55→20:25)
[2023-06-23] MEDS: PROPRANOLOL 20 MG TAB PO SCH ×3 (14:37→20:25)
[2023-06-23] MEDS: SERTRALINE 100 MG TAB PO SCH (20:24)
[2023-06-23] MEDS: QUEtiapine FUMARATE 100 MG TAB PO SCH (20:24)
[2023-06-23] MEDS: OLANZapine 10 MG TAB PO SCH (20:25)
[2023-06-24] MEDS: propylthiouraciL 50 MG TAB PO SCH ×5 (00:59→17:16)
[2023-06-24] MEDS: PROPRANOLOL 20 MG TAB PO SCH ×6 (01:00→21:09)
[2023-06-24] MEDS: HYDROCORTISONE 100MG/2ML VIAL IV SCH ×3 (01:00→17:17)
[2023-06-24 04:00] VITALS: BP 143/82; TEMP 98.4; O2SAT 98
[2023-06-24] MEDS: POTASSIUM IODIDE 30 ML BTL PO SCH ×3 (05:15→17:16)
[2023-06-24 06:46] LABS: BASO % 0.3 % (0.0-1.0); EOS % 0.6 % (0.0-3.0); HEMATOCRIT 30.5 % (36.0-47.0); HEMOGLOBIN 9.6 g/dl (12.0-15.5); LYMPH # 2.2 10^3/uL (1.5-5.0); LYMPH % 30.5 % (24.0-44.0); MEAN CORPUSCULAR HEMOGLOBIN 27.2 pg (27.0-33.0); MEAN CORPUSCULAR HGB CONC 31.5 g/dl (32.0-36.5); MEAN CORPUSCULAR VOLUME 86.4 fl (80.0-96.0); MONO # 0.3 10^3/uL (0.0-0.8); MONO % 4.5 % (2.0-8.0); NEUTROPHILS # 4.5 10^3/uL (1.5-8.5); NEUTROPHILS % 63.7 % (36.0-66.0); PLATELET COUNT, AUTOMATED 217 10^3/uL (150-450); RED BLOOD COUNT 3.53 10^6/uL (4.00-5.40); WHITE BLOOD COUNT 7.1 10^3/uL (4.0-10.0)
[2023-06-24] MEDS ORDERED: DIGOXIN INJ 0.5 MG/2 ML AMP IV ONE (07:15)
[2023-06-24 07:57] VITALS: BP 173/63; TEMP 97.6; O2SAT 97
[2023-06-24] MEDS: CHOLESTYRAMINE 4GM PWD PKT PO SCH ×2 (07:57→21:07)
[2023-06-24 10:00] VITALS: BP 150/97
[2023-06-24] MEDS: diphenhydrAMINE CREAM 30GM TOP SCH ×4 (11:01→21:00)
[2023-06-24 12:35] VITALS: BP 167/95; TEMP 97.6; O2SAT 97
[2023-06-24] MEDS: DIGOXIN INJ 0.5 MG/2 ML AMP IV SCH ×2 (14:24→21:10)
[2023-06-24 16:05] VITALS: BP 168/66; TEMP 99
[2023-06-24 19:31] VITALS: BP 166/67; TEMP 97.8; O2SAT 97
[2023-06-24] MEDS: OLANZapine 10 MG TAB PO SCH (21:07)
[2023-06-24] MEDS: SERTRALINE 100 MG TAB PO SCH (21:07)
[2023-06-24] MEDS: QUEtiapine FUMARATE 100 MG TAB PO SCH (21:09)
[2023-06-25] VITALS (9 sets, daily range): BP systolic 138–183; BP diastolic 67–90; TEMP 97.5–98.4; O2SAT 96–98
[2023-06-25] MEDS: HYDROCORTISONE 100MG/2ML VIAL IV SCH ×3 (01:21→17:07)
[2023-06-25] MEDS: propylthiouraciL 50 MG TAB PO SCH ×7 (01:21→22:37)
[2023-06-25] MEDS: PROPRANOLOL 20 MG TAB PO SCH ×6 (01:23→20:17)
[2023-06-25] MEDS: POTASSIUM IODIDE 30 ML BTL PO SCH ×5 (01:30→22:38)
[2023-06-25 07:07] LABS: BASO % 0.1 % (0.0-1.0); EOS % 0.5 % (0.0-3.0); HEMATOCRIT 29.8 % (36.0-47.0); HEMOGLOBIN 9.6 g/dl (12.0-15.5); LYMPH # 2.4 10^3/uL (1.5-5.0); LYMPH % 31.8 % (24.0-44.0); MEAN CORPUSCULAR HEMOGLOBIN 27.3 pg (27.0-33.0); MEAN CORPUSCULAR HGB CONC 32.2 g/dl (32.0-36.5); MEAN CORPUSCULAR VOLUME 84.7 fl (80.0-96.0); MONO # 0.4 10^3/uL (0.0-0.8); MONO % 5.1 % (2.0-8.0); NEUTROPHILS # 4.6 10^3/uL (1.5-8.5); NEUTROPHILS % 62.2 % (36.0-66.0); PLATELET COUNT, AUTOMATED 224 10^3/uL (150-450); RED BLOOD COUNT 3.52 10^6/uL (4.00-5.40); WHITE BLOOD COUNT 7.5 10^3/uL (4.0-10.0)
[2023-06-25 07:36] LABS: DIGOXIN LEVEL 0.5 NG/ML (0.8-2.0)
[2023-06-25 08:03] LABS: THYROXINE (T4) 39.9 UG/DL (4.5-10.9)
[2023-06-25 08:05] LABS: T UPTAKE 70.8 % (22.5-37.0); THYROID STIMULATING HORMONE 0.008 uIU/ML (0.55-4.78)
[2023-06-25] MEDS ORDERED: dilTIAZem 25MG/5ML VIAL IV STA (08:28)
[2023-06-25 08:56] LABS: THYROXINE (T4) 31.2 UG/DL (4.5-10.9)
[2023-06-25] MEDS: CHOLESTYRAMINE 4GM PWD PKT PO SCH ×2 (08:56→22:38)
[2023-06-25] MEDS ORDERED: atenoloL 50 MG TAB PO SCH (09:00)
[2023-06-25] MEDS ORDERED: diltiaZEM 125 MG in NS 100 ML IV SCH ×4 (10:00)
[2023-06-25] MEDS: diphenhydrAMINE CREAM 30GM TOP SCH ×4 (10:20→20:18)
[2023-06-25] MEDS ORDERED: DIGOXIN INJ 0.5 MG/2 ML AMP IV STA (13:55)
[2023-06-25] MEDS ORDERED: DIGOXIN INJ 0.5 MG/2 ML AMP IV SCH (15:35)
[2023-06-25] MEDS: cloNIDine 0.1MG TABLET PO SCH ×2 (18:40→20:17)
[2023-06-25] MEDS: QUEtiapine FUMARATE 100 MG TAB PO SCH (20:17)
[2023-06-25] MEDS: SERTRALINE 100 MG TAB PO SCH (20:17)
[2023-06-25] MEDS: OLANZapine 10 MG TAB PO SCH (20:17)
[2023-06-25] MEDS: DIGOXIN INJ 0.5 MG/2 ML AMP IV SCH (20:18)
[2023-06-26] MEDS: PROPRANOLOL 20 MG TAB PO SCH ×6 (00:53→20:36)
[2023-06-26] MEDS: cloNIDine 0.1MG TABLET PO SCH ×2 (00:53→05:14)
[2023-06-26] MEDS ORDERED: diltiaZEM 125 MG in NS 100 ML IV SCH (02:00)
[2023-06-26] MEDS: HYDROCORTISONE 100MG/2ML VIAL IV SCH ×3 (02:52→17:12)
[2023-06-26] MEDS: DIGOXIN INJ 0.5 MG/2 ML AMP IV SCH ×3 (02:52→20:37)
[2023-06-26] MEDS: propylthiouraciL 50 MG TAB PO SCH ×6 (02:52→22:00)
[2023-06-26 03:34] VITALS: BP 157/60; TEMP 97.8; O2SAT 96
[2023-06-26 03:44] VITALS: BP_SYST 110; BP_SYST 157; BP_DIAS 60; BP_DIAS 62; TEMP 97.8; TEMP 98.4; O2SAT 94; O2SAT 96
[2023-06-26] MEDS: POTASSIUM IODIDE 30 ML BTL PO SCH ×4 (04:44→22:00)
[2023-06-26 06:53] LABS: BASO % 0.2 % (0.0-1.0); EOS % 0.4 % (0.0-3.0); HEMATOCRIT 32.3 % (36.0-47.0); HEMOGLOBIN 10.3 g/dl (12.0-15.5); LYMPH # 1.8 10^3/uL (1.5-5.0); LYMPH % 19.8 % (24.0-44.0); MEAN CORPUSCULAR HEMOGLOBIN 27.1 pg (27.0-33.0); MEAN CORPUSCULAR HGB CONC 31.9 g/dl (32.0-36.5); MONO # 0.3 10^3/uL (0.0-0.8); MONO % 2.7 % (2.0-8.0); NEUTROPHILS % 76.4 % (36.0-66.0); PLATELET COUNT, AUTOMATED 224 10^3/uL (150-450); WHITE BLOOD COUNT 9.2 10^3/uL (4.0-10.0)
[2023-06-26 07:15] LABS: DIGOXIN LEVEL 0.8 NG/ML (0.8-2.0)
[2023-06-26 08:00] VITALS: BP 128/58; TEMP 98.6; O2SAT 98
[2023-06-26] MEDS ORDERED: DIGOXIN INJ 0.5 MG/2 ML AMP IV ONE (08:30)
[2023-06-26] MEDS ORDERED: dilTIAZem 120MG **CD** CAPSULE PO ONE (08:30)
[2023-06-26 08:50] LABS: BLOOD UREA NITROGEN 14 MG/DL (9-23); CALCIUM LEVEL 8.7 MG/DL (8.5-10.1); CARBON DIOXIDE LEVEL 25 MMOL/L (20-31); CHLORIDE LEVEL 108 MMOL/L (98-107); CREATININE FOR GFR 0.49 MG/DL (0.55-1.30); GLOMERULAR FILTRATION RATE > 60.0 (>60); GLUCOSE, FASTING 165 MG/DL (60-100); MAGNESIUM LEVEL 1.7 MG/DL (1.8-2.4); SODIUM LEVEL 140 MMOL/L (136-145)
[2023-06-26] MEDS: diphenhydrAMINE CREAM 30GM TOP SCH ×4 (09:23→20:40)
[2023-06-26 09:47] LABS: FREE T4 7.27 NG/DL (0.89-1.76)
[2023-06-26 10:55] LABS: FREE T3 8.8 PG/ML (2.3-4.2)
[2023-06-26] MEDS: CHOLESTYRAMINE 4GM PWD PKT PO SCH ×2 (11:19→22:00)
[2023-06-26 12:20] VITALS: BP 130/71; TEMP 97.6; O2SAT 99
[2023-06-26] MEDS ORDERED: MAG SULF 1GM/100ML (MAG RUN) 1 GM in IV 1 EA IV ONE (14:00)
[2023-06-26 16:03] VITALS: BP 120/55; TEMP 98.8; O2SAT 97
[2023-06-26 17:07] LABS: THYROID STIMULATING IMMUNOGLOB 9.63 IU/L (0.00-0.55); TSH RECEPTOR ASSAY 24.6 IU/L (0.00-1.75)
[2023-06-26 20:00] VITALS: BP 128/60; TEMP 98.5; O2SAT 98
[2023-06-26] MEDS: OLANZapine 10 MG TAB PO SCH (20:37)
[2023-06-26] MEDS: QUEtiapine FUMARATE 100 MG TAB PO SCH (20:37)
[2023-06-26] MEDS: SERTRALINE 100 MG TAB PO SCH (20:40)
[2023-06-27] VITALS: BP 129/64; TEMP 98.8; O2SAT 99
[2023-06-27] MEDS: propylthiouraciL 50 MG TAB PO SCH ×5 (01:42→20:45)
[2023-06-27] MEDS: HYDROCORTISONE 100MG/2ML VIAL IV SCH ×3 (01:42→20:46)
[2023-06-27] MEDS: PROPRANOLOL 20 MG TAB PO SCH ×6 (01:42→20:45)
[2023-06-27] MEDS: POTASSIUM IODIDE 30 ML BTL PO SCH ×4 (04:59→21:07)
[2023-06-27 06:49] LABS: BASO % 0.2 % (0.0-1.0); EOS % 0.3 % (0.0-3.0); HEMATOCRIT 32.2 % (36.0-47.0); HEMOGLOBIN 10.2 g/dl (12.0-15.5); LYMPH % 20.2 % (24.0-44.0); MEAN CORPUSCULAR HEMOGLOBIN 27.1 pg (27.0-33.0); MEAN CORPUSCULAR HGB CONC 31.7 g/dl (32.0-36.5); MEAN CORPUSCULAR VOLUME 85.4 fl (80.0-96.0); MONO # 0.4 10^3/uL (0.0-0.8); MONO % 3.7 % (2.0-8.0); NEUTROPHILS # 7.4 10^3/uL (1.5-8.5); NEUTROPHILS % 75.1 % (36.0-66.0); PLATELET COUNT, AUTOMATED 236 10^3/uL (150-450); RED BLOOD COUNT 3.77 10^6/uL (4.00-5.40); WHITE BLOOD COUNT 9.8 10^3/uL (4.0-10.0)
[2023-06-27 07:02] LABS: DIGOXIN LEVEL 1.2 NG/ML (0.8-2.0)
[2023-06-27 08:32] VITALS: BP 138/89; TEMP 97.2; O2SAT 98
[2023-06-27] MEDS ORDERED: DIGOXIN INJ 0.5 MG/2 ML AMP IV ONE ×2 (09:00→15:00)
[2023-06-27] MEDS ORDERED: dilTIAZem 120MG **CD** CAPSULE PO SCH (09:00)
[2023-06-27] MEDS ORDERED: dilTIAZem **CD** 180MG CAP PO ONE (09:00)
[2023-06-27] MEDS: diphenhydrAMINE CREAM 30GM TOP SCH ×4 (09:19→21:00)
[2023-06-27 09:27] LABS: BLOOD UREA NITROGEN 12 MG/DL (9-23); CALCIUM LEVEL 8.9 MG/DL (8.5-10.1); CARBON DIOXIDE LEVEL 25 MMOL/L (20-31); CHLORIDE LEVEL 109 MMOL/L (98-107); CREATININE FOR GFR 0.52 MG/DL (0.55-1.30); GLOMERULAR FILTRATION RATE > 60.0 (>60); GLUCOSE, FASTING 112 MG/DL (60-100); POTASSIUM SERUM 4.3 MMOL/L (3.5-5.1); SODIUM LEVEL 141 MMOL/L (136-145)
[2023-06-27 09:28] LABS: T UPTAKE 57.6 % (22.5-37.0)
[2023-06-27 09:29] LABS: FREE T4 6.68 NG/DL (0.89-1.76); THYROID STIMULATING HORMONE 0.008 uIU/ML (0.55-4.78); THYROXINE (T4) 26.1 UG/DL (4.5-10.9)
[2023-06-27 09:30] LABS: FREE T3 7.9 PG/ML (2.3-4.2)
[2023-06-27 10:32] LABS: MAGNESIUM LEVEL 1.8 MG/DL (1.8-2.4)
[2023-06-27] MEDS: CHOLESTYRAMINE 4GM PWD PKT PO SCH ×2 (10:53→15:57)
[2023-06-27] MEDS ORDERED: MAG SULF 1GM/100ML (MAG RUN) 1 GM in IV 1 EA IV ONE (11:00)
[2023-06-27 12:36] VITALS: BP 135/79; TEMP 97.8; O2SAT 97
[2023-06-27 15:46] VITALS: BP 129/59; TEMP 97.2; O2SAT 97
[2023-06-27 20:08] VITALS: BP 142/72; TEMP 97.9; O2SAT 96
[2023-06-27] MEDS: OLANZapine 10 MG TAB PO SCH (20:44)
[2023-06-27] MEDS: SERTRALINE 100 MG TAB PO SCH (20:45)
[2023-06-27] MEDS: QUEtiapine FUMARATE 100 MG TAB PO SCH (20:45)
[2023-06-27] MEDS: dilTIAZem 120MG **CD** CAPSULE PO SCH (20:46)
[2023-06-28] MEDS: CHOLESTYRAMINE 4GM PWD PKT PO SCH ×5 (00:01→23:05)
[2023-06-28] MEDS: PROPRANOLOL 20 MG TAB PO SCH ×6 (01:52→21:05)
[2023-06-28] MEDS: POTASSIUM IODIDE 30 ML BTL PO SCH ×4 (05:10→21:06)
[2023-06-28 05:12] VITALS: BP 118/70; TEMP 97.9; O2SAT 96
[2023-06-28 07:21] LABS: BASO % 0.3 % (0.0-1.0); EOS # 0.2 10^3/uL (0.0-0.5); HEMATOCRIT 31.9 % (36.0-47.0); HEMOGLOBIN 10.1 g/dl (12.0-15.5); LYMPH # 3.7 10^3/uL (1.5-5.0); MEAN CORPUSCULAR HEMOGLOBIN 27.2 pg (27.0-33.0); MEAN CORPUSCULAR HGB CONC 31.7 g/dl (32.0-36.5); MONO # 0.8 10^3/uL (0.0-0.8); MONO % 7.2 % (2.0-8.0); NEUTROPHILS % 55.8 % (36.0-66.0); PLATELET COUNT, AUTOMATED 237 10^3/uL (150-450); RED BLOOD COUNT 3.71 10^6/uL (4.00-5.40); WHITE BLOOD COUNT 10.7 10^3/uL (4.0-10.0)
[2023-06-28 07:44] LABS: BLOOD UREA NITROGEN 11 MG/DL (9-23); CALCIUM LEVEL 8.9 MG/DL (8.5-10.1); CARBON DIOXIDE LEVEL 27 MMOL/L (20-31); CHLORIDE LEVEL 109 MMOL/L (98-107); CREATININE FOR GFR 0.54 MG/DL (0.55-1.30); GLOMERULAR FILTRATION RATE > 60.0 (>60); GLUCOSE, FASTING 74 MG/DL (60-100); POTASSIUM SERUM 3.8 MMOL/L (3.5-5.1); SODIUM LEVEL 142 MMOL/L (136-145)
[2023-06-28] MEDS ORDERED: DIGOXIN INJ 0.5 MG/2 ML AMP IV STA (07:46)
[2023-06-28] MEDS ORDERED: NS 1,000 ML IV ONE (07:50)
[2023-06-28 08:00] VITALS: BP 122/72; TEMP 98; O2SAT 98
[2023-06-28] MEDS: MIDODRINE 5 MG TAB PO SCH ×3 (08:28→17:06)
[2023-06-28] MEDS: HYDROCORTISONE 100MG/2ML VIAL IV SCH (10:35)
[2023-06-28] MEDS: propylthiouraciL 50 MG TAB PO SCH ×3 (10:37→21:06)
[2023-06-28] MEDS: dilTIAZem **CD** 180MG CAP PO SCH (10:38)
[2023-06-28] MEDS: diphenhydrAMINE CREAM 30GM TOP SCH ×4 (10:39→21:07)
[2023-06-28] MEDS: DIGOXIN INJ 0.5 MG/2 ML AMP IV SCH ×2 (15:14→21:09)
[2023-06-28 20:08] VITALS: BP 138/70; TEMP 97.8; O2SAT 99
[2023-06-28] MEDS: OLANZapine 10 MG TAB PO SCH (21:05)
[2023-06-28] MEDS: QUEtiapine FUMARATE 100 MG TAB PO SCH (21:05)
[2023-06-28] MEDS: SERTRALINE 100 MG TAB PO SCH (21:05)
[2023-06-28] MEDS: dilTIAZem 120MG **CD** CAPSULE PO SCH (21:06)
[2023-06-28] MEDS: HYDROCORTISONE 10 MG TAB PO SCH (21:25)
[2023-06-29] MEDS: PROPRANOLOL 20 MG TAB PO SCH ×6 (02:12→21:55)
[2023-06-29] MEDS: POTASSIUM IODIDE 30 ML BTL PO SCH ×4 (03:46→22:07)
[2023-06-29 03:47] VITALS: BP 138/60; TEMP 98.8; O2SAT 98
[2023-06-29 07:39] VITALS: BP 148/65; TEMP 96.8; O2SAT 97
[2023-06-29] MEDS: MIDODRINE 5 MG TAB PO SCH ×3 (08:00→16:00)
[2023-06-29 08:21] LABS: BASO % 0.2 % (0.0-1.0); EOS # 0.2 10^3/uL (0.0-0.5); HEMATOCRIT 34.5 % (36.0-47.0); HEMOGLOBIN 10.8 g/dl (12.0-15.5); LYMPH # 3.2 10^3/uL (1.5-5.0); LYMPH % 31.9 % (24.0-44.0); MEAN CORPUSCULAR HEMOGLOBIN 26.7 pg (27.0-33.0); MEAN CORPUSCULAR HGB CONC 31.3 g/dl (32.0-36.5); MEAN CORPUSCULAR VOLUME 85.2 fl (80.0-96.0); MONO # 0.7 10^3/uL (0.0-0.8); MONO % 6.5 % (2.0-8.0); NEUTROPHILS % 58.9 % (36.0-66.0); PLATELET COUNT, AUTOMATED 238 10^3/uL (150-450); RED BLOOD COUNT 4.05 10^6/uL (4.00-5.40); WHITE BLOOD COUNT 10.2 10^3/uL (4.0-10.0)
[2023-06-29 08:25] LABS: THYROID STIMULATING HORMONE 0.008 uIU/ML (0.55-4.78)
[2023-06-29 08:26] LABS: FREE T4 5.57 NG/DL (0.89-1.76)
[2023-06-29] MEDS ORDERED: DIGOXIN INJ 0.5 MG/2 ML AMP IV STA (08:58)
[2023-06-29] MEDS: propylthiouraciL 50 MG TAB PO SCH ×3 (09:18→21:54)
[2023-06-29] MEDS: HYDROCORTISONE 10 MG TAB PO SCH ×2 (09:18→21:55)
[2023-06-29] MEDS: dilTIAZem **CD** 180MG CAP PO SCH (09:19)
[2023-06-29] MEDS: diphenhydrAMINE CREAM 30GM TOP SCH ×4 (09:20→21:56)
[2023-06-29 09:24] LABS: ALBUMIN 2.6 G/DL (3.2-5.2); ALKALINE PHOSPHATASE 103 U/L (46-116); ALT/SGPT 51 U/L (7.0-40); AST/SGOT 11 U/L (<34); BILIRUBIN,DIRECT 0.1 MG/DL (<0.4); BILIRUBIN,TOTAL 0.4 MG/DL (0.3-1.2); BLOOD UREA NITROGEN 8 MG/DL (9-23); CARBON DIOXIDE LEVEL 26 MMOL/L (20-31); CHLORIDE LEVEL 108 MMOL/L (98-107); CREATININE FOR GFR 0.61 MG/DL (0.55-1.30); DIGOXIN LEVEL 1.6 NG/ML (0.8-2.0); GLOMERULAR FILTRATION RATE > 60.0 (>60); GLUCOSE, FASTING 70 MG/DL (60-100); SODIUM LEVEL 142 MMOL/L (136-145)
[2023-06-29 09:41] LABS: FREE T3 11.2 PG/ML (2.3-4.2)
[2023-06-29] MEDS: CHOLESTYRAMINE 4GM PWD PKT PO SCH ×4 (10:14→21:56)
[2023-06-29 15:47] VITALS: BP 138/68; TEMP 97.6; O2SAT 98
[2023-06-29] MEDS ORDERED: DIGOXIN INJ 0.5 MG/2 ML AMP IV ONE (18:00)
[2023-06-29 19:43] VITALS: BP 146/70; TEMP 96.7; O2SAT 98
[2023-06-29] MEDS: OLANZapine 10 MG TAB PO SCH (21:54)
[2023-06-29] MEDS: SERTRALINE 100 MG TAB PO SCH (21:54)
[2023-06-29] MEDS: dilTIAZem 120MG **CD** CAPSULE PO SCH (21:54)
[2023-06-29] MEDS: QUEtiapine FUMARATE 100 MG TAB PO SCH (21:55)
[2023-06-30] VITALS (7 sets, daily range): BP systolic 120–159; BP diastolic 52–83; TEMP 97–99.3; O2SAT 93–100
[2023-06-30] MEDS: PROPRANOLOL 20 MG TAB PO SCH ×6 (01:43→20:17)
[2023-06-30] MEDS: POTASSIUM IODIDE 30 ML BTL PO SCH ×4 (04:19→21:39)
[2023-06-30 07:38] LABS: BASO % 0.2 % (0.0-1.0); EOS # 0.2 10^3/uL (0.0-0.5); EOS % 1.9 % (0.0-3.0); HEMATOCRIT 34.2 % (36.0-47.0); HEMOGLOBIN 11.1 g/dl (12.0-15.5); LYMPH # 3.2 10^3/uL (1.5-5.0); LYMPH % 26.6 % (24.0-44.0); MEAN CORPUSCULAR HEMOGLOBIN 27.5 pg (27.0-33.0); MEAN CORPUSCULAR HGB CONC 32.5 g/dl (32.0-36.5); MEAN CORPUSCULAR VOLUME 84.9 fl (80.0-96.0); MONO # 0.7 10^3/uL (0.0-0.8); MONO % 5.6 % (2.0-8.0); NEUTROPHILS # 7.8 10^3/uL (1.5-8.5); PLATELET COUNT, AUTOMATED 228 10^3/uL (150-450); RED BLOOD COUNT 4.03 10^6/uL (4.00-5.40)
[2023-06-30] MEDS ORDERED: MIDODRINE 5 MG TAB PO ONE (07:40)
[2023-06-30 08:03] LABS: BLOOD UREA NITROGEN 7 MG/DL (9-23); CALCIUM LEVEL 9.1 MG/DL (8.5-10.1); CARBON DIOXIDE LEVEL 26 MMOL/L (20-31); CHLORIDE LEVEL 108 MMOL/L (98-107); CREATININE FOR GFR 0.54 MG/DL (0.55-1.30); GLOMERULAR FILTRATION RATE > 60.0 (>60); GLUCOSE, FASTING 75 MG/DL (60-100); SODIUM LEVEL 142 MMOL/L (136-145)
[2023-06-30] MEDS: propylthiouraciL 50 MG TAB PO SCH ×3 (08:17→20:17)
[2023-06-30] MEDS: MIDODRINE 5 MG TAB PO SCH ×3 (08:17→16:49)
[2023-06-30] MEDS: dilTIAZem **CD** 180MG CAP PO SCH (08:17)
[2023-06-30] MEDS: diphenhydrAMINE CREAM 30GM TOP SCH ×4 (09:00→20:18)
[2023-06-30 09:02] LABS: CK-MB VALUE MASS < 1.0 NG/ML (<3.6)
[2023-06-30 09:03] LABS: CPK CREATINE PHOSPHOKINASE 33 U/L (34-145); MB/CK RELATIVE INDEX 3.03 (< OR =4)
[2023-06-30] MEDS: CHOLESTYRAMINE 4GM PWD PKT PO SCH ×5 (09:33→22:58)
[2023-06-30] MEDS: HYDROCORTISONE 10 MG TAB PO SCH ×2 (11:21→21:39)
[2023-06-30 12:21] LABS: CK-MB VALUE MASS < 1.0 NG/ML (<3.6); CPK CREATINE PHOSPHOKINASE 34 U/L (34-145); MB/CK RELATIVE INDEX 2.94 (< OR =4)
[2023-06-30] MEDS ORDERED: DIGOXIN INJ 0.5 MG/2 ML AMP IV ONE ×2 (13:00→20:00)
[2023-06-30 20:14] LABS: CK-MB VALUE MASS < 1.0 NG/ML (<3.6)
[2023-06-30 20:16] LABS: CPK CREATINE PHOSPHOKINASE 29 U/L (34-145); MB/CK RELATIVE INDEX 3.44 (< OR =4)
[2023-06-30] MEDS: OLANZapine 10 MG TAB PO SCH (20:17)
[2023-06-30] MEDS: QUEtiapine FUMARATE 100 MG TAB PO SCH (20:18)
[2023-06-30] MEDS: SERTRALINE 100 MG TAB PO SCH (20:18)
[2023-06-30] MEDS: dilTIAZem 120MG **CD** CAPSULE PO SCH (21:39)
[2023-06-30] MEDS ORDERED: MOM 30ML SUSPENSION UDC PO PRN (23:35)
[2023-07-01] MEDS: PROPRANOLOL 20 MG TAB PO SCH ×6 (00:32→21:39)
[2023-07-01] MEDS: POTASSIUM IODIDE 30 ML BTL PO SCH ×4 (04:54→21:39)
[2023-07-01 05:00] VITALS: BP 127/66; TEMP 97.5; O2SAT 98
[2023-07-01 06:30] LABS: BASO % 0.3 % (0.0-1.0); EOS # 0.2 10^3/uL (0.0-0.5); EOS % 1.9 % (0.0-3.0); HEMATOCRIT 36.2 % (36.0-47.0); HEMOGLOBIN 11.7 g/dl (12.0-15.5); LYMPH # 3.5 10^3/uL (1.5-5.0); LYMPH % 30.6 % (24.0-44.0); MEAN CORPUSCULAR HEMOGLOBIN 27.2 pg (27.0-33.0); MEAN CORPUSCULAR HGB CONC 32.3 g/dl (32.0-36.5); MEAN CORPUSCULAR VOLUME 84.2 fl (80.0-96.0); MONO # 0.7 10^3/uL (0.0-0.8); MONO % 5.8 % (2.0-8.0); PLATELET COUNT, AUTOMATED 259 10^3/uL (150-450); WHITE BLOOD COUNT 11.4 10^3/uL (4.0-10.0)
[2023-07-01 06:40] LABS: BLOOD UREA NITROGEN 9 MG/DL (9-23); CALCIUM LEVEL 9.4 MG/DL (8.5-10.1); CARBON DIOXIDE LEVEL 26 MMOL/L (20-31); CHLORIDE LEVEL 104 MMOL/L (98-107); CREATININE FOR GFR 0.58 MG/DL (0.55-1.30); DIGOXIN LEVEL 2.1 NG/ML (0.8-2.0); GLOMERULAR FILTRATION RATE > 60.0 (>60); GLUCOSE, FASTING 77 MG/DL (60-100); MAGNESIUM LEVEL 1.8 MG/DL (1.8-2.4); POTASSIUM SERUM 4.3 MMOL/L (3.5-5.1); SODIUM LEVEL 138 MMOL/L (136-145)
[2023-07-01 06:43] LABS: FREE T3 9.7 PG/ML (2.3-4.2); THYROID STIMULATING HORMONE 0.008 uIU/ML (0.55-4.78)
[2023-07-01] MEDS: propylthiouraciL 50 MG TAB PO SCH ×3 (08:49→22:04)
[2023-07-01] MEDS: HYDROCORTISONE 10 MG TAB PO SCH ×2 (08:50→22:15)
[2023-07-01] MEDS: MIDODRINE 5 MG TAB PO SCH ×3 (08:50→16:00)
[2023-07-01] MEDS: dilTIAZem **CD** 180MG CAP PO SCH (08:50)
[2023-07-01] MEDS: diphenhydrAMINE CREAM 30GM TOP SCH ×4 (08:51→21:38)
[2023-07-01] MEDS ORDERED: SENOKOT S TAB PO PRN (09:25)
[2023-07-01] MEDS ORDERED: MOM 30ML SUSPENSION UDC PO PRN (09:30)
[2023-07-01] MEDS ORDERED: FLEET ENEMA PR PRN (09:30)
[2023-07-01] MEDS: CHOLESTYRAMINE 4GM PWD PKT PO SCH ×3 (10:00→21:36)
[2023-07-01] MEDS ORDERED: SENOKOT S TAB PO ONE (10:00)
[2023-07-01] MEDS: MIRALAX *UNIT DOSE* 17GM PACKET PO SCH ×2 (10:12→16:00)
[2023-07-01 14:00] VITALS: BP 137/87; TEMP 98.1; O2SAT 98
[2023-07-01 19:59] VITALS: BP 135/79; TEMP 97.9; O2SAT 99
[2023-07-01] MEDS: dilTIAZem 120MG **CD** CAPSULE PO SCH (21:00)
[2023-07-01] MEDS ORDERED: MIRALAX *UNIT DOSE* 17GM PACKET PO PRN (21:00)
[2023-07-01] MEDS: SERTRALINE 100 MG TAB PO SCH (21:36)
[2023-07-01] MEDS: OLANZapine 10 MG TAB PO SCH (21:37)
[2023-07-01] MEDS: QUEtiapine FUMARATE 100 MG TAB PO SCH (21:59)
[2023-07-02] MEDS: PROPRANOLOL 20 MG TAB PO SCH ×6 (01:00→20:50)
[2023-07-02] MEDS: CHOLESTYRAMINE 4GM PWD PKT PO SCH ×4 (05:00→22:00)
[2023-07-02] MEDS: POTASSIUM IODIDE 30 ML BTL PO SCH ×4 (05:08→21:18)
[2023-07-02 05:49] VITALS: BP 109/57; TEMP 97.9; O2SAT 98
[2023-07-02 06:29] LABS: BASO % 0.1 % (0.0-1.0); EOS # 0.2 10^3/uL (0.0-0.5); EOS % 1.8 % (0.0-3.0); HEMATOCRIT 36.7 % (36.0-47.0); HEMOGLOBIN 11.6 g/dl (12.0-15.5); LYMPH # 3.1 10^3/uL (1.5-5.0); LYMPH % 32.5 % (24.0-44.0); MEAN CORPUSCULAR HEMOGLOBIN 26.7 pg (27.0-33.0); MEAN CORPUSCULAR HGB CONC 31.6 g/dl (32.0-36.5); MEAN CORPUSCULAR VOLUME 84.4 fl (80.0-96.0); MONO # 0.6 10^3/uL (0.0-0.8); MONO % 6.2 % (2.0-8.0); NEUTROPHILS # 5.6 10^3/uL (1.5-8.5); PLATELET COUNT, AUTOMATED 245 10^3/uL (150-450); RED BLOOD COUNT 4.35 10^6/uL (4.00-5.40); WHITE BLOOD COUNT 9.5 10^3/uL (4.0-10.0)
[2023-07-02 06:52] LABS: FREE T4 3.85 NG/DL (0.89-1.76)
[2023-07-02 06:53] LABS: FREE T3 8.5 PG/ML (2.3-4.2); THYROID STIMULATING HORMONE 0.008 uIU/ML (0.55-4.78)
[2023-07-02 06:57] LABS: BLOOD UREA NITROGEN 10 MG/DL (9-23); CALCIUM LEVEL 9.5 MG/DL (8.5-10.1); CARBON DIOXIDE LEVEL 26 MMOL/L (20-31); CHLORIDE LEVEL 104 MMOL/L (98-107); CREATININE FOR GFR 0.59 MG/DL (0.55-1.30); DIGOXIN LEVEL 1.3 NG/ML (0.8-2.0); GLOMERULAR FILTRATION RATE > 60.0 (>60); GLUCOSE, FASTING 82 MG/DL (60-100); MAGNESIUM LEVEL 1.9 MG/DL (1.8-2.4); POTASSIUM SERUM 4.2 MMOL/L (3.5-5.1); SODIUM LEVEL 138 MMOL/L (136-145)
[2023-07-02] MEDS: dilTIAZem **CD** 180MG CAP PO SCH (09:27)
[2023-07-02] MEDS: diphenhydrAMINE CREAM 30GM TOP SCH ×4 (09:28→20:51)
[2023-07-02] MEDS: propylthiouraciL 50 MG TAB PO SCH ×3 (09:34→20:46)
[2023-07-02] MEDS: HYDROCORTISONE 10 MG TAB PO SCH ×2 (13:07→20:45)
[2023-07-02 14:00] VITALS: BP 131/68; TEMP 98.2; O2SAT 96
[2023-07-02] MEDS: OLANZapine 10 MG TAB PO SCH (20:46)
[2023-07-02] MEDS: SERTRALINE 100 MG TAB PO SCH (20:47)
[2023-07-02] MEDS: QUEtiapine FUMARATE 100 MG TAB PO SCH (20:47)
[2023-07-02] MEDS: dilTIAZem 120MG **CD** CAPSULE PO SCH (20:50)
[2023-07-02 21:00] VITALS: BP 150/83; TEMP 98.1; O2SAT 96
[2023-07-03] MEDS: PROPRANOLOL 20 MG TAB PO SCH ×6 (01:00→21:15)
[2023-07-03 04:20] VITALS: BP 137/73
[2023-07-03] MEDS: POTASSIUM IODIDE 30 ML BTL PO SCH ×4 (04:32→21:17)
[2023-07-03] MEDS: CHOLESTYRAMINE 4GM PWD PKT PO SCH ×4 (05:00→21:19)
[2023-07-03 06:26] LABS: BLOOD UREA NITROGEN 10 MG/DL (9-23); CALCIUM LEVEL 8.9 MG/DL (8.5-10.1); CARBON DIOXIDE LEVEL 26 MMOL/L (20-31); CHLORIDE LEVEL 108 MMOL/L (98-107); CREATININE FOR GFR 0.58 MG/DL (0.55-1.30); DIGOXIN LEVEL 0.9 NG/ML (0.8-2.0); GLOMERULAR FILTRATION RATE > 60.0 (>60); GLUCOSE, FASTING 87 MG/DL (60-100); MAGNESIUM LEVEL 1.8 MG/DL (1.8-2.4); POTASSIUM SERUM 3.9 MMOL/L (3.5-5.1); SODIUM LEVEL 142 MMOL/L (136-145)
[2023-07-03 06:27] LABS: FREE T4 3.21 NG/DL (0.89-1.76); THYROID STIMULATING HORMONE 0.008 uIU/ML (0.55-4.78)
[2023-07-03 06:33] LABS: FREE T3 7.7 PG/ML (2.3-4.2)
[2023-07-03] MEDS: diphenhydrAMINE CREAM 30GM TOP SCH ×4 (09:00→21:19)
[2023-07-03] MEDS: propylthiouraciL 50 MG TAB PO SCH ×3 (09:08→21:15)
[2023-07-03] MEDS: HYDROCORTISONE 10 MG TAB PO SCH ×2 (09:09→21:15)
[2023-07-03] MEDS: dilTIAZem **CD** 180MG CAP PO SCH (09:10)
[2023-07-03] MEDS ORDERED: CARD180C4 PO (10:13)
[2023-07-03] MEDS ORDERED: CARD120C3 PO (10:13)
[2023-07-03] MEDS ORDERED: CHOL4PW PO (10:13)
[2023-07-03] MEDS ORDERED: SSKI1SOL PO (10:13)
[2023-07-03] MEDS ORDERED: PROP50TAB PO (10:13)
[2023-07-03] MEDS ORDERED: PROP20TA PO (10:13)
[2023-07-03 14:00] VITALS: BP 130/65; TEMP 97.5; O2SAT 98
[2023-07-03 20:00] VITALS: BP 141/70; TEMP 98.1; O2SAT 100
[2023-07-03] MEDS: SERTRALINE 100 MG TAB PO SCH (21:15)
[2023-07-03] MEDS: QUEtiapine FUMARATE 100 MG TAB PO SCH (21:15)
[2023-07-03] MEDS: OLANZapine 10 MG TAB PO SCH (21:15)
[2023-07-03] MEDS: dilTIAZem 120MG **CD** CAPSULE PO SCH (21:18)
[2023-07-04] MEDS: PROPRANOLOL 20 MG TAB PO SCH ×6 (00:46→22:11)
[2023-07-04] MEDS: CHOLESTYRAMINE 4GM PWD PKT PO SCH ×4 (04:51→21:54)
[2023-07-04] MEDS: POTASSIUM IODIDE 30 ML BTL PO SCH (04:56)
[2023-07-04 05:01] VITALS: BP 123/73; TEMP 98.2; O2SAT 98
[2023-07-04 06:32] LABS: BLOOD UREA NITROGEN 8 MG/DL (9-23); CALCIUM LEVEL 8.7 MG/DL (8.5-10.1); CARBON DIOXIDE LEVEL 26 MMOL/L (20-31); CHLORIDE LEVEL 109 MMOL/L (98-107); CREATININE FOR GFR 0.58 MG/DL (0.55-1.30); DIGOXIN LEVEL 0.7 NG/ML (0.8-2.0); GLOMERULAR FILTRATION RATE > 60.0 (>60); GLUCOSE, FASTING 77 MG/DL (60-100); MAGNESIUM LEVEL 1.8 MG/DL (1.8-2.4); SODIUM LEVEL 143 MMOL/L (136-145)
[2023-07-04 06:33] LABS: FREE T4 2.93 NG/DL (0.89-1.76); THYROID STIMULATING HORMONE 0.008 uIU/ML (0.55-4.78)
[2023-07-04 06:36] LABS: FREE T3 7.3 PG/ML (2.3-4.2)
[2023-07-04] MEDS ORDERED: DIGOXIN INJ 0.5 MG/2 ML AMP IV STA (08:11)
[2023-07-04] MEDS ORDERED: MIDODRINE 5 MG TAB PO ONE (09:00)
[2023-07-04] MEDS ORDERED: dilTIAZem 120MG **CD** CAPSULE PO ONE ×2 (09:00→13:25)
[2023-07-04] MEDS: HYDROCORTISONE 10 MG TAB PO SCH ×2 (09:27→22:09)
[2023-07-04] MEDS: propylthiouraciL 50 MG TAB PO SCH ×3 (09:28→22:11)
[2023-07-04] MEDS: diphenhydrAMINE CREAM 30GM TOP SCH ×4 (09:31→22:12)
[2023-07-04] MEDS ORDERED: CORT20TA PO (13:35)
[2023-07-04] MEDS ORDERED: CARD120C3 PO (13:35)
[2023-07-04] MEDS ORDERED: PROP40TA62 PO (13:35)
[2023-07-04] MEDS ORDERED: CHOL4POW26 PO (13:35)
[2023-07-04] MEDS ORDERED: CARD180C4 PO (13:35)
[2023-07-04] MEDS ORDERED: MIDO10TA PO (13:36)
[2023-07-04 14:00] VITALS: BP 144/83; TEMP 97.3; O2SAT 98
[2023-07-04] MEDS ORDERED: SENOKOT S TAB PO ONE (15:30)
[2023-07-04] MEDS: MOM 30ML SUSPENSION UDC PO SCH ×2 (17:37→22:11)
[2023-07-04 20:15] VITALS: BP 146/76; TEMP 98.2; O2SAT 98
[2023-07-04] MEDS ORDERED: FLEET ENEMA PR ONE (22:00)
[2023-07-04] MEDS ORDERED: PILL CUTTER 1 EACH XX ONE (22:02)
[2023-07-04] MEDS: dilTIAZem 120MG **CD** CAPSULE PO SCH (22:08)
[2023-07-04] MEDS: QUEtiapine FUMARATE 100 MG TAB PO SCH (22:10)
[2023-07-04] MEDS: SERTRALINE 100 MG TAB PO SCH (22:10)
[2023-07-04] MEDS: OLANZapine 10 MG TAB PO SCH (22:10)
[2023-07-05] MEDS: PROPRANOLOL 20 MG TAB PO SCH ×3 (01:00→08:21)
[2023-07-05] MEDS: MOM 30ML SUSPENSION UDC PO SCH ×3 (01:15→08:21)
[2023-07-05] MEDS: CHOLESTYRAMINE 4GM PWD PKT PO SCH ×2 (05:00→10:00)
[2023-07-05 05:05] VITALS: BP 138/65; TEMP 97.9; O2SAT 96
[2023-07-05 06:15] LABS: BASO % 0.3 % (0.0-1.0); EOS # 0.2 10^3/uL (0.0-0.5); EOS % 2.8 % (0.0-3.0); HEMATOCRIT 35.8 % (36.0-47.0); HEMOGLOBIN 11.3 g/dl (12.0-15.5); LYMPH # 2.9 10^3/uL (1.5-5.0); LYMPH % 40.7 % (24.0-44.0); MEAN CORPUSCULAR HEMOGLOBIN 26.9 pg (27.0-33.0); MEAN CORPUSCULAR HGB CONC 31.6 g/dl (32.0-36.5); MEAN CORPUSCULAR VOLUME 85.2 fl (80.0-96.0); MONO # 0.6 10^3/uL (0.0-0.8); MONO % 8.3 % (2.0-8.0); NEUTROPHILS # 3.4 10^3/uL (1.5-8.5); NEUTROPHILS % 47.6 % (36.0-66.0); PLATELET COUNT, AUTOMATED 225 10^3/uL (150-450); WHITE BLOOD COUNT 7.2 10^3/uL (4.0-10.0)
[2023-07-05 06:41] LABS: ALBUMIN 2.4 G/DL (3.2-5.2); ALKALINE PHOSPHATASE 101 U/L (46-116); ALT/SGPT 65 U/L (7.0-40); AST/SGOT 18 U/L (<34); BILIRUBIN,TOTAL 0.3 MG/DL (0.3-1.2); BLOOD UREA NITROGEN 8 MG/DL (9-23); CALCIUM LEVEL 8.2 MG/DL (8.5-10.1); CARBON DIOXIDE LEVEL 28 MMOL/L (20-31); CHLORIDE LEVEL 109 MMOL/L (98-107); CREATININE FOR GFR 0.57 MG/DL (0.55-1.30); DIGOXIN LEVEL 0.9 NG/ML (0.8-2.0); GLOMERULAR FILTRATION RATE > 60.0 (>60); GLUCOSE, FASTING 84 MG/DL (60-100); MAGNESIUM LEVEL 1.8 MG/DL (1.8-2.4); POTASSIUM SERUM 4.1 MMOL/L (3.5-5.1); SODIUM LEVEL 143 MMOL/L (136-145); TOTAL PROTEIN 5.8 G/DL (5.7-8.2)
[2023-07-05 06:43] LABS: FREE T4 2.96 NG/DL (0.89-1.76); THYROID STIMULATING HORMONE 0.008 uIU/ML (0.55-4.78)
[2023-07-05 06:46] LABS: FREE T3 7.8 PG/ML (2.3-4.2)
[2023-07-05] MEDS ORDERED: SENO8.6T10 PO (08:13)
[2023-07-05] MEDS ORDERED: MOM30SS PO (08:13)
[2023-07-05 08:21] VITALS: BP 132/89
[2023-07-05] MEDS: propylthiouraciL 50 MG TAB PO SCH (08:21)
[2023-07-05] MEDS: HYDROCORTISONE 10 MG TAB PO SCH (08:21)
[2023-07-05] MEDS: diphenhydrAMINE CREAM 30GM TOP SCH (08:22)
[2023-07-05] MEDS ORDERED: MAGNESIUM CITRATE 300ML BTL PO ONE (08:30)
[2023-07-05] MEDS ORDERED: dilTIAZem 120MG **CD** CAPSULE PO SCH (09:00)
== END 2023-07-05 13:10 | DRG 424 ==
LOC: M ED 17:56 → M ED INP 22:10 → M PCU 06-22 13:02 → M MSPAV 06-30 23:16
PROVIDERS: ADMIT Internal Medicine; ATTEND General Practice
PROC: B246ZZZ Ultrasonography of Right and Left Heart (ICD-10-PCS; principal; 2023-06-30)
DX: E05.01 Thyrotoxicosis with diffuse goiter with thyrotoxic crisis or storm (principal); Z68.42 Body mass index [BMI] 45.0-49.9, adult; E66.01 Morbid (severe) obesity due to excess calories; R00.0 Tachycardia, unspecified; R19.7 Diarrhea, unspecified; F32.A Depression, unspecified; F41.9 Anxiety disorder, unspecified; K59.00 Constipation, unspecified; R00.2 Palpitations; R94.31 Abnormal electrocardiogram [ECG] [EKG]; Z79.899 Other long term (current) drug therapy

== ENCOUNTER → 2023-07-06 | Outpatient (CLI) | payer OTHER ==
[~2023-07-06] MED LIST changes: +.; +CARD120C3 PO; +CARD180C4 PO; +CHOL4POW26 PO; +CHOL4PW PO; +CORT20TA PO; +IBUP-1730 PO; +MIDO10TA PO; +MOM30SS PO; +PROP20TA PO; +PROP40TA62 PO; +PROP50TAB PO; +SENO8.6T10 PO; +SSKI1SOL PO; +ZOLO100T PO
[2023-07-06 11:33] LABS: FREE T3 7.8 PG/ML (2.3-4.2); FREE T4 2.55 NG/DL (0.89-1.76)
[2023-07-06 11:34] LABS: THYROID STIMULATING HORMONE 0.008 uIU/ML (0.55-4.78)
== END ==
LOC: M LAB 09:16
PROVIDERS: ATTEND General Practice
DX: E05.01 Thyrotoxicosis with diffuse goiter with thyrotoxic crisis or storm (principal); Z68.42 Body mass index [BMI] 45.0-49.9, adult; E66.01 Morbid (severe) obesity due to excess calories; R00.0 Tachycardia, unspecified; R19.7 Diarrhea, unspecified; F32.A Depression, unspecified; F41.9 Anxiety disorder, unspecified; K59.00 Constipation, unspecified; R00.2 Palpitations; R94.31 Abnormal electrocardiogram [ECG] [EKG]; Z79.899 Other long term (current) drug therapy

== ENCOUNTER → 2023-07-09 | Outpatient (CLI) | payer OTHER ==
[2023-07-09 11:09] LABS: THYROID STIMULATING HORMONE 0.008 uIU/ML (0.55-4.78)
[2023-07-09 11:10] LABS: FREE T4 2.35 NG/DL (0.89-1.76)
[2023-07-09 11:12] LABS: FREE T3 10.5 PG/ML (2.3-4.2)
== END ==
LOC: M LAB 08:48
PROVIDERS: ATTEND General Practice
DX: E05.01 Thyrotoxicosis with diffuse goiter with thyrotoxic crisis or storm (principal)

== ENCOUNTER → 2023-07-11 | Outpatient (CLI) | payer OTHER ==
[2023-07-11 08:31] LABS: FREE T3 10.5 PG/ML (2.3-4.2)
[2023-07-11 08:32] LABS: FREE T4 2.66 NG/DL (0.89-1.76); THYROID STIMULATING HORMONE 0.008 uIU/ML (0.55-4.78)
== END ==
LOC: M LAB 07:28
PROVIDERS: ATTEND General Practice
DX: E07.9 Disorder of thyroid, unspecified (principal)

== ENCOUNTER → 2023-07-13 | Outpatient (CLI) | payer OTHER ==
[2023-07-13 12:13] LABS: FREE T3 10.3 PG/ML (2.3-4.2); THYROID STIMULATING HORMONE 0.008 uIU/ML (0.55-4.78)
[2023-07-13 12:14] LABS: FREE T4 2.33 NG/DL (0.89-1.76)
== END ==
LOC: M PLALAB 08:50
PROVIDERS: ATTEND General Practice
DX: E07.9 Disorder of thyroid, unspecified (principal)

== ENCOUNTER → 2023-07-16 | Outpatient (CLI) | payer OTHER ==
[2023-07-16 15:48] LABS: FREE T4 2.37 NG/DL (0.89-1.76)
[2023-07-16 15:49] LABS: THYROID STIMULATING HORMONE 0.008 uIU/ML (0.55-4.78)
[2023-07-16 15:52] LABS: FREE T3 10.9 PG/ML (2.3-4.2)
== END ==
LOC: M PLALAB 08:46
PROVIDERS: ATTEND General Practice
DX: E07.9 Disorder of thyroid, unspecified (principal)

== ENCOUNTER → 2023-07-24 | Outpatient (REF) | payer OTHER ==
[2023-07-24 14:57] LABS: FREE T4 1.78 NG/DL (0.89-1.76); THYROID STIMULATING HORMONE 0.008 uIU/ML (0.55-4.78)
[2023-07-24 14:59] LABS: TOTAL T3 348.5 NG/DL (60.0-181.0)
== END ==
LOC: M LABWUC 13:35
PROVIDERS: ATTEND Internal Medicine Endocrinology, Diabetes & Metabolism
DX: E05.00 Thyrotoxicosis with diffuse goiter without thyrotoxic crisis or storm (principal)

== ENCOUNTER → 2023-07-30 | Outpatient (CLI) | payer OTHER ==
[2023-07-30 10:44] LABS: ALBUMIN 2.9 G/DL (3.2-5.2); ALKALINE PHOSPHATASE 87 U/L (46-116); ALT/SGPT 20 U/L (7.0-40); AST/SGOT 9 U/L (<34); BILIRUBIN,DIRECT < 0.1 MG/DL (<0.4); BILIRUBIN,TOTAL 0.2 MG/DL (0.3-1.2); TOTAL PROTEIN 6.1 G/DL (5.7-8.2)
[2023-07-30 10:47] LABS: THYROID STIMULATING HORMONE 0.008 uIU/ML (0.55-4.78)
[2023-07-30 11:01] LABS: TOTAL T3 254.2 NG/DL (60.0-181.0)
== END ==
LOC: M PLALAB 07:55
PROVIDERS: ATTEND Internal Medicine Endocrinology, Diabetes & Metabolism
DX: E05.00 Thyrotoxicosis with diffuse goiter without thyrotoxic crisis or storm (principal)

== ENCOUNTER 2023-08-09 10:32 | Inpatient (IN) | payer MEDICAID, OTHER, SELFPAY ==
[~2023-08-09] VITALS: Ht 162.6 cm; Wt 118.7 kg
[2023-08-09 12:25] LABS: BASO % 0.4 % (0.0-1.0); EOS # 0.1 10^3/uL (0.0-0.5); EOS % 0.9 % (0.0-3.0); HEMATOCRIT 38.2 % (36.0-47.0); HEMOGLOBIN 12.1 g/dl (12.0-15.5); LYMPH # 2.2 10^3/uL (1.5-5.0); LYMPH % 32.6 % (24.0-44.0); MEAN CORPUSCULAR HEMOGLOBIN 26.2 pg (27.0-33.0); MEAN CORPUSCULAR HGB CONC 31.7 g/dl (32.0-36.5); MEAN CORPUSCULAR VOLUME 82.7 fl (80.0-96.0); MONO # 0.5 10^3/uL (0.0-0.8); MONO % 7.3 % (2.0-8.0); NEUTROPHILS % 58.7 % (36.0-66.0); PLATELET COUNT, AUTOMATED 293 10^3/uL (150-450); RED BLOOD COUNT 4.62 10^6/uL (4.00-5.40); WHITE BLOOD COUNT 6.9 10^3/uL (4.0-10.0)
[2023-08-09 12:53] LABS: LIPASE 29 U/L (12-53)
[2023-08-09 12:55] LABS: ALBUMIN 3.2 G/DL (3.2-5.2); ALKALINE PHOSPHATASE 101 U/L (46-116); ALT/SGPT 32 U/L (7.0-40); AST/SGOT 26 U/L (<34); BILIRUBIN,DIRECT 0.1 MG/DL (<0.4); BILIRUBIN,TOTAL 0.4 MG/DL (0.3-1.2); TOTAL PROTEIN 7.1 G/DL (5.7-8.2)
[2023-08-09 12:57] LABS: FREE T4 4.39 NG/DL (0.89-1.76); THYROID STIMULATING HORMONE 0.008 uIU/ML (0.55-4.78)
[2023-08-09 13:03] LABS: AMPHETAMINES LEVEL URINE NEGATIVE (NEGATIVE); BARBITURATES URINE NEGATIVE (NEGATIVE); BENZODIAZEPINES URINE NEGATIVE (NEGATIVE); CANNABINOIDS URINE NEGATIVE (NEGATIVE); COCAINE METABOLITE URINE NEGATIVE (NEGATIVE); METHADONE URINE NEGATIVE (NEGATIVE); OPIATES URINE NEGATIVE (NEGATIVE); PHENCYCLIDINE URINE NEGATIVE (NEGATIVE)
[2023-08-09 13:21] LABS: RSV AMPLIFICATION NEGATIVE (NEGATIVE)
[2023-08-09 13:40] LABS: BLOOD UREA NITROGEN 12 MG/DL (9-23); CALCIUM LEVEL 9.6 MG/DL (8.5-10.1); CARBON DIOXIDE LEVEL 25 MMOL/L (20-31); CHLORIDE LEVEL 107 MMOL/L (98-107); CREATININE FOR GFR 0.56 MG/DL (0.55-1.30); GLOMERULAR FILTRATION RATE > 60.0 (>60); GLUCOSE, FASTING 89 MG/DL (60-100); POTASSIUM SERUM 4.1 MMOL/L (3.5-5.1); SODIUM LEVEL 138 MMOL/L (136-145)
[2023-08-09] MEDS: propylthiouraciL 50 MG TAB PO SCH ×2 (14:23→17:59)
[2023-08-09] MEDS: PROPRANOLOL 20 MG TAB PO ONE (14:25)
[2023-08-09] MEDS ORDERED: MAALOX 30 ML SUSP *UDC PO PRN (14:50)
[2023-08-09] MEDS ORDERED: MOM 30ML SUSPENSION UDC PO PRN (14:50)
[2023-08-09] MEDS ORDERED: ACETAMINOPHEN TAB 650MG DOSE (2X325MG) PO PRN (14:50)
[2023-08-09] MEDS: HYDROCORTISONE 100MG/2ML VIAL IV ONE (16:47)
[2023-08-09] MEDS ORDERED: PROPRANOLOL 20 MG TAB PO SCH (18:00)
[2023-08-09] MEDS ORDERED: CARD360C PO (19:18)
[2023-08-09] MEDS ORDERED: CARD120C3 PO (19:18)
[2023-08-09] MEDS: POTASSIUM IODIDE 30 ML BTL PO SCH (19:20)
[2023-08-09] MEDS ORDERED: CLONI1TA PO (19:27)
[2023-08-09] MEDS ORDERED: PROP40TA62 PO (19:27)
[2023-08-09] MEDS ORDERED: MIDO10TA PO (19:27)
[2023-08-09] MEDS ORDERED: QUET300T2 PO (19:27)
[2023-08-09] MEDS ORDERED: OLAN15TA13 PO (19:27)
[2023-08-09] MEDS ORDERED: HOME MED LIST COMPLETE! XX SCH (19:35)
[2023-08-09 21:48] VITALS: BP 145/90; TEMP 97; O2SAT 100
[2023-08-09 22:00] VITALS: O2SAT 97
[2023-08-09] MEDS: ENOXAPARIN 40MG/0.4ML SYRINGE (J1650 PER 10MG) SC SCH (22:27)
[2023-08-09] MEDS: PROPRANOLOL 20 MG TAB PO SCH (22:27)
[2023-08-09] MEDS: diphenhydrAMINE CREAM 30GM TOP PRN (22:29)
[2023-08-09] MEDS: VANICREAM MOISTURIZING SKIN CREAM 113GM TUBE TOP PRN (22:29)
[2023-08-09 23:00] VITALS: O2SAT 97
[2023-08-09 23:30] VITALS: BP 139/69; TEMP 97.3; O2SAT 96
[2023-08-09] MEDS: CHOLESTYRAMINE 4GM PWD PKT PO SCH (23:34)
[2023-08-10] VITALS (14 sets, daily range): BP systolic 113–164; BP diastolic 58–106; TEMP 96.7–98.1; O2SAT 91–99
[2023-08-10] MEDS: SERTRALINE 100 MG TAB PO SCH (00:13)
[2023-08-10] MEDS: HYDROCORTISONE 100MG/2ML VIAL IV SCH ×2 (00:13→20:53)
[2023-08-10] MEDS: QUEtiapine FUMARATE 100 MG TAB PO SCH (00:14)
[2023-08-10 06:19] LABS: BLOOD UREA NITROGEN 15 MG/DL (9-23); CALCIUM LEVEL 9.5 MG/DL (8.5-10.1); CARBON DIOXIDE LEVEL 26 MMOL/L (20-31); CHLORIDE LEVEL 108 MMOL/L (98-107); CREATININE FOR GFR 0.53 MG/DL (0.55-1.30); GLOMERULAR FILTRATION RATE > 60.0 (>60); GLUCOSE, FASTING 121 MG/DL (60-100); POTASSIUM SERUM 4.3 MMOL/L (3.5-5.1); SODIUM LEVEL 139 MMOL/L (136-145)
[2023-08-10 06:22] LABS: FREE T4 3.72 NG/DL (0.89-1.76); THYROID STIMULATING HORMONE 0.008 uIU/ML (0.55-4.78)
[2023-08-10 06:25] LABS: FREE T3 19.7 PG/ML (2.3-4.2)
[2023-08-10] MEDS ORDERED: SERTRALINE 100 MG TAB PO SCH (21:00)
[2023-08-10] MEDS ORDERED: QUEtiapine FUMARATE 100 MG TAB PO SCH (21:00)
[2023-08-11] VITALS: BP 126/58; TEMP 96.3; O2SAT 98
[2023-08-11 04:00] VITALS: BP 142/71; TEMP 97.2; O2SAT 97
[2023-08-11 05:53] LABS: BLOOD UREA NITROGEN 14 MG/DL (9-23); CALCIUM LEVEL 8.7 MG/DL (8.5-10.1); CARBON DIOXIDE LEVEL 25 MMOL/L (20-31); CHLORIDE LEVEL 109 MMOL/L (98-107); CREATININE FOR GFR 0.49 MG/DL (0.55-1.30); GLOMERULAR FILTRATION RATE > 60.0 (>60); GLUCOSE, FASTING 114 MG/DL (60-100); MAGNESIUM LEVEL 2.1 MG/DL (1.8-2.4); POTASSIUM SERUM 3.7 MMOL/L (3.5-5.1); SODIUM LEVEL 139 MMOL/L (136-145)
[2023-08-11 05:56] LABS: FREE T3 9.1 PG/ML (2.3-4.2); FREE T4 3.22 NG/DL (0.89-1.76); THYROID STIMULATING HORMONE 0.008 uIU/ML (0.55-4.78)
[2023-08-11 07:12] LABS: BASO % 0.1 % (0.0-1.0); EOS % 0.6 % (0.0-3.0); HEMATOCRIT 35.9 % (36.0-47.0); HEMOGLOBIN 11.5 g/dl (12.0-15.5); LYMPH # 2.4 10^3/uL (1.5-5.0); LYMPH % 33.5 % (24.0-44.0); MEAN CORPUSCULAR HEMOGLOBIN 26.4 pg (27.0-33.0); MEAN CORPUSCULAR VOLUME 82.5 fl (80.0-96.0); MONO # 0.4 10^3/uL (0.0-0.8); MONO % 5.9 % (2.0-8.0); NEUTROPHILS # 4.3 10^3/uL (1.5-8.5); NEUTROPHILS % 59.6 % (36.0-66.0); PLATELET COUNT, AUTOMATED 260 10^3/uL (150-450); RED BLOOD COUNT 4.35 10^6/uL (4.00-5.40); WHITE BLOOD COUNT 7.1 10^3/uL (4.0-10.0)
[2023-08-11 07:14] LABS: ALBUMIN 2.7 G/DL (3.2-5.2); ALKALINE PHOSPHATASE 108 U/L (46-116); ALT/SGPT 31 U/L (7.0-40); AST/SGOT 19 U/L (<34); BILIRUBIN,DIRECT < 0.1 MG/DL (<0.4); BILIRUBIN,TOTAL 0.2 MG/DL (0.3-1.2); TOTAL PROTEIN 6.2 G/DL (5.7-8.2)
[2023-08-11 07:36] VITALS: BP 149/65; TEMP 98.2; O2SAT 100
[2023-08-11] MEDS: PROPRANOLOL 20 MG TAB PO SCH (08:36)
[2023-08-11] MEDS: propylthiouraciL 50 MG TAB PO SCH (09:22)
[2023-08-11 12:23] VITALS: BP 129/60; TEMP 97.3; O2SAT 98
[2023-08-11 16:29] VITALS: BP 122/57; TEMP 97.8; O2SAT 100
[2023-08-11 20:02] VITALS: BP 145/76; TEMP 97.4; O2SAT 100
[2023-08-12] VITALS (10 sets, daily range): BP systolic 122–166; BP diastolic 64–89; TEMP 97.1–98.1; O2SAT 93–100
[2023-08-12 04:02] LABS: BASO % 0.2 % (0.0-1.0); EOS % 0.2 % (0.0-3.0); HEMOGLOBIN 11.4 g/dl (12.0-15.5); LYMPH # 2.1 10^3/uL (1.5-5.0); LYMPH % 37.3 % (24.0-44.0); MEAN CORPUSCULAR HEMOGLOBIN 26.1 pg (27.0-33.0); MEAN CORPUSCULAR HGB CONC 31.7 g/dl (32.0-36.5); MEAN CORPUSCULAR VOLUME 82.6 fl (80.0-96.0); MONO # 0.3 10^3/uL (0.0-0.8); MONO % 5.2 % (2.0-8.0); NEUTROPHILS # 3.2 10^3/uL (1.5-8.5); NEUTROPHILS % 56.9 % (36.0-66.0); PLATELET COUNT, AUTOMATED 255 10^3/uL (150-450); RED BLOOD COUNT 4.36 10^6/uL (4.00-5.40); WHITE BLOOD COUNT 5.6 10^3/uL (4.0-10.0)
[2023-08-12 04:31] LABS: FREE T4 2.76 NG/DL (0.89-1.76)
[2023-08-12 04:32] LABS: THYROID STIMULATING HORMONE 0.008 uIU/ML (0.55-4.78)
[2023-08-12 04:36] LABS: ALBUMIN 2.7 G/DL (3.2-5.2); ALKALINE PHOSPHATASE 113 U/L (46-116); ALT/SGPT 40 U/L (7.0-40); AST/SGOT 19 U/L (<34); BILIRUBIN,TOTAL 0.2 MG/DL (0.3-1.2); BLOOD UREA NITROGEN 14 MG/DL (9-23); CALCIUM LEVEL 9.1 MG/DL (8.5-10.1); CARBON DIOXIDE LEVEL 26 MMOL/L (20-31); CHLORIDE LEVEL 110 MMOL/L (98-107); CREATININE FOR GFR 0.59 MG/DL (0.55-1.30); FREE T3 7.2 PG/ML (2.3-4.2); GLOMERULAR FILTRATION RATE > 60.0 (>60); GLUCOSE, FASTING 106 MG/DL (60-100); POTASSIUM SERUM 4.5 MMOL/L (3.5-5.1); SODIUM LEVEL 142 MMOL/L (136-145); TOTAL PROTEIN 6.3 G/DL (5.7-8.2)
[2023-08-12] MEDS: HYDROCORTISONE 100MG/2ML VIAL IV SCH (09:55)
[2023-08-13 03:49] VITALS: BP 129/60; TEMP 98.7; O2SAT 96
[2023-08-13 05:18] LABS: BASO % 0.3 % (0.0-1.0); EOS # 0.1 10^3/uL (0.0-0.5); EOS % 1.3 % (0.0-3.0); HEMATOCRIT 37.3 % (36.0-47.0); HEMOGLOBIN 11.9 g/dl (12.0-15.5); LYMPH # 2.9 10^3/uL (1.5-5.0); LYMPH % 45.9 % (24.0-44.0); MEAN CORPUSCULAR HEMOGLOBIN 26.1 pg (27.0-33.0); MEAN CORPUSCULAR HGB CONC 31.9 g/dl (32.0-36.5); MEAN CORPUSCULAR VOLUME 81.8 fl (80.0-96.0); MONO # 0.3 10^3/uL (0.0-0.8); MONO % 5.3 % (2.0-8.0); NEUTROPHILS % 46.9 % (36.0-66.0); PLATELET COUNT, AUTOMATED 258 10^3/uL (150-450); RED BLOOD COUNT 4.56 10^6/uL (4.00-5.40); WHITE BLOOD COUNT 6.4 10^3/uL (4.0-10.0)
[2023-08-13 05:54] LABS: ALBUMIN 2.9 G/DL (3.2-5.2); ALKALINE PHOSPHATASE 120 U/L (46-116); ALT/SGPT 42 U/L (7.0-40); AST/SGOT 16 U/L (<34); BILIRUBIN,TOTAL 0.2 MG/DL (0.3-1.2); BLOOD UREA NITROGEN 15 MG/DL (9-23); CALCIUM LEVEL 8.7 MG/DL (8.5-10.1); CARBON DIOXIDE LEVEL 26 MMOL/L (20-31); CHLORIDE LEVEL 107 MMOL/L (98-107); CREATININE FOR GFR 0.59 MG/DL (0.55-1.30); GLOMERULAR FILTRATION RATE > 60.0 (>60); GLUCOSE, FASTING 85 MG/DL (60-100); POTASSIUM SERUM 4.1 MMOL/L (3.5-5.1); SODIUM LEVEL 139 MMOL/L (136-145); TOTAL PROTEIN 6.3 G/DL (5.7-8.2)
[2023-08-13 05:56] LABS: FREE T3 8.2 PG/ML (2.3-4.2); THYROID STIMULATING HORMONE 0.008 uIU/ML (0.55-4.78)
[2023-08-13] MEDS: CHOLESTYRAMINE 4GM PWD PKT PO SCH (06:26)
[2023-08-13 07:44] VITALS: BP 158/83; TEMP 97.6; O2SAT 95
[2023-08-13 12:00] VITALS: BP 129/68; TEMP 97.2; O2SAT 99
[2023-08-13 16:00] VITALS: BP 135/66; TEMP 97.6; O2SAT 99
[2023-08-13 19:52] VITALS: BP 122/62; TEMP 97.9; O2SAT 99
[2023-08-13] MEDS: OLANZapine 5 MG TAB PO SCH (22:03)
[2023-08-13] MEDS: HYDROCORTISONE 10 MG TAB PO SCH (22:03)
[2023-08-13 23:26] VITALS: BP 153/76; TEMP 97.3; O2SAT 95
[2023-08-14] MEDS: CHOLESTYRAMINE 4GM PWD PKT PO SCH (00:40)
[2023-08-14 04:03] VITALS: BP 97/54; TEMP 97.8; O2SAT 96
[2023-08-14 05:42] LABS: BASO % 0.3 % (0.0-1.0); EOS # 0.1 10^3/uL (0.0-0.5); EOS % 2.3 % (0.0-3.0); HEMATOCRIT 38.2 % (36.0-47.0); LYMPH # 3.3 10^3/uL (1.5-5.0); LYMPH % 54.9 % (24.0-44.0); MEAN CORPUSCULAR HEMOGLOBIN 25.9 pg (27.0-33.0); MEAN CORPUSCULAR HGB CONC 31.4 g/dl (32.0-36.5); MEAN CORPUSCULAR VOLUME 82.3 fl (80.0-96.0); MONO # 0.4 10^3/uL (0.0-0.8); NEUTROPHILS # 2.1 10^3/uL (1.5-8.5); NEUTROPHILS % 35.3 % (36.0-66.0); PLATELET COUNT, AUTOMATED 227 10^3/uL (150-450); RED BLOOD COUNT 4.64 10^6/uL (4.00-5.40)
[2023-08-14 06:06] LABS: ALBUMIN 2.7 G/DL (3.2-5.2); ALKALINE PHOSPHATASE 126 U/L (46-116); ALT/SGPT 56 U/L (7.0-40); AST/SGOT 21 U/L (<34); BILIRUBIN,TOTAL 0.2 MG/DL (0.3-1.2); BLOOD UREA NITROGEN 13 MG/DL (9-23); CALCIUM LEVEL 8.7 MG/DL (8.5-10.1); CARBON DIOXIDE LEVEL 27 MMOL/L (20-31); CHLORIDE LEVEL 108 MMOL/L (98-107); CREATININE FOR GFR 0.58 MG/DL (0.55-1.30); GLOMERULAR FILTRATION RATE > 60.0 (>60); GLUCOSE, FASTING 87 MG/DL (60-100); POTASSIUM SERUM 4.2 MMOL/L (3.5-5.1); SODIUM LEVEL 141 MMOL/L (136-145); TOTAL PROTEIN 6.3 G/DL (5.7-8.2)
[2023-08-14 06:08] LABS: THYROID STIMULATING HORMONE 0.008 uIU/ML (0.55-4.78)
[2023-08-14 06:11] LABS: FREE T3 8.3 PG/ML (2.3-4.2)
[2023-08-14 13:51] VITALS: BP 108/53; TEMP 97.1; O2SAT 92
[2023-08-14 14:25] VITALS: BP 122/62; TEMP 98.1; O2SAT 97
[2023-08-14] MEDS: PROPRANOLOL 10 MG TAB PO SCH (17:25)
[2023-08-14 20:50] VITALS: BP 119/67; TEMP 98.1; O2SAT 96
[2023-08-15 05:38] VITALS: BP 118/68; TEMP 98.1; O2SAT 97
[2023-08-15 06:33] LABS: BASO % 0.3 % (0.0-1.0); EOS # 0.2 10^3/uL (0.0-0.5); EOS % 3.3 % (0.0-3.0); HEMATOCRIT 38.7 % (36.0-47.0); HEMOGLOBIN 12.3 g/dl (12.0-15.5); LYMPH # 3.6 10^3/uL (1.5-5.0); LYMPH % 59.1 % (24.0-44.0); MEAN CORPUSCULAR HEMOGLOBIN 26.2 pg (27.0-33.0); MEAN CORPUSCULAR HGB CONC 31.8 g/dl (32.0-36.5); MEAN CORPUSCULAR VOLUME 82.3 fl (80.0-96.0); MONO # 0.4 10^3/uL (0.0-0.8); MONO % 6.7 % (2.0-8.0); NEUTROPHILS # 1.9 10^3/uL (1.5-8.5); NEUTROPHILS % 30.3 % (36.0-66.0); PLATELET COUNT, AUTOMATED 210 10^3/uL (150-450); WHITE BLOOD COUNT 6.1 10^3/uL (4.0-10.0)
[2023-08-15 06:56] LABS: ALBUMIN 2.6 G/DL (3.2-5.2); ALKALINE PHOSPHATASE 130 U/L (46-116); ALT/SGPT 49 U/L (7.0-40); AST/SGOT 13 U/L (<34); BILIRUBIN,TOTAL 0.2 MG/DL (0.3-1.2); BLOOD UREA NITROGEN 13 MG/DL (9-23); CALCIUM LEVEL 8.6 MG/DL (8.5-10.1); CARBON DIOXIDE LEVEL 27 MMOL/L (20-31); CHLORIDE LEVEL 109 MMOL/L (98-107); CREATININE FOR GFR 0.63 MG/DL (0.55-1.30); GLOMERULAR FILTRATION RATE > 60.0 (>60); GLUCOSE, FASTING 78 MG/DL (60-100); MAGNESIUM LEVEL 1.9 MG/DL (1.8-2.4); POTASSIUM SERUM 4.3 MMOL/L (3.5-5.1); SODIUM LEVEL 141 MMOL/L (136-145); TOTAL PROTEIN 6.1 G/DL (5.7-8.2)
[2023-08-15 06:59] LABS: FREE T4 1.95 NG/DL (0.89-1.76); THYROID STIMULATING HORMONE 0.009 uIU/ML (0.55-4.78)
[2023-08-15 07:02] LABS: FREE T3 7.6 PG/ML (2.3-4.2)
[2023-08-15] MEDS: HYDROCORTISONE 10 MG TAB PO SCH (08:30)
[2023-08-15 14:00] VITALS: BP 122/70; TEMP 97.9
[2023-08-15 21:21] VITALS: TEMP 98.6; O2SAT 100
[2023-08-15 21:55] VITALS: BP 138/78; TEMP 98.6; O2SAT 100
[2023-08-16 06:02] VITALS: BP 124/60; TEMP 97.5; O2SAT 99
[2023-08-16 06:37] LABS: BASO % 0.3 % (0.0-1.0); EOS # 0.2 10^3/uL (0.0-0.5); EOS % 3.7 % (0.0-3.0); HEMATOCRIT 38.4 % (36.0-47.0); HEMOGLOBIN 12.2 g/dl (12.0-15.5); LYMPH # 3.7 10^3/uL (1.5-5.0); LYMPH % 60.2 % (24.0-44.0); MEAN CORPUSCULAR HEMOGLOBIN 26.4 pg (27.0-33.0); MEAN CORPUSCULAR HGB CONC 31.8 g/dl (32.0-36.5); MEAN CORPUSCULAR VOLUME 83.1 fl (80.0-96.0); MONO # 0.5 10^3/uL (0.0-0.8); MONO % 7.3 % (2.0-8.0); NEUTROPHILS # 1.7 10^3/uL (1.5-8.5); NEUTROPHILS % 28.2 % (36.0-66.0); PLATELET COUNT, AUTOMATED 210 10^3/uL (150-450); RED BLOOD COUNT 4.62 10^6/uL (4.00-5.40); WHITE BLOOD COUNT 6.2 10^3/uL (4.0-10.0)
[2023-08-16 07:03] LABS: FREE T4 1.72 NG/DL (0.89-1.76); THYROID STIMULATING HORMONE 0.008 uIU/ML (0.55-4.78)
[2023-08-16 07:05] LABS: ALBUMIN 2.6 G/DL (3.2-5.2); ALKALINE PHOSPHATASE 136 U/L (46-116); ALT/SGPT 52 U/L (7.0-40); AST/SGOT 19 U/L (<34); BILIRUBIN,TOTAL 0.2 MG/DL (0.3-1.2); BLOOD UREA NITROGEN 11 MG/DL (9-23); CALCIUM LEVEL 8.7 MG/DL (8.5-10.1); CARBON DIOXIDE LEVEL 28 MMOL/L (20-31); CHLORIDE LEVEL 108 MMOL/L (98-107); CREATININE FOR GFR 0.72 MG/DL (0.55-1.30); GLOMERULAR FILTRATION RATE > 60.0 (>60); GLUCOSE, FASTING 79 MG/DL (60-100); MAGNESIUM LEVEL 1.9 MG/DL (1.8-2.4); POTASSIUM SERUM 4.5 MMOL/L (3.5-5.1); SODIUM LEVEL 142 MMOL/L (136-145)
[2023-08-16 07:20] LABS: FREE T3 7.7 PG/ML (2.3-4.2)
[2023-08-16] MEDS ORDERED: HYDROCORTISONE 10 MG TAB PO SCH (09:00)
[2023-08-16] MEDS ORDERED: PROP40TA62 PO (12:35)
[2023-08-16] MEDS ORDERED: PROP50TAB PO (12:35)
[2023-08-16 12:50] VITALS: BP 135/69
== END 2023-08-16 14:07 | disposition home health service (06) | DRG 424 ==
LOC: M ED 10:32 → M ED INP 14:50 → ENRESERV 20:05 → M PCU 21:41 → M MSPAV 08-14 14:19
PROVIDERS: ADMIT Student in an Organized Health Care Education/Training Program; ATTEND Internal Medicine
DX: E05.01 Thyrotoxicosis with diffuse goiter with thyrotoxic crisis or storm (principal); Z68.42 Body mass index [BMI] 45.0-49.9, adult; E66.01 Morbid (severe) obesity due to excess calories; F32.A Depression, unspecified; F41.9 Anxiety disorder, unspecified; F17.210 Nicotine dependence, cigarettes, uncomplicated; Z91.148 Patient's other noncompliance with medication regimen for other reason; T44.7X6A Underdosing of beta-adrenoreceptor antagonists, initial encounter; Z79.899 Other long term (current) drug therapy

== ENCOUNTER 2023-09-12 15:59 | Emergency (ER) | payer MEDICAID, OTHER ==
[~2023-09-12] VITALS: Ht 162.6 cm; Wt 116.9 kg
[~2023-09-12 15:59] MED LIST changes: +CARD360C PO; +CLONI1TA PO
[2023-09-12] MEDS ORDERED: MIDO10TA (16:13)
[2023-09-12] MEDS ORDERED: DILT360C7 PO (16:13)
[2023-09-13 00:36] LABS: BASO % 0.3 % (0.0-1.0); EOS # 0.1 10^3/uL (0.0-0.5); EOS % 2.2 % (0.0-3.0); HEMATOCRIT 37.9 % (36.0-47.0); HEMOGLOBIN 12.3 g/dl (12.0-15.5); LYMPH # 2.9 10^3/uL (1.5-5.0); LYMPH % 48.8 % (24.0-44.0); MEAN CORPUSCULAR HEMOGLOBIN 26.1 pg (27.0-33.0); MEAN CORPUSCULAR HGB CONC 32.5 g/dl (32.0-36.5); MEAN CORPUSCULAR VOLUME 80.3 fl (80.0-96.0); MONO # 0.7 10^3/uL (0.0-0.8); NEUTROPHILS # 2.3 10^3/uL (1.5-8.5); NEUTROPHILS % 37.5 % (36.0-66.0); PLATELET COUNT, AUTOMATED 260 10^3/uL (150-450); RED BLOOD COUNT 4.72 10^6/uL (4.00-5.40)
[2023-09-13] MEDS: propylthiouraciL 50 MG TAB PO ONE (00:38)
[2023-09-13 00:39] VITALS: BP 135/67
[2023-09-13] MEDS: PROPRANOLOL 20 MG TAB PO ONE (00:39)
[2023-09-13 01:03] LABS: BLOOD UREA NITROGEN 13 MG/DL (9-23); CALCIUM LEVEL 9.5 MG/DL (8.5-10.1); CARBON DIOXIDE LEVEL 23 MMOL/L (20-31); CHLORIDE LEVEL 106 MMOL/L (98-107); CREATININE FOR GFR 0.59 MG/DL (0.55-1.30); GLOMERULAR FILTRATION RATE > 60.0 (>60); GLUCOSE, FASTING 84 MG/DL (60-100); MAGNESIUM LEVEL 1.6 MG/DL (1.8-2.4); SODIUM LEVEL 137 MMOL/L (136-145)
[2023-09-13 01:04] LABS: FREE T4 2.17 NG/DL (0.89-1.76)
[2023-09-13 01:05] LABS: FREE THYROXINE INDEX 7.8 % (1.3-4.8); T UPTAKE 43.8 % (22.5-37.0); THYROID STIMULATING HORMONE 0.008 uIU/ML (0.55-4.78); THYROXINE (T4) 17.7 UG/DL (4.5-10.9)
[2023-09-13 01:13] LABS: HCG, SERUM QUALITATIVE NEGATIVE (NEGATIVE)
[2023-09-13] MEDS ORDERED: ZOLO25TA PO (01:31)
[2023-09-13] MEDS ORDERED: SERO1TAB2 PO (01:31)
[2023-09-13] MEDS ORDERED: PROP50TAB PO (01:31)
[2023-09-13] MEDS ORDERED: PROP40TA62 PO (01:31)
[2023-09-13 01:54] VITALS: BP 134/70; TEMP 97.9; O2SAT 100
== END 2023-09-13 02:12 | disposition home or self-care (01) ==
LOC: M ED 15:59
DX: E05.90 Thyrotoxicosis, unspecified without thyrotoxic crisis or storm (principal); Z76.0 Encounter for issue of repeat prescription; I45.10 Unspecified right bundle-branch block; Z79.899 Other long term (current) drug therapy

== ENCOUNTER 2023-09-27 14:57 | Emergency (ER) | payer OTHER ==
[~2023-09-27] VITALS: Ht 162.6 cm; Wt 118.8 kg
[~2023-09-27 14:57] MED LIST changes: +DILT360C7 PO; +MIDO10TA; +SERO1TAB2 PO; +ZOLO25TA PO
[2023-09-27] MEDS ORDERED: SERO300T PO (15:07)
[2023-09-27 17:06] LABS: BASO % 0.2 % (0.0-1.0); EOS # 0.2 10^3/uL (0.0-0.5); EOS % 2.7 % (0.0-3.0); HEMATOCRIT 38.5 % (36.0-47.0); HEMOGLOBIN 12.4 g/dl (12.0-15.5); LYMPH # 2.4 10^3/uL (1.5-5.0); LYMPH % 41.6 % (24.0-44.0); MEAN CORPUSCULAR HEMOGLOBIN 25.8 pg (27.0-33.0); MEAN CORPUSCULAR HGB CONC 32.2 g/dl (32.0-36.5); MEAN CORPUSCULAR VOLUME 80.2 fl (80.0-96.0); MONO # 0.6 10^3/uL (0.0-0.8); MONO % 10.1 % (2.0-8.0); NEUTROPHILS # 2.7 10^3/uL (1.5-8.5); NEUTROPHILS % 45.2 % (36.0-66.0); PLATELET COUNT, AUTOMATED 208 10^3/uL (150-450); WHITE BLOOD COUNT 5.9 10^3/uL (4.0-10.0)
[2023-09-27 17:22] LABS: BLOOD UREA NITROGEN 12 MG/DL (9-23); CALCIUM LEVEL 9.4 MG/DL (8.5-10.1); CARBON DIOXIDE LEVEL 23 MMOL/L (20-31); CHLORIDE LEVEL 107 MMOL/L (98-107); CREATININE FOR GFR 0.52 MG/DL (0.55-1.30); GLOMERULAR FILTRATION RATE > 60.0 (>60); GLUCOSE, FASTING 128 MG/DL (60-100); POTASSIUM SERUM 4.4 MMOL/L (3.5-5.1); SODIUM LEVEL 137 MMOL/L (136-145)
[2023-09-27 17:24] LABS: THYROID STIMULATING HORMONE 0.009 uIU/ML (0.55-4.78)
[2023-09-27 17:25] LABS: FREE T4 1.86 NG/DL (0.89-1.76)
[2023-09-27] MEDS ORDERED: SERT25TA85 PO (18:44)
[2023-09-27] MEDS ORDERED: HYDR1CRE30 TOP (18:44)
[2023-09-27] MEDS ORDERED: PROP50TA3 PO (18:44)
[2023-09-27 18:49] VITALS: BP 134/66; TEMP 99.6; O2SAT 99
== END 2023-09-27 18:51 | disposition home or self-care (01) ==
LOC: M ED 14:57
DX: Z76.0 Encounter for issue of repeat prescription (principal); E03.9 Hypothyroidism, unspecified; G43.909 Migraine, unspecified, not intractable, without status migrainosus; R00.0 Tachycardia, unspecified; I45.10 Unspecified right bundle-branch block; Z79.899 Other long term (current) drug therapy

== ENCOUNTER 2023-09-30 18:30 | Emergency (ER) | payer OTHER ==
[~2023-09-30] VITALS: Ht 162.6 cm; Wt 123.0 kg
[~2023-09-30 18:30] MED LIST changes: +HYDR1CRE30 TOP; +PROP50TA3 PO; +SERO300T PO; +SERT25TA85 PO
[2023-09-30] MEDS ORDERED: ELIM5CRE2 TOP (22:34)
[2023-09-30] MEDS ORDERED: BENA25CA4 PO (22:34)
[2023-09-30] MEDS: diphenhydrAMINE 50MG CAP PO ONE (22:46)
[2023-09-30 22:49] VITALS: BP 146/90; TEMP 98.7; O2SAT 97
== END 2023-09-30 23:12 | disposition home or self-care (01) ==
LOC: M ED 18:30
DX: L29.9 Pruritus, unspecified (principal); F41.9 Anxiety disorder, unspecified; Z79.899 Other long term (current) drug therapy

== ENCOUNTER 2023-10-23 14:07 | Emergency (ER) | payer OTHER ==
[~2023-10-23] VITALS: Ht 162.6 cm; Wt 115.1 kg
[~2023-10-23 14:07] MED LIST changes: +BENA25CA4 PO; +ELIM5CRE2 TOP
[2023-10-23 14:08] VITALS: TEMP 98.4
[2023-10-23 16:01] LABS: BASO % 0.2 % (0.0-1.0); EOS # 0.1 10^3/uL (0.0-0.5); EOS % 1.3 % (0.0-3.0); HEMATOCRIT 39.5 % (36.0-47.0); LYMPH # 3.1 10^3/uL (1.5-5.0); LYMPH % 36.6 % (24.0-44.0); MEAN CORPUSCULAR HEMOGLOBIN 26.2 pg (27.0-33.0); MEAN CORPUSCULAR HGB CONC 32.9 g/dl (32.0-36.5); MEAN CORPUSCULAR VOLUME 79.5 fl (80.0-96.0); MONO # 0.6 10^3/uL (0.0-0.8); MONO % 7.3 % (2.0-8.0); NEUTROPHILS # 4.6 10^3/uL (1.5-8.5); NEUTROPHILS % 54.4 % (36.0-66.0); PLATELET COUNT, AUTOMATED 314 10^3/uL (150-450); RED BLOOD COUNT 4.97 10^6/uL (4.00-5.40); WHITE BLOOD COUNT 8.4 10^3/uL (4.0-10.0)
[2023-10-23 16:07] LABS: ERYTHROCYTE SEDIMENTATION RATE 89 mm/hr (0-20)
[2023-10-23 16:29] LABS: HCG, SERUM QUALITATIVE NEGATIVE (NEGATIVE)
[2023-10-23 16:32] LABS: ALBUMIN 3.4 G/DL (3.2-5.2); ALKALINE PHOSPHATASE 125 U/L (46-116); ALT/SGPT 32 U/L (7.0-40); AST/SGOT 18 U/L (<34); BILIRUBIN,DIRECT 0.2 MG/DL (<0.4); BILIRUBIN,TOTAL 0.5 MG/DL (0.3-1.2); BLOOD UREA NITROGEN 10 MG/DL (9-23); CALCIUM LEVEL 9.6 MG/DL (8.5-10.1); CARBON DIOXIDE LEVEL 24 MMOL/L (20-31); CHLORIDE LEVEL 104 MMOL/L (98-107); CREATININE FOR GFR 0.71 MG/DL (0.55-1.30); GLOMERULAR FILTRATION RATE > 60.0 (>60); GLUCOSE, FASTING 95 MG/DL (60-100); POTASSIUM SERUM 3.7 MMOL/L (3.5-5.1); SODIUM LEVEL 140 MMOL/L (136-145); TOTAL PROTEIN 7.2 G/DL (5.7-8.2)
[2023-10-23 16:53] LABS: THYROID STIMULATING HORMONE 0.008 uIU/ML (0.55-4.78)
[2023-10-23 16:58] LABS: HIV 1&2 SCREEN NEGATIVE (NEGATIVE)
[2023-10-23 17:00] VITALS: BP 158/87
[2023-10-23 17:04] LABS: ETHYL ALCOHOL (ETHANOL) 0.006 % (0.000-0.010)
[2023-10-23 17:05] LABS: SALICYLATE LEVEL < 3.0 MG/DL (<30)
[2023-10-23 17:08] LABS: FREE T4 1.39 NG/DL (0.89-1.76)
[2023-10-23] MEDS: diphenhydrAMINE 50MG/ML VIAL IV STA (17:24)
[2023-10-23] MEDS: NS 1,000 ML IV ONE (17:24)
[2023-10-23 17:33] LABS: HEPATITIS B SURFACE ANTIBODY POSITIVE (POSITIVE)
[2023-10-23 17:45] LABS: HEPATITIS B SURFACE ANTIGEN NEGATIVE (NEGATIVE)
[2023-10-23 18:06] LABS: HEPATITIS C VIRUS ABY INDEX < 0.02 INDEX (<0.8)
[2023-10-23 18:07] VITALS: O2SAT 97
[2023-10-23] MEDS: NYSTATIN 500,000U/5ML SUSP UDC PO ONE (18:23)
[2023-10-23 19:48] LABS: BARBITURATES URINE NEGATIVE (NEGATIVE); BENZODIAZEPINES URINE NEGATIVE (NEGATIVE); CANNABINOIDS URINE NEGATIVE (NEGATIVE); METHADONE URINE NEGATIVE (NEGATIVE); OPIATES URINE NEGATIVE (NEGATIVE); PHENCYCLIDINE URINE NEGATIVE (NEGATIVE)
[2023-10-23 20:00] LABS: AMPHETAMINES LEVEL URINE POSITIVE (NEGATIVE); COCAINE METABOLITE URINE POSITIVE (NEGATIVE)
[2023-10-23 20:35] LABS: Trichomonas vaginalis (AMP) NOT DETECTED (NEGATIVE)
[2023-10-23 20:58] LABS: GC DNA AMPLIFICATION NEGATIVE (NEGATIVE)
[2023-10-23] MEDS ORDERED: CLIN1GEL3 TOP (21:12)
[2023-10-24] MEDS ORDERED: DIPH-435 PO (21:36)
== END 2023-10-23 21:25 | disposition home or self-care (01) ==
LOC: M ED 14:07
DX: L73.2 Hidradenitis suppurativa (principal); G43.909 Migraine, unspecified, not intractable, without status migrainosus; F41.9 Anxiety disorder, unspecified; F32.A Depression, unspecified; F17.210 Nicotine dependence, cigarettes, uncomplicated; F15.10 Other stimulant abuse, uncomplicated; F14.10 Cocaine abuse, uncomplicated; Z79.899 Other long term (current) drug therapy
CPT/HCPCS: 80048; 80076; 80143; 80307; 81001; 82077; 84439; 84443; 84703; 85025; 85652; 86140; 86706; 86803; 87255; 87340; 87389; 87661; 87810; 87850; 96361; 96374; 99284; J1200

== ENCOUNTER 2023-10-24 11:56 | Inpatient (IN) | payer MEDICAID, OTHER ==
[~2023-10-24] VITALS: Ht 162.6 cm; Wt 117.4 kg
[~2023-10-24 11:56] MED LIST changes: +CLIN1GEL3 TOP
[2023-10-24 12:53] LABS: HEMATOCRIT 38.7 % (36.0-47.0); HEMOGLOBIN 12.6 g/dl (12.0-15.5); MEAN CORPUSCULAR HGB CONC 32.6 g/dl (32.0-36.5); MEAN CORPUSCULAR VOLUME 79.8 fl (80.0-96.0); PLATELET COUNT, AUTOMATED 267 10^3/uL (150-450); RED BLOOD COUNT 4.85 10^6/uL (4.00-5.40); WHITE BLOOD COUNT 7.9 10^3/uL (4.0-10.0)
[2023-10-24 13:24] LABS: ETHYL ALCOHOL (ETHANOL) < 0.003 % (0.000-0.010)
[2023-10-24 13:26] LABS: ALBUMIN 3.3 G/DL (3.2-5.2); ALKALINE PHOSPHATASE 123 U/L (46-116); ALT/SGPT 36 U/L (7.0-40); AST/SGOT 26 U/L (<34); BILIRUBIN,DIRECT 0.2 MG/DL (<0.4); BILIRUBIN,TOTAL 0.5 MG/DL (0.3-1.2); BLOOD UREA NITROGEN 11 MG/DL (9-23); CALCIUM LEVEL 9.4 MG/DL (8.5-10.1); CARBON DIOXIDE LEVEL 24 MMOL/L (20-31); CHLORIDE LEVEL 102 MMOL/L (98-107); CREATININE FOR GFR 0.71 MG/DL (0.55-1.30); GLOMERULAR FILTRATION RATE > 60.0 (>60); GLUCOSE, FASTING 101 MG/DL (60-100); POTASSIUM SERUM 3.4 MMOL/L (3.5-5.1); SALICYLATE LEVEL < 3.0 MG/DL (<30); SODIUM LEVEL 136 MMOL/L (136-145); THYROID STIMULATING HORMONE 0.008 uIU/ML (0.55-4.78); TOTAL PROTEIN 6.9 G/DL (5.7-8.2)
[2023-10-24 13:29] LABS: HCG, SERUM QUALITATIVE NEGATIVE (NEGATIVE)
[2023-10-24] MEDS: LORazepam 2 MG TAB PO STA (13:30)
[2023-10-24 13:32] LABS: FREE T4 1.46 NG/DL (0.89-1.76)
[2023-10-24] MEDS: PROPRANOLOL 20 MG TAB PO ONE ×2 (13:38→20:15)
[2023-10-24 14:09] LABS: BARBITURATES URINE NEGATIVE (NEGATIVE); CANNABINOIDS URINE NEGATIVE (NEGATIVE); METHADONE URINE NEGATIVE (NEGATIVE); OPIATES URINE NEGATIVE (NEGATIVE); PHENCYCLIDINE URINE NEGATIVE (NEGATIVE)
[2023-10-24 14:10] LABS: BENZODIAZEPINES URINE NEGATIVE (NEGATIVE)
[2023-10-24 14:17] LABS: AMPHETAMINES LEVEL URINE POSITIVE (NEGATIVE); COCAINE METABOLITE URINE POSITIVE (NEGATIVE)
[2023-10-24] MEDS: NS 1,000 ML IV ONE (14:25)
[2023-10-24] MEDS ORDERED: DIPH-435 PO (21:36)
[2023-10-24] MEDS ORDERED: HOME MED LIST COMPLETE! XX SCH (21:40)
[2023-10-24] MEDS: QUEtiapine 300MG XR TABLET (SEROQUEL XR) PO SCH (21:50)
[2023-10-25] MEDS: PROPRANOLOL 20 MG TAB PO SCH (10:01)
[2023-10-25] MEDS ORDERED: OLANZapine ORAL DISINTEGRATING TAB 5MG PO PRN (15:50)
[2023-10-25] MEDS ORDERED: MOM 30ML SUSPENSION UDC PO PRN (15:50)
[2023-10-25] MEDS ORDERED: ACETAMINOPHEN TAB 650MG DOSE (2X325MG) PO PRN (15:50)
[2023-10-25] MEDS ORDERED: IBUPROFEN 400MG TAB PO PRN (15:50)
[2023-10-25] MEDS ORDERED: MAALOX 30 ML SUSP *UDC PO PRN (15:50)
[2023-10-25 21:48] VITALS: BP 128/67
[2023-10-25] MEDS: QUEtiapine 300MG XR TABLET (SEROQUEL XR) PO SCH (22:16)
[2023-10-26 06:46] VITALS: BP 130/60; TEMP 98.6; O2SAT 95
[2023-10-26] MEDS: INFLUENZA QUADRIVALENT PF VACCINE 0.5ML SYRINGE IM.IMMUN ONE (10:21)
[2023-10-26 15:45] VITALS: BP 149/63; TEMP 98.4; O2SAT 100
[2023-10-26] MEDS: LACTOBACILLUS ACIDOPHILUS CAP (BACID) PO SCH (17:57)
[2023-10-26] MEDS: DOXYCYCLINE HYCLATE 100MG TABLET PO SCH (21:19)
[2023-10-27 06:26] VITALS: BP 114/52; TEMP 99; O2SAT 98
[2023-10-27 15:31] VITALS: BP 121/71; TEMP 97.8; O2SAT 99
[2023-10-28 06:56] VITALS: BP 108/49; TEMP 99; O2SAT 96
[2023-10-28 15:23] VITALS: BP 128/60; TEMP 98.1; O2SAT 96
[2023-10-28 21:20] VITALS: BP 131/78
[2023-10-29 06:37] VITALS: TEMP 98.7; O2SAT 100
[2023-10-29] MEDS: OLANZapine 5 MG TAB PO SCH (09:00)
[2023-10-29 09:53] VITALS: BP 126/83
[2023-10-29] MEDS: SERTRALINE HCL 50 MG TAB PO SCH (09:54)
[2023-10-29 18:00] VITALS: BP 143/83; TEMP 97.9
[2023-10-29 20:55] VITALS: BP 132/84
[2023-10-30 18:29] VITALS: BP 124/80; TEMP 97.7
[2023-10-30] MEDS: diphenhydrAMINE 25MG CAP PO PRN (21:06)
[2023-10-31 06:17] VITALS: BP 121/56; TEMP 99.2; O2SAT 100
[2023-10-31] MEDS: SERTRALINE HCL 50 MG TAB PO ONE (09:00)
[2023-10-31 12:19] LABS: TOTAL T3 767.4 NG/DL (60.0-181.0)
[2023-10-31 12:20] LABS: FREE T4 3.22 NG/DL (0.89-1.76); THYROID STIMULATING HORMONE 0.008 uIU/ML (0.55-4.78)
[2023-10-31 12:24] LABS: FREE T3 > 20.0 PG/ML (2.3-4.2)
[2023-10-31] MEDS: CHOLESTYRAMINE 4GM PWD PKT PO SCH (22:25)
[2023-11-01] MEDS: SERTRALINE 100 MG TAB PO SCH (09:34)
[2023-11-01] MEDS: predniSONE 20 MG TAB PO SCH (09:34)
[2023-11-01 18:46] VITALS: BP 140/72; TEMP 97.2
[2023-11-02 15:33] VITALS: BP 144/67; TEMP 98.7; O2SAT 98
[2023-11-03 06:20] VITALS: BP 116/69; TEMP 98.2; O2SAT 96
[2023-11-03] MEDS: PROPRANOLOL 20 MG TAB PO SCH (09:24)
[2023-11-03 15:47] VITALS: BP 130/80; TEMP 97.8; O2SAT 98
[2023-11-04 06:46] VITALS: BP 98/53; TEMP 98; O2SAT 96
[2023-11-04 15:53] VITALS: BP 134/72; TEMP 98; O2SAT 98
[2023-11-04 16:57] VITALS: BP 134/72; TEMP 98; O2SAT 98
[2023-11-05 06:42] VITALS: BP 114/53; TEMP 97.5; O2SAT 96
[2023-11-05 17:51] VITALS: BP 128/90; TEMP 97.7
[2023-11-06 06:12] VITALS: BP 118/63; TEMP 97.5; O2SAT 95
[2023-11-06 16:21] VITALS: BP 133/60; TEMP 97.1; O2SAT 97
[2023-11-06 19:48] VITALS: BP 128/89
[2023-11-06] MEDS: QUEtiapine FUMARATE **XR** 200MG TABLET PO SCH (19:53)
[2023-11-07 06:21] VITALS: BP 123/69; TEMP 97.9; O2SAT 98
[2023-11-07 12:20] VITALS: BP 155/80
[2023-11-07] MEDS: predniSONE 20 MG TAB PO ONE (12:22)
[2023-11-07 18:02] VITALS: BP 142/84; TEMP 96.9
[2023-11-07 21:00] VITALS: BP 135/79
[2023-11-08 06:07] VITALS: BP 124/53; TEMP 97.3; O2SAT 96
[2023-11-08] MEDS: predniSONE 20 MG TAB PO SCH (09:56)
[2023-11-08 16:09] VITALS: BP 139/88; TEMP 97.1; O2SAT 98
[2023-11-09 06:48] VITALS: BP 109/56; TEMP 97.1; O2SAT 100
[2023-11-09] MEDS: predniSONE 20 MG TAB PO ONE (08:34)
[2023-11-09 16:00] VITALS: BP 139/75; TEMP 97.4; O2SAT 99
[2023-11-10 06:01] VITALS: BP 112/57; TEMP 98.2; O2SAT 98
[2023-11-10] MEDS: predniSONE 20 MG TAB PO SCH (08:27)
[2023-11-10] MEDS ORDERED: predniSONE 20 MG TAB PO SCH (09:00)
[2023-11-10 16:12] VITALS: BP 146/78; TEMP 97.4; O2SAT 99
[2023-11-10] MEDS: traZODone 50 MG TAB PO PRN (21:07)
[2023-11-11 06:25] VITALS: BP 116/55; TEMP 98.3; O2SAT 97
[2023-11-11] MEDS: CHOLESTYRAMINE 4GM PWD PKT PO SCH (10:08)
[2023-11-11 18:12] VITALS: BP 129/58; TEMP 96.9; O2SAT 99
[2023-11-11 21:05] VITALS: BP 137/81
[2023-11-12 06:06] VITALS: BP 120/56; TEMP 97.2; O2SAT 100
[2023-11-12 18:00] VITALS: BP 140/69; TEMP 97.2; O2SAT 99
[2023-11-13 06:59] VITALS: BP 114/55; TEMP 97.1; O2SAT 96
[2023-11-13 08:06] VITALS: BP 158/79
[2023-11-13 16:21] VITALS: BP 129/74; TEMP 96.7; O2SAT 99
[2023-11-13] MEDS: diphenhydrAMINE 50MG CAP PO PRN (18:15)
[2023-11-13] MEDS: HYDROCORTISONE 1% OINTMENT 30GM TOP SCH (22:02)
[2023-11-14 06:45] VITALS: BP 126/58; TEMP 98.1; O2SAT 100
[2023-11-14] MEDS ORDERED: HYDROCORTISONE 1% OINTMENT 30GM TOP SCH (09:00)
[2023-11-14 14:51] LABS: URINE PREG TEST POSITIVE (NEGATIVE)
[2023-11-14 16:01] VITALS: BP 148/97; TEMP 96.7; O2SAT 99
[2023-11-14] MEDS: propylthiouraciL 50 MG TAB PO SCH (17:01)
[2023-11-15 06:06] VITALS: BP 132/60; TEMP 98.7; O2SAT 96
[2023-11-15] MEDS: PROPRANOLOL 20 MG TAB PO SCH (13:00)
[2023-11-15 13:35] LABS: HEMATOCRIT 35.4 % (36.0-47.0); HEMOGLOBIN 11.4 g/dl (12.0-15.5); MEAN CORPUSCULAR HEMOGLOBIN 26.2 pg (27.0-33.0); MEAN CORPUSCULAR HGB CONC 32.2 g/dl (32.0-36.5); MEAN CORPUSCULAR VOLUME 81.4 fl (80.0-96.0); PLATELET COUNT, AUTOMATED 237 10^3/uL (150-450); RED BLOOD COUNT 4.35 10^6/uL (4.00-5.40); WHITE BLOOD COUNT 6.8 10^3/uL (4.0-10.0)
[2023-11-15 14:01] LABS: ALBUMIN 2.7 G/DL (3.2-5.2); ALKALINE PHOSPHATASE 123 U/L (46-116); ALT/SGPT 39 U/L (7.0-40); AST/SGOT 15 U/L (<34); BILIRUBIN,DIRECT < 0.1 MG/DL (<0.4); BILIRUBIN,TOTAL 0.3 MG/DL (0.3-1.2); TOTAL PROTEIN 6.1 G/DL (5.7-8.2)
[2023-11-15 14:03] LABS: FREE T4 1.61 NG/DL (0.89-1.76); THYROID STIMULATING HORMONE 0.008 uIU/ML (0.55-4.78); TOTAL T3 386.3 NG/DL (60.0-181.0)
[2023-11-15 18:37] VITALS: BP 136/78; TEMP 98.4; O2SAT 96
[2023-11-15 20:37] VITALS: BP 142/84
[2023-11-15] MEDS: QUEtiapine FUMERATE XR 50MG TABER PO SCH (20:38)
[2023-11-16 06:30] VITALS: BP 118/60; TEMP 98.9; O2SAT 99
[2023-11-16 16:59] VITALS: BP 135/64; TEMP 97.8; O2SAT 100
[2023-11-17 06:43] VITALS: BP 132/73; TEMP 97.8
[2023-11-17 18:00] VITALS: BP 129/68; TEMP 97.2; O2SAT 98
[2023-11-18 06:34] VITALS: BP 117/63; TEMP 97.1; O2SAT 100
[2023-11-18 18:00] VITALS: BP 129/84; TEMP 97.2; O2SAT 96
[2023-11-18 22:14] VITALS: BP 128/63
[2023-11-19 06:04] VITALS: BP 119/58; TEMP 99.1; O2SAT 97
[2023-11-19] MEDS ORDERED: QUET50TA67 PO (07:50)
[2023-11-19] MEDS ORDERED: ZOLO100T PO (07:50)
[2023-11-19] MEDS ORDERED: PROP50TAB PO (07:50)
[2023-11-19] MEDS ORDERED: RISATAB3 PO (07:50)
[2023-11-19] MEDS ORDERED: PROP20TA PO (07:50)
[2023-11-19 10:14] LABS: FREE T4 1.27 NG/DL (0.89-1.76); THYROID STIMULATING HORMONE 0.008 uIU/ML (0.55-4.78)
[2023-11-19 10:43] LABS: TOTAL T3 353.2 NG/DL (60.0-181.0)
[2023-11-19] MEDS: PRENATAL VITAMINS CHEWABLE TABLET PO SCH (17:03)
[2023-11-19 18:52] VITALS: BP 145/68; TEMP 97.4
[2023-11-19 21:56] VITALS: BP 119/58
[2023-11-20 06:14] VITALS: BP 99/51; TEMP 98.9; O2SAT 97
[2023-11-20] MEDS: propylthiouraciL 50 MG TAB PO SCH (10:05)
[2023-11-20 16:41] VITALS: BP 137/73; TEMP 98.2; O2SAT 97
[2023-11-21 06:48] VITALS: BP 119/56; TEMP 98.3; O2SAT 95
[2023-11-21] MEDS ORDERED: PRENCHW PO (08:24)
[2023-11-21] MEDS ORDERED: PROP50TAB PO (08:24)
[2023-11-21 08:36] VITALS: BP 127/67
== END 2023-11-21 09:21 | DRG 774 ==
LOC: M ED 11:56 → M ED INP 10-25 15:47 → M PSY 10-25 16:43
PROVIDERS: ADMIT Student in an Organized Health Care Education/Training Program; ATTEND Student in an Organized Health Care Education/Training Program
DX: F15.150 Other stimulant abuse with stimulant-induced psychotic disorder with delusions (principal); R45.851 Suicidal ideations; F14.10 Cocaine abuse, uncomplicated; F29 Unspecified psychosis not due to a substance or known physiological condition; Z68.41 Body mass index [BMI] 40.0-44.9, adult; Z81.8 Family history of other mental and behavioral disorders; E66.9 Obesity, unspecified; F17.200 Nicotine dependence, unspecified, uncomplicated; E05.20 Thyrotoxicosis with toxic multinodular goiter without thyrotoxic crisis or storm; E04.0 Nontoxic diffuse goiter; L73.2 Hidradenitis suppurativa; Z91.148 Patient's other noncompliance with medication regimen for other reason; Z33.1 Pregnant state, incidental; Z79.899 Other long term (current) drug therapy; Z62.810 Personal history of physical and sexual abuse in childhood

== ENCOUNTER 2024-01-01 15:18 | Inpatient (IN) | payer MEDICAID, OTHER ==
[~2024-01-01] VITALS: Ht 162.6 cm; Wt 115.4 kg
[~2024-01-01 15:18] MED LIST changes: +DIPH-435 PO; +PRENCHW PO; +QUET50TA67 PO; +RISATAB3 PO
[2024-01-01] MEDS: NS 1,000 ML IV ONE (16:58)
[2024-01-01 17:22] LABS: BASO % 0.4 % (0.0-1.0); EOS # 0.1 10^3/uL (0.0-0.5); EOS % 1.6 % (0.0-3.0); HEMATOCRIT 34.6 % (36.0-47.0); HEMOGLOBIN 11.2 g/dl (12.0-15.5); LYMPH # 2.4 10^3/uL (1.5-5.0); LYMPH % 41.3 % (24.0-44.0); MEAN CORPUSCULAR HEMOGLOBIN 26.5 pg (27.0-33.0); MEAN CORPUSCULAR HGB CONC 32.4 g/dl (32.0-36.5); MEAN CORPUSCULAR VOLUME 81.8 fl (80.0-96.0); MONO # 0.6 10^3/uL (0.0-0.8); MONO % 11.1 % (2.0-8.0); NEUTROPHILS # 2.6 10^3/uL (1.5-8.5); NEUTROPHILS % 45.4 % (36.0-66.0); PLATELET COUNT, AUTOMATED 201 10^3/uL (150-450); RED BLOOD COUNT 4.23 10^6/uL (4.00-5.40); WHITE BLOOD COUNT 5.7 10^3/uL (4.0-10.0)
[2024-01-01 17:42] LABS: BLOOD UREA NITROGEN 14 MG/DL (9-23); CARBON DIOXIDE LEVEL 23 MMOL/L (20-31); CHLORIDE LEVEL 107 MMOL/L (98-107); CREATININE FOR GFR 0.53 MG/DL (0.55-1.30); GLOMERULAR FILTRATION RATE > 60.0 (>60); GLUCOSE, FASTING 125 MG/DL (60-100); POTASSIUM SERUM 4.1 MMOL/L (3.5-5.1); SODIUM LEVEL 139 MMOL/L (136-145)
[2024-01-01 17:45] LABS: FREE T4 6.81 NG/DL (0.89-1.76); THYROID STIMULATING HORMONE 0.008 uIU/ML (0.55-4.78)
[2024-01-01 18:47] LABS: FREE T3 > 20.0 PG/ML (2.3-4.2)
[2024-01-01] MEDS: NS 1,000 ML IV SCH (21:25)
[2024-01-01 22:13] LABS: ALBUMIN 2.8 G/DL (3.2-5.2); BILIRUBIN,DIRECT 0.1 MG/DL (<0.4); BILIRUBIN,TOTAL 0.3 MG/DL (0.3-1.2)
[2024-01-01] MEDS: methylPREDNISolone 125MG 2ML VIAL IV SCH (23:11)
[2024-01-02] VITALS (8 sets, daily range): BP systolic 119–150; BP diastolic 56–95; TEMP 96.9–98.1; O2SAT 96–99
[2024-01-02] MEDS: PROPRANOLOL 20 MG TAB PO SCH ×2 (01:16→12:55)
[2024-01-02] MEDS: diphenhydrAMINE CREAM 30GM TOP PRN (01:17)
[2024-01-02] MEDS: traZODone 50 MG TAB PO ONE (02:00)
[2024-01-02] MEDS: CHOLESTYRAMINE 4GM PWD PKT PO SCH (03:00)
[2024-01-02] MEDS: QUEtiapine FUMARATE 100 MG TAB PO SCH (03:36)
[2024-01-02 06:09] LABS: HEMATOCRIT 30.7 % (36.0-47.0); MEAN CORPUSCULAR HEMOGLOBIN 26.7 pg (27.0-33.0); MEAN CORPUSCULAR HGB CONC 32.6 g/dl (32.0-36.5); MEAN CORPUSCULAR VOLUME 81.9 fl (80.0-96.0); PLATELET COUNT, AUTOMATED 197 10^3/uL (150-450); RED BLOOD COUNT 3.75 10^6/uL (4.00-5.40); WHITE BLOOD COUNT 5.3 10^3/uL (4.0-10.0)
[2024-01-02 06:23] LABS: INR 1.12; PARTIAL THROMBOPLASTIN TIME 26.8 SECONDS (24.8-34.2); PROTHROMBIN TIME 14.1 SECONDS (12.5-14.5)
[2024-01-02 06:42] LABS: IRON (FE) 50 UG/DL (50-170)
[2024-01-02 06:43] LABS: ALBUMIN 2.6 G/DL (3.2-5.2); ALKALINE PHOSPHATASE 119 U/L (46-116); ALT/SGPT 36 U/L (7.0-40); AST/SGOT 18 U/L (<34); BILIRUBIN,TOTAL 0.4 MG/DL (0.3-1.2); BLOOD UREA NITROGEN 15 MG/DL (9-23); CALCIUM LEVEL 9.4 MG/DL (8.5-10.1); CARBON DIOXIDE LEVEL 23 MMOL/L (20-31); CHLORIDE LEVEL 111 MMOL/L (98-107); CREATININE FOR GFR 0.44 MG/DL (0.55-1.30); GLOMERULAR FILTRATION RATE > 60.0 (>60); GLUCOSE, FASTING 140 MG/DL (60-100); PERCENT SATURATION 20.1 % (13.2-45.0); POTASSIUM SERUM 3.8 MMOL/L (3.5-5.1); SODIUM LEVEL 140 MMOL/L (136-145); TOTAL IRON BINDING CAPACITY 249 UG/DL (250-425); TOTAL PROTEIN 5.8 G/DL (5.7-8.2)
[2024-01-02 06:45] LABS: FERRITIN 128.7 NG/ML (7.3-270.7); VITAMIN B12 LEVEL 477 PG/ML (211-911)
[2024-01-02] MEDS ORDERED: PROP20TA72 PO (09:27)
[2024-01-02] MEDS ORDERED: D 50CAP3 PO (09:27)
[2024-01-02] MEDS ORDERED: ZOLO100T PO (09:27)
[2024-01-02] MEDS ORDERED: PROP50TA3 PO (09:27)
[2024-01-02] MEDS ORDERED: UNDE (09:34)
[2024-01-02] MEDS ORDERED: MEDREC COMMENT (09:35)
[2024-01-02] MEDS ORDERED: HOME MED LIST COMPLETE! XX SCH (09:40)
[2024-01-02 12:36] LABS: HEMOGLOBIN 9.6 g/dl (12.0-15.5); MEAN CORPUSCULAR HEMOGLOBIN 26.2 pg (27.0-33.0); MEAN CORPUSCULAR VOLUME 81.7 fl (80.0-96.0); PLATELET COUNT, AUTOMATED 188 10^3/uL (150-450); RED BLOOD COUNT 3.67 10^6/uL (4.00-5.40); WHITE BLOOD COUNT 6.1 10^3/uL (4.0-10.0)
[2024-01-02] MEDS: SERTRALINE 100 MG TAB PO SCH (12:55)
[2024-01-02 18:31] LABS: HEMATOCRIT 28.9 % (36.0-47.0); HEMOGLOBIN 9.4 g/dl (12.0-15.5); MEAN CORPUSCULAR HGB CONC 32.5 g/dl (32.0-36.5); PLATELET COUNT, AUTOMATED 183 10^3/uL (150-450); RED BLOOD COUNT 3.48 10^6/uL (4.00-5.40); WHITE BLOOD COUNT 7.5 10^3/uL (4.0-10.0)
[2024-01-02] MEDS: methylPREDNISolone 40MG 1ML VIAL IV SCH (20:10)
[2024-01-02] MEDS: ACETAMINOPHEN TAB 650MG DOSE (2X325MG) PO PRN (20:10)
[2024-01-03 00:35] LABS: HEMATOCRIT 27.5 % (36.0-47.0); HEMOGLOBIN 8.8 g/dl (12.0-15.5); MEAN CORPUSCULAR HEMOGLOBIN 26.7 pg (27.0-33.0); MEAN CORPUSCULAR VOLUME 83.3 fl (80.0-96.0); PLATELET COUNT, AUTOMATED 179 10^3/uL (150-450); WHITE BLOOD COUNT 8.4 10^3/uL (4.0-10.0)
[2024-01-03 03:51] VITALS: BP 133/56; TEMP 97.6; O2SAT 97
[2024-01-03 05:56] LABS: HEMATOCRIT 27.6 % (36.0-47.0); HEMOGLOBIN 8.8 g/dl (12.0-15.5); MEAN CORPUSCULAR HEMOGLOBIN 26.7 pg (27.0-33.0); MEAN CORPUSCULAR HGB CONC 31.9 g/dl (32.0-36.5); MEAN CORPUSCULAR VOLUME 83.9 fl (80.0-96.0); PLATELET COUNT, AUTOMATED 173 10^3/uL (150-450); RED BLOOD COUNT 3.29 10^6/uL (4.00-5.40); WHITE BLOOD COUNT 8.8 10^3/uL (4.0-10.0)
[2024-01-03 06:28] LABS: ALBUMIN 2.5 G/DL (3.2-5.2); ALKALINE PHOSPHATASE 106 U/L (46-116); ALT/SGPT 34 U/L (7.0-40); AST/SGOT 11 U/L (<34); BILIRUBIN,DIRECT < 0.1 MG/DL (<0.4); BILIRUBIN,TOTAL 0.2 MG/DL (0.3-1.2); BLOOD UREA NITROGEN 13 MG/DL (9-23); CALCIUM LEVEL 9.1 MG/DL (8.5-10.1); CARBON DIOXIDE LEVEL 23 MMOL/L (20-31); CHLORIDE LEVEL 114 MMOL/L (98-107); CREATININE FOR GFR 0.38 MG/DL (0.55-1.30); GLOMERULAR FILTRATION RATE > 60.0 (>60); GLUCOSE, FASTING 172 MG/DL (60-100); POTASSIUM SERUM 4.7 MMOL/L (3.5-5.1); SODIUM LEVEL 142 MMOL/L (136-145); TOTAL PROTEIN 5.5 G/DL (5.7-8.2)
[2024-01-03 07:51] VITALS: BP 130/60; TEMP 97.2; O2SAT 96
[2024-01-03] MEDS: RHO(D) IMMUNE GLOBULIN/MALTOSE 500MCG(2500IU)/2.2ML VIAL (WINRHO) IM SCH (12:16)
[2024-01-03 13:30] VITALS: BP 138/60
[2024-01-03 15:54] VITALS: BP 129/75; TEMP 98.3; O2SAT 98
[2024-01-03 16:57] VITALS: BP 125/92
[2024-01-03 19:58] VITALS: BP 140/66; TEMP 97.5; O2SAT 96
[2024-01-04] VITALS (8 sets, daily range): BP systolic 122–156; BP diastolic 57–69; TEMP 96.4–97.8; O2SAT 95–98
[2024-01-04 06:33] LABS: HEMATOCRIT 26.8 % (36.0-47.0); HEMOGLOBIN 8.7 g/dl (12.0-15.5); MEAN CORPUSCULAR HEMOGLOBIN 26.8 pg (27.0-33.0); MEAN CORPUSCULAR HGB CONC 32.5 g/dl (32.0-36.5); MEAN CORPUSCULAR VOLUME 82.5 fl (80.0-96.0); PLATELET COUNT, AUTOMATED 171 10^3/uL (150-450); RED BLOOD COUNT 3.25 10^6/uL (4.00-5.40); WHITE BLOOD COUNT 8.8 10^3/uL (4.0-10.0)
[2024-01-04 06:54] LABS: BLOOD UREA NITROGEN 9 MG/DL (9-23); CALCIUM LEVEL 9.1 MG/DL (8.5-10.1); CARBON DIOXIDE LEVEL 27 MMOL/L (20-31); CHLORIDE LEVEL 111 MMOL/L (98-107); GLOMERULAR FILTRATION RATE > 60.0 (>60); GLUCOSE, FASTING 119 MG/DL (60-100); POTASSIUM SERUM 4.3 MMOL/L (3.5-5.1); SODIUM LEVEL 142 MMOL/L (136-145)
[2024-01-04] MEDS: ENOXAPARIN 40MG/0.4ML SYRINGE (J1650 PER 10MG) SC SCH (08:34)
[2024-01-04] MEDS: BACITRACIN OINTMENT 30GM TUBE TOP PRN (22:20)
[2024-01-05 03:29] VITALS: BP 139/76; TEMP 97.4; O2SAT 97
[2024-01-05 05:42] LABS: HEMATOCRIT 30.2 % (36.0-47.0); HEMOGLOBIN 9.7 g/dl (12.0-15.5); MEAN CORPUSCULAR HEMOGLOBIN 26.4 pg (27.0-33.0); MEAN CORPUSCULAR HGB CONC 32.1 g/dl (32.0-36.5); MEAN CORPUSCULAR VOLUME 82.1 fl (80.0-96.0); PLATELET COUNT, AUTOMATED 208 10^3/uL (150-450); RED BLOOD COUNT 3.68 10^6/uL (4.00-5.40); WHITE BLOOD COUNT 5.9 10^3/uL (4.0-10.0)
[2024-01-05 06:11] LABS: FREE T4 4.03 NG/DL (0.89-1.76); THYROID STIMULATING HORMONE 0.008 uIU/ML (0.55-4.78)
[2024-01-05 06:16] LABS: BLOOD UREA NITROGEN 14 MG/DL (9-23); CARBON DIOXIDE LEVEL 25 MMOL/L (20-31); CHLORIDE LEVEL 106 MMOL/L (98-107); CREATININE FOR GFR 0.42 MG/DL (0.55-1.30); FREE T3 16.9 PG/ML (2.3-4.2); GLOMERULAR FILTRATION RATE > 60.0 (>60); GLUCOSE, FASTING 281 MG/DL (60-100); POTASSIUM SERUM 4.6 MMOL/L (3.5-5.1); SODIUM LEVEL 139 MMOL/L (136-145)
[2024-01-05 08:00] VITALS: BP 126/59; TEMP 97.5; O2SAT 97
[2024-01-05 12:00] VITALS: BP 129/78; TEMP 97.1; O2SAT 97
[2024-01-05 17:01] VITALS: BP 144/90; TEMP 96.9; O2SAT 98
[2024-01-05 19:19] VITALS: BP 128/60; TEMP 97.6; O2SAT 95
[2024-01-06 04:58] VITALS: BP 109/55; TEMP 97.7; O2SAT 98
[2024-01-06 05:12] LABS: HEMATOCRIT 32.6 % (36.0-47.0); HEMOGLOBIN 10.6 g/dl (12.0-15.5); MEAN CORPUSCULAR HEMOGLOBIN 26.5 pg (27.0-33.0); MEAN CORPUSCULAR HGB CONC 32.5 g/dl (32.0-36.5); MEAN CORPUSCULAR VOLUME 81.5 fl (80.0-96.0); PLATELET COUNT, AUTOMATED 238 10^3/uL (150-450); WHITE BLOOD COUNT 8.1 10^3/uL (4.0-10.0)
[2024-01-06 05:28] LABS: BLOOD UREA NITROGEN 15 MG/DL (9-23); CALCIUM LEVEL 9.2 MG/DL (8.5-10.1); CARBON DIOXIDE LEVEL 25 MMOL/L (20-31); CHLORIDE LEVEL 107 MMOL/L (98-107); CREATININE FOR GFR 0.44 MG/DL (0.55-1.30); GLOMERULAR FILTRATION RATE > 60.0 (>60); GLUCOSE, FASTING 200 MG/DL (60-100); POTASSIUM SERUM 4.8 MMOL/L (3.5-5.1); SODIUM LEVEL 138 MMOL/L (136-145)
[2024-01-06 07:53] VITALS: BP 111/52; TEMP 97.4; O2SAT 95
[2024-01-06 16:46] VITALS: BP 128/61; TEMP 97.6; O2SAT 98
[2024-01-06 19:34] VITALS: BP 137/61; TEMP 97.6; O2SAT 97
[2024-01-06] MEDS: predniSONE 20 MG TAB PO SCH (21:00)
[2024-01-07 03:42] VITALS: BP 119/57; TEMP 97.5; O2SAT 96
[2024-01-07 06:15] LABS: HEMATOCRIT 35.1 % (36.0-47.0); HEMOGLOBIN 11.3 g/dl (12.0-15.5); MEAN CORPUSCULAR HEMOGLOBIN 26.3 pg (27.0-33.0); MEAN CORPUSCULAR HGB CONC 32.2 g/dl (32.0-36.5); MEAN CORPUSCULAR VOLUME 81.6 fl (80.0-96.0); PLATELET COUNT, AUTOMATED 270 10^3/uL (150-450); WHITE BLOOD COUNT 13.9 10^3/uL (4.0-10.0)
[2024-01-07 06:39] LABS: BLOOD UREA NITROGEN 13 MG/DL (9-23); CALCIUM LEVEL 9.4 MG/DL (8.5-10.1); CARBON DIOXIDE LEVEL 25 MMOL/L (20-31); CHLORIDE LEVEL 107 MMOL/L (98-107); CREATININE FOR GFR 0.46 MG/DL (0.55-1.30); GLOMERULAR FILTRATION RATE > 60.0 (>60); GLUCOSE, FASTING 134 MG/DL (60-100); POTASSIUM SERUM 4.9 MMOL/L (3.5-5.1); SODIUM LEVEL 138 MMOL/L (136-145)
[2024-01-07 07:45] VITALS: BP 136/63; TEMP 97.1; O2SAT 97
[2024-01-07 11:48] VITALS: BP 138/72
[2024-01-07 16:23] VITALS: BP 125/60; TEMP 97.2; O2SAT 95
[2024-01-07 19:00] VITALS: BP 122/65; TEMP 97.5; O2SAT 98
[2024-01-07 23:12] VITALS: BP 131/64; TEMP 97.4; O2SAT 99
[2024-01-08 04:00] VITALS: BP 139/65; TEMP 97.9; O2SAT 100
[2024-01-08 07:29] LABS: HEMATOCRIT 35.4 % (36.0-47.0); HEMOGLOBIN 11.5 g/dl (12.0-15.5); MEAN CORPUSCULAR HEMOGLOBIN 26.4 pg (27.0-33.0); MEAN CORPUSCULAR HGB CONC 32.5 g/dl (32.0-36.5); MEAN CORPUSCULAR VOLUME 81.4 fl (80.0-96.0); PLATELET COUNT, AUTOMATED 266 10^3/uL (150-450); RED BLOOD COUNT 4.35 10^6/uL (4.00-5.40); WHITE BLOOD COUNT 14.6 10^3/uL (4.0-10.0)
[2024-01-08 07:57] LABS: BLOOD UREA NITROGEN 10 MG/DL (9-23); CALCIUM LEVEL 9.1 MG/DL (8.5-10.1); CARBON DIOXIDE LEVEL 23 MMOL/L (20-31); CHLORIDE LEVEL 107 MMOL/L (98-107); CREATININE FOR GFR 0.48 MG/DL (0.55-1.30); GLOMERULAR FILTRATION RATE > 60.0 (>60); GLUCOSE, FASTING 136 MG/DL (60-100); POTASSIUM SERUM 4.3 MMOL/L (3.5-5.1); SODIUM LEVEL 139 MMOL/L (136-145)
[2024-01-08 07:59] LABS: FREE T4 3.78 NG/DL (0.89-1.76); THYROID STIMULATING HORMONE 0.008 uIU/ML (0.55-4.78)
[2024-01-08 08:01] LABS: FREE T3 15.9 PG/ML (2.3-4.2)
[2024-01-08] MEDS ORDERED: CHOL4PW PO (10:14)
[2024-01-08] MEDS ORDERED: METH10TA PO (10:14)
[2024-01-08 12:12] VITALS: BP 122/65; TEMP 98.6; O2SAT 98
[2024-01-08] MEDS: CALCIUM CARBONATE 500 MG CHEW U/D PO PRN (15:33)
[2024-01-08 17:56] VITALS: BP 140/76; TEMP 95.2; TEMP 97; O2SAT 98
[2024-01-08 19:40] LABS: BASO % 0.1 % (0.0-1.0); EOS % 0.1 % (0.0-3.0); HEMATOCRIT 33.8 % (36.0-47.0); HEMOGLOBIN 10.9 g/dl (12.0-15.5); LYMPH # 3.7 10^3/uL (1.5-5.0); LYMPH % 20.1 % (24.0-44.0); MEAN CORPUSCULAR HEMOGLOBIN 26.7 pg (27.0-33.0); MEAN CORPUSCULAR HGB CONC 32.2 g/dl (32.0-36.5); MEAN CORPUSCULAR VOLUME 82.6 fl (80.0-96.0); MONO # 0.5 10^3/uL (0.0-0.8); MONO % 2.9 % (2.0-8.0); NEUTROPHILS # 13.8 10^3/uL (1.5-8.5); NEUTROPHILS % 75.7 % (36.0-66.0); RED BLOOD COUNT 4.09 10^6/uL (4.00-5.40); WHITE BLOOD COUNT 18.2 10^3/uL (4.0-10.0)
[2024-01-08 19:52] LABS: PLATELET COUNT, AUTOMATED 368 10^3/uL (150-450)
[2024-01-08 20:10] VITALS: BP 130/69; TEMP 97.4; O2SAT 98
[2024-01-08] MEDS: LR 1,000 ML IV SCH (20:46)
[2024-01-09] VITALS (8 sets, daily range): BP systolic 101–145; BP diastolic 49–76; TEMP 97.1–99.6; O2SAT 97–100
[2024-01-09 07:52] LABS: HEMATOCRIT 25.9 % (36.0-47.0); MEAN CORPUSCULAR HEMOGLOBIN 26.4 pg (27.0-33.0); MEAN CORPUSCULAR VOLUME 82.5 fl (80.0-96.0); RED BLOOD COUNT 3.14 10^6/uL (4.00-5.40); WHITE BLOOD COUNT 20.6 10^3/uL (4.0-10.0)
[2024-01-09 08:02] LABS: HEMOGLOBIN 8.3 g/dl (12.0-15.5); PLATELET COUNT, AUTOMATED 263 10^3/uL (150-450)
[2024-01-09 08:26] LABS: PROCALCITONIN 0.13 ng/ml
[2024-01-09 08:27] LABS: BLOOD UREA NITROGEN 20 MG/DL (9-23); CALCIUM LEVEL 8.4 MG/DL (8.5-10.1); CARBON DIOXIDE LEVEL 22 MMOL/L (20-31); CHLORIDE LEVEL 106 MMOL/L (98-107); CREATININE FOR GFR 0.59 MG/DL (0.55-1.30); GLOMERULAR FILTRATION RATE > 60.0 (>60); GLUCOSE, FASTING 113 MG/DL (60-100); POTASSIUM SERUM 4.4 MMOL/L (3.5-5.1); SODIUM LEVEL 136 MMOL/L (136-145)
[2024-01-09 14:56] LABS: BASO % 0.1 % (0.0-1.0); EOS % 0.1 % (0.0-3.0); HEMATOCRIT 25.9 % (36.0-47.0); HEMOGLOBIN 8.3 g/dl (12.0-15.5); LYMPH # 3.2 10^3/uL (1.5-5.0); LYMPH % 17.9 % (24.0-44.0); MEAN CORPUSCULAR HEMOGLOBIN 26.8 pg (27.0-33.0); MEAN CORPUSCULAR VOLUME 83.5 fl (80.0-96.0); MONO # 0.4 10^3/uL (0.0-0.8); MONO % 2.2 % (2.0-8.0); NEUTROPHILS % 78.3 % (36.0-66.0); PLATELET COUNT, AUTOMATED 272 10^3/uL (150-450); WHITE BLOOD COUNT 17.8 10^3/uL (4.0-10.0)
[2024-01-09] MEDS ORDERED: fentaNYL 100 MCG/2 ML INJECTION As Ordered ONE (17:43)
[2024-01-09] MEDS ORDERED: ACETAMINOPHEN 1000MG 100ML IV BAG As Ordered ONE (17:43)
[2024-01-09] MEDS ORDERED: MIDAZOLAM INJ 2MG/2ML VIAL As Ordered ONE (17:43)
[2024-01-09] MEDS ORDERED: LIDOCAINE 2% 100MG/5ML SDV (FOR ANES.) As Ordered ONE (17:43)
[2024-01-09] MEDS ORDERED: dexmedeTOMIDine (4MCG/ML)200MCG/50ML BTL (PRECEDEX) As Ordered ONE (17:43)
[2024-01-09] MEDS ORDERED: ONDANSETRON 4MG 2ML VIAL As Ordered ONE (17:43)
[2024-01-09] MEDS ORDERED: propofoL 200 MG/20 ML VIAL As Ordered ONE (17:43)
[2024-01-09] MEDS ORDERED: ePHEDrine SULFATE 25 MG/5 ML(5MG/ML) SYRINGE As Ordered ONE (17:49)
[2024-01-09] MEDS ORDERED: KETOROLAC 60MG 2ML VIAL As Ordered ONE (17:50)
[2024-01-09] MEDS ORDERED: fentaNYL 100 MCG/2 ML INJECTION IV PRN (18:00)
[2024-01-09] MEDS ORDERED: oxyCODONE 5MG TAB PO PRN (18:00)
[2024-01-09] MEDS ORDERED: METOCLOPRAMIDE INJ 10MG/2ML VIAL IV PRN (18:00)
[2024-01-09] MEDS ORDERED: ONDANSETRON 4MG 2ML VIAL IV PRN (18:00)
[2024-01-09] MEDS: LR 1,000 ML IV SCH (18:04)
[2024-01-10 03:58] VITALS: BP 123/53; TEMP 99.6; O2SAT 100
[2024-01-10 06:59] LABS: BASO % 0.1 % (0.0-1.0); HEMATOCRIT 22.2 % (36.0-47.0); HEMOGLOBIN 7.1 g/dl (12.0-15.5); LYMPH # 2.4 10^3/uL (1.5-5.0); LYMPH % 15.6 % (24.0-44.0); MEAN CORPUSCULAR HEMOGLOBIN 27.1 pg (27.0-33.0); MEAN CORPUSCULAR VOLUME 84.7 fl (80.0-96.0); MONO # 0.6 10^3/uL (0.0-0.8); MONO % 3.6 % (2.0-8.0); PLATELET COUNT, AUTOMATED 235 10^3/uL (150-450); RED BLOOD COUNT 2.62 10^6/uL (4.00-5.40); WHITE BLOOD COUNT 15.4 10^3/uL (4.0-10.0)
[2024-01-10 07:59] LABS: BLOOD UREA NITROGEN 16 MG/DL (9-23); CALCIUM LEVEL 8.3 MG/DL (8.5-10.1); CARBON DIOXIDE LEVEL 25 MMOL/L (20-31); CHLORIDE LEVEL 110 MMOL/L (98-107); CREATININE FOR GFR 0.58 MG/DL (0.55-1.30); GLOMERULAR FILTRATION RATE > 60.0 (>60); GLUCOSE, FASTING 127 MG/DL (60-100); POTASSIUM SERUM 4.9 MMOL/L (3.5-5.1); SODIUM LEVEL 142 MMOL/L (136-145)
[2024-01-10 08:00] VITALS: BP 138/73; TEMP 98.7; O2SAT 100
[2024-01-10 08:00] LABS: FREE T4 2.94 NG/DL (0.89-1.76); THYROID STIMULATING HORMONE 0.008 uIU/ML (0.55-4.78)
[2024-01-10 08:03] LABS: FREE T3 5.9 PG/ML (2.3-4.2)
[2024-01-10] MEDS: IRON SUCROSE 100MG 5ML VIAL IV ONE (08:57)
[2024-01-10] MEDS ORDERED: FERR240T PO (10:59)
[2024-01-10 12:00] VITALS: BP 140/68; TEMP 97; O2SAT 63; O2SAT 99
[2024-01-10 14:27] VITALS: BP 140/68
== END 2024-01-10 14:30 | disposition home or self-care (01) | DRG 952 ==
LOC: M ED 15:18 → M ED INP 20:36 → M MSPAV 01-02 00:16 → M PCU 01-02 02:30 → M MS4PR 01-07 23:02
PROVIDERS: ADMIT Internal Medicine; ATTEND Internal Medicine
PROC: 10D17ZZ Extraction of Products of Conception, Retained, Via Natural or Artificial Opening (ICD-10-PCS; principal; 2024-01-09 16:00)
DX: E05.00 Thyrotoxicosis with diffuse goiter without thyrotoxic crisis or storm (principal); D62 Acute posthemorrhagic anemia; F32.A Depression, unspecified; F41.9 Anxiety disorder, unspecified; O03.1 Delayed or excessive hemorrhage following incomplete spontaneous abortion; Z59.00 Homelessness unspecified; Z56.0 Unemployment, unspecified; Z91.148 Patient's other noncompliance with medication regimen for other reason; E66.9 Obesity, unspecified; Z87.891 Personal history of nicotine dependence; Z79.899 Other long term (current) drug therapy

== ENCOUNTER 2024-02-01 13:53 | Emergency (ER) | payer MEDICAID, OTHER ==
[~2024-02-01] VITALS: Ht 162.6 cm; Wt 113.9 kg
[~2024-02-01 13:53] MED LIST changes: +D 50CAP3 PO; +FERR240T PO; +MEDREC COMMENT; +METH10TA PO; +PROP20TA72 PO; +UNDE
[2024-02-01 17:22] LABS: BASO % 0.2 % (0.0-1.0); EOS # 0.2 10^3/uL (0.0-0.5); EOS % 2.5 % (0.0-3.0); HEMATOCRIT 31.1 % (36.0-47.0); HEMOGLOBIN 9.5 g/dl (12.0-15.5); LYMPH # 2.8 10^3/uL (1.5-5.0); LYMPH % 43.5 % (24.0-44.0); MEAN CORPUSCULAR HGB CONC 30.5 g/dl (32.0-36.5); MEAN CORPUSCULAR VOLUME 81.8 fl (80.0-96.0); MONO # 0.9 10^3/uL (0.0-0.8); MONO % 14.1 % (2.0-8.0); NEUTROPHILS # 2.5 10^3/uL (1.5-8.5); NEUTROPHILS % 39.5 % (36.0-66.0); PLATELET COUNT, AUTOMATED 371 10^3/uL (150-450); WHITE BLOOD COUNT 6.4 10^3/uL (4.0-10.0)
[2024-02-01] MEDS ORDERED: [UNRECOGNIZED DRUG - CODE] PO (17:22)
[2024-02-01 17:39] LABS: BLOOD UREA NITROGEN 17 MG/DL (9-23); CALCIUM LEVEL 9.8 MG/DL (8.5-10.1); CARBON DIOXIDE LEVEL 22 MMOL/L (20-31); CHLORIDE LEVEL 105 MMOL/L (98-107); CREATININE FOR GFR 0.64 MG/DL (0.55-1.30); GLOMERULAR FILTRATION RATE > 60.0 (>60); GLUCOSE, FASTING 94 MG/DL (60-100); HCG, SERUM QUANTITATIVE < 2.6 MIU/ML (<4.2); MAGNESIUM LEVEL 1.6 MG/DL (1.8-2.4); POTASSIUM SERUM 4.7 MMOL/L (3.5-5.1); SODIUM LEVEL 134 MMOL/L (136-145); THYROID STIMULATING HORMONE 0.012 uIU/ML (0.55-4.78)
[2024-02-01 17:46] LABS: FREE T3 > 20.0 PG/ML (2.3-4.2); FREE T4 > 8.00 NG/DL (0.89-1.76)
[2024-02-01] MEDS: NS 1,000 ML IV ONE (18:12)
[2024-02-01] MEDS: METOPROLOL 5 MG/5 ML VIAL IV STA ×2 (18:15→19:01)
[2024-02-01 19:01] VITALS: BP 135/74
[2024-02-01] MEDS: metroNIDAZOLE (FLAGYL) 500MG TABLET PO ONE (19:01)
[2024-02-01 19:12] VITALS: BP 145/70; TEMP 98; O2SAT 98
[2024-02-01] MEDS ORDERED: CETI10CH PO (19:21)
[2024-02-01] MEDS ORDERED: PROP10TA56 PO (19:21)
[2024-02-01] MEDS ORDERED: METH10TA PO (19:21)
[2024-02-01] MEDS ORDERED: HYDR25OIN TOP (19:21)
[2024-02-01] MEDS ORDERED: METR-265 PO (19:21)
== END 2024-02-01 19:35 | disposition home or self-care (01) ==
LOC: M ED 13:53
DX: R00.0 Tachycardia, unspecified (principal); E05.00 Thyrotoxicosis with diffuse goiter without thyrotoxic crisis or storm; N76.0 Acute vaginitis; Z79.899 Other long term (current) drug therapy

== ENCOUNTER 2024-02-10 10:31 | Inpatient (IN) | payer OTHER, MEDICAID ==
[~2024-02-10] VITALS: Ht 162.6 cm; Wt 110.7 kg
[~2024-02-10 10:31] MED LIST changes: +CETI10CH PO; +HYDR25OIN TOP; +METR-265 PO; +PROP10TA56 PO; +[UNRECOGNIZED DRUG - CODE] PO
[2024-02-10] MEDS ORDERED: PROP50TA3 (10:47)
[2024-02-10] MEDS ORDERED: METH10TA PO (11:33)
[2024-02-10 11:50] LABS: BASO % 0.2 % (0.0-1.0); EOS # 0.1 10^3/uL (0.0-0.5); EOS % 1.2 % (0.0-3.0); HEMATOCRIT 31.8 % (36.0-47.0); HEMOGLOBIN 9.6 g/dl (12.0-15.5); LYMPH # 2.2 10^3/uL (1.5-5.0); LYMPH % 43.8 % (24.0-44.0); MEAN CORPUSCULAR HEMOGLOBIN 24.4 pg (27.0-33.0); MEAN CORPUSCULAR HGB CONC 30.2 g/dl (32.0-36.5); MEAN CORPUSCULAR VOLUME 80.7 fl (80.0-96.0); MONO # 0.6 10^3/uL (0.0-0.8); MONO % 11.3 % (2.0-8.0); NEUTROPHILS # 2.2 10^3/uL (1.5-8.5); NEUTROPHILS % 43.5 % (36.0-66.0); PLATELET COUNT, AUTOMATED 289 10^3/uL (150-450); RED BLOOD COUNT 3.94 10^6/uL (4.00-5.40)
[2024-02-10 12:27] LABS: FREE T4 > 8.00 NG/DL (0.89-1.76); THYROID STIMULATING HORMONE 0.008 uIU/ML (0.55-4.78)
[2024-02-10 12:38] LABS: HCG, SERUM QUALITATIVE NEGATIVE (NEGATIVE)
[2024-02-10 13:16] LABS: FREE T3 > 20.0 PG/ML (2.3-4.2)
[2024-02-10] MEDS: NS 1,000 ML IV ONE (13:49)
[2024-02-10 14:23] LABS: ALBUMIN 2.7 G/DL (3.2-5.2); ALKALINE PHOSPHATASE 104 U/L (46-116); ALT/SGPT 63 U/L (7.0-40); AST/SGOT 80 U/L (<34); BILIRUBIN,TOTAL 0.4 MG/DL (0.3-1.2); BLOOD UREA NITROGEN 12 MG/DL (9-23); CALCIUM LEVEL 9.8 MG/DL (8.5-10.1); CARBON DIOXIDE LEVEL 28 MMOL/L (20-31); CHLORIDE LEVEL 110 MMOL/L (98-107); CREATININE FOR GFR 0.49 MG/DL (0.55-1.30); GLOMERULAR FILTRATION RATE > 60.0 (>60); GLUCOSE, FASTING 115 MG/DL (60-100); MAGNESIUM LEVEL 1.6 MG/DL (1.8-2.4); SODIUM LEVEL 141 MMOL/L (136-145); TOTAL PROTEIN 5.9 G/DL (5.7-8.2)
[2024-02-10] MEDS: PROPRANOLOL 20 MG TAB PO ONE (14:36)
[2024-02-10] MEDS: methylPREDNISolone 40MG 1ML VIAL IV ONE (16:10)
[2024-02-10] MEDS: MAG SULF 1GM/100ML (MAG RUN) 1 GM in IV 1 EA IV ONE (16:10)
[2024-02-10] MEDS ORDERED: CETI-24 PO (17:04)
[2024-02-10] MEDS ORDERED: CHOL4PW PO (17:17)
[2024-02-10] MEDS ORDERED: METR-265 PO (17:26)
[2024-02-10] MEDS: propylthiouraciL 50 MG TAB PO ONE (17:26)
[2024-02-10] MEDS ORDERED: HOME MED LIST COMPLETE! XX SCH (17:35)
[2024-02-10 18:02] VITALS: BP 114/70; TEMP 97.6; O2SAT 96
[2024-02-10 18:31] LABS: HIV 1&2 SCREEN NEGATIVE (NEGATIVE)
[2024-02-10 19:07] LABS: PHOSPHORUS LEVEL 4.1 MG/DL (2.5-4.9)
[2024-02-10 19:31] VITALS: BP 176/78; TEMP 97; O2SAT 91
[2024-02-10] MEDS: propylthiouraciL 50 MG TAB PO SCH (20:00)
[2024-02-10] MEDS: QUEtiapine FUMARATE 100 MG TAB PO ONE (21:06)
[2024-02-10 23:05] VITALS: BP 162/74; TEMP 97.2; O2SAT 100
[2024-02-10] MEDS: PROPRANOLOL 20 MG TAB PO SCH (23:08)
[2024-02-11 03:15] VITALS: BP 144/68; TEMP 97.1; O2SAT 97
[2024-02-11] MEDS: methylPREDNISolone 40MG 1ML VIAL IV SCH (03:35)
[2024-02-11 06:23] LABS: HEMATOCRIT 29.8 % (36.0-47.0); LYMPH # 0.8 10^3/uL (1.5-5.0); LYMPH % 14.3 % (24.0-44.0); MEAN CORPUSCULAR HEMOGLOBIN 24.4 pg (27.0-33.0); MEAN CORPUSCULAR HGB CONC 30.2 g/dl (32.0-36.5); MEAN CORPUSCULAR VOLUME 80.8 fl (80.0-96.0); MONO # 0.1 10^3/uL (0.0-0.8); MONO % 1.7 % (2.0-8.0); NEUTROPHILS # 4.4 10^3/uL (1.5-8.5); NEUTROPHILS % 83.6 % (36.0-66.0); PLATELET COUNT, AUTOMATED 272 10^3/uL (150-450); RED BLOOD COUNT 3.69 10^6/uL (4.00-5.40); WHITE BLOOD COUNT 5.3 10^3/uL (4.0-10.0)
[2024-02-11 06:51] LABS: BLOOD UREA NITROGEN 11 MG/DL (9-23); CALCIUM LEVEL 9.7 MG/DL (8.5-10.1); CARBON DIOXIDE LEVEL 23 MMOL/L (20-31); CHLORIDE LEVEL 108 MMOL/L (98-107); CREATININE FOR GFR 0.34 MG/DL (0.55-1.30); GLOMERULAR FILTRATION RATE > 60.0 (>60); GLUCOSE, FASTING 261 MG/DL (60-100); MAGNESIUM LEVEL 1.7 MG/DL (1.8-2.4); POTASSIUM SERUM 4.5 MMOL/L (3.5-5.1); SODIUM LEVEL 138 MMOL/L (136-145)
[2024-02-11 07:16] VITALS: BP 160/70; TEMP 97.2; O2SAT 99
[2024-02-11] MEDS: MAG SULF 1GM/100ML (MAG RUN) 1 GM in IV 1 EA IV SCH (08:31)
[2024-02-11] MEDS: diphenhydrAMINE 50MG/ML VIAL IV ONE (08:35)
[2024-02-11] MEDS: SERTRALINE 100 MG TAB PO SCH (08:35)
[2024-02-11] MEDS: ENOXAPARIN 40MG/0.4ML SYRINGE (J1650 PER 10MG) SC SCH (08:38)
[2024-02-11] MEDS: MAGNESIUM OXIDE 400MG TAB (MAG-OX) PO ONE (10:02)
[2024-02-11 11:46] LABS: FREE T4 5.26 NG/DL (0.89-1.76)
[2024-02-11 11:51] LABS: FREE T3 13.8 PG/ML (2.3-4.2)
[2024-02-11 12:00] VITALS: BP 150/80; TEMP 97; O2SAT 98
[2024-02-11] MEDS: CHOLESTYRAMINE 4GM PWD PKT PO SCH (13:14)
[2024-02-11 16:00] VITALS: BP 144/72; TEMP 97.2; O2SAT 97
[2024-02-11 17:35] VITALS: BP 143/104; TEMP 97.9; O2SAT 100
[2024-02-11 20:00] VITALS: BP 149/65; TEMP 98.4; O2SAT 99
[2024-02-11] MEDS: diphenhydrAMINE 25MG CAP PO PRN (21:02)
[2024-02-11] MEDS: CETIRIZINE (ZyrTEC) 10 MG TAB PO SCH (21:03)
[2024-02-11] MEDS: MAGNESIUM OXIDE 400MG TAB (MAG-OX) PO SCH (21:03)
[2024-02-11] MEDS: PERMETHRIN 5% CREAM 60 GM TOP ONE (21:04)
[2024-02-11] MEDS: QUEtiapine FUMARATE 100 MG TAB PO SCH (21:04)
[2024-02-12 00:34] LABS: FREE T3 11.2 PG/ML (2.3-4.2); FREE T4 4.34 NG/DL (0.89-1.76)
[2024-02-12 01:51] LABS: AMPHETAMINES LEVEL URINE NEGATIVE (NEGATIVE); BARBITURATES URINE NEGATIVE (NEGATIVE); BENZODIAZEPINES URINE NEGATIVE (NEGATIVE); CANNABINOIDS URINE NEGATIVE (NEGATIVE); METHADONE URINE NEGATIVE (NEGATIVE); OPIATES URINE NEGATIVE (NEGATIVE); PHENCYCLIDINE URINE NEGATIVE (NEGATIVE)
[2024-02-12 02:15] LABS: COCAINE METABOLITE URINE POSITIVE (NEGATIVE)
[2024-02-12 04:00] VITALS: BP 155/99; TEMP 98; O2SAT 97
[2024-02-12 09:48] LABS: BASO % 0.1 % (0.0-1.0); EOS % 0.4 % (0.0-3.0); HEMATOCRIT 30.2 % (36.0-47.0); LYMPH % 56.6 % (24.0-44.0); MEAN CORPUSCULAR HEMOGLOBIN 24.1 pg (27.0-33.0); MEAN CORPUSCULAR HGB CONC 29.8 g/dl (32.0-36.5); MONO # 0.4 10^3/uL (0.0-0.8); MONO % 6.1 % (2.0-8.0); NEUTROPHILS # 2.6 10^3/uL (1.5-8.5); NEUTROPHILS % 36.7 % (36.0-66.0); PLATELET COUNT, AUTOMATED 260 10^3/uL (150-450); RED BLOOD COUNT 3.73 10^6/uL (4.00-5.40); WHITE BLOOD COUNT 7.1 10^3/uL (4.0-10.0)
[2024-02-12] MEDS: predniSONE 20 MG TAB PO SCH (10:04)
[2024-02-12 10:11] LABS: FREE T4 3.69 NG/DL (0.89-1.76)
[2024-02-12 10:12] LABS: ALBUMIN 2.6 G/DL (3.2-5.2); ALKALINE PHOSPHATASE 110 U/L (46-116); ALT/SGPT 54 U/L (7.0-40); AST/SGOT 29 U/L (<34); BILIRUBIN,TOTAL 0.2 MG/DL (0.3-1.2); BLOOD UREA NITROGEN 10 MG/DL (9-23); CALCIUM LEVEL 9.5 MG/DL (8.5-10.1); CARBON DIOXIDE LEVEL 27 MMOL/L (20-31); CHLORIDE LEVEL 110 MMOL/L (98-107); CREATININE FOR GFR 0.44 MG/DL (0.55-1.30); GLOMERULAR FILTRATION RATE > 60.0 (>60); GLUCOSE, FASTING 134 MG/DL (60-100); POTASSIUM SERUM 4.1 MMOL/L (3.5-5.1); SODIUM LEVEL 142 MMOL/L (136-145); TOTAL PROTEIN 5.7 G/DL (5.7-8.2)
[2024-02-12 10:14] LABS: FREE T3 11.7 PG/ML (2.3-4.2)
[2024-02-12] MEDS ORDERED: HYDROCORTISONE 1% CREAM 30GM TOP PRN (10:50)
[2024-02-12 12:00] VITALS: BP 163/97; TEMP 97.7; O2SAT 99
[2024-02-12 19:43] VITALS: BP 111/68; TEMP 97.3; O2SAT 98
[2024-02-12] MEDS: CALCIUM CARBONATE 500 MG CHEW U/D PO PRN (22:21)
[2024-02-12 23:54] LABS: FREE T3 8.7 PG/ML (2.3-4.2); FREE T4 3.27 NG/DL (0.89-1.76)
[2024-02-13 05:47] VITALS: BP 144/84; TEMP 97.7; O2SAT 97
[2024-02-13 05:50] VITALS: BP 144/84
[2024-02-13 06:19] LABS: BASO % 0.3 % (0.0-1.0); EOS % 0.4 % (0.0-3.0); HEMATOCRIT 31.6 % (36.0-47.0); HEMOGLOBIN 9.5 g/dl (12.0-15.5); LYMPH # 3.8 10^3/uL (1.5-5.0); LYMPH % 49.9 % (24.0-44.0); MEAN CORPUSCULAR HEMOGLOBIN 24.2 pg (27.0-33.0); MEAN CORPUSCULAR HGB CONC 30.1 g/dl (32.0-36.5); MEAN CORPUSCULAR VOLUME 80.6 fl (80.0-96.0); MONO # 0.5 10^3/uL (0.0-0.8); MONO % 6.9 % (2.0-8.0); NEUTROPHILS # 3.2 10^3/uL (1.5-8.5); NEUTROPHILS % 42.4 % (36.0-66.0); PLATELET COUNT, AUTOMATED 273 10^3/uL (150-450); RED BLOOD COUNT 3.92 10^6/uL (4.00-5.40); WHITE BLOOD COUNT 7.6 10^3/uL (4.0-10.0)
[2024-02-13 06:48] LABS: ALBUMIN 2.6 G/DL (3.2-5.2); ALKALINE PHOSPHATASE 105 U/L (46-116); ALT/SGPT 48 U/L (7.0-40); AST/SGOT 18 U/L (<34); BILIRUBIN,TOTAL 0.2 MG/DL (0.3-1.2); BLOOD UREA NITROGEN 10 MG/DL (9-23); CARBON DIOXIDE LEVEL 27 MMOL/L (20-31); CHLORIDE LEVEL 109 MMOL/L (98-107); CREATININE FOR GFR 0.42 MG/DL (0.55-1.30); GLOMERULAR FILTRATION RATE > 60.0 (>60); GLUCOSE, FASTING 74 MG/DL (60-100); POTASSIUM SERUM 3.9 MMOL/L (3.5-5.1); SODIUM LEVEL 141 MMOL/L (136-145); TOTAL PROTEIN 5.6 G/DL (5.7-8.2)
[2024-02-13 11:55] LABS: FREE T3 8.2 PG/ML (2.3-4.2)
[2024-02-13 12:00] VITALS: BP 133/71; TEMP 97.9; O2SAT 99
[2024-02-13] MEDS ORDERED: PROP20TA72 PO (12:46)
[2024-02-13] MEDS ORDERED: MAGN400T2 PO (12:46)
[2024-02-13] MEDS ORDERED: HYDR1CR TOP (12:46)
[2024-02-13] MEDS ORDERED: METH10TA PO (12:46)
[2024-02-13] MEDS ORDERED: PRED20TA PO (15:49)
== END 2024-02-13 16:00 | DRG 424 ==
LOC: EDBD 10:31 → M ED 10:31 → M ED INP 15:41 → M PCU 16:55 → M MSPAV 02-11 17:49
PROVIDERS: ADMIT Internal Medicine Nephrology; ATTEND Internal Medicine
DX: E05.00 Thyrotoxicosis with diffuse goiter without thyrotoxic crisis or storm (principal); G73.7 Myopathy in diseases classified elsewhere; E83.42 Hypomagnesemia; F14.10 Cocaine abuse, uncomplicated; B86 Scabies; F15.10 Other stimulant abuse, uncomplicated; F20.9 Schizophrenia, unspecified; F41.8 Other specified anxiety disorders; F31.9 Bipolar disorder, unspecified; L73.2 Hidradenitis suppurativa; F43.10 Post-traumatic stress disorder, unspecified; D64.9 Anemia, unspecified; F17.200 Nicotine dependence, unspecified, uncomplicated; L29.9 Pruritus, unspecified; Z56.0 Unemployment, unspecified; Z59.00 Homelessness unspecified; Z79.899 Other long term (current) drug therapy

== ENCOUNTER 2024-02-13 14:43 | Inpatient (IN) | payer MEDICAID ==
[~2024-02-13] VITALS: Ht 162.6 cm; Wt 110.7 kg
[~2024-02-13 14:43] MED LIST changes: +CETI-24 PO; +HYDR1CR TOP; +MAGN400T2 PO; +PROP50TA3
[2024-02-13] MEDS ORDERED: traZODone 50 MG TAB PO PRN (14:55)
[2024-02-13] MEDS ORDERED: MOM 30ML SUSPENSION UDC PO PRN (14:55)
[2024-02-13] MEDS ORDERED: MAALOX 30 ML SUSP *UDC PO PRN (14:55)
[2024-02-13] MEDS ORDERED: ACETAMINOPHEN TAB 650MG DOSE (2X325MG) PO PRN (14:55)
[2024-02-13] MEDS ORDERED: diphenhydrAMINE 25MG CAP PO PRN (14:55)
[2024-02-13] MEDS ORDERED: IBUPROFEN 400MG TAB PO PRN (14:55)
[2024-02-13] MEDS ORDERED: PRED20TA PO (15:49)
[2024-02-13] MEDS ORDERED: HOME MED LIST COMPLETE! XX SCH (15:50)
[2024-02-13] MEDS ORDERED: HYDROCORTISONE 1% CREAM 30GM TOP PRN (16:20)
[2024-02-13] MEDS ORDERED: CETIRIZINE (ZyrTEC) 10 MG TAB PO PRN (16:20)
[2024-02-13 17:54] VITALS: BP 127/99; TEMP 97.6; O2SAT 93
[2024-02-13] MEDS: CHOLESTYRAMINE 4GM PWD PKT PO SCH (18:04)
[2024-02-13] MEDS: PROPRANOLOL 20 MG TAB PO SCH (18:04)
[2024-02-13] MEDS: QUEtiapine FUMARATE 100 MG TAB PO SCH (22:54)
[2024-02-13] MEDS: MAGNESIUM OXIDE 400MG TAB (MAG-OX) PO SCH (22:54)
[2024-02-14 06:15] VITALS: BP 134/88; TEMP 96.7
[2024-02-14] MEDS: SERTRALINE 100 MG TAB PO SCH (09:37)
[2024-02-14] MEDS: VITAMIN D 1,000 INTERNATIONAL UNITS TABLET PO SCH (09:37)
[2024-02-14] MEDS: FERROUS GLUCONATE 324 MG TAB PO SCH (09:37)
[2024-02-14] MEDS: CHOLESTYRAMINE 4GM PWD PKT PO SCH (10:34)
[2024-02-14] MEDS ORDERED: NICOTINE 14 MG/24 HR TRANSDERMAL TD PRN (12:25)
[2024-02-14 17:33] VITALS: BP 141/66; TEMP 97.7; O2SAT 99
[2024-02-15 06:20] VITALS: BP 133/61
[2024-02-15 06:27] VITALS: BP 133/61; TEMP 97.9; O2SAT 97
[2024-02-15 07:30] LABS: CHOLESTEROL RISK RATIO 4.61 (<5); HDL CHOLESTEROL 37.9 MG/DL (>40); LDL CHOLESTEROL 84.1 MG/DL (<100); NON-HDL-C 137.1 MG/DL
[2024-02-15] MEDS ORDERED: NICO14PA TD (08:47)
[2024-02-15] MEDS ORDERED: QUET100T2 PO (08:47)
[2024-02-15] MEDS ORDERED: CETI-24 PO (08:47)
[2024-02-15] MEDS ORDERED: ZOLO100T PO (08:47)
[2024-02-15] MEDS ORDERED: CHOL4PW PO (08:47)
[2024-02-15] MEDS ORDERED: D 50CAP3 PO (08:47)
[2024-02-15] MEDS ORDERED: [UNRECOGNIZED DRUG - CODE] PO (08:47)
[2024-02-15] MEDS ORDERED: PROPRANOLOL 20 MG TAB PO SCH (16:00)
== END 2024-02-15 14:30 | disposition home or self-care (01) | DRG 756 ==
LOC: M PSY 16:00
PROVIDERS: ADMIT Psychiatry & Neurology Psychiatry; ATTEND Psychiatry & Neurology Psychiatry
DX: F41.8 Other specified anxiety disorders (principal); Z91.198 Patient's noncompliance with other medical treatment and regimen for other reason; F32.A Depression, unspecified; F15.10 Other stimulant abuse, uncomplicated; F14.10 Cocaine abuse, uncomplicated; E05.00 Thyrotoxicosis with diffuse goiter without thyrotoxic crisis or storm; L73.2 Hidradenitis suppurativa; D64.9 Anemia, unspecified; F17.200 Nicotine dependence, unspecified, uncomplicated; Z59.00 Homelessness unspecified; Z56.0 Unemployment, unspecified; Z79.899 Other long term (current) drug therapy

== ENCOUNTER 2024-03-30 16:33 | Emergency (ER) | payer MEDICAID, OTHER ==
[~2024-03-30] VITALS: Ht 162.6 cm; Wt 102.7 kg
[~2024-03-30 16:33] MED LIST changes: -OLAN15TA13 PO; +OLAN15TA69 PO; +PRED20TA PO
[2024-03-30 16:40] VITALS: BP 140/79; TEMP 97.2; O2SAT 98
[2024-03-30] MEDS ORDERED: ZOLO100T PO (20:44)
[2024-03-30] MEDS ORDERED: SERO1TAB PO (20:44)
[2024-03-30] MEDS ORDERED: CETI10CH PO (20:44)
== END 2024-03-30 20:51 | disposition home or self-care (01) ==
LOC: M ED 16:33
DX: R21 Rash and other nonspecific skin eruption (principal); Z76.0 Encounter for issue of repeat prescription; Z79.899 Other long term (current) drug therapy

== ENCOUNTER 2024-04-25 14:00 | Emergency (ER) | payer OTHER ==
[~2024-04-25] VITALS: Ht 162.6 cm; Wt 106.5 kg
[~2024-04-25 14:00] MED LIST changes: -MIDO10TA; -MIDO10TA PO; +MIDO10TA3; +MIDO10TA3 PO; +SERO1TAB PO
[2024-04-25 14:06] VITALS: BP 141/70; TEMP 97.3; O2SAT 98
[2024-04-25] MEDS ORDERED: ZOLO100T PO (16:34)
[2024-04-25] MEDS ORDERED: QUET100T2 PO (16:34)
[2024-04-25] MEDS ORDERED: PROP20TA72 PO (16:34)
[2024-04-25] MEDS ORDERED: METH10TA PO (16:34)
== END 2024-04-25 16:42 | disposition home or self-care (01) ==
LOC: M ED 14:00
DX: Z76.0 Encounter for issue of repeat prescription (principal); E06.5 Other chronic thyroiditis; F32.A Depression, unspecified; Z79.899 Other long term (current) drug therapy

== ENCOUNTER 2024-06-03 11:30 | Emergency (ER) | payer OTHER ==
[~2024-06-03] VITALS: Ht 162.6 cm; Wt 110.9 kg
[2024-06-03] MEDS ORDERED: PROP50TA3 PO (13:39)
[2024-06-03 13:47] VITALS: BP 138/83; TEMP 97.8; O2SAT 97
== END 2024-06-03 13:49 | disposition home or self-care (01) ==
LOC: M ED 11:30
DX: Z76.0 Encounter for issue of repeat prescription (principal); E03.9 Hypothyroidism, unspecified; G43.909 Migraine, unspecified, not intractable, without status migrainosus

== ENCOUNTER → 2024-06-03 | Outpatient (CLI) | payer OTHER ==
[~2024-06-03] MED LIST changes: +METH-1387 PO; -METH10TA PO
[2024-06-03 11:48] LABS: BASO % 0.1 % (0.0-1.0); EOS # 0.1 10^3/uL (0.0-0.5); HEMATOCRIT 35.9 % (36.0-47.0); HEMOGLOBIN 11.2 g/dl (12.0-15.5); LYMPH # 2.8 10^3/uL (1.5-5.0); LYMPH % 39.9 % (24.0-44.0); MEAN CORPUSCULAR HEMOGLOBIN 24.2 pg (27.0-33.0); MEAN CORPUSCULAR HGB CONC 31.2 g/dl (32.0-36.5); MEAN CORPUSCULAR VOLUME 77.7 fl (80.0-96.0); MONO # 0.3 10^3/uL (0.0-0.8); MONO % 4.6 % (2.0-8.0); NEUTROPHILS # 3.7 10^3/uL (1.5-8.5); NEUTROPHILS % 53.3 % (36.0-66.0); PLATELET COUNT, AUTOMATED 238 10^3/uL (150-450); RED BLOOD COUNT 4.62 10^6/uL (4.00-5.40); WHITE BLOOD COUNT 6.9 10^3/uL (4.0-10.0)
[2024-06-03 12:11] LABS: ALKALINE PHOSPHATASE 168 U/L (35-104); ALT/SGPT 17 U/L (7.0-40); AST/SGOT < 8 U/L (<34); BILIRUBIN,TOTAL 0.3 MG/DL (0.3-1.2); BLOOD UREA NITROGEN 15 MG/DL (9-23); C REACTIVE PROTEIN QUANTITATIV 1.08 MG/DL (<1.0); CALCIUM LEVEL 8.6 MG/DL (8.5-10.1); CARBON DIOXIDE LEVEL 23 MMOL/L (20-31); CHLORIDE LEVEL 113 MMOL/L (98-107); CREATININE FOR GFR 0.78 MG/DL (0.55-1.30); ERYTHROCYTE SEDIMENTATION RATE 48 mm/hr (0-20); GLOMERULAR FILTRATION RATE > 60.0 (>60); GLUCOSE, FASTING 100 MG/DL (60-100); IRON (FE) 42 UG/DL (50-170); POTASSIUM SERUM 4.1 MMOL/L (3.5-5.1); SODIUM LEVEL 144 MMOL/L (136-145); TOTAL PROTEIN 6.3 G/DL (5.7-8.2)
[2024-06-03 12:12] LABS: RHEUMATOID FACTOR QUANT < 3.5 IU/ML (<14)
[2024-06-03 12:13] LABS: FREE T4 0.36 NG/DL (0.89-1.76)
[2024-06-03 12:14] LABS: THYROID STIMULATING HORMONE < 0.010 uIU/ML (0.55-4.78)
[2024-06-05 08:17] LABS: ANA SCREEN, IFA NEGATIVE (NEGATIVE)
[2024-06-05 12:02] LABS: SSA SJOGRENS A <1.0 NEG AI (<1.0 NEG); SSB SJOGRENS B <1.0 NEG AI (<1.0 NEG)
[2024-06-05 12:47] LABS: CYCLIC CITRULLINATED PEPTIDE < 16 UNITS (<20)
== END ==
LOC: M LAB 11:09
PROVIDERS: ATTEND Family Medicine Addiction Medicine
DX: M25.50 Pain in unspecified joint (principal); D64.9 Anemia, unspecified; E05.00 Thyrotoxicosis with diffuse goiter without thyrotoxic crisis or storm

== ENCOUNTER → 2024-07-02 | Outpatient (CLI) | payer OTHER ==
[2024-07-02 11:29] LABS: FREE T4 0.72 NG/DL (0.89-1.76); THYROID STIMULATING HORMONE < 0.010 uIU/ML (0.55-4.78); TOTAL T3 261.4 NG/DL (60.0-181.0)
== END ==
LOC: M LAB 09:41
PROVIDERS: ATTEND Nurse Practitioner Family
DX: E05.00 Thyrotoxicosis with diffuse goiter without thyrotoxic crisis or storm (principal)

== ENCOUNTER → 2024-07-02 | Outpatient (CLI) | payer OTHER ==
[~2024-07-02] MED LIST changes: +ISOVUE-370 76% 100ML VIAL As Ordered ONE
== END ==
LOC: M RAD 11:20
PROVIDERS: ATTEND Otolaryngology
DX: E05.00 Thyrotoxicosis with diffuse goiter without thyrotoxic crisis or storm (principal)
CPT/HCPCS: 70491; Q9967

== ENCOUNTER → 2024-07-21 | Outpatient (CLI) | payer OTHER ==
[~2024-07-21] MED LIST changes: -ISOVUE-370 76% 100ML VIAL As Ordered ONE
[2024-07-21 13:21] LABS: BASO % 0.6 % (0.0-1.0); EOS # 0.1 10^3/uL (0.0-0.5); EOS % 1.9 % (0.0-3.0); HEMATOCRIT 40.6 % (36.0-47.0); HEMOGLOBIN 12.8 g/dl (12.0-15.5); LYMPH # 2.6 10^3/uL (1.5-5.0); LYMPH % 48.1 % (24.0-44.0); MEAN CORPUSCULAR HEMOGLOBIN 25.4 pg (27.0-33.0); MEAN CORPUSCULAR HGB CONC 31.5 g/dl (32.0-36.5); MEAN CORPUSCULAR VOLUME 80.6 fl (80.0-96.0); MONO # 0.4 10^3/uL (0.0-0.8); MONO % 7.1 % (2.0-8.0); NEUTROPHILS # 2.3 10^3/uL (1.5-8.5); NEUTROPHILS % 42.1 % (36.0-66.0); PLATELET COUNT, AUTOMATED 210 10^3/uL (150-450); RED BLOOD COUNT 5.04 10^6/uL (4.00-5.40); WHITE BLOOD COUNT 5.4 10^3/uL (4.0-10.0)
== END ==
LOC: M LAB 12:36
PROVIDERS: ATTEND Family Medicine Addiction Medicine
DX: M25.50 Pain in unspecified joint (principal)

== ENCOUNTER → 2024-07-21 | Outpatient (CLI) | payer OTHER ==
[2024-07-21 13:55] LABS: FREE T4 1.69 NG/DL (0.89-1.76)
[2024-07-21 13:57] LABS: THYROID STIMULATING HORMONE < 0.010 uIU/ML (0.55-4.78)
[2024-07-21 14:13] LABS: TOTAL T3 359.1 NG/DL (60.0-181.0)
== END ==
LOC: M LAB 12:29
PROVIDERS: ATTEND Nurse Practitioner Family
DX: E05.00 Thyrotoxicosis with diffuse goiter without thyrotoxic crisis or storm (principal)

== ENCOUNTER → 2024-08-11 | Outpatient (CLI) | payer MEDICAID ==
[~2024-08-11] MED LIST changes: -ELIM5CRE2 TOP; +PERM60CR8 TOP
== END ==
LOC: M OUTALCOH 12:50
PROVIDERS: ATTEND Psychiatry & Neurology Psychiatry
DX: F11.20 Opioid dependence, uncomplicated (principal); Z72.0 Tobacco use

== ENCOUNTER 2024-08-15 14:15 | Emergency (ER) | payer MEDICAID, OTHER ==
[~2024-08-15] VITALS: Ht 162.6 cm; Wt 108.9 kg
[2024-08-15 16:06] LABS: HEMATOCRIT 40.5 % (36.0-47.0); HEMOGLOBIN 12.9 g/dl (12.0-15.5); MEAN CORPUSCULAR HEMOGLOBIN 25.1 pg (27.0-33.0); MEAN CORPUSCULAR HGB CONC 31.9 g/dl (32.0-36.5); MEAN CORPUSCULAR VOLUME 78.9 fl (80.0-96.0); PLATELET COUNT, AUTOMATED 243 10^3/uL (150-450); RED BLOOD COUNT 5.13 10^6/uL (4.00-5.40); WHITE BLOOD COUNT 6.7 10^3/uL (4.0-10.0)
[2024-08-15 16:13] LABS: HCG, SERUM QUALITATIVE NEGATIVE (NEGATIVE)
[2024-08-15 16:17] LABS: ETHYL ALCOHOL (ETHANOL) < 0.003 % (0.000-0.010)
[2024-08-15 16:18] LABS: SALICYLATE LEVEL < 3.0 MG/DL (<30)
[2024-08-15 16:19] LABS: ALBUMIN 3.4 G/DL (3.2-5.2); ALKALINE PHOSPHATASE 176 U/L (35-104); ALT/SGPT 35 U/L (7.0-40); AST/SGOT 11 U/L (<34); BILIRUBIN,DIRECT < 0.1 MG/DL (<0.4); BILIRUBIN,TOTAL 0.2 MG/DL (0.3-1.2); BLOOD UREA NITROGEN 11 MG/DL (9-23); CALCIUM LEVEL 9.5 MG/DL (8.5-10.1); CARBON DIOXIDE LEVEL 24 MMOL/L (20-31); CHLORIDE LEVEL 108 MMOL/L (98-107); CREATININE FOR GFR 0.72 MG/DL (0.55-1.30); GLOMERULAR FILTRATION RATE > 60.0 (>60); GLUCOSE, FASTING 93 MG/DL (60-100); POTASSIUM SERUM 4.5 MMOL/L (3.5-5.1); SODIUM LEVEL 143 MMOL/L (136-145); TOTAL PROTEIN 7.3 G/DL (5.7-8.2)
[2024-08-15 16:21] LABS: THYROID STIMULATING HORMONE < 0.010 uIU/ML (0.55-4.78)
[2024-08-15] MEDS ORDERED: QUET100T2 PO (16:49)
[2024-08-15] MEDS ORDERED: FERR225T2 PO (16:49)
[2024-08-15] MEDS ORDERED: PROP20TA72 PO (16:49)
[2024-08-15] MEDS ORDERED: CHOL50002 PO (16:49)
[2024-08-15] MEDS ORDERED: REFR0.5D8 OU (16:50)
[2024-08-15] MEDS ORDERED: HOME MED LIST COMPLETE! XX SCH (16:50)
[2024-08-15 16:53] LABS: THYROXINE (T4) 12.6 UG/DL (4.5-10.9)
[2024-08-15 17:08] LABS: AMPHETAMINES LEVEL URINE NEGATIVE (NEGATIVE); BARBITURATES URINE NEGATIVE (NEGATIVE); CANNABINOIDS URINE NEGATIVE (NEGATIVE); METHADONE URINE NEGATIVE (NEGATIVE); OPIATES URINE NEGATIVE (NEGATIVE); PHENCYCLIDINE URINE NEGATIVE (NEGATIVE)
[2024-08-15 17:09] LABS: BENZODIAZEPINES URINE POSITIVE (NEGATIVE); COCAINE METABOLITE URINE POSITIVE (NEGATIVE)
[2024-08-15] MEDS: QUEtiapine FUMARATE 100 MG TAB PO ONE (21:30)
[2024-08-15] MEDS: PROPRANOLOL 20 MG TAB PO SCH (21:33)
[2024-08-15] MEDS: propylthiouraciL 50 MG TAB PO SCH (21:33)
[2024-08-15] MEDS: ACETAMINOPHEN 325 MG TAB PO ONE (22:21)
[2024-08-15] MEDS: diphenhydrAMINE 50MG CAP PO ONE (22:21)
[2024-08-16 06:14] VITALS: BP 135/78; TEMP 97.3; O2SAT 99
== END 2024-08-16 06:21 | disposition home or self-care (01) ==
LOC: M ED 14:15
DX: F43.0 Acute stress reaction (principal); F32.A Depression, unspecified; E03.9 Hypothyroidism, unspecified; Z79.899 Other long term (current) drug therapy

== ENCOUNTER → 2024-08-29 | Outpatient (CLI) | payer OTHER ==
[~2024-08-29] MED LIST changes: +CHOL50002 PO; +FERR225T2 PO; +REFR0.5D8 OU
[2024-08-29 16:07] LABS: THYROID STIMULATING HORMONE < 0.010 uIU/ML (0.55-4.78)
== END ==
LOC: M PLALAB 12:16
PROVIDERS: ATTEND Internal Medicine Endocrinology, Diabetes & Metabolism
DX: E05.00 Thyrotoxicosis with diffuse goiter without thyrotoxic crisis or storm (principal)

== ENCOUNTER → 2024-09-08 | Outpatient (RCR) | payer MEDICAID | LOC: M OUTALCOH 08-18 10:44 | PROVIDERS: ATTEND Psychiatry & Neurology Psychiatry | DX: F14.20 Cocaine dependence, uncomplicated (principal); F10.10 Alcohol abuse, uncomplicated ==

== ENCOUNTER 2024-09-27 22:40 | Inpatient (IN) | payer MEDICAID, OTHER ==
[~2024-09-27] VITALS: Ht 162.6 cm; Wt 125.1 kg
[2024-09-28 01:05] LABS: BASO # 0.1 10^3/uL (0.0-0.2); BASO % 0.3 % (0.0-1.0); EOS # 0.4 10^3/uL (0.0-0.5); EOS % 2.3 % (0.0-3.0); HEMATOCRIT 30.8 % (36.0-47.0); HEMOGLOBIN 9.5 g/dl (12.0-15.5); LYMPH # 5.6 10^3/uL (1.5-5.0); LYMPH % 36.8 % (24.0-44.0); MEAN CORPUSCULAR HEMOGLOBIN 24.7 pg (27.0-33.0); MEAN CORPUSCULAR HGB CONC 30.8 g/dl (32.0-36.5); MONO # 0.6 10^3/uL (0.0-0.8); MONO % 3.8 % (2.0-8.0); NEUTROPHILS # 8.6 10^3/uL (1.5-8.5); NEUTROPHILS % 56.1 % (36.0-66.0); PLATELET COUNT, AUTOMATED 300 10^3/uL (150-450); RED BLOOD COUNT 3.85 10^6/uL (4.00-5.40); WHITE BLOOD COUNT 15.3 10^3/uL (4.0-10.0)
[2024-09-28] MEDS ORDERED: CALCIUM CARBONATE 500 MG CHEW U/D PO ONE ×2 (01:15)
[2024-09-28] MEDS: CALCIUM CARBONATE 500 MG CHEW U/D PO ONE (01:36)
[2024-09-28 01:44] LABS: BLOOD UREA NITROGEN 8 MG/DL (9-23); CALCIUM LEVEL 4.1 MG/DL (8.5-10.1); CARBON DIOXIDE LEVEL 24 MMOL/L (20-31); CHLORIDE LEVEL 105 MMOL/L (98-107); CREATININE FOR GFR 0.73 MG/DL (0.55-1.30); GLOMERULAR FILTRATION RATE > 90.0 (>60); GLUCOSE, FASTING 96 MG/DL (60-100); POTASSIUM SERUM 3.7 MMOL/L (3.5-5.1); SODIUM LEVEL 140 MMOL/L (136-145)
[2024-09-28] MEDS: CALCIUM GLUCONATE 1,000 MG in DEXTROSE 5% (D5W) MINI-BAG PLU 100 ML IV ONE (03:05)
[2024-09-28 03:22] LABS: MAGNESIUM LEVEL 1.4 MG/DL (1.8-2.4)
[2024-09-28] MEDS: MAG SULF 1GM/100ML (MAG RUN) 1 GM in IV 1 EA IV ONE (04:14)
[2024-09-28] MEDS ORDERED: MAALOX 30 ML SUSP *UDC PO PRN (05:05)
[2024-09-28] MEDS: LR 1,000 ML IV SCH (06:49)
[2024-09-28] MEDS: CALCIUM CHLORIDE 10% 1 GM in D5W 100 ML IV ONE (06:49)
[2024-09-28 07:59] LABS: HEMATOCRIT 26.7 % (36.0-47.0); HEMOGLOBIN 8.4 g/dl (12.0-15.5); MEAN CORPUSCULAR HEMOGLOBIN 25.4 pg (27.0-33.0); MEAN CORPUSCULAR HGB CONC 31.5 g/dl (32.0-36.5); MEAN CORPUSCULAR VOLUME 80.7 fl (80.0-96.0); PLATELET COUNT, AUTOMATED 276 10^3/uL (150-450); RED BLOOD COUNT 3.31 10^6/uL (4.00-5.40); WHITE BLOOD COUNT 11.5 10^3/uL (4.0-10.0)
[2024-09-28 08:11] LABS: INR 0.95
[2024-09-28 08:20] LABS: ALKALINE PHOSPHATASE 122 U/L (35-104)
[2024-09-28 08:22] LABS: CPK CREATINE PHOSPHOKINASE 287 U/L (34-145)
[2024-09-28 08:25] LABS: TOTAL 25(OH) VITAMIN D 31.6 NG/ML (20.0-100.0)
[2024-09-28 08:26] LABS: THYROID STIMULATING HORMONE < 0.010 uIU/ML (0.55-4.78)
[2024-09-28 08:30] LABS: PROCALCITONIN 0.07 ng/ml
[2024-09-28 08:32] LABS: ALBUMIN 2.4 G/DL (3.2-5.2); ALKALINE PHOSPHATASE 122 U/L (35-104); ALT/SGPT 16 U/L (7.0-40); AST/SGOT 9 U/L (<34); BILIRUBIN,TOTAL 0.2 MG/DL (0.3-1.2); BLOOD UREA NITROGEN 8 MG/DL (9-23); CALCIUM LEVEL 4.9 MG/DL (8.5-10.1); CARBON DIOXIDE LEVEL 24 MMOL/L (20-31); CHLORIDE LEVEL 108 MMOL/L (98-107); GLOMERULAR FILTRATION RATE > 90.0 (>60); GLUCOSE, FASTING 121 MG/DL (60-100); MAGNESIUM LEVEL 1.7 MG/DL (1.8-2.4); PHOSPHORUS LEVEL 6.8 MG/DL (2.5-4.9); POTASSIUM SERUM 3.5 MMOL/L (3.5-5.1); SODIUM LEVEL 144 MMOL/L (136-145); TOTAL PROTEIN 5.7 G/DL (5.7-8.2)
[2024-09-28] MEDS: DOCUSATE SODIUM 100MG CAPSULE PO SCH (09:13)
[2024-09-28] MEDS: VITAMIN D (CHOLECALCIFEROL) 400 INTERNATIONAL UNITS TAB PO SCH (09:29)
[2024-09-28] MEDS: CALCIUM/VITAMIN D 500 MG TAB PO SCH (09:29)
[2024-09-28 09:33] LABS: PTH INTACT < 6.3 PG/ML (18.5-88.0)
[2024-09-28] MEDS ORDERED: FERR32TA PO (09:44)
[2024-09-28] MEDS ORDERED: HOME MED LIST COMPLETE! XX SCH (09:50)
[2024-09-28] MEDS ORDERED: CALCIUM GLUCONATE 1,000 MG in DEXTROSE 5% (D5W) MINI-BAG PLU 100 ML IV ONE (10:00)
[2024-09-28 10:09] LABS: FREE T4 0.51 NG/DL (0.89-1.76)
[2024-09-28 10:59] LABS: FREE T3 1.8 PG/ML (2.3-4.2)
[2024-09-28] MEDS: ENOXAPARIN 40MG/0.4ML SYRINGE (J1650 PER 10MG) SC SCH (11:16)
[2024-09-28] MEDS: MAG SULF 1GM/100ML (MAG RUN) 1 GM in IV 1 EA IV SCH (11:16)
[2024-09-28] MEDS: SERTRALINE 100 MG TAB PO SCH (11:16)
[2024-09-28] MEDS: FERROUS GLUCONATE 324 MG TAB PO SCH (11:45)
[2024-09-28 12:10] LABS: KETONE, URINE AUTO RFX NEGATIVE (NEGATIVE); MUCUS, URINE RFX SMALL (NEGATIVE); NITRITE, URINE AUTO RFX NEGATIVE (NEGATIVE); RBC, URINE AUTO RFX 0 /HPF (0-3); SQUAM EPITHELIAL CELL UR AURFX 12 /HPF (0-6); WBC, URINE AUTO RFX 1 /HPF (0-3)
[2024-09-28 12:11] LABS: LEUKOCYTE ESTERASE UR AUTO RFX TRACE (NEGATIVE)
[2024-09-28 12:57] LABS: ALBUMIN 2.6 G/DL (3.2-5.2); ALKALINE PHOSPHATASE 131 U/L (35-104); ALT/SGPT 18 U/L (7.0-40); AST/SGOT 10 U/L (<34); BILIRUBIN,TOTAL < 0.2 MG/DL (0.3-1.2); BLOOD UREA NITROGEN 9 MG/DL (9-23); CALCIUM LEVEL 5.2 MG/DL (8.5-10.1); CARBON DIOXIDE LEVEL 23 MMOL/L (20-31); CHLORIDE LEVEL 107 MMOL/L (98-107); CREATININE FOR GFR 0.71 MG/DL (0.55-1.30); GLOMERULAR FILTRATION RATE > 90.0 (>60); GLUCOSE, FASTING 100 MG/DL (60-100); POTASSIUM SERUM 4.3 MMOL/L (3.5-5.1); SODIUM LEVEL 141 MMOL/L (136-145); TOTAL PROTEIN 6.2 G/DL (5.7-8.2)
[2024-09-28 13:17] VITALS: BP 144/88; TEMP 97.4; O2SAT 99
[2024-09-28] MEDS: CALCIUM GLUCONATE 1,000 MG in DEXTROSE 5% (D5W) MINI-BAG PLU 100 ML IV SCH ×3 (13:54→21:43)
[2024-09-28] MEDS: ACETAMINOPHEN 325 MG TAB PO PRN (15:04)
[2024-09-28 15:40] VITALS: BP 165/77; TEMP 97.9; O2SAT 99
[2024-09-28 16:45] LABS: ALBUMIN 2.5 G/DL (3.2-5.2); ALKALINE PHOSPHATASE 139 U/L (35-104); ALT/SGPT 17 U/L (7.0-40); AST/SGOT 10 U/L (<34); BILIRUBIN,TOTAL < 0.2 MG/DL (0.3-1.2); BLOOD UREA NITROGEN 9 MG/DL (9-23); CALCIUM LEVEL 5.4 MG/DL (8.5-10.1); CARBON DIOXIDE LEVEL 23 MMOL/L (20-31); CHLORIDE LEVEL 106 MMOL/L (98-107); GLOMERULAR FILTRATION RATE > 90.0 (>60); GLUCOSE, FASTING 126 MG/DL (60-100); POTASSIUM SERUM 4.1 MMOL/L (3.5-5.1); SODIUM LEVEL 140 MMOL/L (136-145)
[2024-09-28 16:48] VITALS: BP 138/72
[2024-09-28] MEDS: CALCITRIOL 0.25 MCG CAP (S0169) PO SCH (18:46)
[2024-09-28 19:08] VITALS: BP 158/78; TEMP 97.8; O2SAT 98
[2024-09-28 19:43] LABS: ALBUMIN 2.6 G/DL (3.2-5.2); ALKALINE PHOSPHATASE 149 U/L (35-104); ALT/SGPT 19 U/L (7.0-40); AST/SGOT 9 U/L (<34); BILIRUBIN,TOTAL < 0.2 MG/DL (0.3-1.2); BLOOD UREA NITROGEN 10 MG/DL (9-23); CALCIUM LEVEL 5.5 MG/DL (8.5-10.1); CARBON DIOXIDE LEVEL 23 MMOL/L (20-31); CHLORIDE LEVEL 106 MMOL/L (98-107); CREATININE FOR GFR 0.69 MG/DL (0.55-1.30); GLOMERULAR FILTRATION RATE > 90.0 (>60); GLUCOSE, FASTING 111 MG/DL (60-100); POTASSIUM SERUM 4.2 MMOL/L (3.5-5.1); SODIUM LEVEL 139 MMOL/L (136-145); TOTAL PROTEIN 6.3 G/DL (5.7-8.2)
[2024-09-28] MEDS: MAGNESIUM OXIDE 400MG TAB (MAG-OX) PO SCH (21:44)
[2024-09-28] MEDS: QUEtiapine FUMARATE 200 MG TAB PO SCH (21:44)
[2024-09-28] MEDS: CALCIUM CARBONATE 500 MG CHEW U/D PO SCH (21:44)
[2024-09-28 22:16] LABS: ALBUMIN 2.6 G/DL (3.2-5.2); ALKALINE PHOSPHATASE 152 U/L (35-104); ALT/SGPT 18 U/L (7.0-40); AST/SGOT 9 U/L (<34); BILIRUBIN,TOTAL < 0.2 MG/DL (0.3-1.2); BLOOD UREA NITROGEN 11 MG/DL (9-23); CALCIUM LEVEL 5.9 MG/DL (8.5-10.1); CARBON DIOXIDE LEVEL 24 MMOL/L (20-31); CHLORIDE LEVEL 109 MMOL/L (98-107); CREATININE FOR GFR 0.84 MG/DL (0.55-1.30); GLOMERULAR FILTRATION RATE > 90.0 (>60); GLUCOSE, FASTING 110 MG/DL (60-100); POTASSIUM SERUM 4.4 MMOL/L (3.5-5.1); SODIUM LEVEL 145 MMOL/L (136-145); TOTAL PROTEIN 6.2 G/DL (5.7-8.2)
[2024-09-29] VITALS (7 sets, daily range): BP systolic 127–170; BP diastolic 59–91; TEMP 97.6–98.8; O2SAT 96–98
[2024-09-29 03:49] LABS: HEMATOCRIT 27.2 % (36.0-47.0); HEMOGLOBIN 8.6 g/dl (12.0-15.5); MEAN CORPUSCULAR HEMOGLOBIN 25.5 pg (27.0-33.0); MEAN CORPUSCULAR HGB CONC 31.6 g/dl (32.0-36.5); MEAN CORPUSCULAR VOLUME 80.7 fl (80.0-96.0); PLATELET COUNT, AUTOMATED 281 10^3/uL (150-450); RED BLOOD COUNT 3.37 10^6/uL (4.00-5.40); WHITE BLOOD COUNT 11.1 10^3/uL (4.0-10.0)
[2024-09-29 04:01] LABS: INR 0.92; PROTHROMBIN TIME 12.7 SECONDS (12.5-14.5)
[2024-09-29 04:14] LABS: ALBUMIN 2.4 G/DL (3.2-5.2); ALKALINE PHOSPHATASE 140 U/L (35-104); ALT/SGPT 16 U/L (7.0-40); AST/SGOT 8 U/L (<34); BILIRUBIN,TOTAL < 0.2 MG/DL (0.3-1.2); BLOOD UREA NITROGEN 11 MG/DL (9-23); CALCIUM LEVEL 6.1 MG/DL (8.5-10.1); CARBON DIOXIDE LEVEL 25 MMOL/L (20-31); CHLORIDE LEVEL 109 MMOL/L (98-107); CREATININE FOR GFR 1.08 MG/DL (0.55-1.30); GLOMERULAR FILTRATION RATE 67.9 (>60); GLUCOSE, FASTING 93 MG/DL (60-100); POTASSIUM SERUM 4.2 MMOL/L (3.5-5.1); SODIUM LEVEL 145 MMOL/L (136-145); TOTAL PROTEIN 5.9 G/DL (5.7-8.2)
[2024-09-29 04:17] LABS: MAGNESIUM LEVEL 1.9 MG/DL (1.8-2.4); PHOSPHORUS LEVEL 7.1 MG/DL (2.5-4.9)
[2024-09-29] MEDS: LEVOTHYROXINE 100MCG (0.1MG) 5ML SDV PF (SOLUTION FORM) IV SCH (10:55)
[2024-09-29] MEDS: CALCIUM GLUCONATE 1,000 MG in DEXTROSE 5% (D5W) MINI-BAG PLU 100 ML IV SCH ×2 (10:56→12:09)
[2024-09-29 12:38] LABS: ALBUMIN 2.8 G/DL (3.2-5.2); ALKALINE PHOSPHATASE 150 U/L (35-104); ALT/SGPT 18 U/L (7.0-40); AST/SGOT 9 U/L (<34); BILIRUBIN,TOTAL 0.2 MG/DL (0.3-1.2); BLOOD UREA NITROGEN 14 MG/DL (9-23); CALCIUM LEVEL 7.3 MG/DL (8.5-10.1); CARBON DIOXIDE LEVEL 23 MMOL/L (20-31); CHLORIDE LEVEL 105 MMOL/L (98-107); CREATININE FOR GFR 0.78 MG/DL (0.55-1.30); GLOMERULAR FILTRATION RATE > 90.0 (>60); GLUCOSE, FASTING 91 MG/DL (60-100); POTASSIUM SERUM 4.7 MMOL/L (3.5-5.1); SODIUM LEVEL 140 MMOL/L (136-145); TOTAL PROTEIN 6.9 G/DL (5.7-8.2)
[2024-09-29] MEDS: MAG SULF 1GM/100ML (MAG RUN) 1 GM in IV 1 EA IV ONE (13:29)
[2024-09-29 16:00] LABS: ALBUMIN 3.1 G/DL (3.2-5.2); ALKALINE PHOSPHATASE 152 U/L (35-104); ALT/SGPT 19 U/L (7.0-40); AST/SGOT 9 U/L (<34); BILIRUBIN,TOTAL < 0.2 MG/DL (0.3-1.2); BLOOD UREA NITROGEN 13 MG/DL (9-23); CALCIUM LEVEL 7.1 MG/DL (8.5-10.1); CARBON DIOXIDE LEVEL 23 MMOL/L (20-31); CHLORIDE LEVEL 104 MMOL/L (98-107); CREATININE FOR GFR 0.83 MG/DL (0.55-1.30); GLOMERULAR FILTRATION RATE > 90.0 (>60); GLUCOSE, FASTING 111 MG/DL (60-100); POTASSIUM SERUM 4.5 MMOL/L (3.5-5.1); SODIUM LEVEL 137 MMOL/L (136-145); TOTAL PROTEIN 6.8 G/DL (5.7-8.2)
[2024-09-29] MEDS: MAGNESIUM OXIDE 400MG TAB (MAG-OX) PO SCH (16:28)
[2024-09-29 22:21] LABS: ALBUMIN 2.7 G/DL (3.2-5.2); ALKALINE PHOSPHATASE 148 U/L (35-104); ALT/SGPT 18 U/L (7.0-40); AST/SGOT 9 U/L (<34); BILIRUBIN,TOTAL < 0.2 MG/DL (0.3-1.2); BLOOD UREA NITROGEN 13 MG/DL (9-23); CARBON DIOXIDE LEVEL 23 MMOL/L (20-31); CHLORIDE LEVEL 104 MMOL/L (98-107); CREATININE FOR GFR 0.72 MG/DL (0.55-1.30); GLOMERULAR FILTRATION RATE > 90.0 (>60); GLUCOSE, FASTING 122 MG/DL (60-100); POTASSIUM SERUM 4.6 MMOL/L (3.5-5.1); SODIUM LEVEL 139 MMOL/L (136-145); TOTAL PROTEIN 6.6 G/DL (5.7-8.2)
[2024-09-30 00:03] VITALS: BP 133/67; TEMP 98.1; O2SAT 98
[2024-09-30 04:41] VITALS: BP 126/71; TEMP 97.3; O2SAT 97
[2024-09-30 06:47] LABS: HEMATOCRIT 33.2 % (36.0-47.0); HEMOGLOBIN 10.3 g/dl (12.0-15.5); MEAN CORPUSCULAR HEMOGLOBIN 24.9 pg (27.0-33.0); MEAN CORPUSCULAR VOLUME 80.4 fl (80.0-96.0); PLATELET COUNT, AUTOMATED 360 10^3/uL (150-450); RED BLOOD COUNT 4.13 10^6/uL (4.00-5.40); WHITE BLOOD COUNT 12.1 10^3/uL (4.0-10.0)
[2024-09-30 07:10] LABS: INR 0.87; PROTHROMBIN TIME 12.2 SECONDS (12.5-14.5)
[2024-09-30 07:21] LABS: ALBUMIN 2.8 G/DL (3.2-5.2); ALKALINE PHOSPHATASE 157 U/L (35-104); ALT/SGPT 19 U/L (7.0-40); AST/SGOT 9 U/L (<34); BILIRUBIN,TOTAL 0.2 MG/DL (0.3-1.2); BLOOD UREA NITROGEN 11 MG/DL (9-23); CALCIUM LEVEL 8.2 MG/DL (8.5-10.1); CARBON DIOXIDE LEVEL 22 MMOL/L (20-31); CHLORIDE LEVEL 104 MMOL/L (98-107); CREATININE FOR GFR 0.68 MG/DL (0.55-1.30); GLOMERULAR FILTRATION RATE > 90.0 (>60); GLUCOSE, FASTING 138 MG/DL (60-100); MAGNESIUM LEVEL 1.8 MG/DL (1.8-2.4); PHOSPHORUS LEVEL 6.3 MG/DL (2.5-4.9); POTASSIUM SERUM 4.3 MMOL/L (3.5-5.1); SODIUM LEVEL 137 MMOL/L (136-145); TOTAL PROTEIN 6.9 G/DL (5.7-8.2)
[2024-09-30] MEDS ORDERED: PILL CUTTER 1 EACH XX ONE (08:20)
[2024-09-30] MEDS: MAG SULF 1GM/100ML (MAG RUN) 1 GM in IV 1 EA IV SCH (11:58)
[2024-09-30 12:25] VITALS: BP 138/64; TEMP 98.5; O2SAT 97
[2024-09-30 16:00] VITALS: BP 138/64; TEMP 98.3; O2SAT 97
[2024-09-30 20:00] VITALS: BP 150/84; TEMP 98; O2SAT 99
[2024-10-01 04:00] VITALS: BP 124/66; TEMP 97.3; O2SAT 97
[2024-10-01 06:22] LABS: HEMATOCRIT 32.9 % (36.0-47.0); HEMOGLOBIN 10.2 g/dl (12.0-15.5); MEAN CORPUSCULAR HEMOGLOBIN 25.1 pg (27.0-33.0); PLATELET COUNT, AUTOMATED 349 10^3/uL (150-450); RED BLOOD COUNT 4.06 10^6/uL (4.00-5.40); WHITE BLOOD COUNT 12.3 10^3/uL (4.0-10.0)
[2024-10-01 06:37] LABS: INR 0.92; PROTHROMBIN TIME 12.6 SECONDS (12.5-14.5)
[2024-10-01 06:51] LABS: ALBUMIN 2.7 G/DL (3.2-5.2); ALKALINE PHOSPHATASE 148 U/L (35-104); ALT/SGPT 17 U/L (7.0-40); AST/SGOT < 8 U/L (<34); BILIRUBIN,TOTAL 0.2 MG/DL (0.3-1.2); BLOOD UREA NITROGEN 12 MG/DL (9-23); CARBON DIOXIDE LEVEL 22 MMOL/L (20-31); CHLORIDE LEVEL 107 MMOL/L (98-107); CREATININE FOR GFR 0.79 MG/DL (0.55-1.30); GLOMERULAR FILTRATION RATE > 90.0 (>60); GLUCOSE, FASTING 133 MG/DL (60-100); MAGNESIUM LEVEL 1.9 MG/DL (1.8-2.4); PHOSPHORUS LEVEL 4.9 MG/DL (2.5-4.9); POTASSIUM SERUM 4.3 MMOL/L (3.5-5.1); SODIUM LEVEL 140 MMOL/L (136-145); TOTAL PROTEIN 6.6 G/DL (5.7-8.2)
[2024-10-01 07:51] VITALS: BP 126/72; TEMP 97.6; O2SAT 98
[2024-10-01] MEDS: CALCIUM GLUCONATE 1,000 MG in DEXTROSE 5% (D5W) MINI-BAG PLU 100 ML IV SCH (09:01)
[2024-10-01] MEDS: CALCIUM CARBONATE 500 MG CHEW U/D PO SCH (10:10)
[2024-10-01] MEDS: CALCITRIOL 0.25 MCG CAP (S0169) PO SCH (10:11)
[2024-10-01 11:56] VITALS: BP 132/84; TEMP 97.8; O2SAT 99
[2024-10-01 15:25] VITALS: BP 136/78; TEMP 97.9; O2SAT 98
[2024-10-01 19:32] VITALS: BP 129/60; TEMP 98.1; O2SAT 99
[2024-10-01 20:35] LABS: ALBUMIN 2.9 G/DL (3.2-5.2); BILIRUBIN,TOTAL 0.2 MG/DL (0.3-1.2); CALCIUM LEVEL 7.5 MG/DL (8.5-10.1); CREATININE FOR GFR 0.95 MG/DL (0.55-1.30); GLOMERULAR FILTRATION RATE 79.1 (>60); POTASSIUM SERUM 4.2 MMOL/L (3.5-5.1); TOTAL PROTEIN 6.8 G/DL (5.7-8.2)
[2024-10-02 04:00] VITALS: BP 132/70; TEMP 97.8; O2SAT 99
[2024-10-02 04:01] LABS: HEMATOCRIT 32.1 % (36.0-47.0); HEMOGLOBIN 9.9 g/dl (12.0-15.5); MEAN CORPUSCULAR HEMOGLOBIN 25.1 pg (27.0-33.0); MEAN CORPUSCULAR HGB CONC 30.8 g/dl (32.0-36.5); MEAN CORPUSCULAR VOLUME 81.3 fl (80.0-96.0); PLATELET COUNT, AUTOMATED 377 10^3/uL (150-450); RED BLOOD COUNT 3.95 10^6/uL (4.00-5.40); WHITE BLOOD COUNT 13.4 10^3/uL (4.0-10.0)
[2024-10-02 04:22] LABS: ALBUMIN 2.8 G/DL (3.2-5.2); ALKALINE PHOSPHATASE 151 U/L (35-104); ALT/SGPT 20 U/L (7.0-40); AST/SGOT 9 U/L (<34); BILIRUBIN,TOTAL 0.2 MG/DL (0.3-1.2); BLOOD UREA NITROGEN 14 MG/DL (9-23); CALCIUM LEVEL 7.2 MG/DL (8.5-10.1); CARBON DIOXIDE LEVEL 24 MMOL/L (20-31); CHLORIDE LEVEL 106 MMOL/L (98-107); GLOMERULAR FILTRATION RATE > 90.0 (>60); GLUCOSE, FASTING 79 MG/DL (60-100); PHOSPHORUS LEVEL 5.5 MG/DL (2.5-4.9); POTASSIUM SERUM 4.4 MMOL/L (3.5-5.1); SODIUM LEVEL 139 MMOL/L (136-145); TOTAL PROTEIN 6.5 G/DL (5.7-8.2)
[2024-10-02 05:15] LABS: INR 0.96; PROTHROMBIN TIME 13.1 SECONDS (12.5-14.5)
[2024-10-02] MEDS: LEVOTHYROXINE 100MCG TABLET (0.1MG) PO SCH (06:19)
[2024-10-02 07:55] VITALS: BP 130/62; TEMP 97.9; O2SAT 99
[2024-10-02] MEDS ORDERED: LEVO100T5 PO (10:14)
[2024-10-02] MEDS ORDERED: MAGN400T2 PO (10:14)
[2024-10-02] MEDS ORDERED: CALC1CAP31 PO (10:14)
[2024-10-02] MEDS ORDERED: COLA100C5 PO (10:14)
[2024-10-02] MEDS ORDERED: CALC200T15 PO (10:14)
[2024-10-02 11:42] LABS: ALKALINE PHOSPHATASE 167 U/L (35-104); ALT/SGPT 21 U/L (7.0-40); AST/SGOT 9 U/L (<34); BILIRUBIN,TOTAL 0.2 MG/DL (0.3-1.2); BLOOD UREA NITROGEN 13 MG/DL (9-23); CARBON DIOXIDE LEVEL 23 MMOL/L (20-31); CHLORIDE LEVEL 104 MMOL/L (98-107); CREATININE FOR GFR 0.77 MG/DL (0.55-1.30); GLOMERULAR FILTRATION RATE > 90.0 (>60); GLUCOSE, FASTING 142 MG/DL (60-100); POTASSIUM SERUM 4.1 MMOL/L (3.5-5.1); SODIUM LEVEL 138 MMOL/L (136-145); TOTAL PROTEIN 6.8 G/DL (5.7-8.2)
== END 2024-10-02 12:20 | disposition home or self-care (01) | DRG 425 ==
LOC: M ED 22:40 → EDBD 22:40 → M ED INP 09-28 05:02 → M PCU 09-28 13:12
PROVIDERS: ADMIT Student in an Organized Health Care Education/Training Program; ATTEND Student in an Organized Health Care Education/Training Program
DX: E83.51 Hypocalcemia (principal); E83.42 Hypomagnesemia; E89.2 Postprocedural hypoparathyroidism; E66.01 Morbid (severe) obesity due to excess calories; F32.A Depression, unspecified; Z68.42 Body mass index [BMI] 45.0-49.9, adult; Z79.899 Other long term (current) drug therapy

== ENCOUNTER → 2024-10-08 | Outpatient (CLI) | payer OTHER ==
[~2024-10-08] MED LIST changes: +CALC1CAP31 PO; +CALC200T15 PO; +COLA100C5 PO; +FERR32TA PO; +LEVO100T5 PO
[2024-10-08 15:29] LABS: ALBUMIN 3.4 G/DL (3.2-5.2); ALKALINE PHOSPHATASE 158 U/L (35-104); ALT/SGPT 21 U/L (7.0-40); AST/SGOT 10 U/L (<34); BILIRUBIN,TOTAL 0.2 MG/DL (0.3-1.2); BLOOD UREA NITROGEN 11 MG/DL (9-23); CALCIUM LEVEL 7.7 MG/DL (8.5-10.1); CARBON DIOXIDE LEVEL 25 MMOL/L (20-31); CHLORIDE LEVEL 103 MMOL/L (98-107); GLOMERULAR FILTRATION RATE > 90.0 (>60); GLUCOSE, FASTING 78 MG/DL (60-100); PHOSPHORUS LEVEL 6.1 MG/DL (2.5-4.9); POTASSIUM SERUM 4.5 MMOL/L (3.5-5.1); SODIUM LEVEL 141 MMOL/L (136-145); TOTAL PROTEIN 7.5 G/DL (5.7-8.2)
[2024-10-08 15:32] LABS: PTH INTACT 27.9 PG/ML (18.5-88.0)
[2024-10-08 15:35] LABS: THYROID STIMULATING HORMONE < 0.010 uIU/ML (0.55-4.78)
[2024-10-08 15:37] LABS: FREE T4 1.18 NG/DL (0.89-1.76)
== END ==
LOC: M PLALAB 10:24
PROVIDERS: ATTEND Family Medicine Addiction Medicine
DX: E05.90 Thyrotoxicosis, unspecified without thyrotoxic crisis or storm (principal)

== ENCOUNTER → 2024-10-08 | Outpatient (RCR) | payer MEDICAID | LOC: M OUTALCOH 09-12 14:12 | PROVIDERS: ATTEND Psychiatry & Neurology Psychiatry | DX: F14.20 Cocaine dependence, uncomplicated (principal); F10.10 Alcohol abuse, uncomplicated ==

== ENCOUNTER 2025-01-01 12:04 | Outpatient (RCR) | payer MEDICAID ==
[~2025-01-01 12:04] MED LIST changes: +CALC-190 PO; +CALC500T68 PO; +LEVO150T7 PO
== END 2025-01-08 ==
LOC: M OUTALCOH 12:04
PROVIDERS: ATTEND Psychiatry & Neurology Psychiatry
DX: F11.20 Opioid dependence, uncomplicated (principal); Z72.0 Tobacco use

== ENCOUNTER 2025-01-23 16:59 | Inpatient (IN) | payer MEDICAID, OTHER ==
[~2025-01-23] VITALS: Ht 162.6 cm; Wt 138.7 kg
[2025-01-23 20:01] LABS: BASO # 0.1 10^3/uL (0.0-0.2); BASO % 0.6 % (0.0-1.0); EOS # 0.1 10^3/uL (0.0-0.5); EOS % 1.1 % (0.0-3.0); LYMPH # 4.1 10^3/uL (1.5-5.0); LYMPH % 32.7 % (24.0-44.0); MONO # 0.5 10^3/uL (0.0-0.8); MONO % 3.9 % (2.0-8.0); NEUTROPHILS # 7.6 10^3/uL (1.5-8.5); NEUTROPHILS % 61.4 % (36.0-66.0); PLATELET COUNT, AUTOMATED 295 10^3/uL (150-450)
[2025-01-23 20:36] LABS: ALT/SGPT 27 U/L (7.0-40); AST/SGOT 23 U/L (<34); CALCIUM LEVEL 6.2 MG/DL (8.5-10.1); CARBON DIOXIDE LEVEL 22 MMOL/L (20-31); CHLORIDE LEVEL 106 MMOL/L (98-107); CREATININE FOR GFR 0.98 MG/DL (0.55-1.30); GLOMERULAR FILTRATION RATE 76.2 (>60); POTASSIUM SERUM 4.3 MMOL/L (3.5-5.1); SODIUM LEVEL 143 MMOL/L (136-145)
[2025-01-24 00:40] LABS: MAGNESIUM LEVEL 2.0 MG/DL (1.8-2.4)
[2025-01-24] MEDS: CALCIUM GLUCONATE 1,000 MG in DEXTROSE 5% (D5W) MINI-BAG PLU 100 ML IV ONE ×2 (01:42→08:38)
[2025-01-24] MEDS ORDERED: MOM 30 ML SUSPENSION UDC PO PRN (03:05)
[2025-01-24] MEDS: KETOROLAC 30 MG/ML 1 ML VIAL IV ONE (03:14)
[2025-01-24] MEDS ORDERED: HYDR50CA2 PO (03:49)
[2025-01-24] MEDS ORDERED: ERGO500029 PO (03:49)
[2025-01-24] MEDS ORDERED: VITA100065 PO (03:49)
[2025-01-24] MEDS ORDERED: HOME MED LIST COMPLETE! XX SCH (03:55)
[2025-01-24 04:31] LABS: AMPHETAMINES LEVEL URINE NEGATIVE (NEGATIVE); BARBITURATES URINE NEGATIVE (NEGATIVE)
[2025-01-24 04:32] LABS: BENZODIAZEPINES URINE NEGATIVE (NEGATIVE); CANNABINOIDS URINE NEGATIVE (NEGATIVE); COCAINE METABOLITE URINE NEGATIVE (NEGATIVE); METHADONE URINE NEGATIVE (NEGATIVE); OPIATES URINE NEGATIVE (NEGATIVE); PHENCYCLIDINE URINE NEGATIVE (NEGATIVE)
[2025-01-24 05:30] VITALS: BP 130/75; TEMP 98.9; O2SAT 99
[2025-01-24] MEDS: LEVOTHYROXINE 150 MCG TABLET (0.15 MG) PO SCH (05:57)
[2025-01-24 06:26] LABS: BASO # 0.1 10^3/uL (0.0-0.2); BASO % 0.6 % (0.0-1.0); EOS # 0.2 10^3/uL (0.0-0.5); EOS % 2.3 % (0.0-3.0); LYMPH # 3.1 10^3/uL (1.5-5.0); LYMPH % 30.6 % (24.0-44.0); MONO # 0.5 10^3/uL (0.0-0.8); MONO % 5.1 % (2.0-8.0); NEUTROPHILS # 6.3 10^3/uL (1.5-8.5); NEUTROPHILS % 61.1 % (36.0-66.0); PLATELET COUNT, AUTOMATED 250 10^3/uL (150-450)
[2025-01-24 06:57] LABS: ALT/SGPT 23.0 U/L (7.0-40); AST/SGOT 19.0 U/L (<34); CALCIUM LEVEL 6.3 MG/DL (8.5-10.1); CARBON DIOXIDE LEVEL 24.0 MMOL/L (20-31); CHLORIDE LEVEL 107.0 MMOL/L (98-107); CREATININE FOR GFR 0.93 MG/DL (0.55-1.30); GLOMERULAR FILTRATION RATE 81.2 (>60); POTASSIUM SERUM 4.2 MMOL/L (3.5-5.1); SODIUM LEVEL 144.0 MMOL/L (136-145)
[2025-01-24] MEDS: MAGNESIUM OXIDE 400 MG TAB PO SCH (08:36)
[2025-01-24] MEDS: FERROUS GLUCONATE 324 MG TAB PO SCH (08:36)
[2025-01-24] MEDS: ENOXAPARIN 40 MG/0.4 ML SYRINGE (J1650 PER 10MG) SC SCH (08:36)
[2025-01-24] MEDS: SERTRALINE 100 MG TAB PO SCH (08:37)
[2025-01-24] MEDS: VITAMIN D 1,000 INTERNATIONAL UNITS TABLET PO SCH (08:37)
[2025-01-24 12:00] VITALS: BP 139/80; TEMP 97.9; O2SAT 98
[2025-01-24] MEDS: ACETAMINOPHEN 325 MG TAB PO PRN (13:59)
[2025-01-24 15:41] LABS: CALCIUM LEVEL 6.3 MG/DL (8.5-10.1); CARBON DIOXIDE LEVEL 24.0 MMOL/L (20-31); CHLORIDE LEVEL 105.0 MMOL/L (98-107); CREATININE FOR GFR 0.87 MG/DL (0.55-1.30); GLOMERULAR FILTRATION RATE 88.0 (>60); PHOSPHORUS LEVEL 5.6 MG/DL (2.5-4.9); POTASSIUM SERUM 4.8 MMOL/L (3.5-5.1); SODIUM LEVEL 142.0 MMOL/L (136-145)
[2025-01-24] MEDS: IBUPROFEN 600 MG TAB PO PRN (15:47)
[2025-01-24] MEDS: CALCIUM GLUCONATE 1,000 MG in DEXTROSE 5% (D5W) MINI-BAG PLU 100 ML IV SCH (17:09)
[2025-01-24] MEDS: CALCITRIOL 0.25 MCG CAP (S0169) PO SCH (17:58)
[2025-01-24 20:19] VITALS: BP 116/67; TEMP 97.3; O2SAT 99
[2025-01-24] MEDS: CALCIUM CARBONATE 500 MG CHEW U/D PO SCH (21:08)
[2025-01-24 23:57] LABS: CALCIUM LEVEL 7.5 MG/DL (8.5-10.1); CARBON DIOXIDE LEVEL 25.0 MMOL/L (20-31); CHLORIDE LEVEL 106.0 MMOL/L (98-107); CREATININE FOR GFR 1.03 MG/DL (0.55-1.30); GLOMERULAR FILTRATION RATE 71.8 (>60); PHOSPHORUS LEVEL 6.3 MG/DL (2.5-4.9); POTASSIUM SERUM 4.7 MMOL/L (3.5-5.1); SODIUM LEVEL 144.0 MMOL/L (136-145)
[2025-01-25 04:34] VITALS: BP 116/63; TEMP 96.3; O2SAT 99
[2025-01-25 07:21] LABS: BASO # 0.1 10^3/uL (0.0-0.2); BASO % 0.7 % (0.0-1.0); EOS # 0.2 10^3/uL (0.0-0.5); EOS % 2.6 % (0.0-3.0); LYMPH # 3.7 10^3/uL (1.5-5.0); LYMPH % 50.2 % (24.0-44.0); MONO # 0.4 10^3/uL (0.0-0.8); MONO % 5.2 % (2.0-8.0); NEUTROPHILS # 3.0 10^3/uL (1.5-8.5); NEUTROPHILS % 40.9 % (36.0-66.0); PLATELET COUNT, AUTOMATED 242 10^3/uL (150-450)
[2025-01-25 07:39] LABS: CALCIUM LEVEL 8.1 MG/DL (8.5-10.1); CARBON DIOXIDE LEVEL 24.0 MMOL/L (20-31); CHLORIDE LEVEL 107.0 MMOL/L (98-107); CREATININE FOR GFR 0.87 MG/DL (0.55-1.30); GLOMERULAR FILTRATION RATE 88.0 (>60); PHOSPHORUS LEVEL 6.0 MG/DL (2.5-4.9); POTASSIUM SERUM 4.3 MMOL/L (3.5-5.1); SODIUM LEVEL 144.0 MMOL/L (136-145)
[2025-01-25 12:00] VITALS: BP 136/80; TEMP 97.5; O2SAT 96
[2025-01-25 15:42] LABS: CALCIUM LEVEL 9.5 MG/DL (8.5-10.1); CARBON DIOXIDE LEVEL 25.0 MMOL/L (20-31); CHLORIDE LEVEL 104.0 MMOL/L (98-107); CREATININE FOR GFR 0.98 MG/DL (0.55-1.30); GLOMERULAR FILTRATION RATE 76.2 (>60); PHOSPHORUS LEVEL 7.0 MG/DL (2.5-4.9); POTASSIUM SERUM 5.0 MMOL/L (3.5-5.1); SODIUM LEVEL 142.0 MMOL/L (136-145)
[2025-01-25 21:40] VITALS: BP 139/74; TEMP 97.9; O2SAT 95
[2025-01-25 23:24] LABS: CALCIUM LEVEL 8.3 MG/DL (8.5-10.1); CARBON DIOXIDE LEVEL 26.0 MMOL/L (20-31); CHLORIDE LEVEL 104.0 MMOL/L (98-107); CREATININE FOR GFR 1.05 MG/DL (0.55-1.30); GLOMERULAR FILTRATION RATE 70.2 (>60); PHOSPHORUS LEVEL 5.9 MG/DL (2.5-4.9); POTASSIUM SERUM 4.4 MMOL/L (3.5-5.1); SODIUM LEVEL 142.0 MMOL/L (136-145)
[2025-01-26 00:17] LABS: HEPATITIS C VIRUS ABY INDEX 0.05 INDEX (<0.8); HIV 1&2 SCREEN NEGATIVE (NEGATIVE)
[2025-01-26 00:52] VITALS: BP 113/67; TEMP 97.5; O2SAT 95
[2025-01-26 01:14] VITALS: BP 113/67
[2025-01-26] MEDS: METOPROLOL TART 12.5 MG PER 1/2 TAB PO ONE (01:14)
[2025-01-26 02:08] LABS: CALCIUM LEVEL 8.2 MG/DL (8.5-10.1); CARBON DIOXIDE LEVEL 25.0 MMOL/L (20-31); CHLORIDE LEVEL 104.0 MMOL/L (98-107); CREATININE FOR GFR 1.02 MG/DL (0.55-1.30); GLOMERULAR FILTRATION RATE 72.7 (>60); MAGNESIUM LEVEL 1.4 MG/DL (1.8-2.4); POTASSIUM SERUM 4.1 MMOL/L (3.5-5.1); SODIUM LEVEL 142.0 MMOL/L (136-145)
[2025-01-26 02:10] LABS: T UPTAKE 28.9 % (22.5-37.0); THYROXINE (T4) 5.9 UG/DL (4.5-10.9)
[2025-01-26 02:55] LABS: PHOSPHORUS LEVEL 5.7 MG/DL (2.5-4.9)
[2025-01-26] MEDS: MAG SULF 1GM/100ML (MAG RUN) 1 GM in IV 1 EA IV ONE (02:58)
[2025-01-26] MEDS: MAGNESIUM OXIDE 400 MG TAB PO ONE (02:59)
[2025-01-26 04:00] VITALS: BP 117/63; TEMP 97.5; O2SAT 95
[2025-01-26 07:34] LABS: PLATELET COUNT, AUTOMATED 257 10^3/uL (150-450)
[2025-01-26 07:52] LABS: CALCIUM LEVEL 7.8 MG/DL (8.5-10.1); CARBON DIOXIDE LEVEL 27.0 MMOL/L (20-31); CHLORIDE LEVEL 104.0 MMOL/L (98-107); CREATININE FOR GFR 1.02 MG/DL (0.55-1.30); GLOMERULAR FILTRATION RATE 72.7 (>60); PHOSPHORUS LEVEL 6.1 MG/DL (2.5-4.9); POTASSIUM SERUM 4.7 MMOL/L (3.5-5.1); SODIUM LEVEL 143.0 MMOL/L (136-145)
[2025-01-26] MEDS: MAGNESIUM OXIDE 400 MG TAB PO SCH (08:24)
[2025-01-26 10:35] LABS: MAGNESIUM LEVEL 1.8 MG/DL (1.8-2.4)
[2025-01-26 10:55] LABS: PTH INTACT 23.2 PG/ML (18.5-88.0)
[2025-01-26] MEDS ORDERED: MAG SULF 1GM/100ML (MAG RUN) 1 GM in IV 1 EA IV SCH (11:00)
[2025-01-26 12:00] VITALS: BP 139/82; TEMP 97.5; O2SAT 96
[2025-01-26 15:46] LABS: CALCIUM LEVEL 8.6 MG/DL (8.5-10.1); CARBON DIOXIDE LEVEL 26.0 MMOL/L (20-31); CHLORIDE LEVEL 105.0 MMOL/L (98-107); CREATININE FOR GFR 0.97 MG/DL (0.55-1.30); GLOMERULAR FILTRATION RATE 77.2 (>60); MAGNESIUM LEVEL 1.6 MG/DL (1.8-2.4); PHOSPHORUS LEVEL 4.9 MG/DL (2.5-4.9); POTASSIUM SERUM 4.5 MMOL/L (3.5-5.1); SODIUM LEVEL 144.0 MMOL/L (136-145)
[2025-01-26 19:42] VITALS: BP 130/62; TEMP 98; O2SAT 97
[2025-01-27] MEDS: METOPROLOL TART 12.5 MG PER 1/2 TAB PO ONE (00:32)
[2025-01-27 04:00] VITALS: BP 94/50; TEMP 98.1; O2SAT 96
[2025-01-27 07:17] LABS: PLATELET COUNT, AUTOMATED 228 10^3/uL (150-450)
[2025-01-27 07:57] LABS: ALT/SGPT 29.0 U/L (7.0-40); AST/SGOT 14.0 U/L (<34); CALCIUM LEVEL 8.5 MG/DL (8.5-10.1); CARBON DIOXIDE LEVEL 27.0 MMOL/L (20-31); CHLORIDE LEVEL 106.0 MMOL/L (98-107); CREATININE FOR GFR 0.92 MG/DL (0.55-1.30); GLOMERULAR FILTRATION RATE 82.2 (>60); MAGNESIUM LEVEL 1.6 MG/DL (1.8-2.4); POTASSIUM SERUM 4.6 MMOL/L (3.5-5.1); SODIUM LEVEL 143.0 MMOL/L (136-145)
[2025-01-27 12:00] VITALS: BP 130/76; TEMP 98; O2SAT 98
[2025-01-27] MEDS: MAG SULF 1GM/100ML (MAG RUN) 1 GM in IV 1 EA IV ONE (13:14)
[2025-01-27 19:41] VITALS: BP 130/63; TEMP 97.8; O2SAT 97
[2025-01-28 04:00] VITALS: BP 114/75; TEMP 97.7; O2SAT 97
[2025-01-28 08:20] LABS: PLATELET COUNT, AUTOMATED 244 10^3/uL (150-450)
[2025-01-28 08:46] LABS: ALT/SGPT 34.0 U/L (7.0-40); AST/SGOT 16.0 U/L (<34); CALCIUM LEVEL 8.5 MG/DL (8.5-10.1); CARBON DIOXIDE LEVEL 26.0 MMOL/L (20-31); CHLORIDE LEVEL 102.0 MMOL/L (98-107); CREATININE FOR GFR 0.89 MG/DL (0.55-1.30); GLOMERULAR FILTRATION RATE 85.6 (>60); MAGNESIUM LEVEL 1.7 MG/DL (1.8-2.4); POTASSIUM SERUM 4.2 MMOL/L (3.5-5.1); SODIUM LEVEL 142.0 MMOL/L (136-145)
[2025-01-28 13:09] VITALS: BP 150/94; TEMP 97.7; O2SAT 98
[2025-01-28] MEDS ORDERED: LEVO150T7 PO (13:33)
[2025-01-28] MEDS ORDERED: CALC1CAP31 PO (13:33)
[2025-01-28] MEDS ORDERED: MAGN400T33 PO (13:33)
[2025-01-28] MEDS ORDERED: CALC600T86 PO (13:37)
== END 2025-01-28 14:32 | disposition home or self-care (01) | DRG 425 ==
LOC: M ED 16:59 → M ED INP 01-24 04:21 → M MS4PR 01-24 05:25 → OBSVTOIN 01-26 09:21
PROVIDERS: ADMIT Internal Medicine; ATTEND Student in an Organized Health Care Education/Training Program
DX: E83.51 Hypocalcemia (principal); I10 Essential (primary) hypertension; E89.0 Postprocedural hypothyroidism; F39 Unspecified mood [affective] disorder; R94.31 Abnormal electrocardiogram [ECG] [EKG]; D50.9 Iron deficiency anemia, unspecified; G44.209 Tension-type headache, unspecified, not intractable; E83.42 Hypomagnesemia; M62.838 Other muscle spasm; R00.0 Tachycardia, unspecified; E89.2 Postprocedural hypoparathyroidism; T50.3X6A Underdosing of electrolytic, caloric and water-balance agents, initial encounter; Z91.148 Patient's other noncompliance with medication regimen for other reason; Z79.890 Hormone replacement therapy; Z79.899 Other long term (current) drug therapy

== ENCOUNTER 2025-02-02 13:20 | Outpatient (RCR) | payer MEDICAID ==
[~2025-02-02 13:20] MED LIST changes: +CALC600T86 PO; +ERGO500029 PO; +HYDR50CA2 PO; +MAGN400T33 PO; +VITA100065 PO
== END 2025-02-08 ==
LOC: M OUTALCOH 13:20
PROVIDERS: ATTEND Psychiatry & Neurology Psychiatry
DX: F14.20 Cocaine dependence, uncomplicated (principal); F10.10 Alcohol abuse, uncomplicated

== ENCOUNTER 2025-02-05 20:09 | Emergency (ER) | payer MEDICAID ==
[~2025-02-05] VITALS: Ht 162.6 cm; Wt 142.5 kg
[2025-02-06 01:43] LABS: KETONE, URINE AUTO RFX TRACE mg/dL (NEGATIVE); MUCUS, URINE RFX SMALL (NEGATIVE); NITRITE, URINE AUTO RFX NEGATIVE (NEGATIVE); RBC, URINE AUTO RFX 1 /HPF (0-3); SQUAM EPITHELIAL CELL UR AURFX 6 /HPF (0-6); WBC, URINE AUTO RFX 5 /HPF (0-3)
[2025-02-06 02:06] LABS: BASO # 0.1 10^3/uL (0.0-0.2); BASO % 0.6 % (0.0-1.0); EOS # 0.2 10^3/uL (0.0-0.5); EOS % 2.2 % (0.0-3.0); LYMPH # 4.9 10^3/uL (1.5-5.0); LYMPH % 43.5 % (24.0-44.0); MONO # 0.5 10^3/uL (0.0-0.8); MONO % 4.4 % (2.0-8.0); NEUTROPHILS # 5.5 10^3/uL (1.5-8.5); NEUTROPHILS % 49.1 % (36.0-66.0); PLATELET COUNT, AUTOMATED 266 10^3/uL (150-450)
[2025-02-06 02:28] LABS: ALT/SGPT 28 U/L (7.0-40); AST/SGOT 17 U/L (<34); CALCIUM LEVEL 6.5 MG/DL (8.5-10.1); CARBON DIOXIDE LEVEL 25 MMOL/L (20-31); CHLORIDE LEVEL 104 MMOL/L (98-107); CREATININE FOR GFR 1.18 MG/DL (0.55-1.30); GLOMERULAR FILTRATION RATE 61.0 (>60); MAGNESIUM LEVEL 2.0 MG/DL (1.8-2.4); POTASSIUM SERUM 4.4 MMOL/L (3.5-5.1); SODIUM LEVEL 142 MMOL/L (136-145)
[2025-02-06 02:31] LABS: HCG, SERUM QUALITATIVE NEGATIVE (NEGATIVE)
[2025-02-06 02:33] LABS: LEUKOCYTE ESTERASE UR AUTO RFX 1+ (NEGATIVE)
[2025-02-06 04:34] VITALS: TEMP 98.3
[2025-02-06] MEDS: CALCIUM CARBONATE 500 MG CHEW U/D PO ONE (04:43)
[2025-02-06 05:03] VITALS: BP 155/88
[2025-02-06] MEDS: PROPRANOLOL 20 MG TAB PO ONE (05:03)
[2025-02-06 05:04] VITALS: BP 155/88; O2SAT 97
== END 2025-02-06 05:10 | disposition home or self-care (01) ==
LOC: M ED 20:09
DX: R06.00 Dyspnea, unspecified (principal); M62.838 Other muscle spasm; G43.909 Migraine, unspecified, not intractable, without status migrainosus; E03.9 Hypothyroidism, unspecified; Z87.442 Personal history of urinary calculi; E83.42 Hypomagnesemia; E83.51 Hypocalcemia; Z79.899 Other long term (current) drug therapy

== ENCOUNTER → 2025-02-19 | Outpatient (CLI) | payer OTHER ==
[2025-02-19 17:09] LABS: CALCIUM LEVEL 6.3 MG/DL (8.5-10.1); CARBON DIOXIDE LEVEL 24.0 MMOL/L (20-31); CHLORIDE LEVEL 107.0 MMOL/L (98-107); CREATININE FOR GFR 1.1 MG/DL (0.55-1.30); GLOMERULAR FILTRATION RATE 66.4 (>60); PHOSPHORUS LEVEL 4.3 MG/DL (2.5-4.9); POTASSIUM SERUM 4.0 MMOL/L (3.5-5.1); PTH INTACT 37.4 PG/ML (18.5-88.0); SODIUM LEVEL 145.0 MMOL/L (136-145)
[2025-02-19 17:12] LABS: FREE T4 1.16 NG/DL (0.89-1.76)
== END ==
LOC: M LAB 16:08
PROVIDERS: ATTEND Internal Medicine Endocrinology, Diabetes & Metabolism
DX: E89.0 Postprocedural hypothyroidism (principal); E89.2 Postprocedural hypoparathyroidism; Z86.39 Personal history of other endocrine, nutritional and metabolic disease

== ENCOUNTER 2025-02-23 22:06 | Inpatient (IN) | payer OTHER ==
[~2025-02-23] VITALS: Ht 162.6 cm; Wt 144.4 kg
[2025-02-24 03:57] LABS: BASO # 0.0 10^3/uL (0.0-0.2); BASO % 0.4 % (0.0-1.0); EOS # 0.2 10^3/uL (0.0-0.5); EOS % 1.8 % (0.0-3.0); LYMPH # 4.7 10^3/uL (1.5-5.0); LYMPH % 50.1 % (24.0-44.0); MONO # 0.4 10^3/uL (0.0-0.8); MONO % 4.2 % (2.0-8.0); NEUTROPHILS # 4.0 10^3/uL (1.5-8.5); NEUTROPHILS % 43.2 % (36.0-66.0); PLATELET COUNT, AUTOMATED 235 10^3/uL (150-450)
[2025-02-24 04:59] LABS: C REACTIVE PROTEIN QUANTITATIV 1.0 MG/DL (<1.0); CPK CREATINE PHOSPHOKINASE 608.0 U/L (34-145)
[2025-02-24 05:10] LABS: ALT/SGPT 26.0 U/L (7.0-40); AST/SGOT 15.0 U/L (<34); CALCIUM LEVEL 5.1 MG/DL (8.5-10.1); CARBON DIOXIDE LEVEL 22.0 MMOL/L (20-31); CHLORIDE LEVEL 107.0 MMOL/L (98-107); CREATININE FOR GFR 1.06 MG/DL (0.55-1.30); GLOMERULAR FILTRATION RATE 69.4 (>60); MAGNESIUM LEVEL 1.8 MG/DL (1.8-2.4); POTASSIUM SERUM 3.7 MMOL/L (3.5-5.1); SODIUM LEVEL 142.0 MMOL/L (136-145)
[2025-02-24 07:29] LABS: PTH INTACT 40.8 PG/ML (18.5-88.0)
[2025-02-24] MEDS: CALCIUM GLUCONATE 1,000 MG in DEXTROSE 5% (D5W) MINI-BAG PLU 100 ML IV ONE (07:35)
[2025-02-24] MEDS: DOCUSATE SODIUM 100 MG CAPSULE PO SCH (07:35)
[2025-02-24] MEDS: CALCIUM CARBONATE 500 MG CHEW U/D PO SCH ×3 (07:35→21:00)
[2025-02-24] MEDS: CALCIUM GLUCONATE 1,000 MG in DEXTROSE 5% (D5W) MINI-BAG PLU 100 ML IV SCH (07:36)
[2025-02-24] MEDS ORDERED: CALCITRIOL 0.25 MCG CAP (S0169) PO SCH (09:00)
[2025-02-24 09:08] VITALS: BP 135/65; TEMP 97.8; O2SAT 97
[2025-02-24 10:01] VITALS: BP 135/65; TEMP 97.8; O2SAT 97
[2025-02-24 11:33] LABS: CALCIUM LEVEL 6.5 MG/DL (8.5-10.1); CARBON DIOXIDE LEVEL 28.0 MMOL/L (20-31); CHLORIDE LEVEL 106.0 MMOL/L (98-107); CREATININE FOR GFR 1.05 MG/DL (0.55-1.30); GLOMERULAR FILTRATION RATE 70.2 (>60); POTASSIUM SERUM 3.9 MMOL/L (3.5-5.1); SODIUM LEVEL 146.0 MMOL/L (136-145)
[2025-02-24 12:00] VITALS: BP 125/64; TEMP 97.7; O2SAT 96
[2025-02-24] MEDS ORDERED: CALCIUM CARBONATE 500 MG CHEW U/D PO SCH (13:00)
[2025-02-24] MEDS: ACETAMINOPHEN 325 MG TAB PO PRN (13:42)
[2025-02-24] MEDS ORDERED: MAGN1TAB26 PO (15:33)
[2025-02-24] MEDS ORDERED: CALC600T85 PO (15:33)
[2025-02-24] MEDS ORDERED: HOME MED LIST COMPLETE! XX SCH (15:35)
[2025-02-24] MEDS: MAGNESIUM OXIDE 400 MG TAB PO SCH (16:19)
[2025-02-24] MEDS: CALCITRIOL 0.25 MCG CAP (S0169) PO SCH (16:20)
[2025-02-24 19:38] LABS: CALCIUM LEVEL 6.8 MG/DL (8.5-10.1); CARBON DIOXIDE LEVEL 24.0 MMOL/L (20-31); CHLORIDE LEVEL 108.0 MMOL/L (98-107); CREATININE FOR GFR 1.04 MG/DL (0.55-1.30); GLOMERULAR FILTRATION RATE 71.0 (>60); POTASSIUM SERUM 4.3 MMOL/L (3.5-5.1); SODIUM LEVEL 144.0 MMOL/L (136-145)
[2025-02-24 20:04] VITALS: BP 127/66; TEMP 98; O2SAT 98
[2025-02-25 02:39] LABS: CALCIUM LEVEL 7.4 MG/DL (8.5-10.1); CARBON DIOXIDE LEVEL 27.0 MMOL/L (20-31); CHLORIDE LEVEL 108.0 MMOL/L (98-107); CREATININE FOR GFR 0.97 MG/DL (0.55-1.30); GLOMERULAR FILTRATION RATE 77.2 (>60); POTASSIUM SERUM 4.1 MMOL/L (3.5-5.1); SODIUM LEVEL 144.0 MMOL/L (136-145)
[2025-02-25 04:00] VITALS: BP 132/64; TEMP 96.8; O2SAT 96
[2025-02-25] MEDS: LEVOTHYROXINE 150 MCG TABLET (0.15 MG) PO SCH (06:00)
[2025-02-25] MEDS: SERTRALINE 100 MG TAB PO SCH (07:52)
[2025-02-25] MEDS ORDERED: CALC600T85 PO (10:51)
[2025-02-25 10:52] LABS: CALCIUM LEVEL 7.9 MG/DL (8.5-10.1); CARBON DIOXIDE LEVEL 24.0 MMOL/L (20-31); CHLORIDE LEVEL 106.0 MMOL/L (98-107); CREATININE FOR GFR 0.92 MG/DL (0.55-1.30); GLOMERULAR FILTRATION RATE 82.2 (>60); MAGNESIUM LEVEL 1.8 MG/DL (1.8-2.4); POTASSIUM SERUM 4.4 MMOL/L (3.5-5.1); SODIUM LEVEL 141.0 MMOL/L (136-145)
[2025-02-25 11:38] LABS: PLATELET COUNT, AUTOMATED 250 10^3/uL (150-450)
== END 2025-02-25 14:25 | disposition home or self-care (01) | DRG 425 ==
LOC: M ED 22:06 → EDBD 22:06 → M ED INP 22:07 → M MS4PR 02-24 09:10 → OBSVTOIN 02-24 11:56
PROVIDERS: ADMIT Student in an Organized Health Care Education/Training Program; ATTEND Internal Medicine Nephrology
DX: E83.51 Hypocalcemia (principal); I10 Essential (primary) hypertension; Z68.43 Body mass index [BMI] 50.0-59.9, adult; D50.9 Iron deficiency anemia, unspecified; F32.A Depression, unspecified; F14.10 Cocaine abuse, uncomplicated; E66.01 Morbid (severe) obesity due to excess calories; E89.0 Postprocedural hypothyroidism; M62.838 Other muscle spasm; E83.39 Other disorders of phosphorus metabolism; E89.2 Postprocedural hypoparathyroidism; F15.10 Other stimulant abuse, uncomplicated; Z79.890 Hormone replacement therapy; Z79.899 Other long term (current) drug therapy

== ENCOUNTER 2025-03-06 12:26 | Outpatient (RCR) | payer OTHER ==
[~2025-03-06 12:26] MED LIST changes: +CALC600T85 PO; +MAGN1TAB26 PO
== END 2025-03-10 ==
LOC: M OUTALCOH 12:26
PROVIDERS: ATTEND Psychiatry & Neurology Psychiatry
DX: F11.20 Opioid dependence, uncomplicated (principal); Z72.0 Tobacco use

== ENCOUNTER → 2025-03-12 | Outpatient (CLI) | payer OTHER ==
[2025-03-12 14:57] LABS: FREE T4 1.17 NG/DL (0.89-1.76)
[2025-03-12 15:00] LABS: CALCIUM LEVEL 6.5 MG/DL (8.5-10.1); CARBON DIOXIDE LEVEL 26.0 MMOL/L (20-31); CHLORIDE LEVEL 105.0 MMOL/L (98-107); CREATININE FOR GFR 1.14 MG/DL (0.55-1.30); GLOMERULAR FILTRATION RATE 63.6 (>60); PHOSPHORUS LEVEL 4.6 MG/DL (2.5-4.9); POTASSIUM SERUM 4.2 MMOL/L (3.5-5.1); PTH INTACT 31.9 PG/ML (18.5-88.0); SODIUM LEVEL 140.0 MMOL/L (136-145)
== END ==
LOC: M PLALAB 10:41
PROVIDERS: ATTEND Internal Medicine Endocrinology, Diabetes & Metabolism
DX: E89.2 Postprocedural hypoparathyroidism (principal)

== ENCOUNTER 2025-03-31 08:26 | Outpatient (RCR) | payer OTHER | END 2025-04-10 | LOC: M OUTALCOH 08:26 | PROVIDERS: ATTEND Psychiatry & Neurology Psychiatry | DX: F11.20 Opioid dependence, uncomplicated (principal); F14.20 Cocaine dependence, uncomplicated; F10.10 Alcohol abuse, uncomplicated; Z72.0 Tobacco use; E89.2 Postprocedural hypoparathyroidism; E89.0 Postprocedural hypothyroidism; Z86.39 Personal history of other endocrine, nutritional and metabolic disease ==

== ENCOUNTER → 2025-03-31 | Outpatient (CLI) | payer OTHER ==
[2025-03-31 13:32] LABS: CALCIUM LEVEL 8.5 MG/DL (8.5-10.1); CARBON DIOXIDE LEVEL 23.0 MMOL/L (20-31); CHLORIDE LEVEL 104.0 MMOL/L (98-107); CREATININE FOR GFR 1.34 MG/DL (0.55-1.30); GLOMERULAR FILTRATION RATE 52.4 (>60); MAGNESIUM LEVEL 1.9 MG/DL (1.8-2.4); PHOSPHORUS LEVEL 5.3 MG/DL (2.5-4.9); POTASSIUM SERUM 4.6 MMOL/L (3.5-5.1); SODIUM LEVEL 141.0 MMOL/L (136-145); TOTAL 25(OH) VITAMIN D 47.0 NG/ML (20.0-100.0)
== END ==
LOC: M PLALAB 10:53
PROVIDERS: ATTEND Internal Medicine Endocrinology, Diabetes & Metabolism
DX: E89.2 Postprocedural hypoparathyroidism (principal)

== ENCOUNTER 2025-05-20 12:49 | Emergency (ER) | payer OTHER ==
[~2025-05-20] VITALS: Ht 162.6 cm; Wt 150.0 kg
[2025-05-20 12:53] VITALS: BP 142/97; TEMP 98.4; O2SAT 94
[2025-05-20 13:42] LABS: KETONE, URINE AUTO RFX NEGATIVE (NEGATIVE); MUCUS, URINE RFX SMALL (NEGATIVE); NITRITE, URINE AUTO RFX NEGATIVE (NEGATIVE); RBC, URINE AUTO RFX 2 /HPF (0-3); SQUAM EPITHELIAL CELL UR AURFX 23 /HPF (0-6); WBC, URINE AUTO RFX 5 /HPF (0-3)
[2025-05-20 13:44] LABS: BASO # 0.1 10^3/uL (0.0-0.2); BASO % 0.5 % (0.0-1.0); EOS # 0.1 10^3/uL (0.0-0.5); EOS % 1.1 % (0.0-3.0); LYMPH # 3.5 10^3/uL (1.5-5.0); LYMPH % 34.2 % (24.0-44.0); MONO # 0.4 10^3/uL (0.0-0.8); MONO % 4.3 % (2.0-8.0); NEUTROPHILS # 6.1 10^3/uL (1.5-8.5); NEUTROPHILS % 59.7 % (36.0-66.0); PLATELET COUNT, AUTOMATED 288 10^3/uL (150-450)
[2025-05-20 13:57] LABS: LEUKOCYTE ESTERASE UR AUTO RFX 2+ (NEGATIVE)
[2025-05-20 14:12] LABS: HCG, SERUM QUALITATIVE NEGATIVE (NEGATIVE)
[2025-05-20 14:17] LABS: ALT/SGPT 23 U/L (7.0-40); AST/SGOT 18 U/L (<34); CALCIUM LEVEL 6.9 MG/DL (8.5-10.1); CARBON DIOXIDE LEVEL 27 MMOL/L (20-31); CHLORIDE LEVEL 103 MMOL/L (98-107); CREATININE FOR GFR 1.21 MG/DL (0.55-1.30); GLOMERULAR FILTRATION RATE 58.8 (>60); POTASSIUM SERUM 4.2 MMOL/L (3.5-5.1); SODIUM LEVEL 140 MMOL/L (136-145)
[2025-05-20] MEDS: KETOROLAC 60 MG/2 ML VIAL IM ONE (14:29)
[2025-05-20] MEDS ORDERED: ISOVUE-370 76% 100 ML VIAL As Ordered ONE (14:59)
== END 2025-05-20 17:02 | disposition home or self-care (01) ==
LOC: M ED 12:49 → EDBD 12:49 → M ED 17:02
DX: N83.292 Other ovarian cyst, left side (principal); R10.9 Unspecified abdominal pain; E61.1 Iron deficiency; N28.9 Disorder of kidney and ureter, unspecified; R79.89 Other specified abnormal findings of blood chemistry; E89.2 Postprocedural hypoparathyroidism; Z79.899 Other long term (current) drug therapy
CPT/HCPCS: 36415; 74177; 80048; 80053; 80069; 80076; 81001; 83550; 83690; 84703; 85025; 87086; 96372; 99284; J1885; Q9967

== ENCOUNTER → 2025-05-20 | Outpatient (CLI) | payer OTHER ==
[2025-05-20 18:56] LABS: ALT/SGPT 23.0 U/L (7.0-40); AST/SGOT 16.0 U/L (<34); CALCIUM LEVEL 6.7 MG/DL (8.5-10.1); CARBON DIOXIDE LEVEL 22.0 MMOL/L (20-31); CHLORIDE LEVEL 106.0 MMOL/L (98-107); CREATININE FOR GFR 1.17 MG/DL (0.55-1.30); GLOMERULAR FILTRATION RATE 61.3 (>60); IRON (FE) 17.0 UG/DL (50-170); PERCENT SATURATION 4.7 % (13.2-45.0); POTASSIUM SERUM 4.2 MMOL/L (3.5-5.1); SODIUM LEVEL 141.0 MMOL/L (136-145)
== END ==
LOC: M LAB 17:08
PROVIDERS: ATTEND Family Medicine Addiction Medicine
DX: E61.1 Iron deficiency (principal); N28.9 Disorder of kidney and ureter, unspecified; R79.89 Other specified abnormal findings of blood chemistry

== ENCOUNTER → 2025-05-20 | Outpatient (CLI) | payer OTHER ==
[2025-05-20 18:45] LABS: CALCIUM LEVEL 6.8 MG/DL (8.5-10.1); CARBON DIOXIDE LEVEL 23.0 MMOL/L (20-31); CHLORIDE LEVEL 103.0 MMOL/L (98-107); CREATININE FOR GFR 1.17 MG/DL (0.55-1.30); GLOMERULAR FILTRATION RATE 61.3 (>60); PHOSPHORUS LEVEL 4.7 MG/DL (2.5-4.9); POTASSIUM SERUM 4.1 MMOL/L (3.5-5.1); SODIUM LEVEL 139.0 MMOL/L (136-145)
== END ==
LOC: M LAB 17:14
PROVIDERS: ATTEND Internal Medicine Endocrinology, Diabetes & Metabolism
DX: E89.2 Postprocedural hypoparathyroidism (principal)